=== PATIENT | female | born 1985 | race Caucasian/White ===

== ENCOUNTER 2019-07-26 13:18 | Emergency (ER) | payer SELFPAY ==
[2019-07-26 13:23] VITALS: BP 130/106; PULSE 115; RESP 20; TEMP 36.4; O2SAT 96; BMI 23.4
[2019-07-26 15:12] LABS: Basophils % 0.1 %; Eosinophils % 0.2 %; Hematocrit 47.3 % (37.0-47.0); Hemoglobin 16.7 g/dL (11.5-15.3); Lymphocytes # 3.1 10^3/uL (0.8-4.8); Lymphocytes % 21.9 %; Mean Corpuscular HGB Conc 35.3 g/dL (30.0-36.0); Mean Corpuscular Hemoglobin 30.5 pg (28.0-34.0); Mean Corpuscular Volume 86.5 fL (81-99); Mean Platelet Volume 12.6 fL (7.4-10.4); Monocytes # 1.2 10^3/uL (0.2-0.9); Monocytes % 8.7 %; Neutrophils # 9.7 10^3/uL (1.8-7.7); Neutrophils % 68.6 %; Nucleated Red Blood Cells % 0 %; Platelet Count 302 10^3/cmm (130-400); Red Blood Count 5.47 10^6/uL (4.1-5.3); Red Cell Distribution Width 11.9 % (12.1-15.1); White Blood Count 14.2 10^3/uL (4.0-10.0)
[2019-07-26 15:59] LABS: Alanine Aminotransferase 14 U/L (0-33); Albumin Level 5.6 g/dL (3.5-5.2); Alkaline Phosphatase 65 IU/L (35-105); Anion Gap 24.9 (5-19); Aspartate Amino Transferase 18 U/L (0-32); Blood Urea Nitrogen 14 mg/dL (6-20); Calcium 10.8 mg/Dl (8.6-10.0); Carbon Dioxide 18 mmol/L (22-29); Chloride 88 mmol/L (98-107); Globulin 2.2 g/dL (1.3-4.6); Glomerular Filtration Rate 81.2 mL/min (90-130); Glucose 114 mg/dL (74-109); Lipase 26 U/L (13-60); Potassium 2.9 mmol/L (3.5-5.1); Sodium 128 mmol/L (136-145); Total Bilirubin 1.2 mg/dL (0.15-1.2); Total Protein 7.8 g/dL (6.6-8.7)
[2019-07-26 16:39] LABS: INR 1.11 (0.8-1.2)
[2019-07-26 16:40] LABS: Partial Thromboplastin Time 29.2 SECONDS (23.9-36.7)
[2019-07-26 19:03] VITALS: BP 126/96; PULSE 111; RESP 18; O2SAT 98
--- NOTE | 2019-07-26 19:07 | ED_ITS ---
Entered by Jaquelin Amaro, acting as scribe for Jul 26, 2019 13:18 HPI - GI Bleed General: Chief complaint: Nausea/Vomiting/Diarrhea Stated complaint: n/v/d,abd pain Time Seen by Provider: 07/26/19 19:00 Source: patient Mode of arrival: ambulatory History of Present Illness: HPI Narrative: 34 yo female presents with abdomen pain and constipation. pt states this started today. pt has had nausea and vomiting. pt states she has a CT scan and it was negative. pt has a history of nausea and vomiting. pt denies GI bleed or any other symptoms at this time. Onset (ago): day(s) (today) Pain Consistency: constant Severity: moderate Relieving factors: vomiting Exacerbating factors: vomiting Associated symptoms: Reports abdominal pain; Denies chills, easy bruising, fever(s), headache(s) or rash Review of Systems General: Reports: 10 or more systems reviewed and unremarkable except in HPI and below (constipation) Const: Denies: fever or chills Eyes: Denies: change in vision ENMT: Denies: throat pain or mouth pain Card: Denies: chest pain Resp: Denies: shortness of breath GI: Reports: abdominal pain : Denies: difficulty urinating Musc: Denies: back pain or joint pain Skin/Breast: Denies: rash Neuro: Denies: headache or behavioral changes Psych: Denies: depression Endo: Denies: excessive urination Klaus/Lymph: Denies: easy bruising All/Imm: Denies: hives PFSH ED PFSH: Statuses (acute, chronic, etc) shown below reflect problem list status as previously entered and may not be historically accurate Social History Smoking and tobacco status: former smoker Alcohol intake: never Physical Exam Const: COMMON NORMALS: no apparent distress and healthy appearing HENMT: COMMON NORMALS: normocephalic and external nose normal HEAD & SCALP: normocephalic NOSE: external nose normal and no nasal discharge (nasal dischage) Eye: COMMON NORMALS: PERRL PUPIL: Yes PERRL Neck/C-Spine: COMMON NORMALS: full ROM and no lymphadenopathy Chest: COMMONS NORMALS: inspection of chest normal Resp: COMMON NORMALS: normal respiratory effort and clear to auscultation bilaterally AUSCULTATION: clear to auscultation bilaterally Cardio: COMMON NORMALS: regular rate and regular rhythm RATE: regular rate RHYTHM: regular rhythm GI: COMMON NORMALS: soft to palpation PALPATION: Yes soft Extremity: COMMON NORMALS: normal to inspection, full ROM and normal capillary refill Psych: COMMON NORMALS: mental status grossly normal and cooperative Skin: COMMON NORMALS: no rashes or lesions noted GENERAL SKIN EXAM: no rashes or lesions noted Course Vital Signs: Vital signs: Vital Signs Temperature 98.1 F 07/26/19 20:58 Pulse Rate 95 07/26/19 20:58 Respiratory Rate 18 07/26/19 20:58 Blood Pressure 144/99 07/26/19 20:58 Pulse Oximetry 98 07/26/19 20:58 MDM - GI Bleed MDM Narrative: Medical decision making narrative: Patient presents here with abdominal pain along with vomiting that is likely viral in origin. Patient is well-appearing here and feels much improved after Reglan. Abdominal exam is benign and lab work is normal. She had a CT scan a week ago. She has no signs of acute surgical cause. Lab Data: Labs: Lab Results 07/26/19 07/26/19 07/26/19 Range/Units 14:55 14:55 14:55 WBC 14.2 H (4.0-10.0) 10^3/ uL RBC 5.47 H (4.1-5.3) 10^6/u L Hgb 16.7 H (11.5-15.3) g/dL Hct 47.3 H (37.0-47.0) % MCV 86.5 (81-99) fL MCH 30.5 (28.0-34.0) pg MCHC 35.3 (30.0-36.0) g/dL RDW 11.9 L (12.1-15.1) % Plt Count 302 (130-400) 10^3/c mm MPV 12.6 H (7.4-10.4) fL Neut % (Auto) 68.6 % Lymph % (Auto) 21.9 % [place] % (Auto) 8.7 % Eos % (Auto) 0.2 % Baso % (Auto) 0.1 % Neut # (Auto) 9.7 H (1.8-7.7) 10^3/u L Lymph # (Auto) 3.1 (0.8-4.8) 10^3/u L [place] # (Auto) 1.2 H (0.2-0.9) 10^3/u L Eos # (Auto) 0.0 (0.0-0.8) 10^3/u L Baso # (Auto) 0.0 (0.0-0.1) 10^3/u L Nucleated RBC % (a uto) 0 % Nucleated RBCs # 0.0 /100WBC PT 14.70 H (10.5-13.3) SECO NDS INR 1.11 (0.8-1.2) APTT 29.2 (23.9-36.7) SECO NDS Sodium 128 L (136-145) mmol/L Potassium 2.9 L (3.5-5.1) mmol/L Chloride 88 L (98-107) mmol/L Carbon Dioxide 18 L (22-29) mmol/L Anion Gap 24.9 H (5-19) BUN 14 (6-20) mg/dL Creatinine 0.8 (0.5-0.9) mg/dL GFR Calculation 81.2 L (90-130) mL/min Glucose 114 H (74-109) mg/dL Calcium 10.8 H (8.6-10.0) mg/Dl Total Bilirubin 1.2 (0.15-1.2) mg/dL AST 18 (0-32) U/L ALT 14 (0-33) U/L Alkaline Phosphata se 65 (35-105) IU/L Total Protein 7.8 (6.6-8.7) g/dL Albumin 5.6 H (3.5-5.2) g/dL Globulin 2.2 (1.3-4.6) g/dL Lipase 26 (13-60) U/L Discharge Plan Discharge Patient Disposition: Home, Self-Care Clinical Impression: Vomiting Qualifiers: Vomiting type: unspecified Vomiting Intractability: non-intractable Nausea presence: with nausea Qualified Code(s): R11.2 - Nausea with vomiting, unspecified Abdominal pain Qualifiers: Abdominal location: generalized Qualified Code(s): R10.84 - Generalized abdominal pain Condition: Stable Prescriptions: New Reglan 10 mg tablet 10 mg PO Q6H PRN (Reason: nausea and vomiting) Qty: 20 RF: 0 Discharge Orders: Discharge Order (Routine); Ordered 07/26/19 Ordered By: Joann Blood Referrals: Angela Jurado MD [Family Provider] - (in 3-5 days) Peyton Leal MD [Primary Care Provider] - Discharge Diet: Advance as tolerated Discharge Activity: Resume usual activity Patient Instructions: Metoclopramide (By mouth), Abdominal Pain (ED), Vomiting - Adult Discharge Date/Time: 07/26/19 20:59 Coding Level of Care Code ED Obiee Report Developer for Chg Fwd The documentation recorded by the Prem chaparro Bridget Annette, accurately reflects the service I personally performed and the decisions made by Caitie heath Korby, MD Jul 26, 2019 13:18
[2019-07-26] MEDS: sodium chloride 0.9% 1,000 ML 999 ML IV (20:00)
[2019-07-26] MEDS: metoclopramide 5 mg/mL SDV 2 mL 10 MG IV (20:00)
[2019-07-26] MEDS: diphenhydrAMINE 50 mg/mL SDV 1mL IVP (20:00)
[2019-07-26 20:23] VITALS: BP 151/106; PULSE 101; RESP 16; O2SAT 98
--- NOTE | 2019-07-26 20:38 | PC.NURSE ---
nurse advised patient of urine sample needed. patient is not able to to urinate at this time. ed physician notified,
[2019-07-26 20:58] VITALS: BP 144/99; PULSE 95; RESP 18; TEMP 36.7; O2SAT 98
== END 2019-07-26 20:59 | disposition home or self-care (01) ==
PROVIDERS: Family Medicine; Physician Assistant; Emergency Provider Emergency Medicine; Family Provider Family Medicine; PCP Family Medicine
DX: R11.2 Nausea with vomiting, unspecified (principal); R10.84 Generalized abdominal pain; Z87.891 Personal history of nicotine dependence
CPT/HCPCS: 36415; 80053; 81003; 83690; 85025; 85610; 85730; 96360; 96374; 99282; J1200; J2765; J7030

== ENCOUNTER 2019-11-19 18:50 | Emergency (ER) | payer SELFPAY ==
[2019-11-19 18:56] VITALS: BP 118/81; PULSE 68; RESP 16; TEMP 36.6; O2SAT 96; BMI 25.0
[2019-11-19 19:06] VITALS: BP 107/70; PULSE 59; RESP 20; O2SAT 97
--- NOTE | 2019-11-19 19:06 | XR_ITS ---
WS: [id number] ABDOMEN 1 VIEW(S) HISTORY: constipation COMPARISON: None available. Normal bowel gas pattern. Prior cholecystectomy. No suspicious calcifications or masses. No bone abnormality. XR/XR KUB portable [id number] IMPRESSION: Prior cholecystectomy. Otherwise negative.
--- NOTE | 2019-11-19 19:08 | PC.NURSE ---
MD at bedside for evaluation
--- NOTE | 2019-11-19 19:14 | W.ED.NAVMDI ---
HPI - Nausea/Vomiting/Diarrhea General: Chief complaint: Nausea/Vomiting/Diarrhea Stated complaint: n/v/d Time Seen by Provider: 11/19/19 18:57 History of Present Illness: HPI Narrative: Patient complains of constipation. Took a laxative she has had some diarrhea now now she has hemorrhoids. Is worried that she might not be moving her stool very well. Denies abdominal pain has been nauseated not really vomited. History of constipation MD elicited complaint: nausea and other (The patient) Onset (ago): day(s) Associated nausea: Yes Associated symtoms: Reports no associated symptoms and nausea; Denies anxiety, change in vision, chest pain or headache(s) Review of Systems Const: Denies: fever, chills or body aches Eyes: Denies: change in vision or blurry vision ENMT: Denies: throat pain or nasal congestion Card: Denies: chest pain or shortness of breath on exertion Resp: Denies: shortness of breath, productive cough or non-productive cough GI: Reports: nausea, vomiting and other (Constipation); Denies: abdominal pain Musc: Denies: extremity pain Skin/Breast: Denies: rash Neuro: Denies: headache Psych: Denies: anxiety or depression Klaus/Lymph: Denies: easy bruising PFSH ED PFSH: Social History Smoking and tobacco status: current every day smoker Alcohol intake: never Physical Exam Const: COMMON NORMALS: no apparent distress, average body habitus and oriented x3 HENMT: COMMON NORMALS: normocephalic HEAD & SCALP: normal to inspection and normocephalic FACE & SINUS: normal facial exam Eye: COMMON NORMALS: conjunctivae normal GENERAL EYE: normal appearance of both eyes CONJUNCTIVA: Yes conjunctivae normal Neck/C-Spine: COMMON NORMALS: no JVD Chest: COMMONS NORMALS: inspection of chest normal Resp: COMMON NORMALS: normal respiratory effort and clear to auscultation bilaterally AUSCULTATION: clear to auscultation bilaterally Cardio: COMMON NORMALS: no JVD, regular rate and regular rhythm RATE: regular rate RHYTHM: regular rhythm GI: COMMON NORMALS: normal to inspection, nondistended, normoactive bowel sounds Extremity: COMMON NORMALS: normal to inspection and full ROM Neuro: COMMON NORMALS: oriented x3 Course Vital Signs: Vital signs: Vital Signs Temperature 97.8 F 11/19/19 18:56 Pulse Rate 59 L 11/19/19 19:06 Respiratory Rate 20 H 11/19/19 19:06 Blood Pressure 107/70 11/19/19 19:06 Pulse Oximetry 97 11/19/19 19:06 MDM - Nausea/Vomiting/Diarrhea MDM Narrative: Medical decision making narrative: Patient has a history of repeated admissions to the ER for nausea and vomiting diarrhea. Patient is a daily pot smoker patient refuses believe that pot could have anything to do with her repeated episodes of vomiting. Lab Data: Labs: Lab Results 11/19/19 11/19/19 Range/Units 20:10 20:10 WBC 16.3 H (4.0-10.0) 10^3/ uL RBC 4.88 (4.1-5.3) 10^6/u L Hgb 15.1 (11.5-15.3) g/dL Hct 45.1 (37.0-47.0) % MCV 92.4 (81-99) fL MCH 30.9 (28.0-34.0) pg MCHC 33.5 (30.0-36.0) g/dL RDW 12.1 (12.1-15.1) % Plt Count 264 (130-400) 10^3/c mm MPV 12.0 H (7.4-10.4) fL Neut % (Auto) 74.3 % Lymph % (Auto) 19.8 % [place] % (Auto) 4.7 % Eos % (Auto) 0.6 % Baso % (Auto) 0.2 % Neut # (Auto) 12.1 H (1.8-7.7) 10^3/u L Lymph # (Auto) 3.2 (0.8-4.8) 10^3/u L [place] # (Auto) 0.8 (0.2-0.9) 10^3/u L Eos # (Auto) 0.1 (0.0-0.8) 10^3/u L Baso # (Auto) 0.0 (0.0-0.1) 10^3/u L Nucleated RBC % (a uto) 0 % Nucleated RBCs # 0.0 /100WBC Sodium 140 (136-145) mmol/L Potassium 3.5 (3.5-5.1) mmol/L Chloride 105 (98-107) mmol/L Carbon Dioxide 18 L (22-29) mmol/L Anion Gap 20.5 H (5-19) BUN 9 (6-20) mg/dL Creatinine 0.8 (0.5-0.9) mg/dL GFR Calculation 81.2 L (90-130) mL/min Glucose 135 H (65-115) mg/dL Calculated Osmolal ity 288 (285-295) mOsm/k g Calcium 10.6 H (8.5-10.5) mg/dL Total Bilirubin 0.4 (0.15-1.2) mg/dL AST 18 (0-32) U/L ALT 12 (0-33) U/L Alkaline Phosphata se 69 (35-105) IU/L Total Protein 8.1 (6.6-8.7) g/dL Albumin 4.8 (3.5-5.2) g/dL Globulin 3.3 (1.3-4.6) g/dL Lipase 60 (13-60) U/L Imaging Data^: kub: My impression: negative Discharge Plan Discharge Patient Disposition: Home, Self-Care Clinical Impression: Nausea, Cyclic vomiting syndrome, Marijuana abuse, continuous Hemorrhoids Qualifiers: Hemorrhoid type: first degree Qualified Code(s): K64.0 - First degree hemorrhoids Condition: Stable Prescriptions: New Reglan 5 mg tablet 5 mg PO Q6H PRN (Reason: nausea and vomiting) Qty: 10 RF: 0 No Action Laxative Pills 25 mg Tablet 25 mg PO DAILY RF: 0 Discharge Orders: Discharge Order (Routine); Ordered 11/19/19 Ordered By: González Faustin Referrals: Angela Jurado MD [Family Provider] - Discharge Diet: Advance as tolerated Discharge Activity: Increase activity as tolerated Patient Instructions: Marijuana Abuse, Constipation (ED), Dehydration (ED) Activity Restrictions/Additional Instructions: Follow-up with medical provider as directed. Take medications as prescribed. Return to the ER or your medical provider if condition worsens. Please read and understand discharge instructions. If any questions ask please. Drink plenty of fluids if no significant provement noted follow-up your family provider. 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
[2019-11-19] MEDS: ondansetron 2 mg/ML SDV 2 mL 4 MG IM (19:47)
[2019-11-19 20:27] LABS: Basophils % 0.2 %; Eosinophils # 0.1 10^3/uL (0.0-0.8); Eosinophils % 0.6 %; Hematocrit 45.1 % (37.0-47.0); Hemoglobin 15.1 g/dL (11.5-15.3); Lymphocytes # 3.2 10^3/uL (0.8-4.8); Lymphocytes % 19.8 %; Mean Corpuscular HGB Conc 33.5 g/dL (30.0-36.0); Mean Corpuscular Hemoglobin 30.9 pg (28.0-34.0); Mean Corpuscular Volume 92.4 fL (81-99); Monocytes # 0.8 10^3/uL (0.2-0.9); Monocytes % 4.7 %; Neutrophils # 12.1 10^3/uL (1.8-7.7); Neutrophils % 74.3 %; Nucleated Red Blood Cells % 0 %; Platelet Count 264 10^3/cmm (130-400); Red Blood Count 4.88 10^6/uL (4.1-5.3); Red Cell Distribution Width 12.1 % (12.1-15.1); White Blood Count 16.3 10^3/uL (4.0-10.0)
[2019-11-19] MEDS: metoclopramide 10 mg Tablet 5 MG PO (20:43)
[2019-11-19 20:54] LABS: Alanine Aminotransferase 12 U/L (0-33); Albumin Level 4.8 g/dL (3.5-5.2); Alkaline Phosphatase 69 IU/L (35-105); Anion Gap 20.5 (5-19); Aspartate Amino Transferase 18 U/L (0-32); Blood Urea Nitrogen 9 mg/dL (6-20); Calcium 10.6 mg/dL (8.5-10.5); Carbon Dioxide 18 mmol/L (22-29); Chloride 105 mmol/L (98-107); Globulin 3.3 g/dL (1.3-4.6); Glomerular Filtration Rate 81.2 mL/min (90-130); Glucose 135 mg/dL (65-115); Lipase 60 U/L (13-60); Osmolality Calculated 288 mOsm/kg (285-295); Potassium 3.5 mmol/L (3.5-5.1); Sodium 140 mmol/L (136-145); Total Bilirubin 0.4 mg/dL (0.15-1.2); Total Protein 8.1 g/dL (6.6-8.7)
[2019-11-19 21:21] VITALS: BP 112/76; PULSE 88; RESP 19; O2SAT 96
== END 2019-11-19 21:25 | disposition home or self-care (01) ==
PROVIDERS: Emergency Provider Nurse Practitioner Family; Family Provider Family Medicine
DX: K64.0 First degree hemorrhoids (principal); R11.15 Cyclical vomiting syndrome unrelated to migraine; F12.10 Cannabis abuse, uncomplicated; F17.210 Nicotine dependence, cigarettes, uncomplicated
CPT/HCPCS: 12345; 74018; 80053; 83690; 85025; 96372; 99281; 99283; J2405; J8597

== ENCOUNTER 2019-11-21 04:01 | Emergency (ER) | payer MEDICAID, SELFPAY ==
[2019-11-21 04:08] VITALS: BP 178/98; PULSE 85; RESP 18; TEMP 37.2; O2SAT 97; BMI 24.4
[2019-11-21 04:31] VITALS: RESP 20; O2SAT 100
[2019-11-21] MEDS: ondansetron 2 mg/ML SDV 2 mL 4 MG IVP (04:31)
[2019-11-21] MEDS: HYDROmorphone 1 mg/mL INJ 1 mL IVP (04:31)
[2019-11-21] MEDS: sodium chloride 0.9% 1,000 ML 999 ML IV (04:32)
[2019-11-21 04:37] VITALS: BP 141/98; PULSE 82; RESP 18; O2SAT 98
[2019-11-21 04:40] LABS: Basophils % 0.1 %; Hematocrit 44.3 % (37.0-47.0); Hemoglobin 15.2 g/dL (11.5-15.3); Lymphocytes # 4.5 10^3/uL (0.8-4.8); Lymphocytes % 21.4 %; Mean Corpuscular HGB Conc 34.3 g/dL (30.0-36.0); Mean Corpuscular Hemoglobin 30.5 pg (28.0-34.0); Mean Platelet Volume 11.7 fL (7.4-10.4); Monocytes # 1.2 10^3/uL (0.2-0.9); Monocytes % 5.8 %; Neutrophils # 15.2 10^3/uL (1.8-7.7); Neutrophils % 72.3 %; Nucleated Red Blood Cells % 0 %; Platelet Count 374 10^3/cmm (130-400); Red Blood Count 4.98 10^6/uL (4.1-5.3); Red Cell Distribution Width 12.3 % (12.1-15.1); White Blood Count 21.1 10^3/uL (4.0-10.0)
[2019-11-21] MEDS: pantoprazole 40 mg SDV 80 MG IVP (04:42)
[2019-11-21 04:50] LABS: HCG, Serum Qual Negative (Negative)
--- NOTE | 2019-11-21 04:54 | ECG_ITS ---
Measurements Intervals [place] Rate: 61 P: 60 [place]: 138 QRS: 60 QRSD: 81 T: 65 QT: 394 QTc: 399 SINUS RHYTHM WITH FREQUENT SUPRAVENTRICULAR PREMATURE COMPLEXES Compared to ECG 02/11/2019 10:57:55 T-wave abnormality no longer present Possible ischemia no longer present Electronically Signed On 11-21-2019 19:55:04 CDT by Rita Otero M.D. [email or web address]
--- NOTE | 2019-11-21 04:56 | ED_ITS ---
Documented by User: Luo Lane 11/21/19 04:59 HPI - Abdominal Pain General: Chief Complaint: Abdominal Pain Stated Complaint: abd pain Time Seen by Provider: 11/21/19 04:07 History of Present Illness: HPI narrative: Anne-Marie is a 34-year-old female who comes in complaining of severe nausea and vomiting. She states that she began yesterday and has not been able to keep anything down. She is had one episode of diarrhea but states that mostly it severe nausea and vomiting. She states that she also has some blood in her vomit. The emesis she states is just slightly blood-tinged. She denies any fevers or chills. She denies any dysuria, vaginal discharge or bleeding. Associated Symptoms: Reports hematemesis, nausea and vomiting; Denies chills, coffee ground emesis, constipation, GI cramping, diarrhea, dysuria, fever(s), hematochezia, hematuria, melena and syncope Review of Systems General: Reports: other (negative unless marked) Const: Denies: fever, chills, body aches, fatigue, malaise or diaphoresis Eyes: Denies: change in vision or blurry vision ENMT: Denies: throat pain, painful swallowing, hoarseness, ear pain, ear discharge, Change in hearing or nasal discharge Card: Denies: chest pain, palpitations, irregular heart rhythm, syncope, pre- syncope, shortness of breath on exertion or shortness of breath when lying down Resp: Denies: shortness of breath, productive cough, non-productive cough, wheezing, coughing up blood or chest congestion GI: Reports: abdominal pain, nausea, vomiting and vomiting blood; Denies: coffee grounds in vomit, diarrhea, constipation, cramping, blood in stool or black tarry stool : Denies: flank pain, painful urination, urinary frequency, urinary urgency, decreased urine ouput, urinary incontinence or blood in urine Musc: Denies: neck pain, back pain, extremity pain, extremity swelling, joint pain, joint swelling, joint warmth or joint stiffness Skin/Breast: Denies: rash, skin tenderness or yellow skin Neuro: Denies: headache, numbness in extremities, weakness in extremities, changes in sensation, lack of coordination, difficulty walking, dizziness, vertigo or confusion Endo: Denies: excessive thirst, tired all the time, cold intolerance, excessive sweating, flushing or hot flashes Klaus/Lymph: Denies: easy bruising, easy bleeding, petechiae or enlarged lymph nodes All/Imm: Denies: hives, throat swelling, tongue swelling, facial swelling or acute wheezing PFSH ED PFSH: Social History (Updated 11/22/19 @ 01:55 by Brandon Carbajal MD) Smoking and tobacco status: former smoker Alcohol intake: never Substance/Drug Use: current Substance/Drug use type: Marijuana Other substance/drug use details: Uses marijuana on a weekly basis Housing: House Physical Exam Const: COMMON NORMALS: oriented x3, no limitations, healthy appearing and well nourished EXAM LIMITATIONS: no altered mental status GENERAL APPEARANCE: cooperative, well kempt and well developed ORIENTATION/CONSCIOUSNESS: Yes awake HENMT: COMMON NORMALS: normocephalic, head/scalp atraumatic, hearing grossly normal bilaterally, external ears normal, EAC's normal, external nose normal and moist oral mucous membranes HEAD & SCALP: normal to inspection, normocephalic and atraumatic FACE & SINUS: normal facial exam and face symmetric NOSE: external nose normal and nares normal EXTERNAL EAR: Yes external ears normal EXTERNAL AUDITORY CANAL: EAC's normal MOUTH: oral and palatal mucosa normal and tongue normal Eye: COMMON NORMALS: PERRL, EOMs intact bilaterally, conjunctivae normal and no scleral icterus GENERAL EYE: normal appearance of both eyes and normal light reflex CONJUNCTIVA: Yes conjunctivae normal SCLERA: sclerae normal CORNEA: Yes corneas normal PUPIL: Yes PERRL DIRECT OPHTHALMOSCOPY: Yes normal light reflex Neck/C-Spine: COMMON NORMALS: full ROM, no lymphadenopathy, supple, no meningeal signs and no JVD GENERAL: Yes normal visual inspection and Yes trachea midline CERVICAL SPINE: Yes cervical ROM normal Chest: COMMONS NORMALS: inspection of chest normal and palpation of chest normal Resp: COMMON NORMALS: normal respiratory effort, no retractions, no use of accessory muscles and clear to auscultation bilaterally EFFORT & INSPECTION: Yes able to speak in complete sentences AUSCULTATION: clear to auscultation bilaterally Cardio: COMMON NORMALS: no JVD, regular rate, regular rhythm, S1 normal heart sound, S2 normal heart sound, no gallops, no clicks, no murmurs and no rub JUGULAR VENOUS DISTENTION: no JVD RATE: regular rate RHYTHM: regular rhythm HEART SOUNDS: S1 normal and S2 normal GI: COMMON NORMALS: soft to palpation, no hepatosplenomegaly and no masses PALPATION: Yes soft, Yes tender (Moderate diffusely) and Yes no hepatosplenomegaly : COMMON NORMALS: Yes no CVA tenderness BLADDER/KIDNEY EXAM: Yes no CVA tenderness Back/Pelvis: COMMON NORMALS: no CVA tenderness, thoracic and lumbar spine normal to inspection, no thoracic nor lumbar tenderness and thoraco-lumbar ROM normal Extremity: COMMON NORMALS: normal to inspection, full ROM, normal capillary refill, no joint enlargement, no clubbing, cyanosis or edema and no calf tenderness Neuro: COMMON NORMALS: oriented x3, CN's II-XII intact bilaterally, moves all extremities, no focal motor deficits and no sensory deficits noted MENINGEAL SIGNS: Yes no meningeal signs Psych: COMMON NORMALS: mental status grossly normal, thought process normal, cooperative, affect normal, speech normal and activity/motor behavior normal APPEARANCE: Yes well kempt SPEECH: Yes normal speech THOUGHT PROCESS: normal thought process Skin: COMMON NORMALS: no rashes or lesions noted, skin turgor normal, no jaundice, no petechiae and no mottling GENERAL SKIN EXAM: no rashes or lesions noted and turgor normal Course Vital Signs: Vital signs: Vital Signs Temperature 98.9 F 11/21/19 04:08 Pulse Rate 53 L 11/21/19 09:18 Respiratory Rate 18 11/21/19 09:18 Blood Pressure 112/80 11/21/19 09:18 Pulse Oximetry 97 11/21/19 09:18 MDM - Abdominal Pain Lab Data: Labs: Lab Results 11/21/19 11/21/19 11/21/19 Range/Units 04:28 04:28 04:28 WBC 21.1 H (4.0-10.0) 10^3/ uL RBC 4.98 (4.1-5.3) 10^6/u L Hgb 15.2 (11.5-15.3) g/dL Hct 44.3 (37.0-47.0) % MCV 89.0 (81-99) fL MCH 30.5 (28.0-34.0) pg MCHC 34.3 (30.0-36.0) g/dL RDW 12.3 (12.1-15.1) % Plt Count 374 (130-400) 10^3/c mm MPV 11.7 H (7.4-10.4) fL Neut % (Auto) 72.3 % Lymph % (Auto) 21.4 % [place] % (Auto) 5.8 % Eos % (Auto) 0.0 % Baso % (Auto) 0.1 % Neut # (Auto) 15.2 H (1.8-7.7) 10^3/u L Lymph # (Auto) 4.5 (0.8-4.8) 10^3/u L [place] # (Auto) 1.2 H (0.2-0.9) 10^3/u L Eos # (Auto) 0.0 (0.0-0.8) 10^3/u L Baso # (Auto) 0.0 (0.0-0.1) 10^3/u L Nucleated RBC % (a uto) 0 % Nucleated RBCs # 0.0 /100WBC Sodium 138 (136-145) mmol/L Potassium 3.0 L (3.5-5.1) mmol/L Chloride 93 L (98-107) mmol/L Carbon Dioxide 21 L (22-29) mmol/L Anion Gap 27.0 H (5-19) BUN 16 (6-20) mg/dL Creatinine 1.2 H (0.5-0.9) mg/dL GFR Calculation 50.8 L (90-130) mL/min Glucose 211 H (65-115) mg/dL Calculated Osmolal ity 289 (285-295) mOsm/k g Calcium 10.8 H (8.5-10.5) mg/dL Magnesium (1.7-2.3) mg/dL Total Bilirubin 0.6 (0.15-1.2) mg/dL AST 17 (0-32) U/L ALT 12 (0-33) U/L Alkaline Phosphata se 71 (35-105) IU/L Total Protein 8.4 (6.6-8.7) g/dL Albumin 5.2 (3.5-5.2) g/dL Globulin 3.2 (1.3-4.6) g/dL Lipase 53 (13-60) U/L HCG, Qual Negative (Negative) Urine Color (Yellow) Urine Appearance (CLEAR) Urine pH (5-7) Ur Specific Gravit y (1.005-1.030) Urine Protein (Negative) Urine Glucose (UA) (Normal) Urine Ketones (Negative) Urine Blood (Negative) Urine Nitrate (Negative) Urine Bilirubin (NEGATIVE) Urine Urobilinogen (Negative) mg/dL Ur Leukocyte Zakiya ase (Negative) Urine RBC (0-2) /hpf Urine WBC (0-5) /hpf Ur Squamous Epith Cells (0-5) Urine Bacteria (NONE) Urine Mucus 11/21/19 11/21/19 Range/Units 04:28 06:06 WBC (4.0-10.0) 10^3/ uL RBC (4.1-5.3) 10^6/u L Hgb (11.5-15.3) g/dL Hct (37.0-47.0) % MCV (81-99) fL MCH (28.0-34.0) pg MCHC (30.0-36.0) g/dL RDW (12.1-15.1) % Plt Count (130-400) 10^3/c mm MPV (7.4-10.4) fL Neut % (Auto) % Lymph % (Auto) % [place] % (Auto) % Eos % (Auto) % Baso % (Auto) % Neut # (Auto) (1.8-7.7) 10^3/u L Lymph # (Auto) (0.8-4.8) 10^3/u L [place] # (Auto) (0.2-0.9) 10^3/u L Eos # (Auto) (0.0-0.8) 10^3/u L Baso # (Auto) (0.0-0.1) 10^3/u L Nucleated RBC % (a uto) % Nucleated RBCs # /100WBC Sodium (136-145) mmol/L Potassium (3.5-5.1) mmol/L Chloride (98-107) mmol/L Carbon Dioxide (22-29) mmol/L Anion Gap (5-19) BUN (6-20) mg/dL Creatinine (0.5-0.9) mg/dL GFR Calculation (90-130) mL/min Glucose (65-115) mg/dL Calculated Osmolal ity (285-295) mOsm/k g Calcium (8.5-10.5) mg/dL Magnesium 2.2 (1.7-2.3) mg/dL Total Bilirubin (0.15-1.2) mg/dL AST (0-32) U/L ALT (0-33) U/L Alkaline Phosphata se (35-105) IU/L Total Protein (6.6-8.7) g/dL Albumin (3.5-5.2) g/dL Globulin (1.3-4.6) g/dL Lipase (13-60) U/L HCG, Qual (Negative) Urine Color Yellow (Yellow) Urine Appearance Cloudy (CLEAR) Urine pH 5 (5-7) Ur Specific Gravit y 1.020 (1.005-1.030) Urine Protein 2+ H (Negative) Urine Glucose (UA) Norm (Normal) Urine Ketones 1+ H (Negative) Urine Blood 2+ H (Negative) Urine Nitrate Negative (Negative) Urine Bilirubin 1+ H (NEGATIVE) Urine Urobilinogen 1 H (Negative) mg/dL Ur Leukocyte Zakiya ase Negative (Negative) Urine RBC 0-4 H (0-2) /hpf Urine WBC 0-4 H (0-5) /hpf Ur Squamous Epith Cells 40-55 H (0-5) Urine Bacteria 1+ H (NONE) Urine Mucus 1+ Discharge Plan Discharge Patient Disposition: Home, Self-Care Clinical Impression: Cyclic vomiting syndrome, Marijuana abuse, continuous Condition: Stable Prescriptions: New promethazine 25 mg tablet 25 mg PO Q6H PRN (Reason: nausea and vomiting) Qty: 20 RF: 0 pantoprazole 40 mg tablet,delayed release (DR/EC) 40 mg PO QAM 56 Days Qty: 56 RF: 0 No Action Laxative Pills 25 mg Tablet 25 mg PO DAILY RF: 0 Reglan 5 mg tablet 5 mg PO Q6H PRN (Reason: nausea and vomiting) Qty: 10 RF: 0 Discharge Orders: Discharge Order (Routine); Ordered 11/21/19 Ordered By: Darryl Santos Referrals: Angela Jurado MD [Family Provider] - Discharge Diet: Advance as tolerated Discharge Activity: Increase activity as tolerated Activity Restrictions/Additional Instructions: Follow-up with your primary care doctor within the week. You should have your potassium rechecked. If of significant worsening recheck Discharge Date/Time: 11/21/19 10:25 Sign Out Sign Out Data: Patient Sign Out occurred on 11/21/19 at 07:00. Patient's care was discussed, and care was transferred from to Darryl Santos DO. Coding Level of Care Code ED Social Media Designer for Chg Fwd Exam Comprehensive Documented by User: Darryl Santos DO 11/22/19 06:14 HPI - Abdominal Pain General: Chief Complaint: Abdominal Pain Stated Complaint: abd pain Time Seen by Provider: 11/21/19 04:07 PFSH ED PFSH: Social History (Updated 11/22/19 @ 01:55 by Brandon Carbajal MD) Smoking and tobacco status: former smoker Alcohol intake: never Substance/Drug Use: current Substance/Drug use type: Marijuana Other substance/drug use details: Uses marijuana on a weekly basis Housing: House Course Vital Signs: Vital signs: Vital Signs Temperature 98.9 F 11/21/19 04:08 Pulse Rate 53 L 11/21/19 09:18 Respiratory Rate 18 11/21/19 09:18 Blood Pressure 112/80 11/21/19 09:18 Pulse Oximetry 97 11/21/19 09:18 MDM - Abdominal Pain MDM Narrative: Medical decision making narrative: Patient is feeling much better after fluids and antiemetics will discharge her home with promethazine also put her on pantoprazole 40 mg daily follow-up with primary care doctor within the week return to the emergency room if she has worsening problems she did have a little bit of streaking of blood in her vomitus has not recurred I suspect that is a Kayy-Leon tear if she has further bloody vomiting she needs to return. Lab Data: Labs: Lab Results 11/21/19 11/21/19 11/21/19 Range/Units 04:28 04:28 04:28 WBC 21.1 H (4.0-10.0) 10^3/ uL RBC 4.98 (4.1-5.3) 10^6/u L Hgb 15.2 (11.5-15.3) g/dL Hct 44.3 (37.0-47.0) % MCV 89.0 (81-99) fL MCH 30.5 (28.0-34.0) pg MCHC 34.3 (30.0-36.0) g/dL RDW 12.3 (12.1-15.1) % Plt Count 374 (130-400) 10^3/c mm MPV 11.7 H (7.4-10.4) fL Neut % (Auto) 72.3 % Lymph % (Auto) 21.4 % [place] % (Auto) 5.8 % Eos % (Auto) 0.0 % Baso % (Auto) 0.1 % Neut # (Auto) 15.2 H (1.8-7.7) 10^3/u L Lymph # (Auto) 4.5 (0.8-4.8) 10^3/u L [place] # (Auto) 1.2 H (0.2-0.9) 10^3/u L Eos # (Auto) 0.0 (0.0-0.8) 10^3/u L Baso # (Auto) 0.0 (0.0-0.1) 10^3/u L Nucleated RBC % (a uto) 0 % Nucleated RBCs # 0.0 /100WBC Sodium 138 (136-145) mmol/L Potassium 3.0 L (3.5-5.1) mmol/L Chloride 93 L (98-107) mmol/L Carbon Dioxide 21 L (22-29) mmol/L Anion Gap 27.0 H (5-19) BUN 16 (6-20) mg/dL Creatinine 1.2 H (0.5-0.9) mg/dL GFR Calculation 50.8 L (90-130) mL/min Glucose 211 H (65-115) mg/dL Calculated Osmolal ity 289 (285-295) mOsm/k g Calcium 10.8 H (8.5-10.5) mg/dL Magnesium (1.7-2.3) mg/dL Total Bilirubin 0.6 (0.15-1.2) mg/dL AST 17 (0-32) U/L ALT 12 (0-33) U/L Alkaline Phosphata se 71 (35-105) IU/L Total Protein 8.4 (6.6-8.7) g/dL Albumin 5.2 (3.5-5.2) g/dL Globulin 3.2 (1.3-4.6) g/dL Lipase 53 (13-60) U/L HCG, Qual Negative (Negative) Urine Color (Yellow) Urine Appearance (CLEAR) Urine pH (5-7) Ur Specific Gravit y (1.005-1.030) Urine Protein (Negative) Urine Glucose (UA) (Normal) Urine Ketones (Negative) Urine Blood (Negative) Urine Nitrate (Negative) Urine Bilirubin (NEGATIVE) Urine Urobilinogen (Negative) mg/dL Ur Leukocyte Zakiya ase (Negative) Urine RBC (0-2) /hpf Urine WBC (0-5) /hpf Ur Squamous Epith Cells (0-5) Urine Bacteria (NONE) Urine Mucus 11/21/19 11/21/19 Range/Units 04:28 06:06 WBC (4.0-10.0) 10^3/ uL RBC (4.1-5.3) 10^6/u L Hgb (11.5-15.3) g/dL Hct (37.0-47.0) % MCV (81-99) fL MCH (28.0-34.0) pg MCHC (30.0-36.0) g/dL RDW (12.1-15.1) % Plt Count (130-400) 10^3/c mm MPV (7.4-10.4) fL Neut % (Auto) % Lymph % (Auto) % [place] % (Auto) % Eos % (Auto) % Baso % (Auto) % Neut # (Auto) (1.8-7.7) 10^3/u L Lymph # (Auto) (0.8-4.8) 10^3/u L [place] # (Auto) (0.2-0.9) 10^3/u L Eos # (Auto) (0.0-0.8) 10^3/u L Baso # (Auto) (0.0-0.1) 10^3/u L Nucleated RBC % (a uto) % Nucleated RBCs # /100WBC Sodium (136-145) mmol/L Potassium (3.5-5.1) mmol/L Chloride (98-107) mmol/L Carbon Dioxide (22-29) mmol/L Anion Gap (5-19) BUN (6-20) mg/dL Creatinine (0.5-0.9) mg/dL GFR Calculation (90-130) mL/min Glucose (65-115) mg/dL Calculated Osmolal ity (285-295) mOsm/k g Calcium (8.5-10.5) mg/dL Magnesium 2.2 (1.7-2.3) mg/dL Total Bilirubin (0.15-1.2) mg/dL AST (0-32) U/L ALT (0-33) U/L Alkaline Phosphata se (35-105) IU/L Total Protein (6.6-8.7) g/dL Albumin (3.5-5.2) g/dL Globulin (1.3-4.6) g/dL Lipase (13-60) U/L HCG, Qual (Negative) Urine Color Yellow (Yellow) Urine Appearance Cloudy (CLEAR) Urine pH 5 (5-7) Ur Specific Gravit y 1.020 (1.005-1.030) Urine Protein 2+ H (Negative) Urine Glucose (UA) Norm (Normal) Urine Ketones 1+ H (Negative) Urine Blood 2+ H (Negative) Urine Nitrate Negative (Negative) Urine Bilirubin 1+ H (NEGATIVE) Urine Urobilinogen 1 H (Negative) mg/dL Ur Leukocyte Zakiya ase Negative (Negative) Urine RBC 0-4 H (0-2) /hpf Urine WBC 0-4 H (0-5) /hpf Ur Squamous Epith Cells 40-55 H (0-5) Urine Bacteria 1+ H (NONE) Urine Mucus 1+ Discharge Plan Discharge Patient Disposition: Home, Self-Care Clinical Impression: Cyclic vomiting syndrome, Marijuana abuse, continuous Condition: Stable Prescriptions: New promethazine 25 mg tablet 25 mg PO Q6H PRN (Reason: nausea and vomiting) Qty: 20 RF: 0 pantoprazole 40 mg tablet,delayed release (DR/EC) 40 mg PO QAM 56 Days Qty: 56 RF: 0 No Action Laxative Pills 25 mg Tablet 25 mg PO DAILY RF: 0 Reglan 5 mg tablet 5 mg PO Q6H PRN (Reason: nausea and vomiting) Qty: 10 RF: 0 Discharge Orders: Discharge Order (Routine); Ordered 11/21/19 Ordered By: Darryl Santos Referrals: Angela Jurado MD [Family Provider] - Discharge Diet: Advance as tolerated Discharge Activity: Increase activity as tolerated Activity Restrictions/Additional Instructions: Follow-up with your primary care doctor within the week. You should have your potassium rechecked. If of significant worsening recheck Discharge Date/Time: 11/21/19 10:25 Sign Out Sign Out Data: Patient Sign Out occurred on 11/21/19 at 07:00. Patient's care was discussed, and care was transferred from to Darryl Santos DO. Coding Level of Care Code ED Social Media Designer for Chg Fwd Exam Comprehensive
[2019-11-21 05:00] LABS: Bacteria Urine 1+; Bilirubin Urine 1+ (NEGATIVE); Blood Urine 2+ (Negative); Glucose Urine UA Norm (Normal); Ketones Urine 1+ (Negative); Leukocyte Esterase Urine Negative (Negative); Mucus Urine 1+; Nitrate Urine Negative (Negative); Protein Urine 2+ (Negative); RBC Urine 0-4 /hpf (0-2); Squamous Epithelial Cell Urine 40-55 (0-5); Urine Appearance Cloudy (CLEAR); Urine Color Yellow (Yellow); Urobilinogen Urine 1 mg/dL (Negative); WBC Urine 0-4 /hpf (0-5); pH Urine 5 (5-7)
[2019-11-21 05:01] LABS: Alanine Aminotransferase 12 U/L (0-33); Albumin Level 5.2 g/dL (3.5-5.2); Alkaline Phosphatase 71 IU/L (35-105); Aspartate Amino Transferase 17 U/L (0-32); Blood Urea Nitrogen 16 mg/dL (6-20); Calcium 10.8 mg/dL (8.5-10.5); Carbon Dioxide 21 mmol/L (22-29); Chloride 93 mmol/L (98-107); Globulin 3.2 g/dL (1.3-4.6); Glomerular Filtration Rate 50.8 mL/min (90-130); Glucose 211 mg/dL (65-115); Lipase 53 U/L (13-60); Osmolality Calculated 289 mOsm/kg (285-295); Sodium 138 mmol/L (136-145); Total Bilirubin 0.6 mg/dL (0.15-1.2); Total Protein 8.4 g/dL (6.6-8.7)
--- NOTE | 2019-11-21 05:03 | CTR_ITS ---
PROCEDURE INFORMATION: Exam: CT Abdomen And Pelvis With Contrast Exam date and time: 11/21/2019 6:09 AM Age: 34 years old Clinical indication: Abdominal pain; Prior surgery; Surgery type: Gb; Patient HX: Generalized abd pain with n/v TECHNIQUE: Imaging protocol: Computed tomography of the abdomen and pelvis with intravenous contrast. Radiation optimization: All CT scans at this facility use at least one of these dose optimization techniques: automated exposure control; mA and/or kV adjustment per patient size (includes targeted exams where dose is matched to clinical indication); or iterative reconstruction. Contrast material: VISI 320; Contrast volume: 75 ml; Contrast route: 20G RIGHT HAND; COMPARISON: CT abdomen pelvis w con* [id number] 11/21/2018 7:01 AM RADIATION DOSE METRICS: Total DLP: 538.91 mGy-cm FINDINGS: Liver: Normal. No mass. Gallbladder and bile ducts: Postoperative cholecystectomy. Pancreas: Normal. No ductal dilation. Spleen: Normal. No splenomegaly. Adrenals: Normal. No mass. Kidneys and ureters: Nonobstructive left renal calculus. No hydronephrosis. Stomach and bowel: Fluid-filled small bowel rather diffusely which may reflect ileus or enteritis. Appendix: No evidence of appendicitis. Intraperitoneal space: Unremarkable. No free air. No significant fluid collection. Vasculature: Unremarkable. No abdominal aortic aneurysm. Lymph nodes: Unremarkable. No enlarged lymph nodes. Bladder: Unremarkable as visualized. Reproductive: Unremarkable as visualized. Bones/joints: Unremarkable. No acute fracture. Soft tissues: Minor umbilical hernia containing fat. CT/CT abdomen pelvis w con* [id number] IMPRESSION: 1. Small bowel enteritis or ileus. 2. Nonobstructive left intrarenal calculus. Radiation Dose CTDIVOL = (mGy): DLP = 538.91 (mGy-cm)
[2019-11-21] MEDS: potassium chloride premix 40 MEQ/100 ML PREMIX 25 MEQ IV (06:04)
[2019-11-21] MEDS: sodium chloride 0.9% 1,000 ML 100 ML IV (06:04)
[2019-11-21 06:18] VITALS: RESP 20
[2019-11-21] MEDS: HYDROmorphone 1 mg/mL INJ 1 mL 0.5 MG IVP (06:18)
[2019-11-21] MEDS: iodixanol 320 mg/mL 100mL Btl IV (06:23)
[2019-11-21 06:24] LABS: Magnesium 2.2 mg/dL (1.7-2.3)
[2019-11-21 09:18] VITALS: BP 112/80; PULSE 53; RESP 18; O2SAT 97
== END 2019-11-21 10:25 | disposition home or self-care (01) ==
PROVIDERS: Emergency Medicine; Emergency Provider Family Medicine; Family Provider Family Medicine
DX: R11.15 Cyclical vomiting syndrome unrelated to migraine (principal); F12.10 Cannabis abuse, uncomplicated; Z87.891 Personal history of nicotine dependence
CPT/HCPCS: 12345; 36415; 74177; 80053; 81001; 83690; 83735; 84703; 85025; 93005; 96360; 96365; 96366; 96374; 96375; 96376; 99283; 99284; C9113; J1170; J2405; J3480; J7030; Q9967

== ENCOUNTER 2019-11-21 21:38 | Inpatient (IN) | payer SELFPAY ==
[2019-11-21 21:50] VITALS: BP 179/105; PULSE 66; RESP 17; TEMP 37.3; O2SAT 97; BMI 24.4
--- NOTE | 2019-11-21 22:23 | ECG_ITS ---
Measurements Intervals [place] Rate: 59 P: 75 VT: 157 QRS: 38 QRSD: 68 T: 26 QT: 402 QTc: 399 SINUS BRADYCARDIA Compared to ECG 11/21/2019 05:11:27 Sinus rhythm no longer present Electronically Signed On 11-23-2019 16:33:23 CDT by Rita Otero M.D. [email or web address]
--- NOTE | 2019-11-21 22:47 | ED_ITS ---
HPI - Abdominal Pain General: Chief Complaint: Abdominal Pain Stated Complaint: abd pain Time Seen by Provider: 11/21/19 22:17 History of Present Illness: HPI narrative: Renetta is a 34-year-old female who comes in complaining of intractable nausea vomiting and abdominal pain. Of note the patient was here less than 24 hours ago for the same complaint. I saw her and transferred her care to Dr. Santos. Patient states since going home she feels worse and continues to vomit although she is no longer vomiting blood. She is cramping diffuse abdominal pain but denies any fevers. She has had some diarrhea. Associated Symptoms: Reports diarrhea, nausea and vomiting; Denies chills, coffee ground emesis, constipation, GI cramping, dysuria, fever(s), hematochezia, hematuria, hematemesis, melena and syncope Review of Systems General: Reports: other (negative unless marked) Const: Denies: fever, chills, body aches, fatigue, malaise or diaphoresis Eyes: Denies: change in vision or blurry vision ENMT: Denies: throat pain, painful swallowing, hoarseness, ear pain, ear discharge, Change in hearing or nasal discharge Card: Denies: chest pain, palpitations, irregular heart rhythm, syncope, pre- syncope, shortness of breath on exertion or shortness of breath when lying down Resp: Denies: shortness of breath, productive cough, non-productive cough, wheezing, coughing up blood or chest congestion GI: Reports: abdominal pain, nausea, vomiting and diarrhea; Denies: vomiting blood, coffee grounds in vomit, constipation, cramping, blood in stool or black tarry stool : Denies: flank pain, painful urination, urinary frequency, urinary urgency, decreased urine ouput, urinary incontinence or blood in urine Musc: Denies: neck pain, back pain, extremity pain, extremity swelling, joint pain, joint swelling, joint warmth or joint stiffness Skin/Breast: Denies: rash, skin tenderness or yellow skin Neuro: Denies: headache, numbness in extremities, weakness in extremities, changes in sensation, lack of coordination, difficulty walking, dizziness, vertigo or confusion Endo: Denies: excessive thirst, tired all the time, cold intolerance, excessive sweating, flushing or hot flashes Klaus/Lymph: Denies: easy bruising, easy bleeding, petechiae or enlarged lymph nodes All/Imm: Denies: hives, throat swelling, tongue swelling, facial swelling or acute wheezing PFSH ED PFSH: Medical History (Updated 11/22/19 @ 01:[address]) Asthma Cyclic vomiting syndrome GERD (gastroesophageal reflux disease) Hemorrhoids Hypokalemia Marijuana abuse, continuous Ovarian cyst Surgical History (Updated 11/22/19 @ 01:02 by Brandon Carbajal MD) Hx of appendectomy Hx of cholecystectomy Family History (Updated 11/22/19 @ 01:02 by Brandon Carbajal MD) Other CAD (coronary artery disease) Cancer Social History (Updated 11/22/19 @ 01:02 by Brandon Carbajal MD) Smoking and tobacco status: current every day smoker Alcohol intake: never Substance/Drug Use: current Substance/Drug use type: Marijuana Housing: House Physical Exam Const: COMMON NORMALS: no apparent distress, oriented x3, no limitations, healthy appearing and well nourished EXAM LIMITATIONS: no altered mental status GENERAL APPEARANCE: cooperative, well kempt and well developed ORIENTATION/CONSCIOUSNESS: Yes awake HENMT: COMMON NORMALS: normocephalic, head/scalp atraumatic, hearing grossly normal bilaterally, external ears normal, EAC's normal, external nose normal and moist oral mucous membranes HEAD & SCALP: normal to inspection, normocephalic and atraumatic FACE & SINUS: normal facial exam and face symmetric NOSE: external nose normal and nares normal EXTERNAL EAR: Yes external ears normal EXTERNAL AUDITORY CANAL: EAC's normal MOUTH: oral and palatal mucosa normal and tongue normal Eye: COMMON NORMALS: PERRL, EOMs intact bilaterally, conjunctivae normal and no scleral icterus GENERAL EYE: normal appearance of both eyes and normal light reflex CONJUNCTIVA: Yes conjunctivae normal SCLERA: sclerae normal CORNEA: Yes corneas normal PUPIL: Yes PERRL DIRECT OPHTHALMOSCOPY: Yes normal light reflex Neck/C-Spine: COMMON NORMALS: full ROM, no lymphadenopathy, supple, no meningeal signs and no JVD GENERAL: Yes normal visual inspection and Yes trachea midline CERVICAL SPINE: Yes cervical ROM normal Chest: COMMONS NORMALS: inspection of chest normal and palpation of chest normal Resp: COMMON NORMALS: normal respiratory effort, no retractions, no use of accessory muscles and clear to auscultation bilaterally EFFORT & INSPECTION: Yes able to speak in complete sentences AUSCULTATION: clear to auscultation bilaterally Cardio: COMMON NORMALS: no JVD, regular rate, regular rhythm, S1 normal heart sound, S2 normal heart sound, no gallops, no clicks, no murmurs and no rub JUGULAR VENOUS DISTENTION: no JVD RATE: regular rate RHYTHM: regular rhythm HEART SOUNDS: S1 normal and S2 normal GI: COMMON NORMALS: soft to palpation, no hepatosplenomegaly and no masses PALPATION: Yes soft, Yes tender (Moderate diffusely), No guarding, No rigid and Yes no hepatosplenomegaly : COMMON NORMALS: Yes no CVA tenderness BLADDER/KIDNEY EXAM: Yes no CVA tenderness Back/Pelvis: COMMON NORMALS: no CVA tenderness, thoracic and lumbar spine normal to inspection, no thoracic nor lumbar tenderness and thoraco-lumbar ROM normal Extremity: COMMON NORMALS: normal to inspection, full ROM, normal capillary refill, no joint enlargement, no clubbing, cyanosis or edema and no calf tenderness Neuro: COMMON NORMALS: oriented x3, CN's II-XII intact bilaterally, moves all extremities, no focal motor deficits and no sensory deficits noted MENINGEAL SIGNS: Yes no meningeal signs Psych: COMMON NORMALS: mental status grossly normal, thought process normal, cooperative, affect normal, speech normal and activity/motor behavior normal APPEARANCE: Yes well kempt SPEECH: Yes normal speech THOUGHT PROCESS: normal thought process Skin: COMMON NORMALS: no rashes or lesions noted, skin turgor normal, no jaundice, no petechiae and no mottling GENERAL SKIN EXAM: no rashes or lesions noted and turgor normal Course Vital Signs: Vital signs: Vital Signs Temperature 99.1 F 11/21/19 21:50 Pulse Rate 53 L 11/22/19 01:30 Respiratory Rate 16 11/22/19 01:30 Blood Pressure 105/68 11/22/19 01:30 Pulse Oximetry 95 11/22/19 01:30 MDM - Abdominal Pain MDM Narrative: Medical decision making narrative: Renetta is a 34-year-old female who comes in with 48 hours of constant vomiting. Her hematemesis has resolved. CT scan from less than 24 hours ago showed small bowel enteritis or ileus. I have reviewed the case in full with Dr. Omalley and he agrees to admit to the hospital for further evaluation and care. Lab Data: Attestation: I reviewed the patient's lab results. Labs: Lab Results 11/21/19 11/21/19 11/21/19 Range/Units 22:56 22:56 22:56 WBC 15.7 H (4.0-10.0) 10^3/ uL RBC 4.53 (4.1-5.3) 10^6/u L Hgb 13.9 (11.5-15.3) g/dL Hct 40.9 (37.0-47.0) % MCV 90.3 (81-99) fL MCH 30.7 (28.0-34.0) pg MCHC 34.0 (30.0-36.0) g/dL RDW 12.4 (12.1-15.1) % Plt Count 292 (130-400) 10^3/c mm MPV 11.9 H (7.4-10.4) fL Neut % (Auto) 78.6 % Lymph % (Auto) 15.5 % [place] % (Auto) 5.3 % Eos % (Auto) 0.0 % Baso % (Auto) 0.1 % Neut # (Auto) 12.4 H (1.8-7.7) 10^3/u L Lymph # (Auto) 2.4 (0.8-4.8) 10^3/u L [place] # (Auto) 0.8 (0.2-0.9) 10^3/u L Eos # (Auto) 0.0 (0.0-0.8) 10^3/u L Baso # (Auto) 0.0 (0.0-0.1) 10^3/u L Nucleated RBC % (a uto) 0 % Nucleated RBCs # 0.0 /100WBC Sodium 137 (136-145) mmol/L Potassium 3.4 L (3.5-5.1) mmol/L Chloride 101 (98-107) mmol/L Carbon Dioxide 17 L (22-29) mmol/L Anion Gap 22.4 H (5-19) BUN 8 (6-20) mg/dL Creatinine 0.8 (0.5-0.9) mg/dL GFR Calculation 81.2 L (90-130) mL/min Glucose 135 H (65-115) mg/dL Calculated Osmolal ity 282 L (285-295) mOsm/k g Calcium 10.1 (8.5-10.5) mg/dL Magnesium 2.2 (1.7-2.3) mg/dL Total Bilirubin 0.6 (0.15-1.2) mg/dL AST 20 (0-32) U/L ALT 11 (0-33) U/L Alkaline Phosphata se 65 (35-105) IU/L Creatine Kinase 138 (26-192) U/L Total Protein 7.6 (6.6-8.7) g/dL Albumin 4.5 (3.5-5.2) g/dL Globulin 3.1 (1.3-4.6) g/dL Lipase 20 (13-60) U/L HCG, Qual Negative (Negative) Urine Color (Yellow) Urine Appearance (CLEAR) Urine pH (5-7) Ur Specific Gravit y (1.005-1.030) Urine Protein (Negative) Urine Glucose (UA) (Normal) Urine Ketones (Negative) Urine Blood (Negative) Urine Nitrate (Negative) Urine Bilirubin (NEGATIVE) Urine Urobilinogen (Negative) mg/dL Ur Leukocyte Zakiya ase (Negative) Urine RBC (0-2) /hpf Urine WBC (0-5) /hpf Ur Squamous Epith Cells (0-5) Amorphous Sediment Urine Bacteria (NONE) Urine Opiates Scre en (Negative) ng/mL Ur Barbiturates Sc reen (Negative) ng/mL Ur Phencyclidine S crn (Negative) ng/mL Ur Amphetamines Sc reen (Negative) ng/mL U Benzodiazepines Scrn (Negative) ng/mL Urine Cocaine Scre en (Negative) ng/mL U Marijuana (THC) Screen (Negative) ng/mL Ethyl Alcohol < 10 (0-10) mg/dL H. pylori IgG Anti body (Negative) 11/21/19 11/21/19 11/21/19 Range/Units 22:56 23:50 23:50 WBC (4.0-10.0) 10^3/ uL RBC (4.1-5.3) 10^6/u L Hgb (11.5-15.3) g/dL Hct (37.0-47.0) % MCV (81-99) fL MCH (28.0-34.0) pg MCHC (30.0-36.0) g/dL RDW (12.1-15.1) % Plt Count (130-400) 10^3/c mm MPV (7.4-10.4) fL Neut % (Auto) % Lymph % (Auto) % [place] % (Auto) % Eos % (Auto) % Baso % (Auto) % Neut # (Auto) (1.8-7.7) 10^3/u L Lymph # (Auto) (0.8-4.8) 10^3/u L [place] # (Auto) (0.2-0.9) 10^3/u L Eos # (Auto) (0.0-0.8) 10^3/u L Baso # (Auto) (0.0-0.1) 10^3/u L Nucleated RBC % (a uto) % Nucleated RBCs # /100WBC Sodium (136-145) mmol/L Potassium (3.5-5.1) mmol/L Chloride (98-107) mmol/L Carbon Dioxide (22-29) mmol/L Anion Gap (5-19) BUN (6-20) mg/dL Creatinine (0.5-0.9) mg/dL GFR Calculation (90-130) mL/min Glucose (65-115) mg/dL Calculated Osmolal ity (285-295) mOsm/k g Calcium (8.5-10.5) mg/dL Magnesium (1.7-2.3) mg/dL Total Bilirubin (0.15-1.2) mg/dL AST (0-32) U/L ALT (0-33) U/L Alkaline Phosphata se (35-105) IU/L Creatine Kinase (26-192) U/L Total Protein (6.6-8.7) g/dL Albumin (3.5-5.2) g/dL Globulin (1.3-4.6) g/dL Lipase (13-60) U/L HCG, Qual (Negative) Urine Color Yellow (Yellow) Urine Appearance Sl cloudy A (CLEAR) Urine pH 8 H (5-7) Ur Specific Gravit y 1.015 (1.005-1.030) Urine Protein Neg (Negative) Urine Glucose (UA) Norm (Normal) Urine Ketones Negative (Negative) Urine Blood Neg (Negative) Urine Nitrate Negative (Negative) Urine Bilirubin Neg (NEGATIVE) Urine Urobilinogen Norm (Negative) mg/dL Ur Leukocyte Zakiya ase Negative (Negative) Urine RBC Rare (0-2) /hpf Urine WBC Rare (0-5) /hpf Ur Squamous Epith Cells Rare (0-5) Amorphous Sediment 1+ Urine Bacteria Trace (NONE) Urine Opiates Scre en Positive H (Negative) ng/mL Ur Barbiturates Sc reen Negative (Negative) ng/mL Ur Phencyclidine S crn Negative (Negative) ng/mL Ur Amphetamines Sc reen Negative (Negative) ng/mL U Benzodiazepines Scrn Negative (Negative) ng/mL Urine Cocaine Scre en Negative (Negative) ng/mL U Marijuana (THC) Screen Positive H (Negative) ng/mL Ethyl Alcohol (0-10) mg/dL H. pylori IgG Anti body Negative (Negative) EKG Data ^: EKG 1: Attestation: I personally reviewed and interpreted this EKG as follows: EKG interpretation date: 11/21/19 EKG interpretation time: 22:40 Interpretation: Normal sinus rhythm at 59 beats a minute, no blocks, normal intervals. Discharge Plan Discharge Patient Disposition: Placed in Observation Clinical Impression: Cyclic vomiting syndrome Condition: Stable Prescriptions: No Action Laxative Pills 25 mg Tablet 25 mg PO DAILY RF: 0 Reglan 5 mg tablet 5 mg PO Q6H PRN (Reason: nausea and vomiting) Qty: 10 RF: 0 promethazine 25 mg tablet 25 mg PO Q6H PRN (Reason: nausea and vomiting) Qty: 20 RF: 0 pantoprazole 40 mg tablet,delayed release (DR/EC) 40 mg PO QAM 56 Days Qty: 56 RF: 0 Referrals: Angela Jurado MD [Family Provider] - Interventions: ED Charges Last Done: 11/22/19 01:05 Coding Level of Care Code ED Outreach Librarian for Chg Fwd Exam Comprehensive
[2019-11-21] MEDS: haloperidol inj 5 mg/mL INJ 1 mL IM (22:52)
[2019-11-21] MEDS: diphenhydrAMINE 50 mg/mL SDV 1mL IVP (22:52)
[2019-11-21] MEDS: sodium chloride 0.9% 1,000 ML 999 ML IV (22:52)
[2019-11-21 23:11] LABS: Basophils % 0.1 %; Hematocrit 40.9 % (37.0-47.0); Hemoglobin 13.9 g/dL (11.5-15.3); Lymphocytes # 2.4 10^3/uL (0.8-4.8); Lymphocytes % 15.5 %; Mean Corpuscular Hemoglobin 30.7 pg (28.0-34.0); Mean Corpuscular Volume 90.3 fL (81-99); Mean Platelet Volume 11.9 fL (7.4-10.4); Monocytes # 0.8 10^3/uL (0.2-0.9); Monocytes % 5.3 %; Neutrophils # 12.4 10^3/uL (1.8-7.7); Neutrophils % 78.6 %; Nucleated Red Blood Cells % 0 %; Platelet Count 292 10^3/cmm (130-400); Red Blood Count 4.53 10^6/uL (4.1-5.3); Red Cell Distribution Width 12.4 % (12.1-15.1); White Blood Count 15.7 10^3/uL (4.0-10.0)
[2019-11-21 23:24] LABS: Alanine Aminotransferase 11 U/L (0-33); Albumin Level 4.5 g/dL (3.5-5.2); Alkaline Phosphatase 65 IU/L (35-105); Anion Gap 22.4 (5-19); Blood Urea Nitrogen 8 mg/dL (6-20); Calcium 10.1 mg/dL (8.5-10.5); Carbon Dioxide 17 mmol/L (22-29); Chloride 101 mmol/L (98-107); Creatine Phosphokinase 138 U/L (26-192); Globulin 3.1 g/dL (1.3-4.6); Glomerular Filtration Rate 81.2 mL/min (90-130); Glucose 135 mg/dL (65-115); Lipase 20 U/L (13-60); Magnesium 2.2 mg/dL (1.7-2.3); Osmolality Calculated 282 mOsm/kg (285-295); Potassium 3.4 mmol/L (3.5-5.1); Sodium 137 mmol/L (136-145); Total Bilirubin 0.6 mg/dL (0.15-1.2); Total Protein 7.6 g/dL (6.6-8.7)
[2019-11-21 23:25] LABS: Alcohol Level < 10 mg/dL (0-10)
[2019-11-21 23:26] LABS: Aspartate Amino Transferase 20 U/L (0-32)
[2019-11-21 23:27] VITALS: BP 89/66; PULSE 56; RESP 17; O2SAT 96
[2019-11-21 23:27] LABS: H. Pylori IgG Antibody Negative (Negative); HCG, Serum Qual Negative (Negative)
[2019-11-21 23:53] VITALS: BP 163/89; PULSE 69; RESP 16; TEMP 36.7; O2SAT 98
[2019-11-22] VITALS (14 sets, daily range): BP systolic 98–171; BP diastolic 58–94; PULSE 49–86; RESP 4–22; TEMP 36.7–37.1; O2SAT 95–99
[2019-11-22 00:22] LABS: Amphetamines Screen Urine Negative (Negative); Barbiturates Screen Urine Negative (Negative); Benzodiazepines Screen Urine Negative (Negative); Cocaine Screen Urine Negative (Negative); Opiate Screen Urine Positive (Negative); PCP Screen Urine Negative (Negative); THC Screen Urine Positive (Negative)
[2019-11-22 00:24] LABS: Bacteria Urine TRACE; Bilirubin Urine Neg (NEGATIVE); Blood Urine Neg (Negative); Glucose Urine UA Norm (Normal); Ketones Urine Negative (Negative); Leukocyte Esterase Urine Negative (Negative); Nitrate Urine Negative (Negative); Protein Urine Neg (Negative); RBC Urine RARE /hpf (0-2); Specific Gravity, Urine 1.015 (1.005-1.030); Squamous Epithelial Cell Urine RARE (0-5); Urine Color Yellow (Yellow); Urobilinogen Urine Norm (Negative); WBC Urine RARE /hpf (0-5); pH Urine 8 (5-7)
[2019-11-22 00:25] LABS: Amorphous Sediment Urine 1+
[2019-11-22] MEDS: sodium chloride 0.9% 1,000 ML 100 ML IV (00:52)
--- NOTE | 2019-11-22 00:59 | PM.HP ---
Providers/Chief Complaint Chief Complaint: abd pain History of Present Illness Renetta Henson is a 34 year old female who carries diagnosis of cyclical vomiting secondary to THC use came in after experiencing multiple episodes of nausea vomiting. Patient is stating that her symptoms started about 4 days ago, she has been having intractable nausea and vomiting, she was seen in the ER yesterday and was discharged home but she is not able to keep anything down, she is extremely dehydrated. Her last marijuana use about 1 week ago. Patient is stating that she was constipated and use laxative she has had multiple episodes of bowel movements since then, she has not noticed any fever or blood in stool. She denies chest pain, dysuria, shortness of breath. Diagnostics in ER revealed normal hemodynamics, patient is afebrile, CT abdomen revealed enteritis/ileus leukocytosis, hypokalemia, drug screen positive for opioids and THC use Review of Systems Const: Reports: chills, body aches and fatigue; Denies: fever Eyes: Denies: change in vision ENMT: Denies: throat pain Card: Denies: chest pain Resp: Denies: shortness of breath GI: Reports: abdominal pain, nausea, vomiting and diarrhea; Denies: vomiting blood or constipation : Denies: flank pain or difficulty urinating Musc: Reports: muscle cramps Skin/Breast: Denies: rash or itching Neuro: Denies: headache Psych: Denies: anxiety or depression Endo: Denies: excessive urination Klaus/Lymph: Denies: easy bruising All/Imm: Denies: hives Medications/Allergies Home Medications Medication Instructions Recorded Confirmed Last Taken Type metoclopramide HCl [Reglan] 5 mg PO Q6H PRN #10 tab 11/19/19 Unknown Rx sennosides [Laxative Pills] 25 mg PO DAILY 11/19/19 11/19/19 11/18/19 History pantoprazole 40 mg PO QAM 56 Days #56 tab 11/21/19 Unknown Rx promethazine 25 mg PO Q6H PRN #20 tab 11/21/19 Unknown Rx Allergies Allergy/AdvReac Type Severity Reaction Status Date / Time erythromycin base Allergy Rash Verified 07/26/19 11:27 morphine Allergy hallultions Verified 07/26/19 11:27 topiramate [From Topamax] Allergy mood swings Verified 07/26/19 11:27 promethazine [From Phenergan] AdvReac ADR-Vomitin Verified 07/26/19 13:28 g PFSH Acute PFSH: Medical History Asthma Cyclic vomiting syndrome GERD (gastroesophageal reflux disease) Hemorrhoids Hypokalemia Marijuana abuse, continuous Ovarian cyst Surgical History Hx of appendectomy Hx of cholecystectomy Family History Other CAD (coronary artery disease) Cancer Social History (Updated 11/22/19 @ 01:55 by Brandon Carbajal MD) Smoking and tobacco status: former smoker Alcohol intake: never Substance/Drug Use: current Substance/Drug use type: Marijuana Other substance/drug use details: Uses marijuana on a weekly basis Housing: House Vitals/I&O/Wt Last Vital Signs Temp 99.1 F 11/21/19 21:50 Pulse 56 L 11/21/19 23:27 Resp 17 11/21/19 23:27 BP 89/66 11/21/19 23:27 Pulse Ox 96 11/21/19 23:27 11/21/19 11/21/19 11/22/19 14:59 22:59 06:59 Intake Total 1000 / 1000 Balance 1000 / 1000 Weight last 48 hrs Weight 56.699 kg Physical Exam Narrative: EXAM NARRATIVE: Pleasant young female in blankets not in any active distress Normal hemodynamics S1-S2 no signs of heart failure, patient looks dehydrated She looks malnourished Abdomen soft, nontender, nondistended bowels are present Lungs are clear to auscultation Lower extremity no signs of edema gangrene or ulcer EOMI, PERRLA Appropriate mood and affect Nonfocal neurological exam Data : 11/21/19 22:56 11/21/19 22:56 A&P Assessment and plan (1) Marijuana abuse, continuous: Status: Acute (2) Cyclic vomiting syndrome: Status: Acute Additional A&P Information Cyclical vomiting secondary to THC use CT abdomen reveals enteritis/ileus She suffered from diarrhea, however this was after taking laxatives She has leukocytosis without fever, her leukocytosis improving as compared to previous white count, she is afebrile, no blood in stool, I believe this could be secondary to mucosal inflammation due to THC use versus viral gastroenteritis I would hold off on starting antibiotics at this point, will check lactic acid D5 half-normal with potassium supplementation fluid resuscitation N.p.o. Zofran and Reglan to be used on alternative basis Marijuana use Patient thinks marijuana is not contributing to her symptoms, I counseled her and explained the risks and complications of THC use Constipation Recently she has used laxative and has had multiple bowel movements currently not complaining of constipation or obstipation her diarrhea has resolved Abnormal urinalysis patient is denying any urinary frequency dysuria I would not start antibiotics at this point Full code DVT prophylaxis: Lovenox N.p.o. at this point, advance diet as tolerated Attestations Medical Necessity Statement*: Anticipating discharge less than 48 hours needs IV fluid resuscitation due to cyclical vomiting Time Spent in Patient Care: 50 Coding Level of Care Code Acute Calculating Machine Mechanic for Tip Pérez Diagnoses Marijuana abuse, continuous F12.10 Cyclic vomiting syndrome R11.15
--- NOTE | 2019-11-22 02:11 | PC.NURSE ---
patient ambulated to bathroom
[2019-11-22 02:27] LABS: Lactic Sepsis W/Reflex 0.8 mmol/L (0.5-2.2)
[2019-11-22] MEDS: enoxaparin 40 mg/0.4 mL Syringe SUBCUT (03:11)
[2019-11-22] MEDS: metoclopramide 5 mg/mL SDV 2 mL IVP (03:11)
[2019-11-22] MEDS: D5-NS 0.45% + KCL 20 mEq 20 MEQ/1,000 ML BAG 100 MEQ IV ×3 (03:12→23:02)
[2019-11-22] MEDS: morphine 4 mg/mL SDV 1 mL IVP ×3 (03:38→20:39)
[2019-11-22] MEDS: ondansetron 2 mg/ML SDV 2 mL 4 MG IVP ×3 (05:07→20:31)
[2019-11-22 06:05] LABS: Basophils % 0.1 %; Eosinophils % 0.1 %; Hematocrit 35.7 % (37.0-47.0); Hemoglobin 11.6 g/dL (11.5-15.3); Lymphocytes % 18.2 %; Mean Corpuscular HGB Conc 32.5 g/dL (30.0-36.0); Mean Corpuscular Hemoglobin 31.4 pg (28.0-34.0); Mean Corpuscular Volume 96.5 fL (81-99); Mean Platelet Volume 11.3 fL (7.4-10.4); Monocytes # 0.8 10^3/uL (0.2-0.9); Monocytes % 6.9 %; Neutrophils # 8.2 10^3/uL (1.8-7.7); Neutrophils % 74.2 %; Nucleated Red Blood Cells % 0 %; Platelet Count 224 10^3/cmm (130-400); Red Cell Distribution Width 12.5 % (12.1-15.1)
[2019-11-22 06:23] LABS: Alanine Aminotransferase 11 U/L (0-33); Albumin Level 3.8 g/dL (3.5-5.2); Alkaline Phosphatase 52 IU/L (35-105); Anion Gap 14.7 (5-19); Aspartate Amino Transferase 21 U/L (0-32); Blood Urea Nitrogen 5 mg/dL (6-20); Calcium 8.5 mg/dL (8.5-10.5); Carbon Dioxide 21 mmol/L (22-29); Chloride 106 mmol/L (98-107); Globulin 1.9 g/dL (1.3-4.6); Glomerular Filtration Rate 94.7 mL/min (90-130); Glucose 146 mg/dL (65-115); Osmolality Calculated 284 mOsm/kg (285-295); Potassium 3.7 mmol/L (3.5-5.1); Sodium 138 mmol/L (136-145); Total Bilirubin 0.4 mg/dL (0.15-1.2); Total Protein 5.7 g/dL (6.6-8.7)
--- NOTE | 2019-11-22 10:34 | PC.CHAP ---
Pastoral Care Encounter/Spiritual Assessment Type of Contact [] Declined cleaner window visit [] Patient/Family/Request visit [] Outpatient visit [] Follow-up visit [] Physician referral [] Code/Alert [x] Routine visit [] Staff referral [] Actively dying [] Patient sleeping [] Family support [] [] Out of room [] Palliative care [] [] Receiving care in room [] Pre-surgical visit [] Trauma [] Long length of stay [] ICU visit [] Other: Relational/Emotional Strength [x] Patient feels connected with others/family/visitors/staff [] Distress [] Loneliness/isolation [] Abandonment Spirituality of Patient [x] Person of [place] [x] Attends Taoist of their [place] [x] Believes in Prayer [x] Reads Bible or Voodoo materials [] There are Spiritual issues to be addressed Sole Tier Interventions [x] Prayer [x] Active listening [x] Non-anxious presence [x] Spiritual/emotional support [] Crisis/trauma care [] Spiritual counseling [] Bereavement support [] Provided bereavement packet [] Provided Bible/devotional materials [] Provided toy/stuffed animal, coloring book to patient or family member [] Provided Communion [] Anointing/[place] [] Salvation [x] Completed spiritual assessment [] Other: Impact on Illness or Injury [] Angry [] Fearful [] Anxious [] Often cries [] Exhaustion [] Unable to work [] Unable to attend presybeterian [] Unable to walk/stand [] Unable to read [] Unable to drive [] Unable to eat/drink [] Unable to sleep [] Unable to be with family [] Patient intubated [x] Other: Summary Patient is a professed believer in the [employer] alooma Ch[place], she is and has 5-daughters. Time spent with patient 10 minutes
--- NOTE | 2019-11-22 12:57 | P.PN_ITS ---
Subjective Subjective: Interval history: She is feeling little bit better. Still having some dry heaves earlier, but these appear to have somewhat subsided. She has been able to catch a little bit of sleep. She is willing to try a small amount of liquid by mouth. Vitals/I&O/Wt Last Vital Signs Temp 98.8 F 11/22/19 11:26 Pulse 76 11/22/19 11:26 Resp 18 11/22/19 11:26 BP 117/70 11/22/19 11:26 Pulse Ox 98 11/22/19 11:26 11/21/19 11/22/19 11/22/19 22:59 06:59 14:59 Intake Total 1009.167 / 1009.167 Balance 1009.167 / 1009.167 Weight last 48 hrs Weight 56.699 kg Physical Exam Const: COMMON NORMALS: no apparent distress and oriented x3 OTHER: Appears in mild discomfort. Clammy. HENMT: COMMON NORMALS: oropharynx normal Neck/C-Spine: COMMON NORMALS: no JVD Resp: COMMON NORMALS: normal respiratory effort and clear to auscultation bilaterally AUSCULTATION: clear to auscultation bilaterally Cardio: COMMON NORMALS: no JVD, regular rhythm, S1 normal heart sound, S2 normal heart sound and no murmurs RHYTHM: regular rhythm HEART SOUNDS: S1 normal and S2 normal GI: COMMON NORMALS: normal to inspection, nondistended, normoactive bowel sounds, soft to palpation and non-tender PALPATION: Yes soft Extremity: COMMON NORMALS: no joint enlargement and no pedal edema Neuro: COMMON NORMALS: oriented x3 and moves all extremities Skin: COMMON NORMALS: no rashes or lesions noted GENERAL SKIN EXAM: no rashes or lesions noted Data : 11/22/19 05:55 11/22/19 05:55 A&P Assessment and plan (1) Cyclic vomiting syndrome: Has been unable to tolerate food or drink for several days. Still having some dry heaving this morning, but currently is feeling slightly better. Is willing to try small amount of clear liquids. For now continue IV hydration. Symptomatic management. We will slowly try clears. Status: Acute (2) Marijuana abuse, continuous: Status: Acute Additional A&P Information Suspected enteritis: As above. Hold laxatives. Monitor for any recurrence of diarrhea. Constipation: Recently she has used laxative Abnormal urinalysis Attestations Medical Necessity Statement*: Continue observation. Coding Level of Care Code Acute Gravure Press Set Up Operator for g Fwd Diagnoses Cyclic vomiting syndrome R11.15 Marijuana abuse, continuous F12.10
[2019-11-23] VITALS (9 sets, daily range): BP systolic 101–194; BP diastolic 69–97; PULSE 55–112; RESP 18–24; TEMP 36.6–36.9; O2SAT 96–97
[2019-11-23] MEDS: ondansetron 2 mg/ML SDV 2 mL 4 MG IVP ×3 (03:54→16:26)
[2019-11-23] MEDS: enoxaparin 40 mg/0.4 mL Syringe SUBCUT (03:54)
[2019-11-23] MEDS: morphine 4 mg/mL SDV 1 mL IVP ×2 (03:54→16:36)
[2019-11-23 05:04] LABS: Alanine Aminotransferase 11 U/L (0-33); Albumin Level 4.1 g/dL (3.5-5.2); Alkaline Phosphatase 53 IU/L (35-105); Anion Gap 15.6 (5-19); Aspartate Amino Transferase 17 U/L (0-32); Blood Urea Nitrogen 2 mg/dL (6-20); Calcium 9.6 mg/dL (8.5-10.5); Carbon Dioxide 24 mmol/L (22-29); Chloride 101 mmol/L (98-107); Glomerular Filtration Rate 94.7 mL/min (90-130); Glucose 115 mg/dL (65-115); Osmolality Calculated 280 mOsm/kg (285-295); Potassium 3.6 mmol/L (3.5-5.1); Sodium 137 mmol/L (136-145); Total Bilirubin 0.4 mg/dL (0.15-1.2); Total Protein 7.1 g/dL (6.6-8.7)
[2019-11-23 05:12] LABS: Basophils % 0.2 %; Eosinophils # 0.1 10^3/uL (0.0-0.8); Eosinophils % 0.7 %; Hemoglobin 13.1 g/dL (11.5-15.3); Lymphocytes # 3.3 10^3/uL (0.8-4.8); Mean Corpuscular HGB Conc 32.8 g/dL (30.0-36.0); Mean Corpuscular Volume 91.5 fL (81-99); Mean Platelet Volume 11.5 fL (7.4-10.4); Monocytes # 0.7 10^3/uL (0.2-0.9); Monocytes % 7.7 %; Neutrophils # 5.1 10^3/uL (1.8-7.7); Neutrophils % 55.2 %; Nucleated Red Blood Cells % 0 %; Platelet Count 244 10^3/cmm (130-400); Red Blood Count 4.37 10^6/uL (4.1-5.3); White Blood Count 9.2 10^3/uL (4.0-10.0)
[2019-11-23] MEDS: metoclopramide 5 mg/mL SDV 2 mL IVP ×2 (06:27→19:46)
[2019-11-23] MEDS: pantoprazole 40 mg SDV IVP (08:29)
[2019-11-23] MEDS: D5-NS 0.45% + KCL 20 mEq 20 MEQ/1,000 ML BAG 100 MEQ IV (08:30)
[2019-11-23] MEDS: promethazine 25 mg/mL SDV 1 mL 12.5 MG IM (11:46)
--- NOTE | 2019-11-23 22:01 | P.PN_ITS ---
Subjective Subjective: Interval history: This morning she is again miserable with nausea, few episodes of vomiting after trying to take down some Jell-O. Reports has been having some chronic discomfort in the left ear for several months. Not pain, but sometimes feels like something is moving in the EAM. Has had some waxy discharge. No pus. Nausea and vomiting appear to be related to vertigo. Vitals/I&O/Wt Last Vital Signs Temp 98.4 F 11/23/19 19:43 Pulse 112 H 11/23/19 19:43 Resp 19 H 11/23/19 19:43 BP 116/79 11/23/19 19:43 Pulse Ox 96 11/23/19 19:43 11/23/19 11/23/19 11/23/19 06:59 14:59 22:59 Intake Total 940 / 1940 1246.667 / 1246.667 100 / 1346.667 Output Total 100 / 100 Balance 940 / 1940 1146.667 / 1146.667 100 / 1246.667 Physical Exam Const: COMMON NORMALS: no apparent distress and oriented x3 OTHER: Moderate discomfort. Clammy. HENMT: COMMON NORMALS: oropharynx normal Neck/C-Spine: COMMON NORMALS: no JVD Resp: COMMON NORMALS: normal respiratory effort and clear to auscultation bilaterally AUSCULTATION: clear to auscultation bilaterally Cardio: COMMON NORMALS: no JVD, regular rhythm, S1 normal heart sound, S2 normal heart sound and no murmurs RHYTHM: regular rhythm HEART SOUNDS: S1 normal and S2 normal GI: COMMON NORMALS: normal to inspection, nondistended, normoactive bowel sounds, soft to palpation and non-tender PALPATION: Yes soft Extremity: COMMON NORMALS: no joint enlargement and no pedal edema Neuro: COMMON NORMALS: oriented x3 and moves all extremities Skin: COMMON NORMALS: no rashes or lesions noted GENERAL SKIN EXAM: no rashes or lesions noted Data : 11/23/19 04:08 11/23/19 04:08 A&P Assessment and plan (1) Cyclic vomiting syndrome: Today she is doing worse again, with nausea, vomiting, not tolerating diet. Continue IV hydration. Rate was temporarily decreased in the morning due to hypertension, although now with soft blood pressure 116/79, will increase the rate again. States has not follow-up with hand specialist as she does not have insurance. Does feel like food pools in her stomach, and does not go anywhere. Denies ever having gastric emptying study. Discussed with her that this is something she will need to do once she is closer to baseline and able to tolerate some oral intake. Currently we would be unable to perform this. Encouraged her to establish with primary care provider. Encouraged her to seek assistance from GI specialty who may assist with this recurrent problem as well as apply for health insurance. Appreciate [place] planning assistance with insurance application. Added another antiemetic. Status: Acute (2) Marijuana abuse, continuous: Counseled against marijuana use as it may contribute to or cause cyclic vomiting symptoms. Status: Acute Additional A&P Information Suspected enteritis: As above. Hold laxatives. Monitor for any recurrence of diarrhea. Constipation: Recently she has used laxative Abnormal urinalysis Attestations Medical Necessity Statement*: Continue hospitalization for intractable nausea, cyclic vomiting, poor oral intake, dehydration, requiring IV hydration. Coding Level of Care Code Acute Cephalometric Technician for [facility] Diagnoses Cyclic vomiting syndrome R11.15 Marijuana abuse, continuous F12.10
[2019-11-24] VITALS (11 sets, daily range): BP systolic 121–175; BP diastolic 74–113; PULSE 72–102; RESP 18–24; TEMP 36.7–37.4; O2SAT 94–98
[2019-11-24] MEDS: ondansetron 2 mg/ML SDV 2 mL 4 MG IVP ×3 (00:40→15:51)
[2019-11-24] MEDS: morphine 4 mg/mL SDV 1 mL IVP ×4 (01:03→21:23)
[2019-11-24] MEDS: D5-NS 0.45% + KCL 20 mEq 20 MEQ/1,000 ML BAG 75 MEQ IV ×2 (01:42→17:24)
[2019-11-24] MEDS: enoxaparin 40 mg/0.4 mL Syringe SUBCUT (01:44)
[2019-11-24] MEDS: promethazine 25 mg/mL SDV 1 mL 12.5 MG IM ×2 (01:52→19:47)
[2019-11-24] MEDS: metoclopramide 5 mg/mL SDV 2 mL IVP ×3 (03:27→18:39)
[2019-11-24 05:58] LABS: Basophils % 0.2 %; Eosinophils % 0.4 %; Hematocrit 42.3 % (37.0-47.0); Hemoglobin 14.2 g/dL (11.5-15.3); Lymphocytes # 2.5 10^3/uL (0.8-4.8); Lymphocytes % 21.9 %; Mean Corpuscular HGB Conc 33.6 g/dL (30.0-36.0); Mean Corpuscular Volume 89.4 fL (81-99); Mean Platelet Volume 11.2 fL (7.4-10.4); Monocytes # 0.8 10^3/uL (0.2-0.9); Neutrophils % 70.1 %; Nucleated Red Blood Cells % 0 %; Platelet Count 298 10^3/cmm (130-400); Red Blood Count 4.73 10^6/uL (4.1-5.3); Red Cell Distribution Width 11.9 % (12.1-15.1); White Blood Count 11.4 10^3/uL (4.0-10.0)
[2019-11-24 06:26] LABS: Anion Gap 16.5 (5-19); Blood Urea Nitrogen 5 mg/dL (6-20); Calcium 10.1 mg/dL (8.5-10.5); Carbon Dioxide 24 mmol/L (22-29); Chloride 100 mmol/L (98-107); Glomerular Filtration Rate 81.2 mL/min (90-130); Glucose 120 mg/dL (65-115); Osmolality Calculated 281 mOsm/kg (285-295); Potassium 3.5 mmol/L (3.5-5.1); Sodium 137 mmol/L (136-145)
[2019-11-24] MEDS: pantoprazole 40 mg SDV IVP (07:53)
--- NOTE | 2019-11-24 19:22 | P.PN_ITS ---
Subjective Subjective: Interval history: Again emesis, with abdominal discomfort in epigastrium, with acid reflux/burning sensation traveling up in the chest. No hematemesis. Tolerated only tiny amount of Sprite. Vitals/I&O/Wt Last Vital Signs Temp 98.5 F 11/24/19 15:19 Pulse 88 11/24/19 15:19 Resp 24 H 11/24/19 15:19 BP 175/110 11/24/19 15:19 Pulse Ox 98 11/24/19 15:19 11/24/19 11/24/19 11/24/19 06:59 14:59 22:59 Intake Total 1000 / 1060 Output Total 1050 / 1150 650 / 650 Balance -1050 / 1196.667 60 60 350 / 410 Physical Exam Const: COMMON NORMALS: no apparent distress and oriented x3 OTHER: Moderate discomfort. Walking around room to try to reduce nausea. HENMT: COMMON NORMALS: oropharynx normal Neck/C-Spine: COMMON NORMALS: no JVD Resp: COMMON NORMALS: normal respiratory effort and clear to auscultation bilaterally AUSCULTATION: clear to auscultation bilaterally Cardio: COMMON NORMALS: no JVD, regular rhythm, S1 normal heart sound, S2 normal heart sound and no murmurs RHYTHM: regular rhythm HEART SOUNDS: S1 normal and S2 normal GI: COMMON NORMALS: normal to inspection, nondistended, normoactive bowel sounds, soft to palpation and non-tender PALPATION: Yes soft Extremity: COMMON NORMALS: no joint enlargement and no pedal edema Neuro: COMMON NORMALS: oriented x3 and moves all extremities Skin: COMMON NORMALS: no rashes or lesions noted GENERAL SKIN EXAM: no rashes or lesions noted Data : 11/24/19 05:31 11/24/19 05:31 A&P Assessment and plan (1) Cyclic vomiting syndrome: Tolerating very tiny amount of Sprite. This morning initially with some improvement then again vomiting, epigastric pain, heartburn. Continue supportive care, IV hydration. PPI. States has not followed-up with a specialist regarding recurrent episodes of cyclic vomiting as she does not have insurance. Does feel like food pools in her stomach, and does not go anywhere. Denies ever having gastric emptying study. Discussed with her that this is something she will need to do once she is closer to baseline and able to tolerate some oral intake. Currently we would be unable to perform this. Encouraged her to establish with primary care provider. Requested DC planning help her with insurance application. Status: Acute (2) Marijuana abuse, continuous: Counseled against marijuana use as it may contribute to or cause cyclic vomiting symptoms. She verbalized understanding. Status: Acute Additional A&P Information Suspected enteritis: As above. Hold laxatives. Monitor for any recurrence of diarrhea. Constipation: Recently she has used laxative Abnormal urinalysis Attestations Medical Necessity Statement*: Continue observation. Coding Level of Care Code Acute Cardiovascular Radiologic Technologist for [facility] Fwd Diagnoses Cyclic vomiting syndrome R11.15 Marijuana abuse, continuous F12.10
[2019-11-25] VITALS (9 sets, daily range): BP systolic 126–151; BP diastolic 76–94; PULSE 73–91; RESP 16–18; TEMP 36.8–37.2; O2SAT 95–97
[2019-11-25] MEDS: morphine 4 mg/mL SDV 1 mL IVP ×4 (01:40→22:46)
[2019-11-25] MEDS: enoxaparin 40 mg/0.4 mL Syringe SUBCUT (02:47)
[2019-11-25] MEDS: metoclopramide 5 mg/mL SDV 2 mL IVP ×2 (03:48→14:03)
[2019-11-25 05:06] LABS: Basophils % 0.2 %; Eosinophils # 0.1 10^3/uL (0.0-0.8); Eosinophils % 0.5 %; Hemoglobin 14.9 g/dL (11.5-15.3); Lymphocytes # 3.1 10^3/uL (0.8-4.8); Lymphocytes % 24.4 %; Mean Corpuscular HGB Conc 33.9 g/dL (30.0-36.0); Mean Corpuscular Hemoglobin 30.5 pg (28.0-34.0); Mean Platelet Volume 11.6 fL (7.4-10.4); Monocytes # 0.9 10^3/uL (0.2-0.9); Monocytes % 7.2 %; Neutrophils # 8.7 10^3/uL (1.8-7.7); Neutrophils % 67.4 %; Nucleated Red Blood Cells % 0 %; Platelet Count 297 10^3/cmm (130-400); Red Blood Count 4.89 10^6/uL (4.1-5.3); Red Cell Distribution Width 11.9 % (12.1-15.1); White Blood Count 12.9 10^3/uL (4.0-10.0)
[2019-11-25 05:29] LABS: Anion Gap 17.8 (5-19); Blood Urea Nitrogen 5 mg/dL (6-20); Calcium 10.1 mg/dL (8.5-10.5); Carbon Dioxide 24 mmol/L (22-29); Chloride 101 mmol/L (98-107); Glomerular Filtration Rate 70.8 mL/min (90-130); Glucose 114 mg/dL (65-115); Osmolality Calculated 285 mOsm/kg (285-295); Potassium 3.8 mmol/L (3.5-5.1); Sodium 139 mmol/L (136-145)
[2019-11-25] MEDS: D5-NS 0.45% + KCL 20 mEq 20 MEQ/1,000 ML BAG 75 MEQ IV (07:33)
[2019-11-25] MEDS: ondansetron 2 mg/ML SDV 2 mL 4 MG IVP ×3 (07:34→22:24)
[2019-11-25] MEDS: pantoprazole 40 mg SDV IVP (08:59)
--- NOTE | 2019-11-25 15:18 | XR_ITS ---
WS: [id number] XR acute abdomen series 88134 REASON FOR EXAM: vomiting, assess if obstruction FINDINGS: Acute obstruction series shows AP upright chest to be normal. No evidence of pneumoperitoneum. Evidence of previous cholecystectomy. No air-fluid levels to suggest obstruction. XR/XR acute abdomen series 79320 IMPRESSION: Acute abdomen series appears to be within normal limits. No evidence of obstruction.
--- NOTE | 2019-11-25 15:20 | PM.PN ---
Subjective Subjective: Interval history: Again vomiting this morning, yellowish contents. has not had a bowel movement since about Tuesday. Has not been passing gas. Vitals/I&O/Wt Last Vital Signs Temp 98.6 F 11/25/19 10:44 Pulse 85 11/25/19 10:44 Resp 18 11/25/19 10:44 BP 151/94 11/25/19 10:44 Pulse Ox 96 11/25/19 10:44 11/25/19 11/25/19 11/25/19 06:59 14:59 22:59 Intake Total 505 / 1925 735 / 735 Balance 505 / 1275 735 / 735 Physical Exam Const: COMMON NORMALS: no apparent distress and oriented x3 OTHER: Sitting up in bed. HENMT: COMMON NORMALS: oropharynx normal Neck/C-Spine: COMMON NORMALS: no JVD Resp: COMMON NORMALS: normal respiratory effort and clear to auscultation bilaterally AUSCULTATION: clear to auscultation bilaterally Cardio: COMMON NORMALS: no JVD, regular rhythm, S1 normal heart sound, S2 normal heart sound and no murmurs RHYTHM: regular rhythm HEART SOUNDS: S1 normal and S2 normal GI: COMMON NORMALS: soft to palpation PALPATION: Yes soft Extremity: COMMON NORMALS: no joint enlargement and no pedal edema Neuro: COMMON NORMALS: oriented x3 and moves all extremities Skin: COMMON NORMALS: no rashes or lesions noted GENERAL SKIN EXAM: no rashes or lesions noted Data : 11/25/19 04:23 11/25/19 04:23 A&P Assessment and plan (1) Cyclic vomiting syndrome: Vomiting again this morning. has not had a bowel movement since Tuesday. Reports today has not been passing gas. CT abdomen pelvis on presentation with small bowel enteritis or ileus. Does report having multiple abdominal surgeries in the past. There was no GI obstruction noted on CT on 11/20. As she continues unable to tolerate diet, with episodes of vomiting, will request for placement of NG tube. Will assess acute abdominal series for development of obstruction. Tolerating very tiny amount of Sprite. This morning initially with some improvement then again vomiting, epigastric pain, heartburn. Continue supportive care, IV hydration. PPI. has not followed-up with a specialist regarding recurrent episodes of cyclic vomiting as she does not have insurance. Does feel like food pools in her stomach, and does not go anywhere. Denies ever having gastric emptying study. Discussed with her that this is something she will need to do once she is closer to baseline and able to tolerate some oral intake. Currently we would be unable to perform this. Encouraged her to establish with primary care provider. Requested DC planning help her with insurance application. Status: Acute (2) Marijuana abuse, continuous: Counseled against marijuana use as it may contribute to or cause cyclic vomiting symptoms. She verbalized understanding. Status: Acute Additional A&P Information Suspected enteritis: Now constipated. Constipation: Recently she has used laxative with subsequent diarrhea. Abnormal urinalysis Attestations Medical Necessity Statement*: Continue admission for assessment management of intractable vomiting, with enteritis or ileus. Coding Level of Care Code Acute Medical Records Coder for g Fwd Exam Comprehensive Diagnoses Cyclic vomiting syndrome R11.15 Marijuana abuse, continuous F12.10
[2019-11-25] MEDS: bisacodyl 10 mg Supp PR (15:41)
--- NOTE | 2019-11-25 16:45 | PC.NURSE ---
attempted NG tube by two nurses with no success, Dr Graff notified, wants to wait several hours and try again.
--- NOTE | 2019-11-25 20:24 | PC.NURSE ---
NG TUBE PLACEMENT NOT DONE Pt IS REQUESTING TO SEE AND TALK TO DR BEFORE HAVING ANOTHER ATTEMPT DONE AT PLACING NG TUBE.
[2019-11-26] VITALS (10 sets, daily range): BP systolic 90–148; BP diastolic 52–80; PULSE 53–86; RESP 16–20; TEMP 36.5–36.9; O2SAT 95–98
[2019-11-26] MEDS: D5-NS 0.45% + KCL 20 mEq 20 MEQ/1,000 ML BAG 75 MEQ IV (01:33)
[2019-11-26] MEDS: metoclopramide 5 mg/mL SDV 2 mL IVP (01:53)
[2019-11-26] MEDS: enoxaparin 40 mg/0.4 mL Syringe SUBCUT (02:52)
[2019-11-26] MEDS: morphine 4 mg/mL SDV 1 mL IVP ×3 (02:58→12:33)
[2019-11-26 05:22] LABS: Basophils % 0.3 %; Eosinophils # 0.1 10^3/uL (0.0-0.8); Eosinophils % 1.1 %; Hematocrit 42.1 % (37.0-47.0); Hemoglobin 13.9 g/dL (11.5-15.3); Lymphocytes # 2.7 10^3/uL (0.8-4.8); Lymphocytes % 27.4 %; Mean Corpuscular Hemoglobin 30.3 pg (28.0-34.0); Mean Corpuscular Volume 91.7 fL (81-99); Mean Platelet Volume 11.8 fL (7.4-10.4); Monocytes # 0.9 10^3/uL (0.2-0.9); Monocytes % 8.8 %; Neutrophils # 6.2 10^3/uL (1.8-7.7); Neutrophils % 62.1 %; Nucleated Red Blood Cells % 0 %; Platelet Count 270 10^3/cmm (130-400); Red Blood Count 4.59 10^6/uL (4.1-5.3); Red Cell Distribution Width 12.2 % (12.1-15.1); White Blood Count 9.9 10^3/uL (4.0-10.0)
[2019-11-26 05:41] LABS: Anion Gap 14.2 (5-19); Blood Urea Nitrogen 6 mg/dL (6-20); Carbon Dioxide 26 mmol/L (22-29); Chloride 102 mmol/L (98-107); Glomerular Filtration Rate 70.8 mL/min (90-130); Glucose 117 mg/dL (65-115); Osmolality Calculated 283 mOsm/kg (285-295); Potassium 4.2 mmol/L (3.5-5.1); Sodium 138 mmol/L (136-145)
[2019-11-26] MEDS: promethazine 25 mg/mL SDV 1 mL 12.5 MG IM (06:22)
[2019-11-26] MEDS: pantoprazole 40 mg SDV IVP (08:03)
[2019-11-26] MEDS: ondansetron 2 mg/ML SDV 2 mL 4 MG IVP (12:33)
[2019-11-26 14:59] LABS: Erythrocyte Sedimentation Rate 10 mm/hr (0-15)
--- NOTE | 2019-11-26 21:34 | P.DS_ITS ---
Discharge Providers Date of Admission: 11/26/19 13:00 Date of Discharge: November 26, 2019 Attending Provider at Admission: Brandon Carbajal MD Attending Provider at Discharge: James Neely Diagnoses at Discharge Discharge Diagnosis (1) Cyclic vomiting syndrome: Status: Acute (2) Marijuana abuse, continuous: Status: Acute (3) H/O abdominal surgery: Status: Acute (4) Family history of inflammatory bowel disease: Status: Acute Reason for Visit Reason for Visit: Reason For Visit: abd pain Hospital Course Hospital Course: Pleasant 34-year-old lady with history of asthma, cyclic vomiting syndrome, history of cannabis use, but also multiple abdominal surgeries, family history of IBD, was admitted for assessment management due to recurrent nausea, vomiting, initially constipation, after taking laxative diarrhea, unable to tolerate any oral intake, very dehydrated on exam. CT abdomen pelvis on presentation showing ileus, possibly enteritis. She was admitted for symptomatic management, laxatives were discontinued with no further diarrhea noted in the hospital, was maintained on bowel rest, with IV hydration, symptomatic management of nausea, as well as PPI. Symptoms continue to wax and wane, with recurrent vomiting, due to which NG tube placement was attempted, but unsuccessful. She declined attempt to place with endoscopy. She did complain of some symptoms in her left ear which are chronic, with some sensation of movement , however, on examination without finding of otitis media or externa. No mastoid tenderness or other signs of mastoiditis. She did state occasionally gets episodes of vertigo which are short, but those are not related to her nausea or vomiting. She feels like her stomach fills up very easily, and that food does not propel well. After a while she has not had bowel movement since admission, and was not passing gas, so obstructive series were repeated, but again without sign of obstruction. Due to history of IBD in family ESR and CRP were assessed and both were normal. She verbalized understanding, stating she will try to get assessed. Counseled on complete abstinence from cannabis. She improved today, without further recurrence of vomiting, and tolerated in addition to clear liquid diet some crackers and a banana. She reported feeling stronger today. Was ready to return home. Discussed with her given her sy mptoms she would benefit from gastric emptying study, as well as follow-up with primary care provider. She states her father deals with severe gastroparesis. She is working on obtaining health insurance as well. Discussed with her that she would benefit from follow-up with a GI specialist for additional assessment due to recurrent episodes requiring admission and she verbalized understanding. Physical Exam Const: COMMON NORMALS: no apparent distress and oriented x3 OTHER: Sitting up in bed. Today appears more comfortable, energetic. Stronger. HENMT: COMMON NORMALS: oropharynx normal Neck/C-Spine: COMMON NORMALS: no JVD Resp: COMMON NORMALS: normal respiratory effort and clear to auscultation bilaterally AUSCULTATION: clear to auscultation bilaterally Cardio: COMMON NORMALS: no JVD, regular rhythm, S1 normal heart sound, S2 normal heart sound and no murmurs RHYTHM: regular rhythm HEART SOUNDS: S1 normal and S2 normal GI: COMMON NORMALS: soft to palpation PALPATION: Yes soft Extremity: COMMON NORMALS: no joint enlargement and no pedal edema Neuro: COMMON NORMALS: oriented x3 and moves all extremities Skin: COMMON NORMALS: no rashes or lesions noted GENERAL SKIN EXAM: no rashes or lesions noted Discharge Data Data Completed and Pending: Completed Studies During Hospitalization Category Date Time Status XR acute abdomen series [id number] Routi ne Exams 11/25/19 15:18 Completed Labs from last 24 hours 11/26/19 11/26/19 11/26/19 04:25 04:25 04:25 WBC RBC Hgb Hct MCV MCH MCHC RDW Plt Count MPV Neut % (Auto) Lymph % (Auto) Whiteside % (Auto) Eos % (Auto) Baso % (Auto) Neut # (Auto) Lymph # (Auto) Whiteside # (Auto) Eos # (Auto) Baso # (Auto) Nucleated RBC % (a uto) Nucleated RBCs # ESR 10 Sodium 138 Potassium 4.2 Chloride 102 Carbon Dioxide 26 Anion Gap 14.2 BUN 6 Creatinine 0.9 GFR Calculation 70.8 L Glucose 117 H Calculated Osmolal ity 283 L Calcium 10.0 C-Reactive Protein 2.0 11/26/19 04:25 WBC 9.9 RBC 4.59 Hgb 13.9 Hct 42.1 MCV 91.7 MCH 30.3 MCHC 33.0 RDW 12.2 Plt Count 270 MPV 11.8 H Neut % (Auto) 62.1 Lymph % (Auto) 27.4 Whiteside % (Auto) 8.8 Eos % (Auto) 1.1 Baso % (Auto) 0.3 Neut # (Auto) 6.2 Lymph # (Auto) 2.7 Whiteside # (Auto) 0.9 Eos # (Auto) 0.1 Baso # (Auto) 0.0 Nucleated RBC % (a uto) 0 Nucleated RBCs # 0.0 ESR Sodium Potassium Chloride Carbon Dioxide Anion Gap BUN Creatinine GFR Calculation Glucose Calculated Osmolal ity Calcium C-Reactive Protein Vitals: Last Vital Signs Temp 98.3 F 11/26/19 16:30 Pulse 60 11/26/19 16:30 Resp 18 11/26/19 16:30 BP 148/80 11/26/19 16:30 Pulse Ox 98 11/26/19 16:30 Discharge Plan Discharge Patient Disposition: Home, Self-Care Condition: Stable Prescriptions: New Miralax 17 gram/dose powder 17 gm PO DAILY Qty: 238 RF: 0 Continued promethazine 25 mg tablet 25 mg PO Q6H PRN (Reason: nausea and vomiting) Qty: 20 RF: 0 pantoprazole 40 mg tablet,delayed release (DR/EC) 40 mg PO QAM 56 Days Qty: 56 RF: 0 Reglan 5 mg tablet 5 mg PO Q6H PRN (Reason: nausea and vomiting) Qty: 10 RF: 0 Discontinued Laxative Pills 25 mg Tablet 25 mg PO DAILY RF: 0 Discharge Orders: Discharge Order (Routine); Ordered 11/26/19 Ordered By: James Neely Referrals: Kei Villanueva MD [Physician] - 1 week (You [place] Medicine [place] [facility] [place] 26 at 2:00[place] Gabriela Poole FNP [Referring] - 4-7 days (You have an appointment scheduled with LUCRECIA Stanford at [facility] on December 03 at 10:00am.) Discharge Diet: Advance as tolerated and Full LIquid Patient Instructions: Polyethylene Glycol 3350 (By mouth), Marijuana Abuse, Vomiting - Adult Activity Restrictions/Additional Instructions: Advance diet very slowly as tolerating from liquid. Space out small meals throughout the day. Please follow up with your primary care provider to discuss arrangements for gastric emptying study, and any other investigations deemed appropriate with regards to recurrent episodes of cyclic vomiting. Please see GI specialist with regards to assessment for the condition as well. Please discuss with your primary care doctor regarding history of inflammatory bowel disease in her family. Please abstain from any cannabis products. If taking Reglan, please be cautious, and aware that it may cause long-term side effects including extra pyramidal movements, although in cases of gastroparesis may be of help. Please discuss with your primary care doctor in case using this with meals. Anytime you take Reglan consider also taking it with 25 mg p.o. Benadryl as this may reduce chance of the adverse effect. If you experience recurrence of severe vomiting, inability to tolerate oral drink or even small amounts of food, any severe abdominal pain, blood in stool, fevers, or other abnormal symptoms, please seek medical attention without delay. Discharge Date/Time: 11/26/19 16:31 Discharge Attestations Time Spent in Discharge Care*: greater than 30 min Quality Metrics Clinical Quality Measures During this hospital stay, did patient experience: None Coding Level of Care Code Acute Radio Officer for [facility] Diagnoses Cyclic vomiting syndrome R11.15 Marijuana abuse, continuous F12.10 H/O abdominal surgery Z98.890 Family history of inflammatory bowel disease Z83.79
== END 2019-11-26 16:31 | disposition home or self-care (01) | DRG 392 ==
LOC: ER 11-22 01:40 → MEDSURG 11-22 02:20
PROVIDERS: Admitting Provider Internal Medicine; Emergency Provider Emergency Medicine; Family Provider Family Medicine; Visit Provider Internal Medicine
DX: K52.9 Noninfective gastroenteritis and colitis, unspecified (principal); F12.10 Cannabis abuse, uncomplicated; E86.0 Dehydration; E87.6 Hypokalemia; J45.909 Unspecified asthma, uncomplicated; K21.9 Gastro-esophageal reflux disease without esophagitis; K64.9 Unspecified hemorrhoids; Z87.891 Personal history of nicotine dependence; K59.00 Constipation, unspecified
CPT/HCPCS: 12345; 36415; 74022; 80048; 80053; 80306; 80307; 81001; 82550; 83605; 83690; 83735; 84703; 85025; 85651; 86140; 86677; 93005; 96372; 96375; 99284; C9113; G0378; J1200; J1630; J1650; J2270; J2405; J2550; J2765; J3480; J7030

== ENCOUNTER 2019-11-27 14:53 | Emergency (ER) | payer SELFPAY ==
[2019-11-27 14:59] VITALS: BP 151/108; PULSE 99; RESP 18; TEMP 36.8; O2SAT 95; BMI 24.4
[2019-11-27 16:41] LABS: Basophils % 0.1 %; Hematocrit 50.4 % (37.0-47.0); Hemoglobin 16.6 g/dL (11.5-15.3); Lymphocytes # 1.6 10^3/uL (0.8-4.8); Lymphocytes % 7.6 %; Mean Corpuscular HGB Conc 32.9 g/dL (30.0-36.0); Monocytes # 0.9 10^3/uL (0.2-0.9); Monocytes % 4.2 %; Neutrophils # 18.7 10^3/uL (1.8-7.7); Neutrophils % 87.5 %; Nucleated Red Blood Cells % 0 %; Platelet Count 363 10^3/cmm (130-400); Red Blood Count 5.36 10^6/uL (4.1-5.3); Red Cell Distribution Width 12.2 % (12.1-15.1); White Blood Count 21.4 10^3/uL (4.0-10.0)
[2019-11-27 16:58] LABS: Alanine Aminotransferase 21 U/L (0-33); Albumin Level 4.7 g/dL (3.5-5.2); Alkaline Phosphatase 68 IU/L (35-105); Anion Gap 23.2 (5-19); Aspartate Amino Transferase 23 U/L (0-32); Blood Urea Nitrogen 12 mg/dL (6-20); Calcium 10.7 mg/dL (8.5-10.5); Carbon Dioxide 17 mmol/L (22-29); Chloride 98 mmol/L (98-107); Globulin 3.9 g/dL (1.3-4.6); Glomerular Filtration Rate 62.7 mL/min (90-130); Glucose 127 mg/dL (65-115); Lipase 23 U/L (13-60); Magnesium 2.6 mg/dL (1.7-2.3); Osmolality Calculated 276 mOsm/kg (285-295); Potassium 4.2 mmol/L (3.5-5.1); Sodium 134 mmol/L (136-145); Total Bilirubin 0.9 mg/dL (0.15-1.2); Total Protein 8.6 g/dL (6.6-8.7)
[2019-11-27 17:20] LABS: HCG, Serum Qual Negative (Negative)
[2019-11-27 17:27] LABS: Acetaminophen < 5.0 ug/mL (10-30); Alcohol Level < 10 mg/dL (0-10); Salicylate < 0.3 mg/dL (3-10)
--- NOTE | 2019-11-27 18:17 | CTR_ITS ---
PROCEDURE INFORMATION: Exam: CT Abdomen And Pelvis With Contrast Exam date and time: 11/27/2019 6:31 PM Age: 34 years old Clinical indication: Abdominal pain; Prior surgery; Additional info: Abdominal pain, nausea and vomiting TECHNIQUE: Imaging protocol: Computed tomography of the abdomen and pelvis with intravenous contrast. Radiation optimization: All CT scans at this facility use at least one of these dose optimization techniques: automated exposure control; mA and/or kV adjustment per patient size (includes targeted exams where dose is matched to clinical indication); or iterative reconstruction. Contrast material: OMNI 300; Contrast volume: 95 ml; Contrast route: IV; COMPARISON: CT abdomen pelvis w con* [id number] 11/21/2019 6:24 AM RADIATION DOSE METRICS: Total DLP: 492.98 mGy-cm FINDINGS: Liver: Focal fatty infiltration in the left liver lobe. Gallbladder and bile ducts: Cholecystectomy. The bile ducts are normal. Pancreas: Normal. No ductal dilation. Spleen: Normal. No splenomegaly. Adrenals: Normal. No mass. Kidneys and ureters: Normal. No hydronephrosis. Stomach and bowel: The stomach and small bowel are unremarkable. The majority of the colon is decompressed. Appendix: The appendix is not visualized. Intraperitoneal space: Unremarkable. No free air. No significant fluid collection. Vasculature: Unremarkable. No abdominal aortic aneurysm. Lymph nodes: Unremarkable. No enlarged lymph nodes. Bladder: Unremarkable as visualized. Reproductive: Unremarkable as visualized. Bones/joints: Unremarkable. No acute fracture. Soft tissues: Small fat containing umbilical hernia. CT/CT abdomen pelvis w con* [id number] IMPRESSION: 1. No acute abnormality identified in the abdomen or pelvis. Radiation Dose CTDIVOL = (mGy): DLP = 492.98 (mGy-cm)
[2019-11-27 19:38] LABS: ABG PCO2 19.5 mmHg (35-45); ABG PH Result 7.61 (7.35-7.45); Base Excess ABG 1.3 mmol/L (-2.0-2.0); Blood Gas Drawn By HARKR; HCO3 ABG 19.8 mmol/L (22-26); Oxygen Device ROOM AIR
[2019-11-27 19:39] LABS: Arterial Blood Gas Hematocrit 51.4 % (37-47)
[2019-11-27] MEDS: sodium chloride 0.9% 1,000 ML 999 ML IV (20:20)
[2019-11-27 20:21] VITALS: RESP 24
[2019-11-27] MEDS: fentaNYL 50 mcg/mL INJ 2mL IVP (20:21)
[2019-11-27] MEDS: ondansetron 2 mg/ML SDV 2 mL 4 MG IVP (20:21)
[2019-11-27] MEDS: iohexol 300 mg/mL 100 mL Btl IV (20:25)
[2019-11-27] MEDS: metoclopramide 5 mg/mL SDV 2 mL 10 MG IVP (22:58)
--- NOTE | 2019-11-27 22:58 | PC.NURSE ---
Pt actively vomiting prior to reglan adm. Dr notified
--- NOTE | 2019-11-27 23:25 | PC.NURSE ---
vo from DR Wallace, PO challenge
[2019-11-27 23:27] LABS: Amphetamines Screen Urine Negative (Negative); Barbiturates Screen Urine Negative (Negative); Benzodiazepines Screen Urine Negative (Negative); Cocaine Screen Urine Negative (Negative); Opiate Screen Urine Positive (Negative); PCP Screen Urine Negative (Negative); THC Screen Urine Positive (Negative)
[2019-11-27 23:31] LABS: Glucose Urine UA Norm (Normal); Ketones Urine 2+ (Negative); Protein Urine 1+ (Negative); Urine Appearance Clear (CLEAR); Urine Color Yellow (Yellow); pH Urine 8 (5-7)
[2019-11-27 23:32] LABS: Add Urine Microscopic? YES; Bilirubin Urine Neg (NEGATIVE); Blood Urine Neg (Negative); Leukocyte Esterase Urine Negative (Negative); Nitrate Urine Negative (Negative); Sulfosalicylic Acid Urine Negative (Negative); Urobilinogen Urine Norm (Negative)
--- NOTE | 2019-11-27 23:33 | ED_ITS ---
HPI - Nausea/Vomiting/Diarrhea General: Chief complaint: Nausea/Vomiting/Diarrhea Stated complaint: n/v Time Seen by Provider: 11/27/19 17:57 Source: patient Mode of arrival: ambulatory Limitations: no limitations History of Present Illness: HPI Narrative: 34-year-old female patient with several ED visits and hospital admissions for cyclical vomiting secondary to marijuana use. The patient was discharged yesterday from this facility following an admission for cyclical vomiting. The patient's says she felt a little better initially but then has not been able to keep anything down. The patient was vomiting when she arrived to the emergency department. She denies any fever. She denies any urinary symptoms. She denies any diarrhea. MD elicited complaint: nausea, vomiting and abdominal pain Pertinent past history: cyclical vomiting Onset (ago): day(s) (1) Description of vomiting: food contents Associated nausea: Yes Associated abdominal pain: Yes Location of pain: Diffuse Pain consistency: constant Severity: severe Quality: cramping Exacerbating factors: none Relieving factors: none Context: marijuana use Associated symtoms: Reports chest pain and nausea; Denies change in vision, dysuria, headache(s) or palpitations Review of Systems General: Reports: 10 or more systems reviewed and unremarkable except in HPI and below Const: Denies: fever, chills or body aches Eyes: Denies: change in vision or blurry vision ENMT: Denies: throat pain, enlarged tonsils, painful swallowing, hoarseness, mouth pain or swelling of lips/tongue Card: Reports: chest pain; Denies: palpitations, irregular heart rhythm, edema or swelling of feet/ankles Resp: Denies: shortness of breath, productive cough or non-productive cough GI: Reports: abdominal pain, nausea and vomiting : Denies: flank pain, difficulty urinating, painful urination, urinary frequency, urinary urgency or urinary hesitancy Musc: Denies: neck pain, back pain or extremity swelling Skin/Breast: Denies: rash, itching or redness Neuro: Denies: headache, numbness in extremities or weakness in extremities Endo: Denies: excessive urination, excessive thirst or tired all the time PFS ED PFSH: Social History (Updated 11/22/19 @ 01:55 by Brandon Carbajal MD) Smoking and tobacco status: former smoker Alcohol intake: never Housing: House Physical Exam Const: COMMON NORMALS: no apparent distress, average body habitus, oriented x3, no limitations, healthy appearing, alert and well nourished GENERAL APPEARANCE: in distress HENMT: COMMON NORMALS: normocephalic, head/scalp atraumatic and moist oral mucous membranes HEAD & SCALP: normocephalic and atraumatic Eye: COMMON NORMALS: PERRL, EOMs intact bilaterally, conjunctivae normal and no scleral icterus CONJUNCTIVA: Yes conjunctivae normal PUPIL: Yes PERRL Neck/C-Spine: COMMON NORMALS: full ROM, supple, no meningeal signs, no JVD and no carotid bruits Chest: COMMONS NORMALS: inspection of chest normal and palpation of chest normal Resp: COMMON NORMALS: normal respiratory effort, no retractions, no use of accessory muscles, clear to auscultation bilaterally and percussion normal AUSCULTATION: clear to auscultation bilaterally PERCUSSION: percussion normal Cardio: COMMON NORMALS: no JVD, regular rate, regular rhythm, S1 normal heart sound, S2 normal heart sound, no gallops, no clicks, no murmurs, no rub and peripheral pulses 2+ throughout RATE: regular rate RHYTHM: regular rhythm HEART SOUNDS: S1 normal and S2 normal PERIPHERAL PULSES: pulses 2+ throughout GI: COMMON NORMALS: normal to inspection, nondistended, normoactive bowel sounds, soft to palpation, no hepatosplenomegaly, no masses and no bruits PALPATION: Yes soft, Yes tender (vague non specific generalized tenderness) and Yes no hepatosplenomegaly : COMMON NORMALS: Yes no CVA tenderness BLADDER/KIDNEY EXAM: Yes no CVA tenderness Back/Pelvis: COMMON NORMALS: no CVA tenderness Extremity: COMMON NORMALS: normal to inspection, full ROM, normal capillary refill, no calf tenderness and no pedal edema Neuro: COMMON NORMALS: oriented x3 SENSORIUM/ORIENTATION: Yes alert MENINGEAL SIGNS: Yes no meningeal signs Skin: COMMON NORMALS: no rashes or lesions noted, no wounds, skin turgor normal, no jaundice, no petechiae and no mottling GENERAL SKIN EXAM: no rashes or lesions noted and turgor normal Course Reevaluation(s): Reevaluation #1: Vomiting has resolved. She passed her oral challenge, kept on ice water and requested for more as she said he felt good. She was advised to drink small sips and be on a clear liquid diet for the next 2 days before advancing her diet slowly. She voiced understanding and is in agreement with the plan. 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 She was recently discharged from the hospital for the same thing. She improved with IV fluids, antiemetics intravenously. She passed a p.o. challenge and is discharged home with no new orders. She has oral metoclopramide at home. She is advised to follow-up with her primary care provider. She is also advised to consume a liquid diet for the next 2 days. Medical Records: Attestation: I reviewed the patient's medical records. Lab Data: Labs: Lab Results 11/27/19 11/27/19 11/27/19 Range/Units 16:30 16:30 16:30 WBC 21.4 H (4.0-10.0) 10^3/ uL RBC 5.36 H (4.1-5.3) 10^6/u L Hgb 16.6 H (11.5-15.3) g/dL Hct 50.4 H (37.0-47.0) % MCV 94.0 (81-99) fL MCH 31.0 (28.0-34.0) pg MCHC 32.9 (30.0-36.0) g/dL RDW 12.2 (12.1-15.1) % Plt Count 363 (130-400) 10^3/c mm MPV 11.0 H (7.4-10.4) fL Neut % (Auto) 87.5 % Lymph % (Auto) 7.6 % [place] % (Auto) 4.2 % Eos % (Auto) 0.0 % Baso % (Auto) 0.1 % Neut # (Auto) 18.7 H (1.8-7.7) 10^3/u L Lymph # (Auto) 1.6 (0.8-4.8) 10^3/u L [place] # (Auto) 0.9 (0.2-0.9) 10^3/u L Eos # (Auto) 0.0 (0.0-0.8) 10^3/u L Baso # (Auto) 0.0 (0.0-0.1) 10^3/u L Nucleated RBC % (a uto) 0 % Nucleated RBCs # 0.0 /100WBC Specimen Type Sample Site ABG pH (7.35-7.45) ABG pCO2 (35-45) mmHg ABG pO2 (80.0-100.0) mmH g ABG HCO3 (22-26) mmol/L ABG Base Excess (-2.0-2.0) mmol/ L Josemanuel Test Hematocrit (37-47) % O2 Delivery Device FiO2 % Specimen Drawn By Sodium 134 L (136-145) mmol/L Potassium 4.2 (3.5-5.1) mmol/L Chloride 98 (98-107) mmol/L Carbon Dioxide 17 L (22-29) mmol/L Anion Gap 23.2 H (5-19) BUN 12 (6-20) mg/dL Creatinine 1.0 H (0.5-0.9) mg/dL GFR Calculation 62.7 L (90-130) mL/min Glucose 127 H (65-115) mg/dL Calculated Osmolal ity 276 L (285-295) mOsm/k g Lactate 2.0 (0.5-2.2) mmol/L Calcium 10.7 H (8.5-10.5) mg/dL Magnesium 2.6 H (1.7-2.3) mg/dL Total Bilirubin 0.9 (0.15-1.2) mg/dL AST 23 (0-32) U/L ALT 21 (0-33) U/L Alkaline Phosphata se 68 (35-105) IU/L Total Protein 8.6 (6.6-8.7) g/dL Albumin 4.7 (3.5-5.2) g/dL Globulin 3.9 (1.3-4.6) g/dL Lipase 23 (13-60) U/L HCG, Qual (Negative) Urine Color (Yellow) Urine Appearance (CLEAR) Urine pH (5-7) Ur Specific Gravit y (1.005-1.030) Urine Protein (Negative) Urine Glucose (UA) (Normal) Urine Ketones (Negative) Urine Blood (Negative) Urine Nitrate (Negative) Urine Bilirubin (NEGATIVE) Prot Sulfosalicyli c Acd (Negative) Urine Urobilinogen (Negative) mg/dL Ur Leukocyte Zakiya ase (Negative) Urine RBC (0-2) /hpf Urine WBC (0-5) /hpf Ur Squamous Epith Cells (0-5) Urine Bacteria (NONE) Salicylates < 0.3 L (3-10) mg/dL Urine Opiates Scre en (Negative) ng/mL Acetaminophen < 5.0 L (10-30) ug/mL Ur Barbiturates Sc reen (Negative) ng/mL Ur Phencyclidine S crn (Negative) ng/mL Ur Amphetamines Sc reen (Negative) ng/mL U Benzodiazepines Scrn (Negative) ng/mL Urine Cocaine Scre en (Negative) ng/mL U Marijuana (THC) Screen (Negative) ng/mL Ethyl Alcohol < 10 (0-10) mg/dL 11/27/19 11/27/19 11/27/19 Range/Units 16:30 19:20 22:20 WBC (4.0-10.0) 10^3/ uL RBC (4.1-5.3) 10^6/u L Hgb (11.5-15.3) g/dL Hct (37.0-47.0) % MCV (81-99) fL MCH (28.0-34.0) pg MCHC (30.0-36.0) g/dL RDW (12.1-15.1) % Plt Count (130-400) 10^3/c mm MPV (7.4-10.4) fL Neut % (Auto) % Lymph % (Auto) % [place] % (Auto) % Eos % (Auto) % Baso % (Auto) % Neut # (Auto) (1.8-7.7) 10^3/u L Lymph # (Auto) (0.8-4.8) 10^3/u L [place] # (Auto) (0.2-0.9) 10^3/u L Eos # (Auto) (0.0-0.8) 10^3/u L Baso # (Auto) (0.0-0.1) 10^3/u L Nucleated RBC % (a uto) % Nucleated RBCs # /100WBC Specimen Type Abg Sample Site Left brachial ABG pH 7.61 H* (7.35-7.45) ABG pCO2 19.5 L* (35-45) mmHg ABG pO2 92.0 (80.0-100.0) mmH g ABG HCO3 19.8 L (22-26) mmol/L ABG Base Excess 1.3 (-2.0-2.0) mmol/ L Josemanuel Test Pos Hematocrit 51.4 H (37-47) % O2 Delivery Device Room air FiO2 21.0 % Specimen Drawn By Harkr Sodium (136-145) mmol/L Potassium (3.5-5.1) mmol/L Chloride (98-107) mmol/L Carbon Dioxide (22-29) mmol/L Anion Gap (5-19) BUN (6-20) mg/dL Creatinine (0.5-0.9) mg/dL GFR Calculation (90-130) mL/min Glucose (65-115) mg/dL Calculated Osmolal ity (285-295) mOsm/k g Lactate (0.5-2.2) mmol/L Calcium (8.5-10.5) mg/dL Magnesium (1.7-2.3) mg/dL Total Bilirubin (0.15-1.2) mg/dL AST (0-32) U/L ALT (0-33) U/L Alkaline Phosphata se (35-105) IU/L Total Protein (6.6-8.7) g/dL Albumin (3.5-5.2) g/dL Globulin (1.3-4.6) g/dL Lipase (13-60) U/L HCG, Qual Negative (Negative) Urine Color Yellow (Yellow) Urine Appearance Clear (CLEAR) Urine pH 8 H (5-7) Ur Specific Gravit y 1.010 (1.005-1.030) Urine Protein 1+ H (Negative) Urine Glucose (UA) Norm (Normal) Urine Ketones 2+ H (Negative) Urine Blood Neg (Negative) Urine Nitrate Negative (Negative) Urine Bilirubin Neg (NEGATIVE) Prot Sulfosalicyli c Acd Negative (Negative) Urine Urobilinogen Norm (Negative) mg/dL Ur Leukocyte Zakiya ase Negative (Negative) Urine RBC Rare (0-2) /hpf Urine WBC Rare (0-5) /hpf Ur Squamous Epith Cells 0-4 H (0-5) Urine Bacteria 1+ H (NONE) Salicylates (3-10) mg/dL Urine Opiates Scre en (Negative) ng/mL Acetaminophen (10-30) ug/mL Ur Barbiturates Sc reen (Negative) ng/mL Ur Phencyclidine S crn (Negative) ng/mL Ur Amphetamines Sc reen (Negative) ng/mL U Benzodiazepines Scrn (Negative) ng/mL Urine Cocaine Scre en (Negative) ng/mL U Marijuana (THC) Screen (Negative) ng/mL Ethyl Alcohol (0-10) mg/dL 05/12/11 Range/Units 22:20 WBC (4.0-10.0) 10^3/ uL RBC (4.1-5.3) 10^6/u L Hgb (11.5-15.3) g/dL Hct (37.0-47.0) % MCV (81-99) fL MCH (28.0-34.0) pg MCHC (30.0-36.0) g/dL RDW (12.1-15.1) % Plt Count (130-400) 10^3/c mm MPV (7.4-10.4) fL Neut % (Auto) % Lymph % (Auto) % [place] % (Auto) % Eos % (Auto) % Baso % (Auto) % Neut # (Auto) (1.8-7.7) 10^3/u L Lymph # (Auto) (0.8-4.8) 10^3/u L [place] # (Auto) (0.2-0.9) 10^3/u L Eos # (Auto) (0.0-0.8) 10^3/u L Baso # (Auto) (0.0-0.1) 10^3/u L Nucleated RBC % (a uto) % Nucleated RBCs # /100WBC Specimen Type Sample Site ABG pH (7.35-7.45) ABG pCO2 (35-45) mmHg ABG pO2 (80.0-100.0) mmH g ABG HCO3 (22-26) mmol/L ABG Base Excess (-2.0-2.0) mmol/ L Josemanuel Test Hematocrit (37-47) % O2 Delivery Device FiO2 % Specimen Drawn By Sodium (136-145) mmol/L Potassium (3.5-5.1) mmol/L Chloride (98-107) mmol/L Carbon Dioxide (22-29) mmol/L Anion Gap (5-19) BUN (6-20) mg/dL Creatinine (0.5-0.9) mg/dL GFR Calculation (90-130) mL/min Glucose (65-115) mg/dL Calculated Osmolal ity (285-295) mOsm/k g Lactate (0.5-2.2) mmol/L Calcium (8.5-10.5) mg/dL Magnesium (1.7-2.3) mg/dL Total Bilirubin (0.15-1.2) mg/dL AST (0-32) U/L ALT (0-33) U/L Alkaline Phosphata se (35-105) IU/L Total Protein (6.6-8.7) g/dL Albumin (3.5-5.2) g/dL Globulin (1.3-4.6) g/dL Lipase (13-60) U/L HCG, Qual (Negative) Urine Color (Yellow) Urine Appearance (CLEAR) Urine pH (5-7) Ur Specific Gravit y (1.005-1.030) Urine Protein (Negative) Urine Glucose (UA) (Normal) Urine Ketones (Negative) Urine Blood (Negative) Urine Nitrate (Negative) Urine Bilirubin (NEGATIVE) Prot Sulfosalicyli c Acd (Negative) Urine Urobilinogen (Negative) mg/dL Ur Leukocyte Zakiya ase (Negative) Urine RBC (0-2) /hpf Urine WBC (0-5) /hpf Ur Squamous Epith Cells (0-5) Urine Bacteria (NONE) Salicylates (3-10) mg/dL Urine Opiates Scre en Positive H (Negative) ng/mL Acetaminophen (10-30) ug/mL Ur Barbiturates Sc reen Negative (Negative) ng/mL Ur Phencyclidine S crn Negative (Negative) ng/mL Ur Amphetamines Sc reen Negative (Negative) ng/mL U Benzodiazepines Scrn Negative (Negative) ng/mL Urine Cocaine Scre en Negative (Negative) ng/mL U Marijuana (THC) Screen Positive H (Negative) ng/mL Ethyl Alcohol (0-10) mg/dL Imaging Data^: CT Abd/Pel: Radiologist's impression: [facility] [address] [place] [address] CT Scan Report Signed Patient: Renetta Henson #: [id number] : 1985Acct#:[id number] Age/Sex: 34 / FADM Date: 11/27/19 Loc: ERRoom/Bed: Attending Dr: Ordering Provider/Ordering MD: Marcia Wallace MD, [facility] [place] Date of Service: 11/27/19 Procedure(s): CT abdomen pelvis w con* [id number] Accession Number(s): [id number] Report Number: [id number] PROCEDURE INFORMATION: Exam: CT Abdomen And Pelvis With Contrast Exam date and time: 11/27/2019 6:31 PM Age: 34 years old Clinical indication: Abdominal pain; Prior surgery; Additional info: Abdominal pain, nausea and vomiting TECHNIQUE: Imaging protocol: Computed tomography of the abdomen and pelvis with intravenous contrast. Radiation optimization: All CT scans at this facility use at least one of these dose optimization techniques: automated exposure control; mA and/or kV adjustment per patient size (includes targeted exams where dose is matched to clinical indication); or iterative reconstruction. Contrast material: OMNI 300; Contrast volume: 95 ml; Contrast route: IV; COMPARISON: CT abdomen pelvis w con* [id number] 11/21/2019 6:24 AM RADIATION DOSE METRICS: Total DLP: 492.98 mGy-cm FINDINGS: Liver: Focal fatty infiltration in the left liver lobe. Gallbladder and bile ducts: Cholecystectomy. The bile ducts are normal. Pancreas: Normal. No ductal dilation. Spleen: Normal. No splenomegaly. Adrenals: Normal. No mass. Kidneys and ureters: Normal. No hydronephrosis. Stomach and bowel: The stomach and small bowel are unremarkable. The majority of the colon is decompressed. Appendix: The appendix is not visualized. Intraperitoneal space: Unremarkable. No free air. No significant fluid collection. Vasculature: Unremarkable. No abdominal aortic aneurysm. Lymph nodes: Unremarkable. No enlarged lymph nodes. Bladder: Unremarkable as visualized. Reproductive: Unremarkable as visualized. Bones/joints: Unremarkable. No acute fracture. Soft tissues: Small fat containing umbilical hernia. CT/CT abdomen pelvis w con* [id number] IMPRESSION: 1. No acute abnormality identified in the abdomen or pelvis. Radiation Dose CTDIVOL = (mGy): DLP = 492.98 (mGy-cm) Dictated By:Getachew Knutson Signed By:Getachew KnutsonSigniesha Date/Time:11/27/192036 DD/ 34 Discharge Plan Discharge Patient Disposition: Home, Self-Care Clinical Impression: Cyclic vomiting syndrome Condition: Stable Prescriptions: Continued promethazine 25 mg tablet 25 mg PO Q6H PRN (Reason: nausea and vomiting) Qty: 20 RF: 0 pantoprazole 40 mg tablet,delayed release (DR/EC) 40 mg PO QAM 56 Days Qty: 56 RF: 0 metoclopramide HCl 10 mg tablet 10 mg PO PRN PRN (Reason: NAUSEA/VOMITING) RF: 0 Discharge Orders: Discharge Order (Routine); Ordered 11/27/19 Ordered By: Marcia Wallace Referrals: Angela Jurado MD [Family Provider] - 1-3 days Patient Instructions: Acute Nausea and Vomiting (ED) Activity Restrictions/Additional Instructions: Return for any new or worsening symptoms. Follow-up with your primary care provider within 3 days. Drink a clear liquid diet for the next 2 days then slowly advance your diet until you are able to eat a regular diet. Use the medicine you are giving for nausea, Reglan as needed for nausea or vomiting. Coding Level of Care Code ED Category Specialist for Tip Pérez
[2019-11-27 23:34] LABS: RBC Urine RARE /hpf (0-2); Squamous Epithelial Cell Urine 0-4 (0-5); WBC Urine RARE /hpf (0-5)
[2019-11-27 23:35] LABS: Bacteria Urine 1+
--- NOTE | 2019-11-27 23:35 | PC.NURSE ---
pt passes po challenge. feels comfortable to be d/c
[2019-11-27 23:48] VITALS: BP 164/98; PULSE 82; RESP 16; O2SAT 98
[2019-11-30 13:49] LABS: Blood Gas Sample Site Brachial, left; Blood Gas Sample Type Arterial; PO2 ABG 92.3 mmHg (80.0-100.0)
== END 2019-11-27 23:55 | disposition home or self-care (01) ==
PROVIDERS: Family Medicine; Emergency Provider Family Medicine; Family Provider Family Medicine
DX: R11.15 Cyclical vomiting syndrome unrelated to migraine (principal); Z87.891 Personal history of nicotine dependence
CPT/HCPCS: 12345; 36415; 36600; 74177; 80053; 80306; 80307; 81001; 82803; 83605; 83690; 83735; 84703; 85025; 87040; 96361; 96374; 96375; 99283; J2405; J2765; J3010; J7030; Q9967

== ENCOUNTER 2019-12-06 18:46 | Emergency (ER) | payer SELFPAY ==
--- NOTE | 2019-12-06 18:51 | XR_ITS ---
WS: [id number] PORTABLE CHEST HISTORY: Acute onset of chest pain. COMPARISON: 02/09/2019 Lungs are clear and well expanded. No pleural effusion or pneumothorax. Cardiac size: Normal. Mediastinum/Aorta: Normal mediastinum. No osseous abnormality seen. XR/XR chest 1V portable [id number] IMPRESSION: Unremarkable portable chest.
--- NOTE | 2019-12-06 18:51 | ECG_ITS ---
Measurements Intervals [place] Rate: 106 P: 78 VA: 144 QRS: 45 QRSD: 70 T: 28 QT: 312 QTc: 415 SINUS TACHYCARDIA POSSIBLE LEFT ATRIAL ENLARGEMENT [-0.1mV P WAVE IN V1/V2] NONSPECIFIC T-WAVE ABNORMALITY ABNORMAL RHYTHM ECG Compared to ECG 11/21/2019 22:40:39 T-wave abnormality now present Sinus bradycardia no longer present Electronically Signed On 12-07-2019 13:03:37 CDT by Vimal Encarnacion M.D. [email or web address]
[2019-12-06 18:52] VITALS: BP 139/99; PULSE 105; RESP 17; TEMP 36.8; O2SAT 95; BMI 23.5
[2019-12-06 19:42] LABS: Basophils % 0.3 %; Eosinophils # 0.1 10^3/uL (0.0-0.8); Eosinophils % 0.8 %; Hematocrit 42.4 % (37.0-47.0); Hemoglobin 14.3 g/dL (11.5-15.3); Lymphocytes # 2.5 10^3/uL (0.8-4.8); Mean Corpuscular HGB Conc 33.7 g/dL (30.0-36.0); Mean Corpuscular Volume 89.1 fL (81-99); Mean Platelet Volume 11.8 fL (7.4-10.4); Monocytes # 0.8 10^3/uL (0.2-0.9); Monocytes % 10.1 %; Neutrophils # 4.2 10^3/uL (1.8-7.7); Neutrophils % 55.5 %; Nucleated Red Blood Cells % 0 %; Platelet Count 302 10^3/cmm (130-400); Red Blood Count 4.76 10^6/uL (4.1-5.3); Red Cell Distribution Width 12.1 % (12.1-15.1); White Blood Count 7.6 10^3/uL (4.0-10.0)
[2019-12-06 20:05] LABS: Alanine Aminotransferase 20 U/L (0-33); Albumin Level 4.5 g/dL (3.5-5.2); Alkaline Phosphatase 53 IU/L (35-105); Anion Gap 18.1 (5-19); Aspartate Amino Transferase 18 U/L (0-32); Blood Urea Nitrogen 6 mg/dL (6-20); Calcium 10.3 mg/dL (8.5-10.5); Carbon Dioxide 23 mmol/L (22-29); Chloride 92 mmol/L (98-107); Globulin 2.9 g/dL (1.3-4.6); Glomerular Filtration Rate 70.8 mL/min (90-130); Glucose 140 mg/dL (65-115); Lipase 34 U/L (13-60); Osmolality Calculated 268 mOsm/kg (285-295); Potassium 3.1 mmol/L (3.5-5.1); Sodium 130 mmol/L (136-145); Total Bilirubin 0.7 mg/dL (0.15-1.2); Total Protein 7.4 g/dL (6.6-8.7)
--- NOTE | 2019-12-06 20:51 | ECG_ITS ---
Measurements Intervals [place] Rate: 87 P: 76 WV: 153 QRS: 56 QRSD: 65 T: 49 QT: 353 QTc: 426 SINUS RHYTHM POSSIBLE LEFT ATRIAL ENLARGEMENT [-0.1mV P WAVE IN V1/V2] NONSPECIFIC T-WAVE ABNORMALITY Compared to ECG 11/21/2019 22:40:39 T-wave abnormality now present Sinus bradycardia no longer present Electronically Signed On 12-07-2019 13:07:50 CDT by Vimal Encarnacion M.D. [email or web address]
[2019-12-06 20:54] LABS: Troponin(5th) Baseline 7 ng/mL (0-10)
[2019-12-06 22:17] LABS: Troponin 5 2HR 7.12 ng/mL (0-10); Troponin 5 2HR Delta 0.12 ABS# (0-10)
--- NOTE | 2019-12-06 22:26 | W.ED.CHESTPA ---
HPI - Chest Pain General: Chief Complaint: Chest Pain Stated Complaint: cp Time Seen by Provider: 12/06/19 22:26 Source: patient Mode of arrival: ambulatory Limitations: no limitations Review of Systems General: Reports: 10 or more systems reviewed and unremarkable except in HPI and below PFSH ED PFSH: Medical History (Updated 11/27/19 @ 23:35 by Marcia Wallace MD, [facility] [place]) Asthma Cyclic vomiting syndrome GERD (gastroesophageal reflux disease) Hemorrhoids Hypokalemia Marijuana abuse, continuous Ovarian cyst Surgical History (Updated 11/26/19 @ 21:35 by James Neely MD) Hx of appendectomy Hx of cholecystectomy Family History Other CAD (coronary artery disease) Cancer Social History Smoking and tobacco status: former smoker Alcohol intake: never Housing: House Physical Exam Const: COMMON NORMALS: no acute distress and patient oriented x3 GENERAL APPEARANCE: cooperative HENMT: COMMON NORMALS: normocephalic, TM's normal bilaterally and Normal external nose present HEAD & SCALP: normal to inspection and normocephalic NOSE: Normal external nose present TYMPANIC MEMBRANE: TM's normal bilaterally MOUTH: Normal oral and palatal mucosa present THROAT: posterior oropharynx normal Eye: GENERAL EYE: appearance normal, both eyes and all related structures Neck/C-Spine: COMMON NORMALS: full ROM Lymph: LYMPHATIC: no lymphadenopathy noted Chest: COMMONS NORMALS: normal inspection of the chest Resp: COMMON NORMALS: normal respiratory effort EFFORT & INSPECTION: Yes able to speak in complete sentences Cardio: COMMON NORMALS: regular rate and regular rhythm RATE: regular rate RHYTHM: regular rhythm GI: COMMON NORMALS: non-tender : COMMON NORMALS: Yes no CVA tenderness BLADDER/KIDNEY EXAM: Yes no CVA tenderness Back/Pelvis: COMMON NORMALS: no CVA tenderness and thoracic and lumbar spine normal to inspection Extremity: COMMON NORMALS: normal to inspection Neuro: COMMON NORMALS: patient oriented x3 and moves all extremities Psych: COMMON NORMALS: mental status grossly normal and cooperative Skin: COMMON NORMALS: no rashes or lesions noted GENERAL SKIN EXAM: no rashes or lesions noted Course Vital Signs: Vital signs: Vital Signs Temperature 98.2 F 12/06/19 18:52 Pulse Rate 105 H 12/06/19 18:52 Respiratory Rate 17 12/06/19 18:52 Blood Pressure 139/99 12/06/19 18:52 Pulse Oximetry 95 12/06/19 18:52 MDM - Chest Pain Lab Data: Labs: Lab Results 12/06/19 12/06/19 12/06/19 Range/Units 19:15 19:15 19:15 WBC 7.6 (4.0-10.0) 10^3/ uL RBC 4.76 (4.1-5.3) 10^6/u L Hgb 14.3 (11.5-15.3) g/dL Hct 42.4 (37.0-47.0) % MCV 89.1 (81-99) fL MCH 30.0 (28.0-34.0) pg MCHC 33.7 (30.0-36.0) g/dL RDW 12.1 (12.1-15.1) % Plt Count 302 (130-400) 10^3/c mm MPV 11.8 H (7.4-10.4) fL Neut % (Auto) 55.5 % Lymph % (Auto) 33.0 % [place] % (Auto) 10.1 % Eos % (Auto) 0.8 % Baso % (Auto) 0.3 % Neut # (Auto) 4.2 (1.8-7.7) 10^3/u L Lymph # (Auto) 2.5 (0.8-4.8) 10^3/u L [place] # (Auto) 0.8 (0.2-0.9) 10^3/u L Eos # (Auto) 0.1 (0.0-0.8) 10^3/u L Baso # (Auto) 0.0 (0.0-0.1) 10^3/u L Nucleated RBC % (a uto) 0 % Nucleated RBCs # 0.0 /100WBC Sodium 130 L (136-145) mmol/L Potassium 3.1 L (3.5-5.1) mmol/L Chloride 92 L (98-107) mmol/L Carbon Dioxide 23 (22-29) mmol/L Anion Gap 18.1 (5-19) BUN 6 (6-20) mg/dL Creatinine 0.9 (0.5-0.9) mg/dL GFR Calculation 70.8 L (90-130) mL/min Glucose 140 H (65-115) mg/dL Calculated Osmolal ity 268 L (285-295) mOsm/k g Calcium 10.3 (8.5-10.5) mg/dL Total Bilirubin 0.7 (0.15-1.2) mg/dL AST 18 (0-32) U/L ALT 20 (0-33) U/L Alkaline Phosphata se 53 (35-105) IU/L Troponin T Baselin e 7 (0-10) ng/mL Troponin T 120 Min [place] (0-10) ng/mL Total Protein 7.4 (6.6-8.7) g/dL Albumin 4.5 (3.5-5.2) g/dL Globulin 2.9 (1.3-4.6) g/dL Lipase 34 (13-60) U/L / Range/Units 21:39 WBC (4.0-10.0) 10^3/ uL RBC (4.1-5.3) 10^6/u L Hgb (11.5-15.3) g/dL Hct (37.0-47.0) % MCV (81-99) fL MCH (28.0-34.0) pg MCHC (30.0-36.0) g/dL RDW (12.1-15.1) % Plt Count (130-400) 10^3/c mm MPV (7.4-10.4) fL Neut % (Auto) % Lymph % (Auto) % [place] % (Auto) % Eos % (Auto) % Baso % (Auto) % Neut # (Auto) (1.8-7.7) 10^3/u L Lymph # (Auto) (0.8-4.8) 10^3/u L [place] # (Auto) (0.2-0.9) 10^3/u L Eos # (Auto) (0.0-0.8) 10^3/u L Baso # (Auto) (0.0-0.1) 10^3/u L Nucleated RBC % (a uto) % Nucleated RBCs # /100WBC Sodium (136-145) mmol/L Potassium (3.5-5.1) mmol/L Chloride (98-107) mmol/L Carbon Dioxide (22-29) mmol/L Anion Gap (5-19) BUN (6-20) mg/dL Creatinine (0.5-0.9) mg/dL GFR Calculation (90-130) mL/min Glucose (65-115) mg/dL Calculated Osmolal ity (285-295) mOsm/k g Calcium (8.5-10.5) mg/dL Total Bilirubin (0.15-1.2) mg/dL AST (0-32) U/L ALT (0-33) U/L Alkaline Phosphata se (35-105) IU/L Troponin T Baselin e (0-10) ng/mL Troponin T 120 Min [place] 7.12 (0-10) ng/mL Total Protein (6.6-8.7) g/dL Albumin (3.5-5.2) g/dL Globulin (1.3-4.6) g/dL Lipase (13-60) U/L Discharge Plan Discharge Prescriptions: No Action ondansetron HCl [Zofran] 4 mg tablet 4 mg PO Q4H PRNRF: 0 cefdinir 300 mg capsule 300 mg PO BID 10 Days Qty: 20 RF: 0 promethazine 25 mg tablet 25 mg PO Q6H PRN (Reason: nausea and vomiting) Qty: 20 RF: 0 pantoprazole 40 mg tablet,delayed release (DR/EC) 40 mg PO QAM 56 Days Qty: 56 RF: 0 metoclopramide HCl 10 mg tablet 10 mg PO PRN PRN (Reason: NAUSEA/VOMITING) RF: 0 Coding Level of Care Code ED Material Handling 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
[2019-12-06] MEDS: LORazepam 1 mg Tablet PO (22:33)
--- NOTE | 2019-12-06 22:33 | ED_ITS ---
HPI - Chest Pain General: Chief Complaint: Chest Pain Stated Complaint: cp Time Seen by Provider: 12/06/19 22:26 Source: patient Mode of arrival: ambulatory Limitations: no limitations History of Present Illness: HPI narrative: 34-year-old female states she started a new antidepressant and has had had some palpitations and anxiety and chest pain since then. She states that she had earlier today and since she is checked and they have resolved. She states she feels fine currently has no pain or palpitations. She denies any fever. She denies any shortness of breath. complaint: chest pain Onset (ago): day(s) Timing of current episode: episodic Prior episodes: Yes Pain radiation: none Severity: mild Associated symptoms: Reports palpitations; Deny abdominal pain, dyspnea, fever(s), nausea or vomiting Review of Systems Const: Denies: fever(s), chills, body aches or change in appetite Eyes: Denies: blurry vision or eye discomfort ENMT: Denies: throat pain or dental pain Card: Reports: chest pain and palpitations Resp: Denies: dyspnea GI: Denies: abdominal pain, nausea, vomiting or diarrhea : Denies: dysuria Musc: Denies: neck pain or back pain Skin/Breast: Denies: rash Neuro: Denies: headache(s) Psych: Denies: depression Klaus/Lymph: Denies: easy bruising All/Imm: Denies: urticaria PFSH ED PFSH: Medical History Asthma Cyclic vomiting syndrome GERD (gastroesophageal reflux disease) Hemorrhoids Hypokalemia Marijuana abuse, continuous Ovarian cyst Surgical History Hx of appendectomy Hx of cholecystectomy Family History Other CAD (coronary artery disease) Cancer Social History Smoking and tobacco status: former smoker Alcohol intake: never Housing: House Physical Exam Const: COMMON NORMALS: no acute distress, patient oriented x3 and healthy appearing HENMT: COMMON NORMALS: normocephalic and atraumatic HEAD & SCALP: normocephalic and atraumatic Eye: COMMON NORMALS: Equal, round and reactive pupils present and EOMs intact bilaterally PUPIL: Yes Equal, round and reactive pupils present Neck/C-Spine: COMMON NORMALS: full ROM and supple Chest: COMMONS NORMALS: normal inspection of the chest and normal palpation of entire chest wall Resp: COMMON NORMALS: normal respiratory effort, No retractions, No use of accessory muscles and clear to auscultation bilaterally AUSCULTATION: clear to auscultation bilaterally Cardio: COMMON NORMALS: regular rate, regular rhythm and No murmurs present (Cardio) RATE: regular rate RHYTHM: regular rhythm GI: COMMON NORMALS: Normal to inspection, nondistended, normoactive bowel sounds present, Soft to palpation, non-tender and no masses PALPATION: Yes Soft to palpation Extremity: COMMON NORMALS: normal to inspection and full ROM Neuro: COMMON NORMALS: patient oriented x3, moves all extremities and no focal motor deficits Psych: COMMON NORMALS: mental status grossly normal, Normal thought process present and cooperative THOUGHT PROCESS: Normal thought process present Skin: COMMON NORMALS: no rashes or lesions noted and no wounds GENERAL SKIN EXAM: no rashes or lesions noted Course Vital Signs: Vital signs: Vital Signs Temperature 98.2 F 12/06/19 18:52 Pulse Rate 105 H 12/06/19 18:52 Respiratory Rate 17 12/06/19 18:52 Blood Pressure 139/99 12/06/19 18:52 Pulse Oximetry 95 12/06/19 18:52 MDM - Chest Pain MDM Narrative: Medical decision making narrative: Patient presents here with chest pain that is atypical in nature. Patient's initial and repeat troponins are negative so his x-ray and EKG. Patient is stable for discharge at this time. She has no signs of acute cardiac cause or pulmonary embolism. Patient is to follow-up with primary care doctor in 3 to 5 days and return if worsening. Lab Data: Labs: Lab Results 12/06/19 12/06/19 12/06/19 Range/Units 19:15 19:15 19:15 WBC 7.6 (4.0-10.0) 10^3/ uL RBC 4.76 (4.1-5.3) 10^6/u L Hgb 14.3 (11.5-15.3) g/dL Hct 42.4 (37.0-47.0) % MCV 89.1 (81-99) fL MCH 30.0 (28.0-34.0) pg MCHC 33.7 (30.0-36.0) g/dL RDW 12.1 (12.1-15.1) % Plt Count 302 (130-400) 10^3/c mm MPV 11.8 H (7.4-10.4) fL Neut % (Auto) 55.5 % Lymph % (Auto) 33.0 % Chilton % (Auto) 10.1 % Eos % (Auto) 0.8 % Baso % (Auto) 0.3 % Neut # (Auto) 4.2 (1.8-7.7) 10^3/u L Lymph # (Auto) 2.5 (0.8-4.8) 10^3/u L Chilton # (Auto) 0.8 (0.2-0.9) 10^3/u L Eos # (Auto) 0.1 (0.0-0.8) 10^3/u L Baso # (Auto) 0.0 (0.0-0.1) 10^3/u L Nucleated RBC % (a uto) 0 % Nucleated RBCs # 0.0 /100WBC Sodium 130 L (136-145) mmol/L Potassium 3.1 L (3.5-5.1) mmol/L Chloride 92 L (98-107) mmol/L Carbon Dioxide 23 (22-29) mmol/L Anion Gap 18.1 (5-19) BUN 6 (6-20) mg/dL Creatinine 0.9 (0.5-0.9) mg/dL GFR Calculation 70.8 L (90-130) mL/min Glucose 140 H (65-115) mg/dL Calculated Osmolal ity 268 L (285-295) mOsm/k g Calcium 10.3 (8.5-10.5) mg/dL Total Bilirubin 0.7 (0.15-1.2) mg/dL AST 18 (0-32) U/L ALT 20 (0-33) U/L Alkaline Phosphata se 53 (35-105) IU/L Troponin T Baselin e 7 (0-10) ng/mL Troponin T 120 Min ivan (0-10) ng/mL Delta Troponin T (0-10) ABS# Total Protein 7.4 (6.6-8.7) g/dL Albumin 4.5 (3.5-5.2) g/dL Globulin 2.9 (1.3-4.6) g/dL Lipase 34 (13-60) U/L / Range/Units 21:39 WBC (4.0-10.0) 10^3/ uL RBC (4.1-5.3) 10^6/u L Hgb (11.5-15.3) g/dL Hct (37.0-47.0) % MCV (81-99) fL MCH (28.0-34.0) pg MCHC (30.0-36.0) g/dL RDW (12.1-15.1) % Plt Count (130-400) 10^3/c mm MPV (7.4-10.4) fL Neut % (Auto) % Lymph % (Auto) % Chilton % (Auto) % Eos % (Auto) % Baso % (Auto) % Neut # (Auto) (1.8-7.7) 10^3/u L Lymph # (Auto) (0.8-4.8) 10^3/u L Chilton # (Auto) (0.2-0.9) 10^3/u L Eos # (Auto) (0.0-0.8) 10^3/u L Baso # (Auto) (0.0-0.1) 10^3/u L Nucleated RBC % (a uto) % Nucleated RBCs # /100WBC Sodium (136-145) mmol/L Potassium (3.5-5.1) mmol/L Chloride (98-107) mmol/L Carbon Dioxide (22-29) mmol/L Anion Gap (5-19) BUN (6-20) mg/dL Creatinine (0.5-0.9) mg/dL GFR Calculation (90-130) mL/min Glucose (65-115) mg/dL Calculated Osmolal ity (285-295) mOsm/k g Calcium (8.5-10.5) mg/dL Total Bilirubin (0.15-1.2) mg/dL AST (0-32) U/L ALT (0-33) U/L Alkaline Phosphata se (35-105) IU/L Troponin T Baselin e (0-10) ng/mL Troponin T 120 Min ivan 7.12 (0-10) ng/mL Delta Troponin T 0.12 (0-10) ABS# Total Protein (6.6-8.7) g/dL Albumin (3.5-5.2) g/dL Globulin (1.3-4.6) g/dL Lipase (13-60) U/L Imaging Data^: CXR: Attestation: I personally reviewed and interpreted this imaging study as follows: My impression: no acute abnormality EKG Data^: EKG 1: Attestation: I personally reviewed and interpreted this EKG as follows: EKG interpretation date: 12/06/19 EKG interpretation time: 18:59 Interpretation: sinus tach hr [address] or t wave abnormalities qrs 70 qtc 374 EKG 2: EKG interpretation date: 12/06/19 EKG interpretation time: 22:36 Interpretation: nsr hr [address] or t wave abnormalities qrs 65 qtc 398 Discharge Plan Discharge Patient Disposition: Home, Self-Care Clinical Impression: Atypical chest pain Condition: Stable Prescriptions: No Action ondansetron HCl [Zofran] 4 mg tablet 4 mg PO Q4H PRNRF: 0 cefdinir 300 mg capsule 300 mg PO BID 10 Days Qty: 20 RF: 0 promethazine 25 mg tablet 25 mg PO Q6H PRN (Reason: nausea and vomiting) Qty: 20 RF: 0 pantoprazole 40 mg tablet,delayed release (DR/EC) 40 mg PO QAM 56 Days Qty: 56 RF: 0 metoclopramide HCl 10 mg tablet 10 mg PO PRN PRN (Reason: NAUSEA/VOMITING) RF: 0 Discharge Orders: Discharge Order (Routine); Ordered 12/06/19 Ordered By: Joann Blodo Discharge Diet: Advance as tolerated Discharge Activity: Resume usual activity Patient Instructions: Chest Pain (ED) Coding Level of Care Code ED Utility Worker for Tip Pérez
[2019-12-06 22:45] VITALS: BP 124/82; PULSE 88; RESP 16; O2SAT 99
== END 2019-12-06 22:47 | disposition home or self-care (01) ==
PROVIDERS: Emergency Provider Emergency Medicine
DX: R07.89 Other chest pain (principal); Z87.891 Personal history of nicotine dependence; K21.9 Gastro-esophageal reflux disease without esophagitis; J45.909 Unspecified asthma, uncomplicated
CPT/HCPCS: 12345; 36415; 71045; 80053; 83690; 84484; 85025; 93005; 99281

== ENCOUNTER → 2020-10-11 10:02 | Outpatient (BNVA) | payer OTHER, SELFPAY | PROVIDERS: Visit Provider Obstetrics & Gynecology | DX: N81.4 Uterovaginal prolapse, unspecified (principal) | CPT/HCPCS: 87635 ==

== ENCOUNTER 2020-10-15 12:04 | Observation (INO) | payer OTHER, SELFPAY ==
[2020-10-13 11:48] VITALS: BMI 32.0
--- NOTE | 2020-10-13 13:26 | ANES.PREANE2 ---
Pre-Anesthetic Assessment Pre-Anesthetic Assessment: Height/Weight: Height 1.57 m Weight 79.379 kg Preop Diagnosis: Uterine prolapse stage II, urinary stress incontinence Proposed Procedure: Operation Date: 10/15/20 08:00 Proposed Procedures p Total Vaginal Hysterectomy 93407 [id number] N81.10(Not Applicable) - Kimani Sheffield MD s Anterior Repair Anterior Colporrhaphy(Not Applicable) - Kimani Sheffield MD s Midurethral single incision sling(Not Applicable) - Kimani Sheffield MD Familial anesthetic complications: PONV Social: Social History: No alcohol and No tobacco Comment: smoke marijuana daily Exam: Pre-Anes Outpt Exam: alert, oriented x 3, clear to auscultation bilaterally and regular rate & rhythm Airway: Cervical ROM: WNL MP: 1 Dentition: Chipped CV/HEM: CV/HEM: Arrythmia (PVCS) GI: GI: GERD Metabolic: Metabolic: Morbid obesity Anesthetic Plan: ASA status: 2 Anesthesia: General Risk of > 500 ml blood loss (7ml/kg in children): No PFSH Anesthesia PFSH: Medical History (Updated 08/18/20 @ 16:26 by Kimani Sheffield MD) Asthma Cyclic vomiting syndrome GERD (gastroesophageal reflux disease) Hemorrhoids Hypokalemia Marijuana abuse, continuous Ovarian cyst Surgical History (Updated 08/18/20 @ 07:54 by Cecy Cintron RN) Hx of appendectomy Hx of cholecystectomy Family History (Updated 08/18/20 @ 09:39 by Cecy Cintron RN) Mother Stroke Breast cancer, Onset Age: 29 Uterine cancer age onset unknown Anesthesia complication Sister Ovarian cancer, Onset Age: 22 Family/Other Colon cancer maternal uncle Father Hyperlipidemia Heart disease Diabetes Hypertension Thyroid condition Denies family history of Clotting disorder Bleeding disorder Social History (Updated 10/13/20 @ 08:30 by Christine Jarquin) Smoking and tobacco status: former smoker Alcohol intake: current Alcohol intake frequency: holidays/special occasions only Alcohol type: wine Substance/Drug Use: current Substance/Drug use frequency: daily Substance/Drug use type: Marijuana Other substance/drug use details: Last use: 10/12/2020 Housing: House Female Reproductive History: Date of last menstrual period: 03/21/19 Data Anesthesia Cardiac Studies: No Data to Display
[2020-10-13 13:42] LABS: Add Urine Microscopic? NO
[2020-10-13 13:45] LABS: Basophils % 0.3 %; Eosinophils # 0.2 10^3/uL (0.0-0.8); Eosinophils % 1.7 %; Hematocrit 44.2 % (37.0-47.0); Hemoglobin 14.1 g/dL (11.5-15.3); Lymphocytes # 3.3 10^3/uL (0.8-4.8); Lymphocytes % 33.4 %; Mean Corpuscular HGB Conc 31.9 g/dL (30.0-36.0); Mean Corpuscular Hemoglobin 30.1 pg (28.0-34.0); Mean Corpuscular Volume 94.4 fL (81-99); Mean Platelet Volume 11.6 fL (7.4-10.4); Monocytes # 0.6 10^3/uL (0.2-0.9); Monocytes % 6.2 %; Neutrophils # 5.75 10^3/uL (1.8-7.7); Neutrophils % 57.9 %; Nucleated Red Blood Cells % 0 %; Platelet Count 274 10^3/cmm (130-400); Red Blood Count 4.68 10^6/uL (4.1-5.3); Red Cell Distribution Width 13.3 % (12.1-15.1); White Blood Count 9.9 10^3/uL (4.0-10.0)
[2020-10-13 13:53] LABS: OR HCG Qualitative Urine Negative (Negative)
[2020-10-13 14:23] LABS: Bilirubin Urine Neg (Negative); Blood Urine Neg (Negative); Glucose Urine UA Norm (Normal); Ketones Urine Negative (Negative); Leukocyte Esterase Urine Negative (Negative); Nitrate Urine Negative (Negative); Protein Urine Neg (Negative); Urine Appearance Clear (CLEAR); Urine Color Yellow (Yellow); Urobilinogen Urine Norm (Negative); pH Urine 7 (5-7)
[2020-10-13 14:51] LABS: Blood Urea Nitrogen 9 mg/dL (6-20); Calcium 9.4 mg/dL (8.5-10.5); Carbon Dioxide 16 mmol/L (22-29); Chloride 105 mmol/L (98-107); Creatinine Clr Calc Pharmacy 150.3224; Glomerular Filtration Rate 138.8 mL/min (90-130); Glucose 77 mg/dL (65-115); Osmolality Calculated 277 mOsm/kg (285-295); Sodium 135 mmol/L (136-145)
[2020-10-13 14:52] LABS: Anion Gap 18.1 (5-19); Potassium 4.1 mmol/L (3.5-5.1)
[2020-10-15] VITALS (14 sets, daily range): BP systolic 102–141; BP diastolic 59–86; PULSE 48–100; RESP 12–20; TEMP 36.2–36.8; O2SAT 95–100
[2020-10-15] MEDS: sodium chloride 0.9% 500 ML IV (07:09)
[2020-10-15] MEDS: scopolamine 1.5 Patch 1 PATCH TRANSDERMA (07:13)
[2020-10-15 07:24] LABS: OR HCG Qualitative Urine Negative (Negative)
--- NOTE | 2020-10-15 08:49 | W.PM.OPSUD ---
Surgery/Procedure H&P Update DATE OF PROCEDURE: October 15, 2020 DATE H&P PERFORMED: 10/13/20 H&P UPDATE INFORMATION: I have reviewed H&P completed within last 30 days, I have examined patient prior to procedure and No changes to prior documentation PREOP DIAGNOSIS: Uterine prolapse stage II, urinary stress incontinence PLANNED PROCEDURE: Operation Date: 10/15/20 08:00 Proposed Procedures p Total Vaginal Hysterectomy [id number] N81.10(Not Applicable) - Kimani Sheffield MD s Anterior Repair Anterior Colporrhaphy(Not Applicable) - Kimani Sheffield MD s Midurethral single incision sling(Not Applicable) - Kimani Sheffield MD
[2020-10-15] MEDS: ceFOXitin 2,000 MG in sodium chloride 0.9% (plus) 50 ML 100 MG IV (08:58)
[2020-10-15] MEDS: sodium chloride 0.9% 1,000 ML 30 ML IV (09:00)
[2020-10-15] MEDS: estrogens Conjugated Cream 30 gm 30 APPLIC (09:30)
--- NOTE | 2020-10-15 10:44 | P.OP_ITS ---
Operative Report Date of procedure: October 15, 2020 Pre-op Diagnosis: Uterine prolapse stage II, urinary stress incontinence Post-op diagnosis: same Post-op Findings: Cystocele uterine prolapse satge II Procedure Done: Total vaginal hysterectomy Anterior colporrhaphy augmented with allograft Mid suburethral sling. Cystoscopy. Specimens removed/disposition: Uterus Pathology: Uterus Surgeon: Kimani Sheffield MD Anesthesia: General Estimated blood loss (mL): 100 IV fluids (mL): 1,200 Urine output (mL): 300 Complications: None Findings: Normal size uterus Condition: stable Disposition: PACU Brief History: 35-year-old female with uterine prolapse and urinary stress incontinence Procedure: After informed consent, the patient was taken to the operating room where general anesthesia was administered. She was placed in the dorsal lithotomy position and prepped and draped in sterile fashion. Pre-Procedure Time-Out verifying the correct patient identity, correct procedure verified with consent, correct site and side, correct patient position, availability of correct implants and any special equipment or requirements was performed and acknowledge by the OR team. A Bookwalter self-retaining vaginal retractor was placed in the vaginal to visualize the cervix. The cervix was grasped across the anterior lip with a single-toothed tenaculum and circumferentially infiltrated with 1% Xylocaine with epinephrine at this time. The cervix was circumferentially excised with the bovie. The vaginal mucosa was dissected superiorly with sharp dissection. The anterior peritoneal reflection was identified, and it was entered with Metzenbaum scissors. A posterior colpotomy was made through the cul-de-sac space. The posterior peritoneum was identified in similar fashion and Metzenbaum scissors were used to enter the cul-de-sac. At this time, the inferior retractor curved blade Lige sure Lige sure was place d, advanced posteriorly into the cul-de-sac. At this time, the left and right uterosacral ligaments were isolated and ligated with 0 Vicryl. The Enseal device was then used in a serial fashion up through the cardinal ligaments bilaterally. Finally, the uterine arteries were cross-clamped, cut, and ligated with the Enseal device. The Enseal device was then used up through the broad ligaments superiorly and finally the uterus was rotated posteriorly. The left and right tubes were then cross-clamped and ligated with Enseal device. The uterus was excised and submitted for pathologic evaluation. No other abnormalities were noted in the pelvic cavity. Tag sutures had been left on the remnants of the uterosacral ligaments. The right uterosacral ligament tag was placed under traction to identify the remnants of the right uterosacral ligament. A #0 PDS suture was placed to the proximal right uterosacral ligament and sutured to the anterior and posterior pelvic fascia beneath the vaginal cuff on the right side. Identical process was performed on the left, although some difficulty was encountered in identifying and actually suturing through the attenuated left uterosacral ligament. Both these sutures were tied to elevate the vaginal cuff. The remaining vaginal cuff mucosa and anterior and posterior fascia were then closed. At this time, instruments were removed from the patient's abdominopelvic cavity. Vaginal cuff closure and peritoneum were incorporated into one layer with 0 Vicryl suture in a continuous running interlocking fashion. Hemostasis was noted to be achieved. Then an anterior colporrhaphy was performed. The vaginal mucosa was then injected in the midline with normal saline. The vaginal mucosa was then injected in the midline with normal saline. The vaginal mucosa was scored in the midline with the Bovie approximately 1 cm medial to the urethral meatus to 1 cm distal to the vaginal cuff. Careful submucosal dissection was performed bilaterally up to the interior portion of the inferior pubic ramus. The insertion of adductor longus tendon on the patient?s pubic ramus was identified as reference land nick. Palpated the notch along the internal edge of ischiopubic ramus where the adductor longus tendon and the inferior pubic ramus meet. The Altis single incision sling (SIS) was selected. With thin porcine graft the mesh of the sling was lined anteriorly and posteriorly with the graft. Then the needle of the SIS inserted aiming at the location of this notch. One of the integrated self-fixating tips place onto the needle by sliding it over the end of the needle. The needle/sling assembly was inserted toward the location of identified reference notch making sure that the flat of the handle is perpendicular to the desired path. The needle was tracked along the posterior surface of the ischiopubic ramus until the midline nick on the mesh is approximately at the midline position under the urethra. The needle was removed and the same was repeated on the contralateral side until the appropriate sling tension under the urethra was achieved ensuring that the mesh lays flat. This vaginal mucosa was then undermined and then incised in the midline with the Metzenbaum scissors. The lateral aspects of the vaginal mucosa were then grasped with the Allis clamps and the vaginal mucosa was then dissected off the underlying fascia with the Metzenbaum scissors. Again, there was noted to be quite a bit of oozing at the incision, which was controlled with cautery. After adequate dissection was performed, bilaterally. A Coloplast allograft is mo dified at time of application to fit spacea, 3 x 3 cm piece . The coloplast allograft was placed in front of cystocele ready to be implanted with the Basement Membrane facing the vagina mucosa. Suture is placed at distal end of graft and placed towards vaginal cuff. Final suture is placed on proximal portion of the graft to complete the placement overlying the bladder. Then Interrupted vertical mattress sutures of 0 Vicryl were used to elevate the cystocele superiorly. The patietn was given indigo carmine. The excessive vaginal mucosa was then trimmed with the Metzenbaum scissors and the vaginal mucosa was then reapproximated in the running interlocking fashion with 2-0 Vicryl. Then the Pleitez catheter was removed and cystoscope was inserted. The bladder was filled with sterile water. Complete evaluation of the bladder mucosa was performed noting no lacerations, dimpling, tears, bleeding of the mucosa or muscular layers. Both ureteral orifices were identified. Prompt excretion of blue urine from both ureteral orifices was noted. Cystoscope was withdrawn. Pleitez catheter was then placed yielding clear nyasia urine. A vaginal packing with Premarin cream was placed to provide support during the healing process. The patient tolerated the procedure well and was taken to the recovery room in a stable condition. Sponge and needle counts were correct x3.
--- NOTE | 2020-10-15 11:14 | SUR.PHASEI ---
1112 PT TO OB WITH 2 RNIS PT AWAKE ALERT DENIES PAIN DR PHAM TALKED WITH PT FAMILY, PT ABD SOFT NO PER PAD NOTED NO BLEEDING PACKING IN PLACE BILAT SCDS ON, IV PATENT , REPORT CALLED TO FLOOR. DANIELSON EMPTIED OF 750ML OF BLUE URINE, STATLOCK TO RT THIGH.
[2020-10-15] MEDS: ketorolac 30 mg/mL INJ IVP ×3 (12:15→23:18)
[2020-10-15] MEDS: HYDROcodone-acetaminophen 5-325 mg Tablet PO ×2 (12:34→22:18)
[2020-10-15] MEDS: dextrose 5%-lactated ringers 1,000 ML 125 ML IV ×2 (15:49→23:18)
[2020-10-15] MEDS: acetaminophen 325 mg Tablet 650 MG PO (16:51)
[2020-10-15] MEDS: docusate sodium 100 mg Capsule PO (18:35)
--- NOTE | 2020-10-15 19:00 | PC.NURSE ---
Patient states she has passed gas at time of shift change.
--- NOTE | 2020-10-15 19:20 | PC.NURSE ---
Patient up ambulated from chair to bed with standby assist x 1.
--- NOTE | 2020-10-15 20:23 | ANE.PACU2 ---
Inpatient post-anesthesia follow up: Airway intact: Yes Vital signs: Temperature 97.8 F Pulse Rate 58 Respiratory Rate 16 Blood Pressure 110/74 Pulse Oximetry 96 Oxygen Delivery Me thod Room Air Oxygen Flow Rate 8 Fraction of Inspir ed Oxygen Hydration adequate: Yes Nausea and vomiting: No Pain level: 2 Mental status: Baseline
[2020-10-16] MEDS: ondansetron 2 mg/ML SDV 2 mL 4 MG IVP (00:18)
[2020-10-16 04:00] VITALS: BP 104/62; PULSE 46; RESP 15; TEMP 36.5; O2SAT 95
--- NOTE | 2020-10-16 05:30 | PC.NURSE ---
Patient up to floor to ambulate OBGYN/PP hallways with standby assist. Tolerates activity fair. AR RN
[2020-10-16 06:54] LABS: Hemoglobin 11.1 g/dL (11.5-15.3); Mean Corpuscular Hemoglobin 30.1 pg (28.0-34.0); Mean Corpuscular Volume 100.3 fL (81-99); Mean Platelet Volume 10.9 fL (7.4-10.4); Platelet Count 215 10^3/cmm (130-400); Red Blood Count 3.69 10^6/uL (4.1-5.3); Red Cell Distribution Width 13.2 % (12.1-15.1); White Blood Count 17.2 10^3/uL (4.0-10.0)
[2020-10-16] MEDS: fluoxetine 20 mg Capsule 40 MG PO (09:14)
[2020-10-16] MEDS: docusate sodium 100 mg Capsule PO (09:14)
[2020-10-16 10:00] VITALS: BP 119/76; PULSE 73; RESP 18; TEMP 37; O2SAT 98
--- NOTE | 2020-10-16 10:08 | PM.OBGYDC ---
Discharge Providers DISABILITY MANAGER Date of Admission: 10/15/20 12:04 Date of Discharge: 10/16/20 Attending Provider at Admission: Kimani Sheffield MD Attending Provider at Discharge: Kimani Sheffield MD Diagnoses at Discharge Discharge Diagnosis (1) POP-Q stage 2 cystocele: Status: Acute Permanent problem details: Resolve with surgery (2) Cystocele with uterine prolapse: Status: Acute Permanent problem details: Resolved with surgery Reason for Visit Reason for Visit: cysstocele stage 2 Hospital Course Hospital Course Ms. Henson 35-year-old female with with uterine prolapse and cystocele stage II associated urinary incontinence for over a year. Admitted for planned total vaginal hysterectomy with anterior colporrhaphy mid urethral sling. The procedures a total vaginal hysterectomy, Anterior colporrhaphy augmented with allograft, Mid suburethral sling. and Cystoscopy were performed without complication. Overnight postop observation was uneventful. She is afebrile and hemodynamically stable. Ambulating well. Tolerating diet without problems, ambulating without difficulty. Physical Exam Narrative: EXAM NARRATIVE: GA: Alert and oriented ?3. HEENT: WNL. Heart: Regular rate and rhythm. Lungs: Clear to auscultation bilaterally. Abdomen: Bowel sounds present, nontender, minimal tenderness, incision clean and dry, no redness, pain or edema. GROUNDWATER MONITORING TECHNICIAN: No bleeding. Extremities: No edema, no cyanosis, no calves pain. Urinary Catheter Management^: Pleitez: Cath Placed During This Visit: yes, but has since been removed by the nurse Reason for Continuing Indwelling Catheter: Not indwelling catheter Date Urinary Catheter Removed: 10/16/20 Time Urinary Catheter Discontinued: 05:00 Discharge Data Data Completed and Pending: Pending at discharge Category Date Time Status Pathology: Surgic al [PTH] Routine Pth 10/15/20 10:53 Received Labs from last 24 hours 10/16/20 06:43 WBC 17.2 H RBC 3.69 L Hgb 11.1 L Hct 37.0 MCV 100.3 H MCH 30.1 MCHC 30.0 RDW 13.2 Plt Count 215 MPV 10.9 H Vitals: Last Vital Signs Temp 97.7 F 10/16/20 04:00 Pulse 46 L 10/16/20 04:00 Resp 15 10/16/20 04:00 BP 104/62 10/16/20 04:00 Pulse Ox 95 10/16/20 04:00 Discharge Plan Discharge Patient Disposition: Home Condition: Stable Prescriptions: New hydrocodone-acetaminophen 7.5-325 mg tablet 1 tab PO Q6H PRN (Reason: pain after hysterectomy) Qty: 30 RF: 0 acetaminophen 325 mg capsule 325 mg PO Q4H PRN (Reason: fever or pain) Qty: 60 RF: 0 ibuprofen 800 mg tablet 800 mg PO TID PRN (Reason: pain) Qty: 60 RF: 0 Continued fluoxetine 20 mg capsule 40 mg PO DAILY RF: 0 medroxyprogesterone [Depo-Provera] 150 mg/mL suspension 150 mg IM .every 3 months RF: 0 Discharge Orders: Discharge Order (Routine); Ordered 10/16/20 Ordered By: Kimani Sheffield Referrals: Kimani Sheffield MD [Physician] - 2 weeks Discharge Diet: Usual diet Discharge Activity: Increase activity as tolerated Patient Instructions: Vaginal Hysterectomy (DC), Anterior Vaginal Repair (DC), Bladder Sling Procedures (DC) Activity Restrictions/Additional Instructions: 1. Please call [facility] [place] [facility] on next working day to make your post-operative appointment in 2 weeks. 2. Please stay home until you come back to the clinic on first post-operative check up. 3. Please follow instructions on your medications CAREFULLY. 4. If you have abdominal incision, do not cover it unless dressing is necessary because of drainage. OK to shower, but avoid bath. Leave steri-strips until they fall off. If they are still on one week after surgery, you may remove them. 5. If you had vaginal surgery, your doctor may instruct you to take SITZ bath. 6. Yellow, blood tinged odorous vaginal discharge is usually normal after hysterectomy or vaginal surgeries. 7. No sexual intercourse, tampons, or douches until you are completely released from the post-operative care. 8. Avoid constipation by eating right and maybe using some Metamucil or Milk of Magnesia. 9. All prescription refills are given during the working hours. Please do no wait till it runs out. Call the clinic at [phone] before your medication runs out. The clinic will get in touch with your doctor to prescribe medications if necessary. 10. Please remain within 40 mile radius from our hospital because emergencies do happen now and then during the post-operative period. 11. If you have stairs at home, take one step at a time slowly and minimize the number of trips. It helps to stay in one floor for the next few days. No lifting except what you can lift by one hand until you are released from the post-operative care. 12. Driving is discouraged until you are well healed. It may be 3-4 weeks before you feel strong enough to drive. You should be able to turn and look through the rear window without pain and you should be able to push the brake pedal very hard without pain before you drive. No fast rules, but SAFETY should be your primary concern. DO NOT drive if you are on sedating medications such as narcotics. 13. Call the clinic (during working hours) to make urgent appointment or go to the Emergency room, if any of the following occurs: i. Vaginal bleeding becomes heavy, more than a period. ii. Incision becomes red and sore, or drains pus. iii. Your temperature is over 100.4 or you have chill. iv. IV site becomes red and swollen (a little ``knot?? is usually OK) v. Persistent nausea and vomiting vi. Persistent constipation or diarrhea vii. Rash or allergic reaction to medications. Discharge Attestations DISABILITY MANAGER Time Spent in Discharge Care*: greater than 30 min Coding Level of Care Code Acute Sewer Pipe Layer Helper for g Fwd Diagnoses POP-Q stage 2 cystocele N81.10 Cystocele with uterine prolapse N81.4
== END 2020-10-16 10:57 | disposition home or self-care (01) ==
LOC: OBGYN 12:05
PROVIDERS: Anesthesiology; Admitting Provider Obstetrics & Gynecology; Visit Provider Obstetrics & Gynecology
PROC: (CPT 57240; principal; 2020-10-15 08:00)
PROC: 0JQC0ZZ Repair Pelvic Region Subcutaneous Tissue and Fascia, Open Approach (ICD-10-PCS; CPT 57240; 2020-10-15 08:00)
PROC: (CPT 57288; 2020-10-15 08:00)
PROC: 0TJB8ZZ Inspection of Bladder, Via Natural or Artificial Opening Endoscopic (ICD-10-PCS; CPT 52000; 2020-10-15 08:00)
DX: N81.2 Incomplete uterovaginal prolapse (principal); N39.3 Stress incontinence (female) (male); K21.9 Gastro-esophageal reflux disease without esophagitis; E66.01 Morbid (severe) obesity due to excess calories; Z68.32 Body mass index [BMI] 32.0-32.9, adult; Z87.891 Personal history of nicotine dependence
CPT/HCPCS: 57240; 57267; 57288; 58260; 36415; 51798; 80048; 81003; 81025; 84703; 85025; 85027; 86850; 86900; 88307; 96361; 96365; C1713; C1762; G0378; J0330; J0694; J1100; J1885; J2250; J2370; J2405; J2550; J2704; J2710; J3010; J3490; J7030; J7040

== ENCOUNTER 2020-10-25 15:20 | Emergency (ER) | payer OTHER, SELFPAY ==
[2020-10-25 15:24] VITALS: BP 153/94; PULSE 66; RESP 24; TEMP 37.1; O2SAT 97; BMI 31.1
--- NOTE | 2020-10-25 16:05 | W.ED.ABDPA2 ---
Documented by User: [email or web address] Troncoso 10/26/20 07:10 HPI - Abdominal Pain General: Chief Complaint: Abdominal Pain Stated Complaint: Sick Time Seen by Provider: 10/25/20 15:51 Source: patient Mode of arrival: ambulatory Limitations: no limitations History of Present Illness: HPI narrative: 35-year-old female patient presents to the emergency department with complaints of nausea vomiting. She reports change of bowel habits that occurred approximately 3 days ago. She reports recent abdominal surgery, GENO with bladder sling placement. She reports has been healing well since her surgery but developed nausea vomiting yesterday. She reports similar symptoms with current complaint approximately 1 year ago. She denies fever chills, denies difficulty voiding. She reports when she tries to drink, she throws it up. She denies hematemesis or hematochezia. She denies intake of alcohol. She denies lower abdominal pain or abdominal pain -she reports is tired of having the nausea and vomiting and wants relief. She denies exposure to anyone who has been ill. MD elicited complaint: abdominal pain Onset (ago): day(s) (1) Pain Consistency: constant Severity: moderate Radiation: none Exacerbating factors: nothing Relieving factors: nothing Associated Symptoms: Reports belching, chills, constipation, nausea and vomiting; Denies dysuria Related Data: Date of Last Menstrual Period: 03/21/19 Review of Systems General: Reports: 10 or more systems reviewed and unremarkable except in HPI and below Const: Reports: chills Eyes: Denies: blurry vision or eye redness ENMT: Denies: throat pain, dental pain or disequilibrium Card: Denies: chest pain, palpitations or irregular heart rhythm Resp: Denies: dyspnea, productive cough, non-productive cough or wheezing GI: Reports: nausea, vomiting, constipation and belching : Denies: difficulty voiding or dysuria Musc: Denies: neck pain, back pain, joint pain, joint warmth or joint stiffness Skin/Breast: Denies: rash or pruritus Neuro: Denies: headache(s), weakness in extremities or behavioral changes Psych: Denies: anxiety, depression or mood swings Klaus/Lymph: Denies: easy bruising PFS ED PFSH: Medical History Asthma Cyclic vomiting syndrome GERD (gastroesophageal reflux disease) Hemorrhoids Hypokalemia Marijuana abuse, continuous Ovarian cyst Surgical History Hx of appendectomy Hx of cholecystectomy Family History Mother Stroke Breast cancer, Onset Age: 29 Uterine cancer age onset unknown Anesthesia complication Sister Ovarian cancer, Onset Age: 22 Family/Other Colon cancer maternal uncle Father Hyperlipidemia Heart disease Diabetes Hypertension Thyroid condition Denies family history of Clotting disorder Bleeding disorder Social History Smoking and tobacco status: former smoker Alcohol intake: current Alcohol intake frequency: holidays/special occasions only Alcohol type: wine Housing: House Female Reproductive History: Date of last menstrual period: 03/21/19 Physical Exam Const: COMMON NORMALS: no acute distress, patient oriented x3, healthy appearing, alert and well nourished GENERAL APPEARANCE: cooperative, well kempt, well developed and other (Appears not feeling well) ORIENTATION/CONSCIOUSNESS: Yes awake, Yes oriented to person, Yes oriented to place and Yes oriented to time HENMT: COMMON NORMALS: normocephalic, atraumatic, Normal external nose present and moist oral mucous membranes HEAD & SCALP: normocephalic and atraumatic FACE & SINUS: normal facial exam and face symmetric NOSE: Normal external nose present MOUTH: Normal oral and palatal mucosa present, tongue normal and Abnormal oral and palatal mucosa present (dry) THROAT: posterior oropharynx normal and uvula midline Eye: COMMON NORMALS: Equal, round and reactive pupils present and EOMs intact bilaterally GENERAL EYE: appearance normal, both eyes and all related structures PUPIL: Yes Equal, round and reactive pupils present Neck/C-Spine: COMMON NORMALS: full ROM and no lymphadenopathy GENERAL: Yes normal visual inspection and Yes trachea midline CERVICAL SPINE: Yes cervical ROM normal Lymph: LYMPHATIC: no lymphadenopathy noted Chest: COMMONS NORMALS: normal inspection of the chest and normal palpation of entire chest wall Resp: COMMON NORMALS: normal respiratory effort, No retractions, No use of accessory muscles and clear to auscultation bilaterally EFFORT & INSPECTION: Yes able to speak in complete sentences AUSCULTATION: clear to auscultation bilaterally Cardio: COMMON NORMALS: regular rate, regular rhythm, S1 normal heart sound present, S2 normal heart sound present and Peripheral pulses 2+ throughout RATE: regular rate RHYTHM: regular rhythm HEART SOUNDS: S1 normal heart sound present and S2 normal heart sound present PERIPHERAL PULSES: Peripheral pulses 2+ throughout GI: COMMON NORMALS: Soft to palpation and non-tender INSPECTION: Yes normal to inspection, No abdominal wall ecchymosis, No abdominal distension and Yes central obesity PALPATION: Yes Soft to palpation and No Abdominal wall crepitus present : COMMON NORMALS: Yes no CVA tenderness BLADDER/KIDNEY EXAM: Yes no CVA tenderness Back/Pelvis: COMMON NORMALS: no CVA tenderness and thoracic and lumbar spine normal to inspection Extremity: COMMON NORMALS: normal to inspection, full ROM, capillary refill normal and no pedal edema GENERAL: Yes normal exam except as noted Neuro: COMMON NORMALS: patient oriented x3 and no focal motor deficits SENSORIUM/ORIENTATION: Yes alert, Yes oriented to person, Yes oriented to place and Yes oriented to time GAIT: Yes Normal gait present MOTOR EXAM: 5/5 motor strength present throughout Psych: COMMON NORMALS: mental status grossly normal, Normal thought process present and cooperative APPEARANCE: Yes well kempt ACTIVITY/MOTOR BEHAVIOR: Yes appropriate eye contact THOUGHT PROCESS: Normal thought process present Skin: COMMON NORMALS: no rashes or lesions noted, no wounds, turgor normal, no petechiae and no mottling GENERAL SKIN EXAM: no rashes or lesions noted, elasticity normal and turgor normal Course Vital Signs: Vital signs: Vital Signs Temperature 98.8 F 10/25/20 15:24 Pulse Rate 84 10/25/20 20:24 Respiratory Rate 18 10/25/20 20:24 Blood Pressure 132/89 10/25/20 20:24 Pulse Oximetry 98 10/25/20 20:24 MDM - Abdominal Pain MDM Narrative: Medical decision making narrative: 35-year-old female patient with recent hysterectomy, partial, bladder tack with sling placement; presents to the emergency department with complaints of nausea vomiting and altered bowel pattern x2 days. Patient received Zofran, Benadryl here in the ED; lactated Ringer, 1 L provided as she reports decreased intake of fluids due to vomiting episodes. Transfer of care to Antwan Hayes for shift change; serology results currently pending. Prior to my departure, patient did receive Zofran and Benadryl; states she is feeling some better. She denied abdominal pain, dysuria or pelvic pain. She did not have incisions to the abdomen, belly was soft and non-tender. Lab Data: Labs: Lab Results 10/25/20 10/25/20 10/25/20 Range/Units 16:30 16:30 17:32 WBC 14.6 H (4.0-10.0) 10^3/ uL RBC 4.47 (4.1-5.3) 10^6/u L Hgb 13.5 (11.5-15.3) g/dL Hct 40.5 (37.0-47.0) % MCV 90.6 (81-99) fL MCH 30.2 (28.0-34.0) pg MCHC 33.3 (30.0-36.0) g/dL RDW 13.1 (12.1-15.1) % Plt Count 344 (130-400) 10^3/c mm MPV 10.8 H (7.4-10.4) fL Neut % (Auto) 78.4 % Lymph % (Auto) 13.5 % Price % (Auto) 6.4 % Eos % (Auto) 1.0 % Baso % (Auto) 0.3 % Neut # (Auto) 11.42 H (1.8-7.7) 10^3/u L Lymph # (Auto) 2.0 (0.8-4.8) 10^3/u L Price # (Auto) 0.9 (0.2-0.9) 10^3/u L Eos # (Auto) 0.2 (0.0-0.8) 10^3/u L Baso # (Auto) 0.1 (0.0-0.1) 10^3/u L Nucleated RBC % (a uto) 0 % Nucleated RBCs # 0.0 /100WBC Sodium 140 (136-145) mmol/L Potassium 3.7 (3.5-5.1) mmol/L Chloride 104 (98-107) mmol/L Carbon Dioxide 22 (22-29) mmol/L Anion Gap 17.7 (5-19) BUN 14 (6-20) mg/dL Creatinine 0.6 (0.5-0.9) mg/dL GFR Calculation 112.5 (90-130) mL/min Glucose 114 (65-115) mg/dL Calculated Osmolal ity 291 (285-295) mOsm/k g Calcium 9.7 (8.5-10.5) mg/dL Total Bilirubin 0.5 (0.15-1.2) mg/dL AST 16 (0-32) U/L ALT 20 (0-33) U/L Alkaline Phosphata se 85 (35-105) IU/L Total Protein 7.8 (6.6-8.7) g/dL Albumin 4.4 (3.5-5.2) g/dL Globulin 3.4 (1.3-4.6) g/dL Lipase 26 (13-60) U/L Urine Color Dark yellow (Yellow) Urine Appearance Cloudy (CLEAR) Urine pH 5 (5-7) Ur Specific Gravit y 1.025 (1.005-1.030) Urine Protein 1+ H (Negative) Urine Glucose (UA) Norm (Normal) Urine Ketones 1+ H (Negative) Urine Blood 3+ H (Negative) Urine Nitrate Negative (Negative) Urine Bilirubin 1+ H (Negative) Urine Urobilinogen 1 H (Negative) mg/dL Ur Leukocyte Zakiya ase 2+ H (Negative) Urine RBC 0-4 H (0-2) /hpf Urine WBC 55-80 H (0-5) /hpf Ur Squamous Epith Cells 5-10 H (0-5) /hpf Amorphous Sediment Not Reportable Urine Bacteria 2+ H (NONE) /hpf Urine Mucus Trace /hpf Imaging Data ^: CXR: Radiologist's impression: [address] [address] XRay Report Signed Patient: Renetta Henson Unit #: [id number] : 1985 Age/Sex: 35 / F ADM Date: 10/25/20 Loc: ER Room/Bed: Attending Dr: Ordering Provider/Ordering MD: Kareen Milner Date of Service: 10/25/20 Procedure(s): XR KUB [id number] Accession Number(s): [id number] Report Number: [id number] PROCEDURE INFORMATION: Exam: XR Abdomen Exam date and time: 10/25/2020 4:21 PM Age: 35 years old Clinical indication: Abdominal pain; Prior surgery; Surgery type: Hysto TECHNIQUE: Imaging protocol: XR of the abdomen. Views: Frontal supine view of the abdomen. 1 View. COMPARISON: CR XR acute abdomen series [id number] 11/25/2019 4:58 PM FINDINGS: Tubes, catheters and devices: Surgical clips related to cholecystectomy are noted the right upper quadrant. Lungs: Lung bases appear clear. Gastrointestinal tract: Nonobstructive intestinal gas pattern demonstrated. Bones/joints: Unremarkable. XR/XR KUB [id number] IMPRESSION: No acute abnormality demonstrated. Dictated By: Roscoe Erwin MD Signed By: Roscoe Erwin MD Signed Date/Time: 10/25/201638 DD/ 37 Discharge Plan Discharge Patient Disposition: Home Clinical Impression: Gastritis Qualifiers: Gastritis type: unspecified gastritis Chronicity: chronic Gastritis bleeding: without bleeding Qualified Code(s): K29.50 - Unspecified chronic gastritis without bleeding UTI (urinary tract infection) Qualifiers: Urinary tract infection type: acute cystitis Hematuria presence: with hematuria Qualified Code(s): N30.01 - Acute cystitis with hematuria Condition: Stable Prescriptions: New ondansetron 4 mg tablet,disintegrating 4 mg PO Q8H Qty: 20 RF: 0 Pepcid 20 mg tablet 20 mg PO BID 42 Days Qty: 84 RF: 0 Bactrim DS 800-160 mg tablet 1 tab PO BID 7 Days Qty: 14 RF: 0 No Action fluoxetine 20 mg capsule 40 mg PO DAILY RF: 0 Discharge Orders: Discharge ED (Routine); Ordered 10/25/20 Ordered By: Antwan Hayes Discharge Diet: Advance as tolerated Discharge Activity: Increase activity as tolerated Patient Instructions: Gastritis (ED), Urinary Tract Infection in Women (ED) Activity Restrictions/Additional Instructions: Follow-up with medical provider as directed in 7 days for reevaluation. Take medications as prescribed. Return to the ER or your medical provider if condition worsens. Please read and understand discharge instructions. If any questions, please ask. Sign Out Sign Out Data: Patient Sign Out occurred on 10/25/20 at 17:23. Patient's care was discussed, and care was transferred from to FREDA Martinez. Coding Level of Care Code ED Horticulturalist for Chg Fwd Exam Comprehensive Documented by User: FREDA Martinez 10/26/20 18:11 HPI - Abdominal Pain General: Chief Complaint: Abdominal Pain Stated Complaint: Sick Time Seen by Provider: 10/25/20 15:51 History of Present Illness: Associated Symptoms: Reports dysuria Review of Systems : Reports: dysuria PFSH ED PFSH: Medical History Asthma Cyclic vomiting syndrome GERD (gastroesophageal reflux disease) Hemorrhoids Hypokalemia Marijuana abuse, continuous Ovarian cyst Surgical History Hx of appendectomy Hx of cholecystectomy Family History Mother Stroke Breast cancer, Onset Age: 29 Uterine cancer age onset unknown Anesthesia complication Sister Ovarian cancer, Onset Age: 22 Family/Other Colon cancer maternal uncle Father Hyperlipidemia Heart disease Diabetes Hypertension Thyroid condition Denies family history of Clotting disorder Bleeding disorder Social History Smoking and tobacco status: former smoker Alcohol intake: current Alcohol intake frequency: holidays/special occasions only Alcohol type: wine Housing: House Course Vital Signs: Vital signs: Vital Signs Temperature 98.8 F 10/25/20 15:24 Pulse Rate 84 10/25/20 20:24 Respiratory Rate 18 10/25/20 20:24 Blood Pressure 132/89 10/25/20 20:24 Pulse Oximetry 98 10/25/20 20:24 MDM - Abdominal Pain MDM Narrative: Medical decision making narrative: I took over patient care from [facility] around 5 PM. She performed all the initial history physical exam and lab work-up. Some labs were pending before she left. Chest x-ray showed no acute findings. KUB showed no acute findings. CBC, CMP were unremarkable. Urinalysis showed some possible signs of UTI. Patient had some nausea again and I gave her a dose of Reglan and Ativan along with GI cocktail her symptoms improved greatly. Patient was diagnosed with gastritis and a UTI. She was discharged home with a prescription for Bactrim, Zofran and Pepcid. She is told to follow-up with her PCP in 7 to 10 days for reevaluation. Return to ED precautions given. Patient understood and agreed with plan. Lab Data: Attestation: I reviewed the patient's lab results. Labs: Lab Results 10/25/20 10/25/20 10/25/20 Range/Units 16:30 16:30 17:32 WBC 14.6 H (4.0-10.0) 10^3/ uL RBC 4.47 (4.1-5.3) 10^6/u L Hgb 13.5 (11.5-15.3) g/dL Hct 40.5 (37.0-47.0) % MCV 90.6 (81-99) fL MCH 30.2 (28.0-34.0) pg MCHC 33.3 (30.0-36.0) g/dL RDW 13.1 (12.1-15.1) % Plt Count 344 (130-400) 10^3/c mm MPV 10.8 H (7.4-10.4) fL Neut % (Auto) 78.4 % Lymph % (Auto) 13.5 % Price % (Auto) 6.4 % Eos % (Auto) 1.0 % Baso % (Auto) 0.3 % Neut # (Auto) 11.42 H (1.8-7.7) 10^3/u L Lymph # (Auto) 2.0 (0.8-4.8) 10^3/u L Price # (Auto) 0.9 (0.2-0.9) 10^3/u L Eos # (Auto) 0.2 (0.0-0.8) 10^3/u L Baso # (Auto) 0.1 (0.0-0.1) 10^3/u L Nucleated RBC % (a uto) 0 % Nucleated RBCs # 0.0 /100WBC Sodium 140 (136-145) mmol/L Potassium 3.7 (3.5-5.1) mmol/L Chloride 104 (98-107) mmol/L Carbon Dioxide 22 (22-29) mmol/L Anion Gap 17.7 (5-19) BUN 14 (6-20) mg/dL Creatinine 0.6 (0.5-0.9) mg/dL GFR Calculation 112.5 (90-130) mL/min Glucose 114 (65-115) mg/dL Calculated Osmolal ity 291 (285-295) mOsm/k g Calcium 9.7 (8.5-10.5) mg/dL Total Bilirubin 0.5 (0.15-1.2) mg/dL AST 16 (0-32) U/L ALT 20 (0-33) U/L Alkaline Phosphata se 85 (35-105) IU/L Total Protein 7.8 (6.6-8.7) g/dL Albumin 4.4 (3.5-5.2) g/dL Globulin 3.4 (1.3-4.6) g/dL Lipase 26 (13-60) U/L Urine Color Dark yellow (Yellow) Urine Appearance Cloudy (CLEAR) Urine pH 5 (5-7) Ur Specific Gravit y 1.025 (1.005-1.030) Urine Protein 1+ H (Negative) Urine Glucose (UA) Norm (Normal) Urine Ketones 1+ H (Negative) Urine Blood 3+ H (Negative) Urine Nitrate Negative (Negative) Urine Bilirubin 1+ H (Negative) Urine Urobilinogen 1 H (Negative) mg/dL Ur Leukocyte Zakiya ase 2+ H (Negative) Urine RBC 0-4 H (0-2) /hpf Urine WBC 55-80 H (0-5) /hpf Ur Squamous Epith Cells 5-10 H (0-5) /hpf Amorphous Sediment Not Reportable Urine Bacteria 2+ H (NONE) /hpf Urine Mucus Trace /hpf Imaging Data ^: KUB: Attestation: I personally reviewed and interpreted this imaging study as follows: Radiologist's impression: [address] [address] XRay Report Signed Patient: Renetta Henson #: [id number] : 1985Acct#:[id number] Age/Sex: 35 / FADM Date: 10/25/20 Loc: ERRoom/Bed: Attending Dr: Ordering Provider/Ordering MD: Kareen Milner Date of Service: 10/25/20 Procedure(s): XR KUB [id number] Accession Number(s): [id number] Report Number: [id number] PROCEDURE INFORMATION: Exam: XR Abdomen Exam date and time: 10/25/2020 4:21 PM Age: 35 years old Clinical indication: Abdominal pain; Prior surgery; Surgery type: Hysto TECHNIQUE: Imaging protocol: XR of the abdomen. Views: Frontal supine view of the abdomen. 1 View. COMPARISON: CR XR acute abdomen series [id number] 11/25/2019 4:58 PM FINDINGS: Tubes, catheters and devices: Surgical clips related to cholecystectomy are noted the right upper quadrant. Lungs: Lung bases appear clear. Gastrointestinal tract: Nonobstructive intestinal gas pattern demonstrated. Bones/joints: Unremarkable. XR/XR KUB [id number] IMPRESSION: No acute abnormality demonstrated. Dictated By:Roscoe Erwin MD Signed By:Roscoe Erwin MDSigned Date/Time:10/25/201638 DD/ 37 Discharge Plan Discharge Patient Disposition: Home Clinical Impression: Gastritis Qualifiers: Gastritis type: unspecified gastritis Chronicity: chronic Gastritis bleeding: without bleeding Qualified Code(s): K29.50 - Unspecified chronic gastritis without bleeding UTI (urinary tract infection) Qualifiers: Urinary tract infection type: acute cystitis Hematuria presence: with hematuria Qualified Code(s): N30.01 - Acute cystitis with hematuria Condition: Stable Prescriptions: New ondansetron 4 mg tablet,disintegrating 4 mg PO Q8H Qty: 20 RF: 0 Pepcid 20 mg tablet 20 mg PO BID 42 Days Qty: 84 RF: 0 Bactrim DS 800-160 mg tablet 1 tab PO BID 7 Days Qty: 14 RF: 0 No Action fluoxetine 20 mg capsule 40 mg PO DAILY RF: 0 Discharge Orders: Discharge ED (Routine); Ordered 10/25/20 Ordered By: Antwan Hayes Discharge Diet: Advance as tolerated Discharge Activity: Increase activity as tolerated Patient Instructions: Gastritis (ED), Urinary Tract Infection in Women (ED) Activity Restrictions/Additional Instructions: Follow-up with medical provider as directed in 7 days for reevaluation. Take medications as prescribed. Return to the ER or your medical provider if condition worsens. Please read and understand discharge instructions. If any questions, please ask. Sign Out Sign Out Data: Patient Sign Out occurred on 10/25/20 at 17:23. Patient's care was discussed, and care was transferred from to FREDA Martinez. Coding Level of Care Code ED Horticulturalist for Chg Fwd Exam Comprehensive
--- NOTE | 2020-10-25 16:16 | XRR_ITS ---
PROCEDURE INFORMATION: Exam: XR Abdomen Exam date and time: 10/25/2020 4:21 PM Age: 35 years old Clinical indication: Abdominal pain; Prior surgery; Surgery type: Hysto TECHNIQUE: Imaging protocol: XR of the abdomen. Views: Frontal supine view of the abdomen. 1 View. COMPARISON: CR XR acute abdomen series [id number] 11/25/2019 4:58 PM FINDINGS: Tubes, catheters and devices: Surgical clips related to cholecystectomy are noted the right upper quadrant. Lungs: Lung bases appear clear. Gastrointestinal tract: Nonobstructive intestinal gas pattern demonstrated. Bones/joints: Unremarkable. XR/XR KUB [id number] IMPRESSION: No acute abnormality demonstrated.
[2020-10-25] MEDS: ondansetron 2 mg/ML SDV 2 mL 4 MG IVP (17:02)
[2020-10-25] MEDS: lactated ringers 1,000 ML 999 ML IV (17:02)
[2020-10-25] MEDS: diphenhydrAMINE 50 mg/mL SDV 1mL 12.5 MG IVP (17:02)
[2020-10-25 17:09] LABS: Basophils # 0.1 10^3/uL (0.0-0.1); Basophils % 0.3 %; Eosinophils # 0.2 10^3/uL (0.0-0.8); Hematocrit 40.5 % (37.0-47.0); Hemoglobin 13.5 g/dL (11.5-15.3); Lymphocytes % 13.5 %; Mean Corpuscular HGB Conc 33.3 g/dL (30.0-36.0); Mean Corpuscular Hemoglobin 30.2 pg (28.0-34.0); Mean Corpuscular Volume 90.6 fL (81-99); Mean Platelet Volume 10.8 fL (7.4-10.4); Monocytes # 0.9 10^3/uL (0.2-0.9); Monocytes % 6.4 %; Neutrophils # 11.42 10^3/uL (1.8-7.7); Neutrophils % 78.4 %; Nucleated Red Blood Cells % 0 %; Platelet Count 344 10^3/cmm (130-400); Red Blood Count 4.47 10^6/uL (4.1-5.3); Red Cell Distribution Width 13.1 % (12.1-15.1); White Blood Count 14.6 10^3/uL (4.0-10.0)
[2020-10-25 17:27] LABS: Alanine Aminotransferase 20 U/L (0-33); Albumin Level 4.4 g/dL (3.5-5.2); Alkaline Phosphatase 85 IU/L (35-105); Anion Gap 17.7 (5-19); Aspartate Amino Transferase 16 U/L (0-32); Blood Urea Nitrogen 14 mg/dL (6-20); Calcium 9.7 mg/dL (8.5-10.5); Carbon Dioxide 22 mmol/L (22-29); Chloride 104 mmol/L (98-107); Globulin 3.4 g/dL (1.3-4.6); Glomerular Filtration Rate 112.5 mL/min (90-130); Glucose 114 mg/dL (65-115); Lipase 26 U/L (13-60); Osmolality Calculated 291 mOsm/kg (285-295); Potassium 3.7 mmol/L (3.5-5.1); Sodium 140 mmol/L (136-145); Total Bilirubin 0.5 mg/dL (0.15-1.2); Total Protein 7.8 g/dL (6.6-8.7)
[2020-10-25 17:57] LABS: Add Urine Microscopic? YES; Bilirubin Urine 1+ (Negative); Blood Urine 3+ (Negative); Glucose Urine UA Norm (Normal); Ketones Urine 1+ (Negative); Leukocyte Esterase Urine 2+ (Negative); Nitrate Urine Negative (Negative); Protein Urine 1+ (Negative); RBC Urine 0-4 /hpf (0-2); Specific Gravity, Urine 1.025 (1.005-1.030); Urine Appearance Cloudy (CLEAR); Urine Color Dark Yellow (Yellow); Urobilinogen Urine 1 mg/dL (Negative); WBC Urine 55-80 /hpf (0-5); pH Urine 5 (5-7)
[2020-10-25 17:58] LABS: Add Urine Culture? Yes; Bacteria Urine 2+ /hpf; Mucus Urine TRACE /hpf
[2020-10-25 18:17] VITALS: BP 114/88; PULSE 102; RESP 18; O2SAT 98
[2020-10-25] MEDS: metoclopramide 5 mg/mL SDV 2 mL 10 MG IVP (18:35)
[2020-10-25] MEDS: lidocaine 2% viscous 15 ML, aluminum-mag hydrox-simethicon 30 ML, sucralfate oral liq 1 GM PO (19:08)
[2020-10-25] MEDS: LORazepam 2 mg/mL INJ 1 mL IVP (19:10)
[2020-10-25] MEDS: sulfamethoxazole-trimeth DS 160-800 mg Tablet 1 TAB PO (20:11)
[2020-10-25 20:24] VITALS: BP 132/89; PULSE 84; RESP 18; O2SAT 98
== END 2020-10-25 20:25 | disposition home or self-care (01) ==
PROVIDERS: Nurse Practitioner Family; Emergency Provider Physician Assistant
DX: K29.50 Unspecified chronic gastritis without bleeding (principal); N30.01 Acute cystitis with hematuria; Z87.891 Personal history of nicotine dependence
CPT/HCPCS: 74018; 80053; 81001; 83690; 85025; 87086; 96361; 96374; 96375; 99284; J1200; J2060; J2405; J2765

== ENCOUNTER 2020-11-19 21:43 | Emergency (ER) | payer OTHER, SELFPAY ==
[2020-11-19 22:51] VITALS: BP 137/86; PULSE 77; RESP 18; TEMP 36.8; O2SAT 97; BMI 32.0
[2020-11-19] MEDS: LORazepam 2 mg/mL INJ 1 mL 1 MG IVP (23:26)
[2020-11-19] MEDS: diphenhydrAMINE 50 mg/mL SDV 1mL IVP (23:26)
[2020-11-19] MEDS: sodium chloride 0.9% 1,000 ML 999 ML IV (23:26)
[2020-11-19] MEDS: metoclopramide 5 mg/mL SDV 2 mL 10 MG IVP (23:26)
[2020-11-19 23:50] LABS: Alanine Aminotransferase 17 U/L (0-33); Albumin Level 4.7 g/dL (3.5-5.2); Alkaline Phosphatase 87 IU/L (35-105); Anion Gap 21.4 (5-19); Aspartate Amino Transferase 21 U/L (0-32); Basophils % 0.2 %; Blood Urea Nitrogen 18 mg/dL (6-20); Calcium 9.2 mg/dL (8.5-10.5); Carbon Dioxide 20 mmol/L (22-29); Chloride 94 mmol/L (98-107); Eosinophils % 0.1 %; Globulin 3.5 g/dL (1.3-4.6); Glomerular Filtration Rate 62.4 mL/min (90-130); Glucose 189 mg/dL (65-115); Hemoglobin 15.3 g/dL (11.5-15.3); Lipase 21 U/L (13-60); Lymphocytes # 1.9 10^3/uL (0.8-4.8); Lymphocytes % 11.8 %; Mean Corpuscular HGB Conc 34.8 g/dL (30.0-36.0); Mean Corpuscular Hemoglobin 30.6 pg (28.0-34.0); Mean Platelet Volume 11.3 fL (7.4-10.4); Monocytes # 1.4 10^3/uL (0.2-0.9); Monocytes % 8.7 %; Neutrophils # 12.94 10^3/uL (1.8-7.7); Neutrophils % 78.8 %; Nucleated Red Blood Cells % 0 %; Osmolality Calculated 281 mOsm/kg (285-295); Platelet Count 381 10^3/cmm (130-400); Potassium 3.4 mmol/L (3.5-5.1); Red Cell Distribution Width 13.3 % (12.1-15.1); Sodium 132 mmol/L (136-145); Total Bilirubin 0.6 mg/dL (0.15-1.2); Total Protein 8.2 g/dL (6.6-8.7); White Blood Count 16.4 10^3/uL (4.0-10.0)
--- NOTE | 2020-11-20 | W.ED.ABDPA2 ---
HPI - Abdominal Pain General: Chief Complaint: Abdominal Pain Stated Complaint: NAUSEA/VOMITING Time Seen by Provider: 11/19/20 23:04 Source: patient Mode of arrival: ambulatory Limitations: no limitations History of Present Illness: HPI narrative: 35-year-old female who has history of cyclic vomiting syndrome states she has had vomiting over the last 2 days got much worse tonight. She has diffuse abdominal cramping she rates a 4 out of 10. Patient states that she does smoke marijuana. She denies any fevers. Denies any worsening proving factors. Associated Symptoms: Reports nausea and vomiting; Denies chills, dysuria and fever(s) Related Data: Date of Last Menstrual Period: 03/21/19 Review of Systems Const: Denies: fever(s), chills, body aches or change in appetite Eyes: Denies: blurry vision or eye discomfort ENMT: Denies: throat pain or dental pain Card: Denies: chest pain Resp: Denies: dyspnea GI: Reports: abdominal pain, nausea and vomiting : Denies: dysuria Musc: Denies: neck pain or back pain Skin/Breast: Denies: rash Neuro: Denies: headache(s) Psych: Denies: depression Klaus/Lymph: Denies: easy bruising All/Imm: Denies: urticaria PFSH ED PFSH: Medical History (Updated 11/20/20 @ 01:58 by Joann Blood MD) Asthma Cyclic vomiting syndrome GERD (gastroesophageal reflux disease) Hemorrhoids Hypokalemia Marijuana abuse, continuous Ovarian cyst Surgical History (Updated 10/31/20 @ 08:00 by Cecy Cintron RN) Hx of appendectomy Hx of cholecystectomy Family History Mother Stroke Breast cancer, Onset Age: 29 Uterine cancer age onset unknown Anesthesia complication Sister Ovarian cancer, Onset Age: 22 Family/Other Colon cancer maternal uncle Father Hyperlipidemia Heart disease Diabetes Hypertension Thyroid condition Denies family history of Clotting disorder Bleeding disorder Social History (Updated 10/31/20 @ 10:20 by Cecy Cintron RN) Smoking and tobacco status: former smoker Alcohol intake: current Alcohol intake frequency: holidays/special occasions only Alcohol type: wine Female Reproductive History: Date of last menstrual period: 03/21/19 Physical Exam Const: COMMON NORMALS: no acute distress, patient oriented x3 and healthy appearing HENMT: COMMON NORMALS: normocephalic and atraumatic HEAD & SCALP: normocephalic and atraumatic Eye: COMMON NORMALS: Equal, round and reactive pupils present and EOMs intact bilaterally PUPIL: Yes Equal, round and reactive pupils present Neck/C-Spine: COMMON NORMALS: full ROM and supple Chest: COMMONS NORMALS: normal inspection of the chest and normal palpation of entire chest wall Resp: COMMON NORMALS: normal respiratory effort, No retractions, No use of accessory muscles and clear to auscultation bilaterally AUSCULTATION: clear to auscultation bilaterally Cardio: COMMON NORMALS: regular rate, regular rhythm and No murmurs present (Cardio) RATE: regular rate RHYTHM: regular rhythm GI: COMMON NORMALS: Normal to inspection, nondistended, normoactive bowel sounds present, Soft to palpation, non-tender and no masses PALPATION: Yes Soft to palpation Extremity: COMMON NORMALS: normal to inspection and full ROM Neuro: COMMON NORMALS: patient oriented x3, moves all extremities and no focal motor deficits Psych: COMMON NORMALS: mental status grossly normal, Normal thought process present and cooperative THOUGHT PROCESS: Normal thought process present Skin: COMMON NORMALS: no rashes or lesions noted and no wounds GENERAL SKIN EXAM: no rashes or lesions noted Course Vital Signs: Vital signs: Vital Signs Temperature 98.2 F 11/19/20 22:51 Pulse Rate 98 11/20/20 02:10 Respiratory Rate 17 11/20/20 02:10 Blood Pressure 115/81 11/20/20 02:10 Pulse Oximetry 97 11/20/20 02:10 MDM - Abdominal Pain MDM Narrative: Medical decision making narrative: Patient presents here with nausea vomiting likely cyclical vomiting syndrome. She feels much improved here and her CT and blood work are normal. She been able to tolerate p.o. fluids here. I did advise her to stop smoking marijuana as it could worsen her cyclic vomiting. She understands. Patient is to follow-up with her PCP and return if worsening. Lab Data: Labs: Lab Results 11/19/20 11/19/20 Range/Units 23:25 23:25 WBC 16.4 H (4.0-10.0) 10^3/ uL RBC 5.00 (4.1-5.3) 10^6/u L Hgb 15.3 (11.5-15.3) g/dL Hct 44.0 (37.0-47.0) % MCV 88.0 (81-99) fL MCH 30.6 (28.0-34.0) pg MCHC 34.8 (30.0-36.0) g/dL RDW 13.3 (12.1-15.1) % Plt Count 381 (130-400) 10^3/c mm MPV 11.3 H (7.4-10.4) fL Neut % (Auto) 78.8 % Lymph % (Auto) 11.8 % [facility] % (Auto) 8.7 % Eos % (Auto) 0.1 % Baso % (Auto) 0.2 % Neut # (Auto) 12.94 H (1.8-7.7) 10^3/u L Lymph # (Auto) 1.9 (0.8-4.8) 10^3/u L [facility] # (Auto) 1.4 H (0.2-0.9) 10^3/u L Eos # (Auto) 0.0 (0.0-0.8) 10^3/u L Baso # (Auto) 0.0 (0.0-0.1) 10^3/u L Nucleated RBC % (a uto) 0 % Nucleated RBCs # 0.0 /100WBC Sodium 132 L (136-145) mmol/L Potassium 3.4 L (3.5-5.1) mmol/L Chloride 94 L (98-107) mmol/L Carbon Dioxide 20 L (22-29) mmol/L Anion Gap 21.4 H (5-19) BUN 18 (6-20) mg/dL Creatinine 1.0 H (0.5-0.9) mg/dL GFR Calculation 62.4 L (90-130) mL/min Glucose 189 H (65-115) mg/dL Calculated Osmolal ity 281 L (285-295) mOsm/k g Calcium 9.2 (8.5-10.5) mg/dL Total Bilirubin 0.6 (0.15-1.2) mg/dL AST 21 (0-32) U/L ALT 17 (0-33) U/L Alkaline Phosphata se 87 (35-105) IU/L Total Protein 8.2 (6.6-8.7) g/dL Albumin 4.7 (3.5-5.2) g/dL Globulin 3.5 (1.3-4.6) g/dL Lipase 21 (13-60) U/L Imaging Data ^: CT Abd/Pel: Attestation: I personally reviewed and interpreted this imaging study as follows: Radiologist's impression: [address] [address] [address] Scan Report Signed Patient: Renetta Henson Unit #: [id number] : 1985 Age/Sex: 35 / F ADM Date: 11/19/20 Loc: ER Room/Bed: Attending Dr: Ordering Provider/Ordering MD: Joann Blood MD Date of Service: 11/20/20 Procedure(s): CT abdomen pelvis w con* [id number] Accession Number(s): [id number] Report Number: [id number] PROCEDURE INFORMATION: Exam: CT Abdomen And Pelvis With Contrast Exam date and time: 11/20/2020 12:05 AM Age: 35 years old Clinical indication: Abdominal pain; Prior surgery; Surgery type: Gb. Hysterectomy. Appy. Hernia. ; Patient HX: Generalized abd pain with n/v. TECHNIQUE: Imaging protocol: Computed tomography of the abdomen and pelvis with contrast. Radiation optimization: All CT scans at this facility use at least one of these dose optimization techniques: automated exposure control; mA and/or kV adjustment per patient size (includes targeted exams where dose is matched to clinical indication); or iterative reconstruction. Contrast material: OMNI 300; Contrast volume: 95 ml; Contrast route: INTRAVENOUS (IV); COMPARISON: CT abdomen pelvis w con* [id number] 11/27/2019 8:22 PM RADIATION DOSE METRICS: Total DLP (mGy-cm): 1474.87 FINDINGS: Lungs: The lung bases are clear. Mediastinal space: Small hiatal hernia. There may be some mucosal/wall thickening involving the lower esophagus. This is nonspecific, but could represent evidence for esophagitis. Liver: Unremarkable. Gallbladder and bile ducts: Prior cholecystectomy, no significant biliary tree dilation. Pancreas: Unremarkable. Spleen: Unremarkable. Adrenal glands: Unremarkable. Kidneys and ureters: Unremarkable. Stomach and bowel: Possibility of slightly thickened mucosa/wall in the distal antrum of the stomach. This is a nonspecific appearance, and may well be transient on CT, but could also represent evidence for gastritis or peptic ulcer disease. Please correlate clinically. Possibility of mild diffuse mucosal/wall thickening involving the ascending through distal transverse colon. This region of the colon is not well distended which limits evaluation. Therefore, the findings could be transient, and are somewhat equivocal at this time. While nonspecific, this appearance may be secondary to some form of colitis. Please correlate clinically. There are no CT findings to strongly suggest diverticulitis. Appendix: Reportedly, there has been prior appendectomy. Intraperitoneal space: No free air, ascites, or bowel distention. Vasculature: No evidence for abdominal aortic aneurysm. Lymph nodes: No retroperitoneal adenopathy. Urinary bladder: Unremarkable as visualized. Reproductive: Essentially unremarkable for age. Bones/joints: No significant acute finding. Soft tissues: Very small umbilical hernia, containing only fat. CT/CT abdomen pelvis w con* [id number] IMPRESSION: 1. Possibility of some form of colitis involving the right colon, see above discussion. 2. No free air or bowel distention. No evidence for bowel obstruction. 3. Possible thickened mucosa/wall in the distal stomach, see above discussion. 4. Small hiatal hernia. Possibly some thickening of the lower esophagus, see above discussion. 5. Other findings discussed above. Radiation Dose CTDIVOL = (mGy): DLP = 1474.87 Discharge Plan Discharge Patient Disposition: Home Clinical Impression: Abdominal pain Vomiting Qualifiers: Vomiting type: unspecified Vomiting Intractability: non-intractable Nausea presence: with nausea Qualified Code(s): R11.2 - Nausea with vomiting, unspecified Condition: Stable Prescriptions: New Reglan 10 mg tablet 10 mg PO Q6H PRN (Reason: nausea and vomiting) Qty: 20 RF: 0 No Action fluoxetine 20 mg capsule 40 mg PO DAILY RF: 0 Gummies 400 mcg-35 mg- 25 mg-5 mg tablet,chewable PO DAILY RF: 0 ondansetron 4 mg tablet,disintegrating 4 mg PO Q8H Qty: 20 RF: 0 Pepcid 20 mg tablet 20 mg PO BID 42 Days Qty: 84 RF: 0 Discharge Orders: Discharge ED (Routine); Ordered 11/20/20 Ordered By: Joann Blood Discharge Diet: Advance as tolerated Discharge Activity: Resume usual activity Patient Instructions: Acute Nausea and Vomiting (ED), Abdominal Pain (ED) Coding Level of Care Code ED [facility] [employer] for [employer]g Fwd Exam Comprehensive
[2020-11-20] MEDS: iohexol 300 mg/mL 100 mL Btl IV (00:15)
[2020-11-20 00:50] VITALS: BP 138/82; PULSE 76; RESP 24; O2SAT 96
[2020-11-20 01:18] VITALS: BP 146/50; PULSE 73; RESP 18; O2SAT 96
[2020-11-20] MEDS: haloperidol inj 5 mg/mL INJ 1 mL IVP (01:38)
[2020-11-20 02:10] VITALS: BP 115/81; PULSE 98; RESP 17; O2SAT 97
== END 2020-11-20 02:10 | disposition home or self-care (01) ==
PROVIDERS: Emergency Provider Emergency Medicine
DX: R10.9 Unspecified abdominal pain (principal); R11.2 Nausea with vomiting, unspecified; Z87.891 Personal history of nicotine dependence
CPT/HCPCS: 74177; 80053; 83690; 85025; 96361; 96374; 96375; 99284; J1200; J1630; J2060; J2765; J7030; Q9967

== ENCOUNTER 2020-11-20 20:47 | Emergency (ER) | payer OTHER, SELFPAY ==
[2020-11-20 21:45] VITALS: BP 141/91; PULSE 104; RESP 18; TEMP 36.9; O2SAT 96; BMI 32.0
[2020-11-20] MEDS: diphenhydrAMINE 50 mg/mL SDV 1mL 25 MG IVP (22:30)
[2020-11-20] MEDS: haloperidol inj 5 mg/mL INJ 1 mL IVP (22:32)
[2020-11-20 22:55] LABS: Basophils % 0.1 %; Hematocrit 40.9 % (37.0-47.0); Hemoglobin 14.1 g/dL (11.5-15.3); Lymphocytes # 2.3 10^3/uL (0.8-4.8); Lymphocytes % 16.5 %; Mean Corpuscular HGB Conc 34.5 g/dL (30.0-36.0); Mean Corpuscular Hemoglobin 30.2 pg (28.0-34.0); Mean Corpuscular Volume 87.6 fL (81-99); Monocytes # 1.1 10^3/uL (0.2-0.9); Monocytes % 7.8 %; Neutrophils # 10.27 10^3/uL (1.8-7.7); Neutrophils % 75.2 %; Nucleated Red Blood Cells % 0 %; Platelet Count 338 10^3/cmm (130-400); Red Blood Count 4.67 10^6/uL (4.1-5.3); Red Cell Distribution Width 13.2 % (12.1-15.1); White Blood Count 13.7 10^3/uL (4.0-10.0)
[2020-11-20 23:08] LABS: HCG, Serum Qual Negative (Negative)
[2020-11-20 23:11] LABS: Acetaminophen < 5.0 ug/mL (10-30); Alanine Aminotransferase 15 U/L (0-33); Albumin Level 4.7 g/dL (3.5-5.2); Alcohol Level < 10 mg/dL (0-10); Alkaline Phosphatase 80 IU/L (35-105); Aspartate Amino Transferase 21 U/L (0-32); Blood Urea Nitrogen 16 mg/dL (6-20); C Reactive Protein 4.3 mg/L (0.0-4.9); Calcium 9.3 mg/dL (8.5-10.5); Carbon Dioxide 21 mmol/L (22-29); Chloride 98 mmol/L (98-107); Globulin 3.2 g/dL (1.3-4.6); Glomerular Filtration Rate 80.7 mL/min (90-130); Glucose 140 mg/dL (65-115); Lipase 25 U/L (13-60); Osmolality Calculated 287 mOsm/kg (285-295); Salicylate < 0.3 mg/dL (3-10); Sodium 137 mmol/L (136-145); Total Bilirubin 0.5 mg/dL (0.15-1.2); Total Protein 7.9 g/dL (6.6-8.7)
[2020-11-21] MEDS: potassium chloride ER 20 mEq Tablet 40 MEQ PO (00:51)
--- NOTE | 2020-11-21 01:12 | PC.NURSE ---
patient states she is not having suicidal ideations. states she was feeling so bad she could . states she never had any intention and was using that as a reference to how bad she feels
[2020-11-21] MEDS: haloperidol inj 5 mg/mL INJ 1 mL IVP (01:18)
[2020-11-21] MEDS: famotidine 20 mg/2 mL INJ 40 MG IVP (01:22)
[2020-11-21 01:27] VITALS: BP 179/89; PULSE 70; RESP 16; O2SAT 96
[2020-11-21 01:32] LABS: Amphetamines Screen Urine Negative (Negative); Barbiturates Screen Urine Negative (Negative); Benzodiazepines Screen Urine Positive (Negative); Cocaine Screen Urine Negative (Negative); Opiate Screen Urine Negative (Negative); PCP Screen Urine Negative (Negative); THC Screen Urine Positive (Negative)
[2020-11-21] MEDS: diphenhydrAMINE 50 mg/mL SDV 1mL 25 MG IVP (01:46)
[2020-11-21] MEDS: metoclopramide 5 mg/mL SDV 2 mL 10 MG IVP (01:48)
[2020-11-21 01:54] LABS: Add Urine Microscopic? YES; Bacteria Urine TRACE /hpf; Bilirubin Urine 1+ (Negative); Blood Urine Neg (Negative); Glucose Urine UA Norm (Normal); Ketones Urine 1+ (Negative); Leukocyte Esterase Urine Negative (Negative); Mucus Urine 2+ /hpf; Nitrate Urine Negative (Negative); Protein Urine Trace (Negative); RBC Urine 0-4 /hpf (0-2); Urine Appearance Clear (CLEAR); Urine Color Yellow (Yellow); Urobilinogen Urine 1 mg/dL (Negative); WBC Urine 0-4 /hpf (0-5); pH Urine 5 (5-7)
--- NOTE | 2020-11-21 02:09 | ED_ITS ---
HPI - Abdominal Pain General: Chief Complaint: Psychiatric Symptoms Stated Complaint: n/v Time Seen by Provider: 11/20/20 22:03 Source: patient Mode of arrival: ambulatory Limitations: no limitations History of Present Illness: HPI narrative: 35-year-old female presenting with complaints of nausea, vomiting, abdominal pain. She has the symptoms chronically, and was just seen here yesterday for similar symptoms. She states that she cannot keep anything down, has been having lots of heartburn and acid reflux. She does continue to use marijuana daily, No fever, no urinary symptoms. She stated to the triage nurse that when her pain gets this bad she becomes suicidal because she just wants the pain to go away. At this time she is no longer feeling actively suicidal, since her pain has improved with medication. MD elicited complaint: abdominal pain Associated Symptoms: Reports heartburn, nausea and vomiting; Denies chills, dysuria, fever(s) and hematemesis Related Data: Date of Last Menstrual Period: 03/21/19 Review of Systems General: Reports: 10 or more systems reviewed and unremarkable except in HPI and below Const: Reports: body aches, change in appetite, fatigue and diaphoresis; Denies: fever(s) or chills Eyes: Denies: change in vision ENMT: Denies: odynophagia or hoarseness Card: Denies: chest pain, palpitations or irregular heart rhythm Resp: Denies: dyspnea, productive cough or stridor GI: Reports: abdominal pain, nausea, vomiting and heartburn; Denies: hematemesis : Denies: flank pain, difficulty voiding, dysuria or urinary frequency Musc: Denies: neck pain or back pain Skin/Breast: Denies: rash, pruritus or erythema Neuro: Denies: headache(s) or numbness in extremities Psych: Reports: anxiety and depression; Denies: auditory hallucinations, tactile hallucinations, suicidal ideation or homicidal ideation Endo: Denies: polyuria, polydipsia or tired all the time [facility] ED PFSH: Medical History Asthma Cyclic vomiting syndrome GERD (gastroesophageal reflux disease) Hemorrhoids Hypokalemia Marijuana abuse, continuous Ovarian cyst Surgical History Hx of appendectomy Hx of cholecystectomy Family History Mother Stroke Breast cancer, Onset Age: 29 Uterine cancer age onset unknown Anesthesia complication Sister Ovarian cancer, Onset Age: 22 Family/Other Colon cancer maternal uncle Father Hyperlipidemia Heart disease Diabetes Hypertension Thyroid condition Denies family history of Clotting disorder Bleeding disorder Social History Smoking and tobacco status: former smoker Alcohol intake: current Alcohol intake frequency: holidays/special occasions only Alcohol type: wine Female Reproductive History: Date of last menstrual period: 03/21/19 Physical Exam Const: GENERAL APPEARANCE: cooperative and ill appearing; not in distress, not frail appearing, not Limp noted and no odor of alcohol detected ORIENTATION/CONSCIOUSNESS: Yes awake, Yes oriented to person, Yes oriented to place and Yes oriented to time HENMT: COMMON NORMALS: normocephalic and atraumatic HEAD & SCALP: normocephalic and atraumatic Eye: COMMON NORMALS: Equal, round and reactive pupils present, EOMs intact bilaterally, conjunctivae normal and no scleral icterus CONJUNCTIVA: Yes conjunctivae normal PUPIL: Yes Equal, round and reactive pupils present Neck/C-Spine: COMMON NORMALS: full ROM, no lymphadenopathy and supple Resp: COMMON NORMALS: normal respiratory effort, No retractions and No use of accessory muscles EFFORT & INSPECTION: Yes able to speak in complete sentences Cardio: COMMON NORMALS: regular rate, regular rhythm, S1 normal heart sound present and S2 normal heart sound present RATE: regular rate RHYTHM: re gular rhythm HEART SOUNDS: S1 normal heart sound present and S2 normal heart sound present GI: COMMON NORMALS: Soft to palpation PALPATION: Yes Soft to palpation, Yes Tenderness to palpation present (GI) (Epigastric), No Guarding due to palpation present (GI), No Rigid due to palpation, No Palpable mass present, No Pulsatile mass present and No Ascites present Extremity: COMMON NORMALS: capillary refill normal, no clubbing, cyanosis or edema and no pedal edema Neuro: SENSORIUM/ORIENTATION: Yes oriented to person, Yes oriented to place and Yes oriented to time Skin: COMMON NORMALS: no rashes or lesions noted, no wounds, turgor normal, no jaundice and no petechiae GENERAL SKIN EXAM: no rashes or lesions noted and turgor normal Course Vital Signs: Vital signs: Vital Signs Temperature 98.4 F 11/20/20 21:45 Pulse Rate 100 11/21/20 03:48 Respiratory Rate 16 11/21/20 03:48 Blood Pressure 125/77 11/21/20 03:48 Pulse Oximetry 96 11/21/20 03:48 MDM - Abdominal Pain MDM Narrative: Medical decision making narrative: 35-year-old female with chronic abdominal pain, nausea and vomiting, most likely secondary to habitual marijuana use. Symptoms improved after treatment with Haldol, Reglan, IV fluid, H2 mark. She was also given p.o. potassium replacement. She was feeling better, tolerating p.o. liquids, agreeable to going home. She denied any suicidal ideations or thoughts?says that it only happens when her pain gets really severe and she does not have any way to make it feel better. Again discussed the importance of discontinuing marijuana?that her symptoms will not improve if she does not stop. Encouraged her to return immediately to the ER she started having more intrusive thoughts of self-harm, or if she developed worsening abdominal pain, fever, or inability to keep down liquids. Medical Records: Attestation: I reviewed the patient's medical records. Lab Data: Attestation: I reviewed the patient's lab results. Labs: Lab Results 11/20/20 11/20/20 11/20/20 Range/Units 22:43 22:43 22:43 WBC 13.7 H (4.0-10.0) 10^3/ uL RBC 4.67 (4.1-5.3) 10^6/u L Hgb 14.1 (11.5-15.3) g/dL Hct 40.9 (37.0-47.0) % MCV 87.6 (81-99) fL MCH 30.2 (28.0-34.0) pg MCHC 34.5 (30.0-36.0) g/dL RDW 13.2 (12.1-15.1) % Plt Count 338 (130-400) 10^3/c mm MPV 11.0 H (7.4-10.4) fL Neut % (Auto) 75.2 % Lymph % (Auto) 16.5 % [place] % (Auto) 7.8 % Eos % (Auto) 0.0 % Baso % (Auto) 0.1 % Neut # (Auto) 10.27 H (1.8-7.7) 10^3/u L Lymph # (Auto) 2.3 (0.8-4.8) 10^3/u L [place] # (Auto) 1.1 H (0.2-0.9) 10^3/u L Eos # (Auto) 0.0 (0.0-0.8) 10^3/u L Baso # (Auto) 0.0 (0.0-0.1) 10^3/u L Nucleated RBC % (a uto) 0 % Nucleated RBCs # 0.0 /100WBC Sodium 137 (136-145) mmol/L Potassium 3.0 L (3.5-5.1) mmol/L Chloride 98 (98-107) mmol/L Carbon Dioxide 21 L (22-29) mmol/L Anion Gap 21.0 H (5-19) BUN 16 (6-20) mg/dL Creatinine 0.8 (0.5-0.9) mg/dL GFR Calculation 80.7 L (90-130) mL/min Glucose 140 H (65-115) mg/dL Calculated Osmolal ity 287 (285-295) mOsm/k g Calcium 9.3 (8.5-10.5) mg/dL Total Bilirubin 0.5 (0.15-1.2) mg/dL AST 21 (0-32) U/L ALT 15 (0-33) U/L Alkaline Phosphata se 80 (35-105) IU/L C-Reactive Protein 4.3 (0.0-4.9) mg/L Total Protein 7.9 (6.6-8.7) g/dL Albumin 4.7 (3.5-5.2) g/dL Globulin 3.2 (1.3-4.6) g/dL Lipase 25 (13-60) U/L HCG, Qual Negative (Negative) Urine Color (Yellow) Urine Appearance (CLEAR) Urine pH (5-7) Ur Specific Gravit y (1.005-1.030) Urine Protein (Negative) Urine Glucose (UA) (Normal) Urine Ketones (Negative) Urine Blood (Negative) Urine Nitrate (Negative) Urine Bilirubin (Negative) Urine Urobilinogen (Negative) mg/dL Ur Leukocyte Zakiya ase (Negative) Urine RBC (0-2) /hpf Urine WBC (0-5) /hpf Ur Squamous Epith Cells (0-5) /hpf Amorphous Sediment Urine Bacteria (NONE) /hpf Urine Mucus /hpf Salicylates (3-10) mg/dL Urine Opiates Scre en (Negative) ng/mL Acetaminophen (10-30) ug/mL Ur Barbiturates Sc reen (Negative) ng/mL Ur Phencyclidine S crn (Negative) ng/mL Ur Amphetamines Sc reen (Negative) ng/mL U Benzodiazepines Scrn (Negative) ng/mL Urine Cocaine Scre en (Negative) ng/mL U Marijuana (THC) Screen (Negative) ng/mL Ethyl Alcohol (0-10) mg/dL 11/20/20 11/21/20 11/21/20 Range/Units 22:43 01:00 01:00 WBC (4.0-10.0) 10^3/ uL RBC (4.1-5.3) 10^6/u L Hgb (11.5-15.3) g/dL Hct (37.0-47.0) % MCV (81-99) fL MCH (28.0-34.0) pg MCHC (30.0-36.0) g/dL RDW (12.1-15.1) % Plt Count (130-400) 10^3/c mm MPV (7.4-10.4) fL Neut % (Auto) % Lymph % (Auto) % [place] % (Auto) % Eos % (Auto) % Baso % (Auto) % Neut # (Auto) (1.8-7.7) 10^3/u L Lymph # (Auto) (0.8-4.8) 10^3/u L [place] # (Auto) (0.2-0.9) 10^3/u L Eos # (Auto) (0.0-0.8) 10^3/u L Baso # (Auto) (0.0-0.1) 10^3/u L Nucleated RBC % (a uto) % Nucleated RBCs # /100WBC Sodium (136-145) mmol/L Potassium (3.5-5.1) mmol/L Chloride (98-107) mmol/L Carbon Dioxide (22-29) mmol/L Anion Gap (5-19) BUN (6-20) mg/dL Creatinine (0.5-0.9) mg/dL GFR Calculation (90-130) mL/min Glucose (65-115) mg/dL Calculated Osmolal ity (285-295) mOsm/k g Calcium (8.5-10.5) mg/dL Total Bilirubin (0.15-1.2) mg/dL AST (0-32) U/L ALT (0-33) U/L Alkaline Phosphata se (35-105) IU/L C-Reactive Protein (0.0-4.9) mg/L Total Protein (6.6-8.7) g/dL Albumin (3.5-5.2) g/dL Globulin (1.3-4.6) g/dL Lipase (13-60) U/L HCG, Qual (Negative) Urine Color Yellow (Yellow) Urine Appearance Clear (CLEAR) Urine pH 5 (5-7) Ur Specific Gravit y 1.020 (1.005-1.030) Urine Protein Trace (Negative) Urine Glucose (UA) Norm (Normal) Urine Ketones 1+ H (Negative) Urine Blood Neg (Negative) Urine Nitrate Negative (Negative) Urine Bilirubin 1+ H (Negative) Urine Urobilinogen 1 H (Negative) mg/dL Ur Leukocyte Zakiya ase Negative (Negative) Urine RBC 0-4 H (0-2) /hpf Urine WBC 0-4 H (0-5) /hpf Ur Squamous Epith Cells 5-10 H (0-5) /hpf Amorphous Sediment Not Reportable Urine Bacteria Trace (NONE) /hpf Urine Mucus 2+ /hpf Salicylates < 0.3 L (3-10) mg/dL Urine Opiates Scre en Negative (Negative) ng/mL Acetaminophen < 5.0 L (10-30) ug/mL Ur Barbiturates Sc reen Negative (Negative) ng/mL Ur Phencyclidine S crn Negative (Negative) ng/mL Ur Amphetamines Sc reen Negative (Negative) ng/mL U Benzodiazepines Scrn Positive H (Negative) ng/mL Urine Cocaine Scre en Negative (Negative) ng/mL U Marijuana (THC) Screen Positive H (Negative) ng/mL Ethyl Alcohol < 10 (0-10) mg/dL Discharge Plan Discharge Patient Disposition: Home Clinical Impression: Cyclic vomiting syndrome, Cannabinoid hyperemesis syndrome Abdominal pain Qualifiers: Abdominal location: epigastric Qualified Code(s): R10.13 - Epigastric pain Condition: Stable Prescriptions: No Action fluoxetine 20 mg capsule 40 mg PO DAILY RF: 0 Gummies 400 mcg-35 mg- 25 mg-5 mg tablet,chewable PO DAILY RF: 0 ondansetron 4 mg tablet,disintegrating 4 mg PO Q8H Qty: 20 RF: 0 Pepcid 20 mg tablet 20 mg PO BID 42 Days Qty: 84 RF: 0 Reglan 10 mg tablet 10 mg PO Q6H PRN (Reason: nausea and vomiting) Qty: 20 RF: 0 Discharge Orders: Discharge ED (Routine); Ordered 11/21/20 Ordered By: Magnolia Kunz Discharge Diet: Advance as tolerated Discharge Activity: Increase activity as tolerated Patient Instructions: Abdominal Pain (ED), Opioid Safety Activity Restrictions/Additional Instructions: Make sure to stop using marijuana completely; it is making air stomach pain and nausea worse. You will not feel better unless you stop the marijuana. Try to drink extra fluid. Follow-up with your primary care doctor in the next 2 to 3 days. Take your Reglan every 6 hours as scheduled. Return immediately to the ER if you develop fever, worsening pain, or if you cannot keep down liquids. Coding Level of Care Code ED [employer] Kn[employer] for Tip Pérez
[2020-11-21 03:48] VITALS: BP 125/77; PULSE 100; RESP 16; O2SAT 96
== END 2020-11-21 03:49 | disposition home or self-care (01) ==
PROVIDERS: Nurse Practitioner Family; Emergency Provider Family Medicine
DX: R11.15 Cyclical vomiting syndrome unrelated to migraine (principal); R11.10 Vomiting, unspecified; F12.90 Cannabis use, unspecified, uncomplicated; R10.13 Epigastric pain; Z87.891 Personal history of nicotine dependence
CPT/HCPCS: 36415; 80053; 80306; 80307; 81001; 83690; 84703; 85025; 86140; 96374; 96375; 96376; 99284; J1200; J1630; J2765; J3490

== ENCOUNTER 2020-11-26 12:28 | Emergency (ER) | payer OTHER, SELFPAY ==
[2020-11-26 13:03] VITALS: BP 160/96; PULSE 83; RESP 20; TEMP 36.8; O2SAT 98; BMI 32.0
--- NOTE | 2020-11-26 13:18 | CT_ITS ---
WS: [id number] CT ABDOMEN PELVIS TECHNIQUE: Contrast-enhanced CT of the abdomen and pelvis with coronal and sagittal reformatted image s. CLINICAL INFORMATION: lower abd pain post hysterectomy 6 weeks ago COMPARISON: CT November 20, 2020 DLP: 1550.[address] scans at [facility] use at least one of these dose optimization techniques: automat ed exposure control; mA and/or kV adjustment per patient size (includes targeted exams where dose is matched to clinical indication); or iterative reconstruction. FINDINGS: Diffuse fatty infiltration of the liver. Normal portal vein and splenic vein. Prior cholecystectomy. Low-attenuation lesion in the dome of the liver is unchanged likely hepatic cyst or hemangioma measur ing 1.5 cm. Again seen is mild thickening of the distal esophagus and proximal stomach likely due to esophagitis/ gastritis. Lung bases are well aerated. Normal spleen. Adrenal glands are normal. Normal renal parenc hymal enhancement. No hydronephrosis. Normal caliber abdominal aorta. Normal renal parenchymal enhanc ement. Small fat-containing umbilical hernia. Mild induration involving the right colon and transverse colon similar to the recent examination susp icious for colitis. Sigmoid colon is normal in appearance. No evidence of small or large bowel obstru ction. No abdominal or pelvic lymphadenopathy. No Inguinal lymphadenopathy. Prior postoperative hysterectomy . CT/CT abdomen pelvis w con* [id number] IMPRESSION: 1. Prior postoperative hysterectomy. No evidence of drainable fluid collection or abscess in the pelvis. 2. Mild bowel wall thickening with slight induration involving the right colon and transverse colon suspicious for mild or early colitis. This is similar to the recent examination November 20, 2020. 3. Normal sigmoid colon. 4. Diffuse fatty infiltration liver. 5. Low-attenuation 1.5 cm lesion in liver dome likely hepatic cyst or hemangio ma unchanged. 6. Prior cholecystectomy. 7. Stable findings of suspected esophagitis/gastritis.
[2020-11-26 13:22] VITALS: BP 171/110; PULSE 76; RESP 16; O2SAT 98
[2020-11-26 13:52] LABS: Basophils % 0.2 %; Eosinophils % 0.2 %; Hematocrit 39.6 % (37.0-47.0); Hemoglobin 13.9 g/dL (11.5-15.3); Lymphocytes # 1.7 10^3/uL (0.8-4.8); Lymphocytes % 12.4 %; Mean Corpuscular HGB Conc 35.1 g/dL (30.0-36.0); Mean Corpuscular Hemoglobin 30.8 pg (28.0-34.0); Mean Corpuscular Volume 87.8 fL (81-99); Mean Platelet Volume 10.9 fL (7.4-10.4); Monocytes # 0.7 10^3/uL (0.2-0.9); Neutrophils # 10.96 10^3/uL (1.8-7.7); Neutrophils % 81.7 %; Nucleated Red Blood Cells % 0 %; Platelet Count 321 10^3/cmm (130-400); Red Blood Count 4.51 10^6/uL (4.1-5.3); Red Cell Distribution Width 12.6 % (12.1-15.1); White Blood Count 13.4 10^3/uL (4.0-10.0)
[2020-11-26] MEDS: sodium chloride 0.9% 1,000 ML 999 ML IV (13:54)
[2020-11-26] MEDS: ondansetron 2 mg/ML SDV 2 mL 4 MG IVP (13:55)
[2020-11-26] MEDS: famotidine 20 mg/2 mL INJ IVP (13:56)
[2020-11-26] MEDS: metoclopramide 5 mg/mL SDV 2 mL IVP (13:59)
[2020-11-26 14:01] VITALS: PULSE 72; RESP 20; O2SAT 100
[2020-11-26 14:19] LABS: Alanine Aminotransferase 20 U/L (0-33); Albumin Level 4.3 g/dL (3.5-5.2); Alkaline Phosphatase 75 IU/L (35-105); Anion Gap 17.5 (5-19); Aspartate Amino Transferase 20 U/L (0-32); Blood Urea Nitrogen 7 mg/dL (6-20); Calcium 8.9 mg/dL (8.5-10.5); Carbon Dioxide 22 mmol/L (22-29); Chloride 98 mmol/L (98-107); Globulin 2.8 g/dL (1.3-4.6); Glomerular Filtration Rate 94.2 mL/min (90-130); Glucose 117 mg/dL (65-115); Lipase 22 U/L (13-60); Osmolality Calculated 277 mOsm/kg (285-295); Potassium 3.5 mmol/L (3.5-5.1); Sodium 134 mmol/L (136-145); Total Bilirubin 0.5 mg/dL (0.15-1.2); Total Protein 7.1 g/dL (6.6-8.7)
--- NOTE | 2020-11-26 14:19 | W.ED.FEMALGU ---
HPI - Female Genitourinary General: Chief complaint: Urogenital-Female Stated complaint: HYSTERECTOMY 2WKS AGO,FEELS LIKE BM EXITING/SITE Time Seen by Provider: 11/26/20 13:18 History of Present Illness: HPI Narrative: The patient is a 35-year-old female with history of vaginal hysterectomy 6 weeks ago. She comes to the ER today complaining of abdominal pain, nausea, vomiting and she says yesterday she had the sensation of poop coming out of her vagina while she was defecating. No feces came out of her vagina but she says she can feel it right there When she is going to the bathroom. This is new since she has had a hysterectomy. No blood or discharge either. She has chronic abdominal pain, nausea, and vomiting with multiple visits for this. She is a marijuana abuser but denies use of marijuana in the past 2 weeks. Severity: moderate Associated symptoms: Reports abdominal pain and nausea; Deny headache(s) Date of Last Menstrual Period: 03/21/19 Review of Systems General: Reports: 10 or more systems reviewed and unremarkable except in HPI and below Const: Denies: fatigue Eyes: Denies: change in vision, blurry vision or eye redness ENMT: Denies: throat pain, swelling of lips/tongue, ear or mastoid pain or nasal congestion Card: Denies: chest pain, palpitations, irregular heart rhythm, edema, dyspnea on exertion or orthopnea Resp: Denies: dyspnea, productive cough or non-productive cough GI: Reports: abdominal pain, nausea and vomiting; Denies: diarrhea or GI cramping : Denies: flank pain, difficulty voiding, urinary frequency or urinary urgency Musc: Denies: neck pain, back pain, extremity pain, joint pain, joint redness, limited range of motion or muscle weakness Skin/Breast: Denies: rash, pruritus, erythema, skin pain or skin tenderness Neuro: Denies: headache(s), numbness in extremities, weakness in extremities, sensory changes, difficulty walking, dizziness, confusion or Slurred speech present Psych: Denies: anxiety or depression Endo: Denies: polyuria All/Imm: Denies: urticaria, throat swelling or tongue swelling PFSH ED PFSH: Medical History Asthma Cyclic vomiting syndrome GERD (gastroesophageal reflux disease) Hemorrhoids Hypokalemia Marijuana abuse, continuous Ovarian cyst Surgical History Hx of appendectomy Hx of cholecystectomy Family History Mother Stroke Breast cancer, Onset Age: 29 Uterine cancer age onset unknown Anesthesia complication Sister Ovarian cancer, Onset Age: 22 Family/Other Colon cancer maternal uncle Father Hyperlipidemia Heart disease Diabetes Hypertension Thyroid condition Denies family history of Clotting disorder Bleeding disorder Social History Smoking and tobacco status: former smoker Alcohol intake: current Alcohol intake frequency: holidays/special occasions only Alcohol type: wine Female Reproductive History: Date of last menstrual period: 03/21/19 Physical Exam Const: COMMON NORMALS: no acute distress, average body habitus, patient oriented x3, no limitations, healthy appearing, alert and well nourished GENERAL APPEARANCE: cooperative, comfortable, well kempt and well developed ORIENTATION/CONSCIOUSNESS: Yes awake, Yes oriented to person, Yes oriented to place and Yes oriented to time HENMT: COMMON NORMALS: normocephalic, external ears normal and Normal external nose present HEAD & SCALP: normal to inspection and normocephalic NOSE: Normal external nose present EXTERNAL EAR: Yes external ears normal MOUTH: Normal oral and palatal mucosa present THROAT: posterior oropharynx normal Eye: COMMON NORMALS: Equal, round and reactive pupils present and EOMs intact bilaterally GENERAL EYE: appearance normal, both eyes and all related structures PUPIL: Yes Equal, round and reactive pupils present Neck/C-Spine: COMMON NORMALS: full ROM, no lymphadenopathy, no meningeal signs and no JVD GENERAL: Yes normal visual inspection Lymph: LYMPHATIC: no lymphadenopathy noted Chest: COMMONS NORMALS: normal inspection of the chest and normal palpation of entire chest wall Resp: COMMON NORMALS: normal respiratory effort, No retractions, No use of accessory muscles, clear to auscultation bilaterally and percussion normal EFFORT & INSPECTION: Yes able to speak in complete sentences AUSCULTATION: clear to auscultation bilaterally PERCUSSION: percussion normal Cardio: COMMON NORMALS: no JVD, regular rate, regular rhythm, S1 normal heart sound present, S2 normal heart sound present and Peripheral pulses 2+ throughout RATE: regular rate RHYTHM: regular rhythm HEART SOUNDS: S1 normal heart sound present and S2 normal heart sound present PERIPHERAL PULSES: Peripheral pulses 2+ throughout GI: COMMON NORMALS: Normal to inspection, nondistended, normoactive bowel sounds present, Soft to palpation, non-tender and no masses INSPECTION: Yes normal to inspection PALPATION: Yes Soft to palpation : COMMON NORMALS: Yes no CVA tenderness BLADDER/KIDNEY EXAM: Yes no CVA tenderness Back/Pelvis: COMMON NORMALS: no CVA tenderness, thoracic and lumbar spine normal to inspection, no thoracic nor lumbar tenderness and thoraco-lumbar ROM normal Extremity: COMMON NORMALS: normal to inspection, full ROM, capillary refill normal, no joint enlargement and no pedal edema GENERAL: Yes normal exam except as noted Neuro: COMMON NORMALS: patient oriented x3, CN's II-XII intact bilaterally, moves all extremities, no focal motor deficits, no sensory deficits noted and gait normal SENSORIUM/ORIENTATION: Yes alert, Yes oriented to person, Yes oriented to place and Yes oriented to time MENINGEAL SIGNS: Yes no meningeal signs Psych: COMMON NORMALS: mental status grossly normal, Normal thought process present, cooperative, normal affect and speech normal APPEARANCE: Yes well kempt ATTITUDE: Yes calm SPEECH: Yes normal speech THOUGHT PROCESS: Normal thought process present Skin: COMMON NORMALS: no rashes or lesions noted GENERAL SKIN EXAM: no rashes or lesions noted Course Vital Signs: Vital signs: Vital Signs Temperature 98.2 F 11/26/20 13:03 Pulse Rate 67 11/26/20 16:04 Respiratory Rate 16 11/26/20 16:04 Blood Pressure 174/90 11/26/20 16:04 Pulse Oximetry 95 11/26/20 16:04 MDM - Female MDM Narrative: Medical decision making narrative: The patient came in complaining of vomiting and she appears to have cyclic vomiting syndrome again. Of note she has quit marijuana for the past 2 weeks. I encouraged her to continue with her cessation. She was given IV fluids, Zofran, Ativan with improvement of her nausea and she felt dischargeable. Recommended setting up care with a GI doctor to discuss further for possible scoping. Placed a case management referral to help her with this. She has a gynecology appointment with her surgeon Tuesday to discuss her bowel movements further. ER with worsening symptoms at any time. Primary care physician next week. Lab Data: Labs: Lab Results 11/26/20 11/26/20 11/26/20 Range/Units 13:46 13:46 13:46 WBC 13.4 H (4.0-10.0) 10^3/ uL RBC 4.51 (4.1-5.3) 10^6/u L Hgb 13.9 (11.5-15.3) g/dL Hct 39.6 (37.0-47.0) % MCV 87.8 (81-99) fL MCH 30.8 (28.0-34.0) pg MCHC 35.1 (30.0-36.0) g/dL RDW 12.6 (12.1-15.1) % Plt Count 321 (130-400) 10^3/c mm MPV 10.9 H (7.4-10.4) fL Neut % (Auto) 81.7 % Lymph % (Auto) 12.4 % [place] % (Auto) 5.0 % Eos % (Auto) 0.2 % Baso % (Auto) 0.2 % Neut # (Auto) 10.96 H (1.8-7.7) 10^3/u L Lymph # (Auto) 1.7 (0.8-4.8) 10^3/u L [place] # (Auto) 0.7 (0.2-0.9) 10^3/u L Eos # (Auto) 0.0 (0.0-0.8) 10^3/u L Baso # (Auto) 0.0 (0.0-0.1) 10^3/u L Nucleated RBC % (a uto) 0 % Nucleated RBCs # 0.0 /100WBC Sodium 134 L (136-145) mmol/L Potassium 3.5 (3.5-5.1) mmol/L Chloride 98 (98-107) mmol/L Carbon Dioxide 22 (22-29) mmol/L Anion Gap 17.5 (5-19) BUN 7 (6-20) mg/dL Creatinine 0.7 (0.5-0.9) mg/dL GFR Calculation 94.2 (90-130) mL/min Glucose 117 H (65-115) mg/dL Calculated Osmolal ity 277 L (285-295) mOsm/k g Lactate 1.4 (0.5-2.2) mmol/L Calcium 8.9 (8.5-10.5) mg/dL Total Bilirubin 0.5 (0.15-1.2) mg/dL AST 20 (0-32) U/L ALT 20 (0-33) U/L Alkaline Phosphata se 75 (35-105) IU/L Total Protein 7.1 (6.6-8.7) g/dL Albumin 4.3 (3.5-5.2) g/dL Globulin 2.8 (1.3-4.6) g/dL Lipase 22 (13-60) U/L Urine Color (Yellow) Urine Appearance (CLEAR) Urine pH (5-7) Ur Specific Gravit y (1.005-1.030) Urine Protein (Negative) Urine Glucose (UA) (Normal) Urine Ketones (Negative) Urine Blood (Negative) Urine Nitrate (Negative) Urine Bilirubin (Negative) Prot Sulfosalicyli c Acd (Negative) Urine Urobilinogen (Negative) mg/dL Ur Leukocyte Zakiya ase (Negative) Urine RBC (0-2) /hpf Urine WBC (0-5) /hpf Ur Squamous Epith Cells (0-5) /hpf Amorphous Sediment /hpf Urine Bacteria (NONE) /hpf Ethyl Alcohol < 10 (0-10) mg/dL // Range/Units 15:01 WBC (4.0-10.0) 10^3/ uL RBC (4.1-5.3) 10^6/u L Hgb (11.5-15.3) g/dL Hct (37.0-47.0) % MCV (81-99) fL MCH (28.0-34.0) pg MCHC (30.0-36.0) g/dL RDW (12.1-15.1) % Plt Count (130-400) 10^3/c mm MPV (7.4-10.4) fL Neut % (Auto) % Lymph % (Auto) % [place] % (Auto) % Eos % (Auto) % Baso % (Auto) % Neut # (Auto) (1.8-7.7) 10^3/u L Lymph # (Auto) (0.8-4.8) 10^3/u L [place] # (Auto) (0.2-0.9) 10^3/u L Eos # (Auto) (0.0-0.8) 10^3/u L Baso # (Auto) (0.0-0.1) 10^3/u L Nucleated RBC % (a uto) % Nucleated RBCs # /100WBC Sodium (136-145) mmol/L Potassium (3.5-5.1) mmol/L Chloride (98-107) mmol/L Carbon Dioxide (22-29) mmol/L Anion Gap (5-19) BUN (6-20) mg/dL Creatinine (0.5-0.9) mg/dL GFR Calculation (90-130) mL/min Glucose (65-115) mg/dL Calculated Osmolal ity (285-295) mOsm/k g Lactate (0.5-2.2) mmol/L Calcium (8.5-10.5) mg/dL Total Bilirubin (0.15-1.2) mg/dL AST (0-32) U/L ALT (0-33) U/L Alkaline Phosphata se (35-105) IU/L Total Protein (6.6-8.7) g/dL Albumin (3.5-5.2) g/dL Globulin (1.3-4.6) g/dL Lipase (13-60) U/L Urine Color Yellow (Yellow) Urine Appearance Cloudy (CLEAR) Urine pH 8 H (5-7) Ur Specific Gravit y 1.015 (1.005-1.030) Urine Protein Neg (Negative) Urine Glucose (UA) Norm (Normal) Urine Ketones 1+ H (Negative) Urine Blood Neg (Negative) Urine Nitrate Negative (Negative) Urine Bilirubin Neg (Negative) Prot Sulfosalicyli c Acd Negative (Negative) Urine Urobilinogen Norm (Negative) mg/dL Ur Leukocyte Zakiya ase Negative (Negative) Urine RBC None (0-2) /hpf Urine WBC None (0-5) /hpf Ur Squamous Epith Cells 0-4 H (0-5) /hpf Amorphous Sediment 2+ /hpf Urine Bacteria 1+ H (NONE) /hpf Ethyl Alcohol (0-10) mg/dL Discharge Plan Discharge Patient Disposition: Home Clinical Impression: Cyclic vomiting syndrome, Colitis Condition: Stable Prescriptions: New ciprofloxacin HCl 500 mg tablet 500 mg PO Q12H 10 Days Qty: 20 RF: 0 Flagyl 500 mg tablet 500 mg PO Q8H 10 Days Qty: 30 RF: 0 No Action ondansetron 4 mg tablet,disintegrating 4 mg PO Q8H Qty: 20 RF: 0 famotidine [Pepcid] 20 mg tablet 20 mg PO BID 42 Days Qty: 84 RF: 0 melatonin 3 mg Tablet 3 mg PO DAILY RF: 0 omeprazole 40 mg capsule,delayed release(DR/EC) 40 mg PO DAILY RF: 0 dicyclomine 10 mg capsule 10 mg PO QID PRN (Reason: intestinal spasms) RF: 0 duloxetine 20 mg capsule,delayed release(DR/EC) 40 mg PO DAILY RF: 0 Discharge Orders: Discharge ED (Routine); Ordered 11/26/20 Ordered By: Antoine Scales Referrals: Ross Wu, [Primary Care Provider] - Discharge Diet: Advance as tolerated Discharge Activity: Resume usual activity Patient Instructions: Infectious Colitis (ED), Opioid Safety, Vomiting - Adult Activity Restrictions/Additional Instructions: You have vomiting of unclear cause. Please follow-up with the ekg monitor tech to set up care as you will likely need to be scoped and have further management from there. You do have a small amount of colitis which is likely from vomiting and diarrhea however please take the antibiotics and you should get better in a few days. Return to the ER at anytime with worsening symptoms. Follow-up with your primary care physician in a couple days to discuss further and it is convenient that you already have an appointment Tuesday with your employment instructional associate to discuss your issue with bowel movements. Coding Level of Care Code ED Flexible Babysitter for [place] Fwd Exam Comprehensive
[2020-11-26 14:20] LABS: Alcohol Level < 10 mg/dL (0-10); Lactate (Lactic Acid level) 1.4 mmol/L (0.5-2.2)
[2020-11-26] MEDS: iohexol 300 mg/mL 100 mL Btl IV (14:34)
[2020-11-26 15:32] LABS: Urine Color Yellow (Yellow)
[2020-11-26 15:33] LABS: Add Urine Microscopic? YES; Bilirubin Urine Neg (Negative); Blood Urine Neg (Negative); Glucose Urine UA Norm (Normal); Ketones Urine 1+ (Negative); Leukocyte Esterase Urine Negative (Negative); Nitrate Urine Negative (Negative); Protein Urine Neg (Negative); Specific Gravity, Urine 1.015 (1.005-1.030); Sulfosalicylic Acid Urine Negative (Negative); Urine Appearance Cloudy (CLEAR); Urobilinogen Urine Norm (Negative); pH Urine 8 (5-7)
[2020-11-26 15:34] LABS: Bacteria Urine 1+ /hpf; Squamous Epithelial Cell Urine 0-4 /hpf (0-5)
[2020-11-26 15:35] LABS: Add Urine Culture? No; Amorphous Sediment Urine 2+ /hpf
[2020-11-26] MEDS: LORazepam 2 mg/mL INJ 1 mL 1 MG IVP (16:02)
--- NOTE | 2020-11-26 16:02 | PC.NURSE ---
ASSISTED DR. CASTELLANOS WHILE HE EXAMINED THE PTS VAGINAL AREA.
[2020-11-26 16:04] VITALS: BP 174/90; PULSE 67; RESP 16; O2SAT 95
[2020-11-26] MEDS: metroNIDAZOLE 500 MG Tablet PO (16:58)
[2020-11-26] MEDS: ciprofloxacin 500 mg Tablet PO (16:58)
[2020-11-26 17:01] VITALS: BP 155/114; O2SAT 97
--- NOTE | 2020-11-27 09:16 | DCPLANNER ---
Addendum entered by Samanta Schuster 12/02/20 07:47: Anita from [facility] General Surgery contacted geriatric case manager and stated that when clinic called patient to schedule an appointment, that patient stated that she was going to see her primary care physician and if an appointment was needed that patient would call clinic and schedule an appointment. Original Note: site safety manager had message to schedule a follow up appointment for patient with general surgery for cyclic vomiting syndrome. site safety manager emailed patients information to Delia at [facility] general surgery. Patients information will be printed and reviewed. Clinic will call patient with appointment information.
== END 2020-11-26 17:03 | disposition home or self-care (01) ==
PROVIDERS: Emergency Provider Family Medicine; PCP Family Medicine
DX: R11.15 Cyclical vomiting syndrome unrelated to migraine (principal); K52.9 Noninfective gastroenteritis and colitis, unspecified
CPT/HCPCS: 74177; 80053; 80307; 81001; 83605; 83690; 85025; 96361; 96374; 96375; 99284; E0352; J2060; J2405; J2765; J3490; J7030; Q9967

== ENCOUNTER 2020-12-01 16:12 | Outpatient (CLI) | payer OTHER, SELFPAY ==
[2020-12-01 17:06] LABS: Basophils % 0.3 %; Eosinophils # 0.1 10^3/uL (0.0-0.8); Eosinophils % 0.9 %; Lymphocytes # 2.4 10^3/uL (0.8-4.8); Lymphocytes % 25.5 %; Mean Corpuscular HGB Conc 32.6 g/dL (30.0-36.0); Mean Corpuscular Hemoglobin 30.4 pg (28.0-34.0); Mean Corpuscular Volume 93.3 fL (81-99); Monocytes # 0.7 10^3/uL (0.2-0.9); Monocytes % 7.2 %; Neutrophils # 6.16 10^3/uL (1.8-7.7); Neutrophils % 65.8 %; Nucleated Red Blood Cells % 0 %; Platelet Count 301 10^3/cmm (130-400); Red Blood Count 4.61 10^6/uL (4.1-5.3); Red Cell Distribution Width 13.1 % (12.1-15.1); White Blood Count 9.4 10^3/uL (4.0-10.0)
[2020-12-03 12:17] LABS: Lymes IGG WB <0.90 index
[2020-12-05 21:37] LABS: Rocky Mountain IgG NOT DETECTED; Rocky Mountain IgM NOT DETECTED
== END 2020-12-01 16:13 | disposition home or self-care (01) ==
PROVIDERS: PCP Family Medicine; Visit Provider Family Medicine
DX: K52.9 Noninfective gastroenteritis and colitis, unspecified (principal); R10.9 Unspecified abdominal pain; T78.49XA Other allergy, initial encounter
CPT/HCPCS: 36415; 85025; 86003; 86617; 86757

== ENCOUNTER → 2020-12-23 09:51 | Outpatient (BNVA) | payer OTHER, SELFPAY | PROVIDERS: PCP Family Medicine; Referring Provider Family Medicine; Visit Provider Anesthesiology Pain Medicine | DX: G89.29 Other chronic pain (principal); M47.816 Spondylosis without myelopathy or radiculopathy, lumbar region; M48.062 Spinal stenosis, lumbar region with neurogenic claudication; M54.16 Radiculopathy, lumbar region; M54.9 Dorsalgia, unspecified; M54.2 Cervicalgia; Z79.891 Long term (current) use of opiate analgesic; Z87.891 Personal history of nicotine dependence | CPT/HCPCS: 99205 ==

== ENCOUNTER → 2021-01-02 13:34 | Outpatient (BNVA) | payer OTHER, SELFPAY | PROVIDERS: PCP Family Medicine; Visit Provider Surgery | DX: Z01.818 Encounter for other preprocedural examination (principal); Z11.52 Encounter for screening for COVID-19; Z20.822 Contact with and (suspected) exposure to COVID-19 | CPT/HCPCS: 87635 ==

== ENCOUNTER 2021-01-07 06:10 | Day surgery (SDC) | payer OTHER, SELFPAY ==
[2021-01-05 11:54] VITALS: BMI 31.4
[2021-01-07 06:24] VITALS: BP 116/70; PULSE 47; RESP 18; TEMP 36.2; O2SAT 96
--- NOTE | 2021-01-07 06:39 | W.PM.OPSUD ---
Surgery/Procedure H&P Update DATE OF PROCEDURE: January 07, 2021 DATE H&P PERFORMED: 12/15/20 H&P UPDATE INFORMATION: I have reviewed H&P completed within last 30 days, I have examined patient prior to procedure and No changes to prior documentation PREOP DIAGNOSIS: Bleeding per rectum PRIMARY INDICATION FOR PROCEDURE: The same PLANNED PROCEDURE: Operation Date: 01/07/21 07:00 Proposed Procedures p EGD [id number] k62.5(Not Applicable) - Stanislaw Sunshine MD s Colonoscopy(Not Applicable) - Stanislaw Sunshine MD
--- NOTE | 2021-01-07 06:43 | ANES.PREANE2 ---
Pre-Anesthetic Assessment Pre-Anesthetic Assessment: Height/Weight: Height 1.52 m Weight 73.028 kg Temp Pulse Resp BP Pulse Ox 97.1 F L 47 L 18 116/70 96 01/07/21 06:24 01/07/21 06:24 01/07/21 06:24 01/07/21 06:24 01/07/21 06:24 Preop Diagnosis: Bleeding per rectum Proposed Procedure: Operation Date: 01/07/21 07:00 Proposed Procedures p EGD [id number] k62.5(Not Applicable) - Stanislaw Sunshine MD s Colonoscopy(Not Applicable) - Stanislaw Sunshine MD Familial anesthetic complications: ponv Was Beta Rebeca taken within 24 hours: N/A Was Clonidine taken within 24 hours: N/A Last intake: Intake Last Liquid Date 01/06/21 Last Liquid Time 20:00 Last Solid Date 01/05/21 Last Solid Time 19:00 Last Intake: 23:20 Social: Packs per day: smokes marijuana Exam: Pre-Anes Outpt Exam: alert and oriented x 3 Airway: Submandibular: WNL Cervical ROM: WNL MP: 1 History/ROS: No significant history except as noted Anesthetic Plan: ASA status: 2 Anesthesia: MAC Risk of > 500 ml blood loss (7ml/kg in children): No Other Pertinent Information: tick born disease PFSH Anesthesia PFSH: Medical History Asthma Cyclic vomiting syndrome GERD (gastroesophageal reflux disease) Hemorrhoids Hypokalemia Marijuana abuse, continuous Ovarian cyst Surgical History Hx of appendectomy Hx of cholecystectomy Family History Mother Stroke Breast cancer, Onset Age: 29 Uterine cancer age onset unknown Anesthesia complication Sister Ovarian cancer, Onset Age: 22 Family/Other Colon cancer maternal uncle Father Hyperlipidemia Heart disease Diabetes Hypertension Thyroid condition Denies family history of Clotting disorder Bleeding disorder Social History Smoking and tobacco status: former smoker Alcohol intake: current Alcohol intake frequency: holidays/special occasions only Alcohol type: wine Female Reproductive History: Date of last menstrual period: 03/21/19 Data Anesthesia Cardiac Studies: No Data to Display
[2021-01-07] MEDS: sodium chloride 0.9% 1,000 ML 30 ML IV (06:58)
[2021-01-07 07:24] VITALS: BP 97/46; PULSE 54; RESP 16; TEMP 36.3; O2SAT 96
[2021-01-07 07:38] VITALS: BP 99/63; PULSE 50; RESP 18; TEMP 36.5; O2SAT 100
--- NOTE | 2021-01-07 13:56 | ANE.PACU2 ---
Inpatient post-anesthesia follow up: Airway intact: Yes Vital signs: Temperature 97.7 F Pulse Rate 50 Respiratory Rate 18 Blood Pressure 99/63 Pulse Oximetry 100 Oxygen Delivery Me thod Room Air Oxygen Flow Rate Fraction of Inspir ed Oxygen Hydration adequate: Yes Nausea and vomiting: No Pain level: 1 Mental status: Baseline
[2021-01-08 06:28] LABS: H. Pylori / CLO Test Negative
== END 2021-01-07 08:04 | disposition home or self-care (01) ==
PROVIDERS: PCP Family Medicine; Visit Provider Surgery
PROC: 0DJ08ZZ Inspection of Upper Intestinal Tract, Via Natural or Artificial Opening Endoscopic (ICD-10-PCS; CPT 43235; principal; 2021-01-07 07:00)
PROC: 0DJD8ZZ Inspection of Lower Intestinal Tract, Via Natural or Artificial Opening Endoscopic (ICD-10-PCS; CPT 45378; 2021-01-07 07:00)
DX: K62.5 Hemorrhage of anus and rectum (principal); D12.8 Benign neoplasm of rectum; K44.9 Diaphragmatic hernia without obstruction or gangrene; K29.70 Gastritis, unspecified, without bleeding; J45.909 Unspecified asthma, uncomplicated; Z82.49 Family history of ischemic heart disease and other diseases of the circulatory system; Z80.0 Family history of malignant neoplasm of digestive organs; Z87.891 Personal history of nicotine dependence
CPT/HCPCS: 43239; 45380; 87077; 88305; 96360; J2405; J2704; J7030

== ENCOUNTER 2021-01-15 12:47 | Outpatient (CLI) | payer OTHER, SELFPAY ==
--- NOTE | 2021-01-15 13:00 | MR_ITS ---
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 COMPARISON: 09/01/2016 TECHNIQUE: Sagittal and axial multisequence imaging is submitted. Normal lumbar alignment with no compression fractures or marrow edema. Mild disc desiccation at L4-5. Disc desiccation is progressed since 2017. No marrow edema or fracture . Conus terminates normally at L1. L1-L2: Normal. L2-L3: Normal. L3-L4: Normal. L4-L5: Mild annular disc bulge with a central shallow protrusion and annular fissure. Mild encroachme nt and narrowing of the subarticular recesses bilaterally. Mild progression since the prior study. Th e central disc protrusion is new. L5-S1: Mild annular disc bulging. Mild disc encroachment upon the LEFT S1 nerve root in the subarticu lar recess. Similar to the prior examination. MR/MR lumbar spine wo con* [id number] IMPRESSION: 1. New central disc protrusion with annular fissure at L4-5 with mild encroach ment upon the L5 nerve root in the subarticular recesses. 2. Mild disc encroachment upon the LEFT S1 nerve root in the subarticular rece ss. Similar to the prior study. 3. Mild progression of disc desiccation at L4-5 without loss of height.
== END 2021-01-15 12:48 | disposition home or self-care (01) ==
LOC: RADSHAW 12:51
PROVIDERS: PCP Family Medicine; Visit Provider Anesthesiology Pain Medicine
DX: M48.062 Spinal stenosis, lumbar region with neurogenic claudication (principal); M51.26 Other intervertebral disc displacement, lumbar region
CPT/HCPCS: 72148

== ENCOUNTER 2021-01-27 08:41 | Outpatient (CLI) | payer OTHER, SELFPAY ==
--- NOTE | 2021-01-27 08:48 | FL_ITS ---
WS: [id number] UPPER GI WITH AIR TECHNICAL: Double contrast upper GI with thin and thick barium FLUOROSCOPY TIME: 3.6 minutes CLINICAL INFORMATION: K44.9 - Diaphragmatic hernia without obstruction or gangrene COMPARISON: None. FINDINGS: Swallowing: Normal. Esophagus: Mild esophageal dysmotility with slightly delayed emptying. Small esophageal hiatal hernia . Evidence of esophagitis in the distal esophagus. No stricture. Gastroesophageal reflux: Mild reflux in the supine imaging. Stomach: Marked diffuse thickening of the gastric rugae consistent with gastritis. Duodenum: Diffuse thickening of the duodenal C-loop folds suspicious for duodenitis Other findings: Cholecystectomy clips. FL/FL upper GI w air* [id number] IMPRESSION: 1. Small esophageal hiatal hernia with mild reflux in the supine imaging. 2. Evidence of prominent gastritis with mild esophagitis in the distal esophag us 3. Diffuse thickening of the duodenal folds consistent with duodenitis 4. Mild esophageal dysmotility. No strictures. 5. Normal duodenal C-loop.
== END 2021-01-27 08:42 | disposition home or self-care (01) ==
LOC: RADWPI 08:44
PROVIDERS: PCP Family Medicine; Visit Provider Surgery
DX: K44.9 Diaphragmatic hernia without obstruction or gangrene (principal)
CPT/HCPCS: 74246

== ENCOUNTER → 2021-01-29 09:14 | Outpatient (BNVA) | payer OTHER, SELFPAY | PROVIDERS: PCP Family Medicine; Visit Provider Anesthesiology Pain Medicine | DX: G89.29 Other chronic pain (principal); M47.816 Spondylosis without myelopathy or radiculopathy, lumbar region; M54.16 Radiculopathy, lumbar region; M54.2 Cervicalgia; M54.9 Dorsalgia, unspecified; F17.210 Nicotine dependence, cigarettes, uncomplicated | CPT/HCPCS: 99214 ==

== ENCOUNTER → 2021-02-04 12:32 | Outpatient (BNVA) | payer OTHER, SELFPAY | PROVIDERS: PCP Family Medicine; Visit Provider Anesthesiology Pain Medicine | DX: M47.816 Spondylosis without myelopathy or radiculopathy, lumbar region (principal); M54.9 Dorsalgia, unspecified; F17.210 Nicotine dependence, cigarettes, uncomplicated | CPT/HCPCS: 64493; 64494; 64495; J3490 ==

== ENCOUNTER → 2021-02-18 11:06 | Outpatient (BNVA) | payer OTHER, SELFPAY | PROVIDERS: PCP Family Medicine; Visit Provider Anesthesiology Pain Medicine | DX: M47.816 Spondylosis without myelopathy or radiculopathy, lumbar region (principal); M54.16 Radiculopathy, lumbar region; M54.2 Cervicalgia | CPT/HCPCS: 99214 ==

== ENCOUNTER 2021-03-12 14:43 | Emergency (ER) | payer OTHER, SELFPAY ==
[2021-03-12 15:33] VITALS: BP 108/79; PULSE 68; RESP 19; TEMP 37.3; O2SAT 96
[2021-03-12 15:54] VITALS: BP 118/76; PULSE 62; RESP 17; O2SAT 97
--- NOTE | 2021-03-12 15:54 | XR_ITS ---
WS: [id number] Acute abdomen series, 03/12/2021 Clinical Data: Abd Pain Comparison: KUB, 10/25/2020 Findings: In the chest there are no nodules, masses or effusions. The heart is normal. The pulmonary vascularity is not increased. No free air is seen beneath the diaphragms. No abnormal intra-abdominal masses or calcifications are seen. The abdomen is relatively gasless. There are clips in the right upper quadrant from a cholecyst ectomy. XR/XR acute abdomen series [id number] Impression: Negative acute abdomen series.
--- NOTE | 2021-03-12 15:56 | ED_ITS ---
HPI - Abdominal Pain General: Chief Complaint: Abdominal Pain Stated Complaint: CHEST PAIN/ SOB Time Seen by Provider: 03/12/21 15:51 History of Present Illness: HPI narrative: This patient is a 35-year-old female who presents to the emergency department for nonspecific complaint of atypical type chest pain when she tries to have a bowel movement. Patient states when she goes to have a bowel movement she feels a pressure in her chest. Does not know if is related to her gastric ulcer or her hiatal hernia. But feels nauseous and then her hands will go numb. Patient denies diarrhea denies constipation denies urinary symptoms. States the symptoms only happen when she tries to have a bowel movement. Patient denies any recent medical problems. Pertinent past history: none and gastritis Onset (ago): minute(s) Pain Consistency: intermittent Severity: similar to previous episodes Associated Symptoms: Denies chills, dysuria, fever(s), nausea and vomiting Related Data: Date of Last Menstrual Period: 03/21/19 Review of Systems General: Reports: 10 or more systems reviewed and unremarkable except in HPI and below Const: Denies: fever(s), chills, body aches or fatigue Eyes: Denies: change in vision or blurry vision ENMT: Denies: throat pain, hoarseness or mouth pain Card: Reports: chest pain; Denies: palpitations, irregular heart rhythm, edema, swelling of feet/ankles or lightheadedness Resp: Denies: dyspnea, productive cough, non-productive cough, wheezing or pain on inspiration GI: Denies: abdominal pain, nausea or vomiting : Denies: flank pain, difficulty voiding, dysuria, urinary frequency, urinary urgency or urinary hesitancy Musc: Denies: neck pain, back pain, extremity pain, extremity swelling, joint pain, joint swelling, joint redness, joint warmth or limited range of motion Skin/Breast: Denies: rash, pruritus, erythema or skin tenderness Neuro: Reports: numbness in extremities; Denies: headache(s) or weakness in extremities Psych: Denies: anxiety or depression PFSH ED PFSH: Medical History Asthma Colon polyps Cyclic vomiting syndrome GERD (gastroesophageal reflux disease) Hemorrhoids Hiatal hernia Hypokalemia Marijuana abuse, continuous Ovarian cyst Surgical History Hx of appendectomy Hx of cholecystectomy Family History Mother Stroke Breast cancer, Onset Age: 29 Uterine cancer age onset unknown Anesthesia complication Sister Ovarian cancer, Onset Age: 22 Family/Other Colon cancer maternal uncle Father Hyperlipidemia Heart disease Diabetes Hypertension Thyroid condition Denies family history of Clotting disorder Bleeding disorder Social History Smoking and tobacco status: current every day smoker Alcohol intake: current Alcohol intake frequency: holidays/special occasions only Alcohol type: wine Female Reproductive History: Date of last menstrual period: 03/21/19 Physical Exam Const: COMMON NORMALS: no acute distress, average body habitus, patient oriented x3, no limitations, healthy appearing, alert and well nourished HENMT: COMMON NORMALS: normocephalic, atraumatic, hearing grossly normal bilaterally, external ears normal, EAC's normal, TM's normal bilaterally, Normal external nose present, Normal nasal mucous membranes and turbinates present, moist oral mucous membranes, oropharynx normal, dentition normal and gingiva normal HEAD & SCALP: normocephalic and atraumatic NOSE: Normal external nose present and Normal nasal mucous membranes and turbinates present EXTERNAL EAR: Yes external ears normal EXTERNAL AUDITORY CANAL: EAC's normal TYMPANIC MEMBRANE: TM's normal bilaterally Neck/C-Spine: COMMON NORMALS: full ROM, no lymphadenopathy, supple, no meningeal signs, no JVD, Thyroid normal and No carotid bruits THYROID: Thyroid normal Chest: COMMONS NORMALS: normal inspection of the chest, normal palpation of entire chest wall, normal inspection of the breasts and normal palpation of the breasts Breast/axilla inspection: Yes normal inspection of the breasts BREAST/AXILLA PALPATION: Yes normal palpation of the breasts Resp: COMMON NORMALS: normal respiratory effort, No retractions, No use of accessory muscles, clear to auscultation bilaterally and percussion normal AUSCULTATION: clear to auscultation bilaterally PERCUSSION: percussion normal Cardio: COMMON NORMALS: no JVD, regular rate, regular rhythm, S1 normal heart sound present, S2 normal heart sound present, No gallops present (Cardio), No clicks present (Cardio), No murmurs present (Cardio), No rub (Cardio) and Peripheral pulses 2+ throughout RATE: regular rate RHYTHM: regular rhythm HEART SOUNDS: S1 normal heart sound present and S2 normal heart sound present PERIPHERAL PULSES: Peripheral pulses 2+ throughout GI: COMMON NORMALS: Normal to inspection, nondistended, normoactive bowel sounds present, Soft to palpation, non-tender, No hepatosplenomegaly present, no masses and no bruits PALPATION: Yes Soft to palpation and Yes No hepatosplenomegaly present Back/Pelvis: COMMON NORMALS: thoracic and lumbar spine normal to inspection, no thoracic nor lumbar tenderness, thoraco-lumbar ROM normal and straight leg raise negative bilaterally Extremity: COMMON NORMALS: normal to inspection, full ROM, capillary refill normal, no joint enlargement, no clubbing, cyanosis or edema, no calf tenderness and no pedal edema Neuro: COMMON NORMALS: patient oriented x3 SENSORIUM/ORIENTATION: Yes alert MENINGEAL SIGNS: Yes no meningeal signs Course Reevaluation(s): Reevaluation #1: Negative evaluation in the emergency department. Patient has now informed nursing staff that she found out this morning that the was cheating on her. Causing most of her symptoms due to stress and anxiety. We did discuss at length with patient about options. Patient does take antidepressant medications at home. Patient is upset and crying at this time. Will give patient a Zyprexa here and evaluate and treat further if needed we will continue to monitor. Time: 17:39 Reevaluation #2: Patient is feeling much improved after Zyprexa. Patient is calm at this time and has no complaints. Did discuss at length with patient about her current situation at home. Patient will follow up with primary care physician discuss possible medication adjustments for grief and anxiety issues. Patient should follow up with primary care physician and get referral for possible outpatient EGD for GERD and hiatal hernia issues. Time: 18:06 Vital Signs: Vital signs: Vital Signs Temperature 99.1 F 03/12/21 15:33 Pulse Rate 62 03/12/21 15:54 Respiratory Rate 17 03/12/21 15:54 Blood Pressure 118/76 03/12/21 15:54 Pulse Oximetry 97 03/12/21 15:54 MDM - Abdominal Pain MDM Narrative: Medical decision making narrative: Negative evaluation in the emergency department. Patient has now informed nursing staff that she found out this morning that the was cheating on her. Causing most of her symptoms due to stress and anxiety. We did discuss at length with patient about options. Patient does take antidepressant medications at home. Patient is upset and crying at this time. Will give patient a Zyprexa here and evaluate and treat further if needed we will continue to monitor. Patient is feeling much improved after Zyprexa. Patient is calm at this time and has no complaints. Did discuss at length with patient about her current situation at home. Patient will follow up with primary care physician discuss possible medication adjustments for grief and anxiety issues. Patient should follow up with primary care physician and get referral for possible outpatient EGD for GERD and hiatal hernia issues. Differential Diagnosis: Differential diagnosis abdominal pain: Likely abdominal pain, acute appendicitis, calculus of kidney, constipation, diverticulitis, endometriosis, gastroenteritis, pancreatitis and small bowel obstruction Medical Records: Attestation: I reviewed the patient's medical records. Lab Data: Attestation: I reviewed the patient's lab results. Labs: Lab Results 03/12/21 03/12/21 03/12/21 Range/Units 14:30 14:30 14:30 WBC 11.9 H (4.0-10.0) 10^3/ uL RBC 4.67 (4.1-5.3) 10^6/u L Hgb 14.4 (11.5-15.3) g/dL Hct 42.2 (37.0-47.0) % MCV 90.4 (81-99) fl MCH 30.8 (28.0-34.0) pg MCHC 34.1 (30.0-36.0) g/dL RDW 13.2 (12.1-15.1) % Plt Count 306 (130-400) 10^3/c mm MPV 12.8 H (7.4-10.4) fL Neut % (Auto) 72.1 % Lymph % (Auto) 18.6 % [place] % (Auto) 8.1 % Eos % (Auto) 0.5 % Baso % (Auto) 0.3 % Neut # (Auto) 8.57 H (1.8-7.7) 10^3/u L Lymph # (Auto) 2.2 (0.8-4.8) 10^3/u L [place] # (Auto) 1.0 H (0.2-0.9) 10^3/u L Eos # (Auto) 0.1 (0.0-0.8) 10^3/u L Baso # (Auto) 0.0 (0.0-0.1) 10^3/u L Nucleated RBC % (a uto) 0 % Nucleated RBCs # 0.0 /100WBC Sodium 136 (136-145) mmol/L Potassium 4.5 (3.5-5.1) mmol/L Chloride 102 (98-107) mmol/L Carbon Dioxide 19 L (22-29) mmol/L Anion Gap 19.5 H (5-19) BUN 7 (6-20) mg/dL Creatinine 0.6 (0.5-0.9) mg/dL GFR Calculation 112.5 (90-130) mL/min Glucose 101 (65-115) mg/dL Calculated Osmolal ity 280 L (285-295) mOsm/k g Calcium 10.0 (8.5-10.5) mg/dL Total Bilirubin 0.3 (0.15-1.2) mg/dL AST 20 (0-32) U/L ALT 13 (0-33) U/L Alkaline Phosphata se 81 (35-105) IU/L Troponin T Gen 5 n g/L 6 (0-10) ng/L Total Protein 7.3 (6.6-8.7) g/dL Albumin 4.7 (3.5-5.2) g/dL Globulin 2.6 (1.3-4.6) g/dL Lipase 22 (13-60) U/L Urine Color (Yellow) Urine Appearance (CLEAR) Urine pH (5-7) Ur Specific Gravit y (1.005-1.030) Urine Protein (Negative) Urine Glucose (UA) (Normal) Urine Ketones (Negative) Urine Blood (Negative) Urine Nitrate (Negative) Urine Bilirubin (Negative) Urine Urobilinogen (Negative) mg/dL Ur Leukocyte Zakiya ase (Negative) Urine RBC (0-2) /hpf Urine WBC (0-5) /hpf Ur Squamous Epith Cells (0-5) /hpf Amorphous Sediment Urine Bacteria (NONE) /hpf 03/12/ Range/Units 16:21 WBC (4.0-10.0) 10^3/ uL RBC (4.1-5.3) 10^6/u L Hgb (11.5-15.3) g/dL Hct (37.0-47.0) % MCV (81-99) fl MCH (28.0-34.0) pg MCHC (30.0-36.0) g/dL RDW (12.1-15.1) % Plt Count (130-400) 10^3/c mm MPV (7.4-10.4) fL Neut % (Auto) % Lymph % (Auto) % [place] % (Auto) % Eos % (Auto) % Baso % (Auto) % Neut # (Auto) (1.8-7.7) 10^3/u L Lymph # (Auto) (0.8-4.8) 10^3/u L [place] # (Auto) (0.2-0.9) 10^3/u L Eos # (Auto) (0.0-0.8) 10^3/u L Baso # (Auto) (0.0-0.1) 10^3/u L Nucleated RBC % (a uto) % Nucleated RBCs # /100WBC Sodium (136-145) mmol/L Potassium (3.5-5.1) mmol/L Chloride (98-107) mmol/L Carbon Dioxide (22-29) mmol/L Anion Gap (5-19) BUN (6-20) mg/dL Creatinine (0.5-0.9) mg/dL GFR Calculation (90-130) mL/min Glucose (65-115) mg/dL Calculated Osmolal ity (285-295) mOsm/k g Calcium (8.5-10.5) mg/dL Total Bilirubin (0.15-1.2) mg/dL AST (0-32) U/L ALT (0-33) U/L Alkaline Phosphata se (35-105) IU/L Troponin T Gen 5 n g/L (0-10) ng/L Total Protein (6.6-8.7) g/dL Albumin (3.5-5.2) g/dL Globulin (1.3-4.6) g/dL Lipase (13-60) U/L Urine Color Yellow (Yellow) Urine Appearance Clear (CLEAR) Urine pH 7 (5-7) Ur Specific Gravit y 1.020 (1.005-1.030) Urine Protein Neg (Negative) Urine Glucose (UA) Norm (Normal) Urine Ketones 1+ H (Negative) Urine Blood Neg (Negative) Urine Nitrate Negative (Negative) Urine Bilirubin Neg (Negative) Urine Urobilinogen 1 H (Negative) mg/dL Ur Leukocyte Zakiya ase Trace H (Negative) Urine RBC None (0-2) /hpf Urine WBC 0-4 H (0-5) /hpf Ur Squamous Epith Cells 0-4 H (0-5) /hpf Amorphous Sediment Not Reportable Urine Bacteria Trace (NONE) /hpf Imaging Data ^: AAS: Attestation: I personally reviewed and interpreted this imaging study as follows: Radiologist's impression: Impression: Negative acute abdomen series. EKG Data ^: EKG 1: Attestation: I personally reviewed and interpreted this EKG as follows: EKG interpretation date: 03/12/21 EKG interpretation time: 15:42 Interpretation: Sinus bradycardia heart rate 56 nonspecific EKG changes. Discharge Plan Discharge Patient Disposition: Home Clinical Impression: Grief reaction, Anxiety, Chest pain due to GERD Condition: Stable Prescriptions: No Action diazepam 10 mg tablet 10 mg PO ONCE PRN (Reason: anxiety) Qty: 1 RF: 1 omeprazole 40 mg capsule,delayed release(DR/EC) 40 mg PO BEDTIME RF: 0 duloxetine 20 mg capsule,delayed release(DR/EC) 40 mg PO BEDTIME RF: 0 Aspir-81 81 mg Tablet,Delayed Release (Dr/Ec) 324 mg PO ONCE RF: 0 EpiPen 2-Olvin 0.3 mg/0.3 mL Auto-Injector 0.3 mg IM Q10M PRN (Reason: Allergic Reaction) RF: 0 Multivitamins 28 mg iron- 800 mcg Tablet 1 tab PO DAILY PRN (Reason: STATES SHE TAKES WHEN SHE REMEMBERS) RF: 0 Discharge Orders: Discharge ED (Routine); Ordered 03/12/21 Ordered By: Hugh Franklin Referrals: Rito Louise MD [Primary Care Provider] - Discharge Diet: Advance as tolerated Discharge Activity: Resume usual activity Patient Instructions: Opioid Safety Activity Restrictions/Additional Instructions: Encourage p.o. fluids. Continue all home medications. May need to follow-up with primary care physician to discuss options about a good mood stabilizer due to your current marital situation and anxiety issues. Follow-up primary care physician also discussed possible referral for outpatient EGD to evaluate gastritis or gastric ulcer. Coding Level of Care Code ED Rigging Foreman for Chg Fwd Exam Comprehensive
[2021-03-12] MEDS: ondansetron 2 mg/ML SDV 2 mL 4 MG IVP ×2 (16:12→17:21)
[2021-03-12] MEDS: sodium chloride 0.9% 500 ML IV (16:12)
[2021-03-12 16:22] LABS: Basophils % 0.3 %; Eosinophils # 0.1 10^3/uL (0.0-0.8); Eosinophils % 0.5 %; Hematocrit 42.2 % (37.0-47.0); Hemoglobin 14.4 g/dL (11.5-15.3); Lymphocytes # 2.2 10^3/uL (0.8-4.8); Lymphocytes % 18.6 %; Mean Corpuscular HGB Conc 34.1 g/dL (30.0-36.0); Mean Corpuscular Hemoglobin 30.8 pg (28.0-34.0); Mean Corpuscular Volume 90.4 fl (81-99); Mean Platelet Volume 12.8 fL (7.4-10.4); Monocytes % 8.1 %; Neutrophils # 8.57 10^3/uL (1.8-7.7); Neutrophils % 72.1 %; Nucleated Red Blood Cells % 0 %; Platelet Count 306 10^3/cmm (130-400); Red Blood Count 4.67 10^6/uL (4.1-5.3); Red Cell Distribution Width 13.2 % (12.1-15.1); White Blood Count 11.9 10^3/uL (4.0-10.0)
[2021-03-12 16:36] LABS: Troponin T (5th) Once 6 ng/L (0-10)
[2021-03-12 16:39] LABS: Alanine Aminotransferase 13 U/L (0-33); Albumin Level 4.7 g/dL (3.5-5.2); Alkaline Phosphatase 81 IU/L (35-105); Anion Gap 19.5 (5-19); Aspartate Amino Transferase 20 U/L (0-32); Blood Urea Nitrogen 7 mg/dL (6-20); Carbon Dioxide 19 mmol/L (22-29); Chloride 102 mmol/L (98-107); Globulin 2.6 g/dL (1.3-4.6); Glomerular Filtration Rate 112.5 mL/min (90-130); Glucose 101 mg/dL (65-115); Lipase 22 U/L (13-60); Osmolality Calculated 280 mOsm/kg (285-295); Potassium 4.5 mmol/L (3.5-5.1); Sodium 136 mmol/L (136-145); Total Bilirubin 0.3 mg/dL (0.15-1.2); Total Protein 7.3 g/dL (6.6-8.7)
[2021-03-12] MEDS: lidocaine 2% viscous 15 ML, aluminum-mag hydrox-simethicon 30 ML, sucralfate oral liq 1 GM PO (17:21)
[2021-03-12 17:26] LABS: Urine Appearance Clear (CLEAR); Urine Color Yellow (Yellow); pH Urine 7 (5-7)
[2021-03-12 17:27] LABS: Add Urine Microscopic? YES; Bacteria Urine TRACE /hpf; Bilirubin Urine Neg (Negative); Blood Urine Neg (Negative); Glucose Urine UA Norm (Normal); Ketones Urine 1+ (Negative); Leukocyte Esterase Urine Trace (Negative); Nitrate Urine Negative (Negative); Protein Urine Neg (Negative); Squamous Epithelial Cell Urine 0-4 /hpf (0-5); Urobilinogen Urine 1 mg/dL (Negative); WBC Urine 0-4 /hpf (0-5)
[2021-03-12] MEDS: OLANZapine 10 mg ODT PO (17:57)
[2021-03-12 18:48] VITALS: PULSE 64; RESP 16; O2SAT 98
== END 2021-03-12 18:49 | disposition home or self-care (01) ==
PROVIDERS: Emergency Provider Emergency Medicine; PCP Family Medicine
DX: F43.22 Adjustment disorder with anxiety (principal); K21.9 Gastro-esophageal reflux disease without esophagitis; Z79.82 Long term (current) use of aspirin; F17.210 Nicotine dependence, cigarettes, uncomplicated
CPT/HCPCS: 74022; 80053; 81001; 83690; 84484; 85025; 96361; 96374; 96376; 99283; J2405; J7040

== ENCOUNTER 2021-03-15 22:05 | Emergency (ER) | payer OTHER, SELFPAY ==
[2021-03-15 22:09] VITALS: BP 146/93; PULSE 110; RESP 20; TEMP 36.6; O2SAT 94; BMI 28.3
--- NOTE | 2021-03-15 22:52 | W.ED.ABDPA2 ---
HPI - Abdominal Pain General: Chief Complaint: Abdominal Pain Stated Complaint: hernia, n/v Time Seen by Provider: 03/15/21 22:45 History of Present Illness: HPI narrative: Patient states that she has abdominal discomfort nausea and vomiting been going on for a few days was seen here in the ER had a complete work-up on diagnosed anxiety sent home. Patient said she is not better. Patient continues to smoke marijuana daily has this prescribed so that is not the cause of her ongoing abdominal discomfort and vomiting. 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 She also has a hiatal hernia. Urine showed contaminated. 2 L of fluid infused. I did discuss with them the need for gastroenterologists referral mental health referral. Also felt that because the concentration of THC and marijuana has been going up that the studies support this that may be she is developing marijuana cyclic vomiting syndrome because increased concentrations. Did discuss this with patient. MD elicited complaint: abdominal pain Pertinent past history: other (Marijuana abuse) Onset (ago): day(s) Associated Symptoms: Reports nausea and vomiting; Denies chills and fever(s) Related Data: Date of Last Menstrual Period: 03/21/19 Review of Systems Const: Denies: fever(s), chills or body aches Eyes: Denies: change in vision or blurry vision ENMT: Denies: throat pain or nasal congestion Card: Denies: chest pain or dyspnea on exertion Resp: Denies: dyspnea, productive cough or non-productive cough GI: Reports: abdominal pain, nausea and vomiting Musc: Denies: extremity pain Skin/Breast: Denies: rash Neuro: Denies: headache(s) Psych: Reports: anxiety; Denies: depression Klaus/Lymph: Denies: easy bruising PFSH ED PFSH: Medical History Asthma Colon polyps Cyclic vomiting syndrome GERD (gastroesophageal reflux disease) Hemorrhoids Hiatal hernia Hypokalemia Marijuana abuse, continuous Ovarian cyst Surgical History Hx of appendectomy Hx of cholecystectomy Family History Mother Stroke Breast cancer, Onset Age: 29 Uterine cancer age onset unknown Anesthesia complication Sister Ovarian cancer, Onset Age: 22 Family/Other Colon cancer maternal uncle Father Hyperlipidemia Heart disease Diabetes Hypertension Thyroid condition Denies family history of Clotting disorder Bleeding disorder Social History Smoking and tobacco status: current every day smoker Alcohol intake: current Alcohol intake frequency: holidays/special occasions only Alcohol type: wine Female Reproductive History: Date of last menstrual period: 03/21/19 Physical Exam Const: COMMON NORMALS: average body habitus and patient oriented x3 GENERAL APPEARANCE: anxious HENMT: COMMON NORMALS: normocephalic HEAD & SCALP: normal to inspection and normocephalic FACE & SINUS: normal facial exam Eye: COMMON NORMALS: conjunctivae normal GENERAL EYE: appearance normal, both eyes and all related structures CONJUNCTIVA: Yes conjunctivae normal Neck/C-Spine: COMMON NORMALS: no JVD Chest: COMMONS NORMALS: normal inspection of the chest Resp: COMMON NORMALS: normal respiratory effort and clear to auscultation bilaterally AUSCULTATION: clear to auscultation bilaterally Cardio: COMMON NORMALS: no JVD, regular rate and regular rhythm RATE: regular rate RHYTHM: regular rhythm GI: COMMON NORMALS: Normal to inspection, nondistended, normoactive bowel sounds present Extremity: COMMON NORMALS: normal to inspection and full ROM Neuro: COMMON NORMALS: patient oriented x3 Course Vital Signs: Vital signs: Vital Signs Temperature 97.9 F 03/15/21 22:09 Pulse Rate 110 H 03/15/21 22:09 Respiratory Rate 20 H 03/15/21 22:09 Blood Pressure 146/93 03/15/21 22:09 Pulse Oximetry 94 03/15/21 22:09 MDM - Abdominal Pain MDM Narrative: Medical decision making narrative: Patient history of cyclical vomiting. Patient did not respond to Zofran metoclopramide was given 10 mg patient's vomiting is stopped. Patient is requesting medicine for anxiety now even though she is her and her were mad they were treated for anxiety 2 days ago. But now she says she does have anxiety and needs medication for that. Anion gap was high patient appears to be dehydrated 2 L of normal saline infused. Lab Data: Labs: Lab Results 03/15/21 03/15/21 03/15/21 Range/Units 22:50 22:50 23:00 WBC 21.0 H (4.0-10.0) 10^3/ uL RBC 4.89 (4.1-5.3) 10^6/u L Hgb 15.0 (11.5-15.3) g/dL Hct 42.5 (37.0-47.0) % MCV 86.9 (81-99) fl MCH 30.7 (28.0-34.0) pg MCHC 35.3 (30.0-36.0) g/dL RDW 12.6 (12.1-15.1) % Plt Count 398 (130-400) 10^3/c mm MPV 11.2 H (7.4-10.4) fL Neut % (Auto) 74.8 % Lymph % (Auto) 16.7 % [place] % (Auto) 7.6 % Eos % (Auto) 0.2 % Baso % (Auto) 0.2 % Neut # (Auto) 15.70 H (1.8-7.7) 10^3/u L Lymph # (Auto) 3.5 (0.8-4.8) 10^3/u L [place] # (Auto) 1.6 H (0.2-0.9) 10^3/u L Eos # (Auto) 0.0 (0.0-0.8) 10^3/u L Baso # (Auto) 0.1 (0.0-0.1) 10^3/u L Nucleated RBC % (a uto) 0 % Nucleated RBCs # 0.0 /100WBC Sodium 138 (136-145) mmol/L Potassium 3.4 L (3.5-5.1) mmol/L Chloride 99 (98-107) mmol/L Carbon Dioxide 17 L (22-29) mmol/L Anion Gap 25.4 H (5-19) BUN 18 (6-20) mg/dL Creatinine 0.7 (0.5-0.9) mg/dL GFR Calculation 94.2 (90-130) mL/min Glucose 156 H (65-115) mg/dL Calculated Osmolal ity 291 (285-295) mOsm/k g Calcium 9.6 (8.5-10.5) mg/dL Total Bilirubin 0.7 (0.15-1.2) mg/dL AST 24 (0-32) U/L ALT 18 (0-33) U/L Alkaline Phosphata se 78 (35-105) IU/L Total Protein 7.8 (6.6-8.7) g/dL Albumin 4.5 (3.5-5.2) g/dL Globulin 3.3 (1.3-4.6) g/dL Lipase 23 (13-60) U/L Urine Color Yellow (Yellow) Urine Appearance Sl cloudy A (CLEAR) Urine pH 5 (5-7) Ur Specific Gravit y 1.025 (1.005-1.030) Urine Protein Trace (Negative) Urine Glucose (UA) Norm (Normal) Urine Ketones 3+ H (Negative) Urine Blood 2+ H (Negative) Urine Nitrate Negative (Negative) Urine Bilirubin Neg (Negative) Urine Urobilinogen 1 H (Negative) mg/dL Ur Leukocyte Az[place] ase Trace H (Negative) Urine RBC 5-10 H (0-2) /hpf Urine WBC 10-15 H (0-5) /hpf Ur Squamous Epith Cells >100 H (0-5) /hpf Amorphous Sediment Not Reportable Urine Bacteria 2+ H (NONE) /hpf Discharge Plan Discharge Patient Disposition: Home Clinical Impression: Acute dehydration, Cyclic vomiting syndrome, History of marijuana use Condition: Stable Prescriptions: New Reglan 5 mg tablet 5 mg PO BID Qty: 10 RF: 0 Paxil 10 mg tablet 10 mg PO DAILY Qty: 10 RF: 0 No Action diazepam 10 mg tablet 10 mg PO ONCE PRN (Reason: anxiety) Qty: 1 RF: 1 omeprazole 40 mg capsule,delayed release(DR/EC) 40 mg PO BEDTIME RF: 0 duloxetine 20 mg capsule,delayed release(DR/EC) 40 mg PO BEDTIME RF: 0 Aspir-81 81 mg Tablet,Delayed Release (Dr/Ec) 324 mg PO ONCE RF: 0 EpiPen 2-Olvin 0.3 mg/0.3 mL Auto-Injector 0.3 mg IM Q10M PRN (Reason: Allergic Reaction) RF: 0 Multivitamins 28 mg iron- 800 mcg Tablet 1 tab PO DAILY PRN (Reason: STATES SHE TAKES WHEN SHE REMEMBERS) RF: 0 Discharge Orders: Discharge ED (Routine); Ordered 03/16/21 Ordered By: González Faustin Referrals: Rito Louise MD [Primary Care Provider] - Discharge Diet: Advance as tolerated Discharge Activity: Increase activity as tolerated Patient Instructions: Dehydration (ED), Medicinal Use of Cannabis (ED) Activity Restrictions/Additional Instructions: Follow-up with medical provider as directed. Take medications as prescribed. Return to the ER or your medical provider if condition worsens. Please read and understand discharge instructions. If any questions ask please. Limit or stop use of marijuana altogether if possible. Follow-up here at [facility] medical provider this week and see back in a specialist to a pediatrics physician to discuss cyclic vomiting syndrome. Also follow-up with mental health professional to discuss anxiety treatment. Coding Level of Care Code ED Feeder Catcher for [place] Fwd Exam Comprehensive
[2021-03-15] MEDS: ondansetron 2 mg/ML SDV 2 mL 4 MG IVP (22:55)
[2021-03-15] MEDS: sodium chloride 0.9% 1,000 ML 999 ML IV (22:55)
[2021-03-15 22:58] LABS: Basophils # 0.1 10^3/uL (0.0-0.1); Basophils % 0.2 %; Eosinophils % 0.2 %; Hematocrit 42.5 % (37.0-47.0); Lymphocytes # 3.5 10^3/uL (0.8-4.8); Lymphocytes % 16.7 %; Mean Corpuscular HGB Conc 35.3 g/dL (30.0-36.0); Mean Corpuscular Hemoglobin 30.7 pg (28.0-34.0); Mean Corpuscular Volume 86.9 fl (81-99); Mean Platelet Volume 11.2 fL (7.4-10.4); Monocytes # 1.6 10^3/uL (0.2-0.9); Monocytes % 7.6 %; Neutrophils % 74.8 %; Nucleated Red Blood Cells % 0 %; Platelet Count 398 10^3/cmm (130-400); Red Blood Count 4.89 10^6/uL (4.1-5.3); Red Cell Distribution Width 12.6 % (12.1-15.1)
[2021-03-15] MEDS: haloperidol inj 5 mg/mL INJ 1 mL 2 MG IM (23:11)
--- NOTE | 2021-03-15 23:18 | PC.NURSE ---
advised pt taht we need UA and specimen cup provided. pt unable to void at this time.
[2021-03-15 23:23] LABS: Alanine Aminotransferase 18 U/L (0-33); Albumin Level 4.5 g/dL (3.5-5.2); Alkaline Phosphatase 78 IU/L (35-105); Anion Gap 25.4 (5-19); Aspartate Amino Transferase 24 U/L (0-32); Blood Urea Nitrogen 18 mg/dL (6-20); Calcium 9.6 mg/dL (8.5-10.5); Carbon Dioxide 17 mmol/L (22-29); Chloride 99 mmol/L (98-107); Globulin 3.3 g/dL (1.3-4.6); Glomerular Filtration Rate 94.2 mL/min (90-130); Glucose 156 mg/dL (65-115); Lipase 23 U/L (13-60); Osmolality Calculated 291 mOsm/kg (285-295); Potassium 3.4 mmol/L (3.5-5.1); Sodium 138 mmol/L (136-145); Total Bilirubin 0.7 mg/dL (0.15-1.2); Total Protein 7.8 g/dL (6.6-8.7)
[2021-03-16] MEDS: metoclopramide 5 mg/mL SDV 2 mL 10 MG IVP (00:12)
[2021-03-16 00:38] LABS: Add Urine Microscopic? YES; Bilirubin Urine Neg (Negative); Blood Urine 2+ (Negative); Glucose Urine UA Norm (Normal); Ketones Urine 3+ (Negative); Leukocyte Esterase Urine Trace (Negative); Nitrate Urine Negative (Negative); Protein Urine Trace (Negative); Specific Gravity, Urine 1.025 (1.005-1.030); Urine Color Yellow (Yellow); Urobilinogen Urine 1 mg/dL (Negative); pH Urine 5 (5-7)
[2021-03-16 00:41] LABS: Add Urine Culture? No; Bacteria Urine 2+ /hpf; Squamous Epithelial Cell Urine >100 /hpf (0-5)
[2021-03-16] MEDS: sodium chloride 0.9% 1,000 ML 999 ML IV (00:41)
[2021-03-16] MEDS: OLANZapine 10 mg TABLET PO (00:41)
[2021-03-16 01:15] VITALS: RESP 20; TEMP 36.6; O2SAT 94
== END 2021-03-16 01:17 | disposition home or self-care (01) ==
PROVIDERS: Emergency Provider Nurse Practitioner Family; PCP Family Medicine
DX: R11.15 Cyclical vomiting syndrome unrelated to migraine (principal); E86.0 Dehydration; F12.90 Cannabis use, unspecified, uncomplicated; J45.909 Unspecified asthma, uncomplicated; F17.200 Nicotine dependence, unspecified, uncomplicated
CPT/HCPCS: 80053; 81001; 83690; 85025; 96361; 96372; 96374; 96375; 99284; J1630; J2405; J2765; J7030

== ENCOUNTER 2021-03-19 09:07 | Emergency (ER) | payer OTHER, SELFPAY ==
--- NOTE | 2021-03-19 09:23 | ECG_ITS ---
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: : 1985 Requested By: Yany Hassan Order Number: [id number] Leann MD: BELKIS GUAJARDO Measurements Intervals [place] Rate: 80 P: 55 AK: 137 QRS: -9 QRSD: 72 T: 34 QT: 373 QTc: 431 Interpretive Statements SINUS RHYTHM WITH SINUS ARRHYTHMIA POSSIBLE ANTERIOR MYOCARDIAL INFARCTION , OF INDETERMINATE AGE [30 ms Q WAVE IN V3/V4, OR R < 0.2 mV IN V4] Compared to ECG 12/06/2019 22:36:56 Myocardial infarct finding now present T-wave abnormality no longer present Electronically Signed On 03-19-2021 22:20:37 CDT by BELKIS GUAJARDO [id number] f
--- NOTE | 2021-03-19 09:23 | XR_ITS ---
WS: [id number] Exam: XR chest 2V* [id number] Date/Time of Exam: 03/19/2021 9:23 AM Reason For Exam: chest pain Comparison 12/06/2019. Findings: The lungs are clear and fully expanded. Costophrenic angles are sharp. No infiltrates. Bronchovascula r relief appears normal. Cardiac silhouette is unremarkable. Bony elements are intact. XR/XR chest 2V* [id number] IMPRESSION: Unremarkable chest radiograph.
[2021-03-19 09:39] VITALS: BP 164/92; PULSE 97; RESP 19; TEMP 36.2; O2SAT 96; BMI 28.3
--- NOTE | 2021-03-19 10:45 | W.ED.GENADLT ---
HPI - General Adult General: Chief complaint: General Medical Stated complaint: chest pain, anxiety, nausea Time Seen by Provider: 03/19/21 09:11 History of Present Illness: HPI narrative: Patient is a 35-year-old female prior hysterectomy in August presenting to the emergency room with complaints of chest pain, shortness of breath, back pain, left arm pain x4. Patient was initially seen and evaluated on 03/16/2021 for acute dehydration. The present time, patient will endorses mild nausea without any vomiting. No other GI symptoms, fever/chills, runny nose or sore throat. Onset: 4 days ago Duration:4 days Location:home Severity:moderate Review of Systems Narrative: Constitutional: No fever, no chills. HEENT: No vision changes CV: +chest pain, no palpitations PULM: no cough, -dyspnea. GI: No abdominal pain, no N/V/D. : No dysuria MSKEL: No muscle pain SKIN: No new rashes, no lesions. NEURO: No headache, no focal weakness. HEME: No visible bruises PSYCH: Normal mood PFSH ED PFSH: Medical History Asthma Colon polyps Cyclic vomiting syndrome GERD (gastroesophageal reflux disease) Hemorrhoids Hiatal hernia Hypokalemia Marijuana abuse, continuous Ovarian cyst Surgical History Hx of appendectomy Hx of cholecystectomy Family History Mother Stroke Breast cancer, Onset Age: 29 Uterine cancer age onset unknown Anesthesia complication Sister Ovarian cancer, Onset Age: 22 Family/Other Colon cancer maternal uncle Father Hyperlipidemia Heart disease Diabetes Hypertension Thyroid condition Denies family history of Clotting disorder Bleeding disorder Social History Smoking and tobacco status: current every day smoker Alcohol intake: current Alcohol intake frequency: holidays/special occasions only Alcohol type: wine Female Reproductive History: Date of last menstrual period: 03/21/19 Physical Exam Narrative: EXAM NARRATIVE: Head: Atraumatic Eyes: PERRL, conjunctiva without injection ENT: Mucous membrane moist NECK: Supple, ROM intact LUNGS: LCTAB, no crackles/rhonchi CV: RRR, 2+ radial pulses b/l ABDOMEN: Soft, nontender in all quadrants EXTREMITY: Normal ROM SKIN: No rash or erythema NEURO: Awake and alert, no focal motor deficits PSYCH: Normal mood and affect Course Vital Signs: Vital signs: Vital Signs Temperature 97.2 F L 03/19/21 09:39 Pulse Rate 97 03/19/21 09:39 Respiratory Rate 18 03/19/21 15:31 Blood Pressure 164/92 03/19/21 09:39 Pulse Oximetry 98 03/19/21 15:31 MDM - General Adult MDM Narrative: Medical decision making narrative: 35-year-old female with history of marijuana use, prior hysterectomy presents emergency room with persistent chest pain, shortness of breath, nausea back pain and arm pain x4 days. On exam, patient is hemodynamically stable. Troponin x2 within normal limit. EKG nonischemic. D-dimer is within normal limit. XR chest did not show any signs of focal findings. Patient has no findings abdominal tenderness to palpation. Decision was made to not order CT abdomen pelvis at this time. White count is noted to be 15 which is downtrending from 21. Patient is known to have a history of leukocytosis. She received fluids and Tylenol in the emergency room with significant improvement in symptoms. Patient was able to tolerate p.o. Patient ambulated without difficulty. Low suspicion for PE, endocarditis, dissection, ACS or other emergent pulmonary pathologies at this time given reassuring exams and normal lab work-up. Patient: Discharge. Patient is given strict return precaution for any worsening pain, fever/chills, nausea vomiting, any worsening complaints. Lab Data: Labs: Lab Results 03/19/21 03/19/21 03/19/21 Range/Units 13:03 13:03 13:03 WBC 15.7 H (4.0-10.0) 10^3/ uL RBC 4.88 (4.1-5.3) 10^6/u L Hgb 14.9 (11.5-15.3) g/dL Hct 42.6 (37.0-47.0) % MCV 87.3 (81-99) fl MCH 30.5 (28.0-34.0) pg MCHC 35.0 (30.0-36.0) g/dL RDW 12.5 (12.1-15.1) % Plt Count 303 (130-400) 10^3/c mm MPV 11.7 H (7.4-10.4) fL Neut % (Auto) 84.6 % Lymph % (Auto) 10.0 % [place] % (Auto) 4.9 % Eos % (Auto) 0.0 % Baso % (Auto) 0.1 % Neut # (Auto) 13.29 H (1.8-7.7) 10^3/u L Lymph # (Auto) 1.6 (0.8-4.8) 10^3/u L [place]ettis # (Auto) 0.8 (0.2-0.9) 10^3/u L Eos # (Auto) 0.0 (0.0-0.8) 10^3/u L Baso # (Auto) 0.0 (0.0-0.1) 10^3/u L Nucleated RBC % (a uto) 0 % Nucleated RBCs # 0.0 /100WBC D-Dimer (0-0.59) ug/mIFE U Sodium 134 L (136-145) mmol/L Potassium 3.4 L (3.5-5.1) mmol/L Chloride 95 L (98-107) mmol/L Carbon Dioxide 19 L (22-29) mmol/L Anion Gap 23.4 H (5-19) BUN 13 (6-20) mg/dL Creatinine 0.5 (0.5-0.9) mg/dL GFR Calculation 138.8 H (90-130) mL/min Glucose 108 (65-115) mg/dL Calculated Osmolal ity 279 L (285-295) mOsm/k g Calcium 9.8 (8.5-10.5) mg/dL Total Bilirubin 1.0 (0.15-1.2) mg/dL AST 15 (0-32) U/L ALT 16 (0-33) U/L Alkaline Phosphata se 75 (35-105) IU/L Troponin T Baselin e 6 (0-10) ng/L Troponin T 120 Min [place] (0-10) ng/L Delta Troponin T (0-10) ABS# Total Protein 7.7 (6.6-8.7) g/dL Albumin 4.7 (3.5-5.2) g/dL Globulin 3.0 (1.3-4.6) g/dL Lipase 22 (13-60) U/L Ser , [place] i-Qnt mIU/mL SARS-CoV-2 Ag (Rap id) (Negative) 03/19/21 03/19/21 03/19/21 Range/Units 13:03 13:03 13:03 WBC (4.0-10.0) 10^3/ uL RBC (4.1-5.3) 10^6/u L Hgb (11.5-15.3) g/dL Hct (37.0-47.0) % MCV (81-99) fl MCH (28.0-34.0) pg MCHC (30.0-36.0) g/dL RDW (12.1-15.1) % Plt Count (130-400) 10^3/c mm MPV (7.4-10.4) fL Neut % (Auto) % Lymph % (Auto) % [place] % (Auto) % Eos % (Auto) % Baso % (Auto) % Neut # (Auto) (1.8-7.7) 10^3/u L Lymph # (Auto) (0.8-4.8) 10^3/u L [place] # (Auto) (0.2-0.9) 10^3/u L Eos # (Auto) (0.0-0.8) 10^3/u L Baso # (Auto) (0.0-0.1) 10^3/u L Nucleated RBC % (a uto) % Nucleated RBCs # /100WBC D-Dimer 0.30 (0-0.59) ug/mIFE U Sodium (136-145) mmol/L Potassium (3.5-5.1) mmol/L Chloride (98-107) mmol/L Carbon Dioxide (22-29) mmol/L Anion Gap (5-19) BUN (6-20) mg/dL Creatinine (0.5-0.9) mg/dL GFR Calculation (90-130) mL/min Glucose (65-115) mg/dL Calculated Osmolal ity (285-295) mOsm/k g Calcium (8.5-10.5) mg/dL Total Bilirubin (0.15-1.2) mg/dL AST (0-32) U/L ALT (0-33) U/L Alkaline Phosphata se (35-105) IU/L Troponin T Baselin e (0-10) ng/L Troponin T 120 Min [place] (0-10) ng/L Delta Troponin T (0-10) ABS# Total Protein (6.6-8.7) g/dL Albumin (3.5-5.2) g/dL Globulin (1.3-4.6) g/dL Lipase (13-60) U/L Ser , [place] i-Qnt 0.50 mIU/mL SARS-CoV-2 Ag (Rap id) Negative (Negative) 03/19/21 Range/Units 14:42 WBC (4.0-10.0) 10^3/ uL RBC (4.1-5.3) 10^6/u L Hgb (11.5-15.3) g/dL Hct (37.0-47.0) % MCV (81-99) fl MCH (28.0-34.0) pg MCHC (30.0-36.0) g/dL RDW (12.1-15.1) % Plt Count (130-400) 10^3/c mm MPV (7.4-10.4) fL Neut % (Auto) % Lymph % (Auto) % [place] % (Auto) % Eos % (Auto) % Baso % (Auto) % Neut # (Auto) (1.8-7.7) 10^3/u L Lymph # (Auto) (0.8-4.8) 10^3/u L [place] # (Auto) (0.2-0.9) 10^3/u L Eos # (Auto) (0.0-0.8) 10^3/u L Baso # (Auto) (0.0-0.1) 10^3/u L Nucleated RBC % (a uto) % Nucleated RBCs # /100WBC D-Dimer (0-0.59) ug/mIFE U Sodium (136-145) mmol/L Potassium (3.5-5.1) mmol/L Chloride (98-107) mmol/L Carbon Dioxide (22-29) mmol/L Anion Gap (5-19) BUN (6-20) mg/dL Creatinine (0.5-0.9) mg/dL GFR Calculation (90-130) mL/min Glucose (65-115) mg/dL Calculated Osmolal ity (285-295) mOsm/k g Calcium (8.5-10.5) mg/dL Total Bilirubin (0.15-1.2) mg/dL AST (0-32) U/L ALT (0-33) U/L Alkaline Phosphata se (35-105) IU/L Troponin T Baselin e (0-10) ng/L Troponin T 120 Min [place] 6.68 (0-10) ng/L Delta Troponin T 0.68 (0-10) ABS# Total Protein (6.6-8.7) g/dL Albumin (3.5-5.2) g/dL Globulin (1.3-4.6) g/dL Lipase (13-60) U/L Ser , [place] i-Qnt mIU/mL SARS-CoV-2 Ag (Rap id) (Negative) Imaging Data^: Other Imaging: Radiologist's impression: [address] [id number] ReportSigned Patient: Renetta Henson #: [id number]: 1985Acct#:[id number]/Sex: 35 / FADM Date: 03/19/21Loc: ERRoom/Bed:Attending Dr: Ordering Provider/Ordering MD: Yany Hassan MD Date of Service: 03/19/21 Procedure(s): XR chest 2V* [id number] Accession Number(s): [id number] Report Number: [id number] WS: [id number] Exam: XR chest 2V* [id number] Date/Time of Exam: 03/19/2021 9:23 AM Reason For Exam: chest pain Comparison 12/06/2019. Findings: The lungs are clear and fully expanded. Costophrenic angles are sharp. No infiltrates. Bronchovascular relief appears normal. Cardiac silhouette is unremarkable. Bony elements are intact. XR/XR chest 2V* [id number] IMPRESSION: Unremarkable chest radiograph. Dictated By:Pattersonigned By:Kendra Foster Date/Time:03/19/21 0937DD/ 0936 Discharge Plan Discharge Patient Disposition: Home Clinical Impression: Chest pain, Back pain, Shortness of breath Condition: Stable Prescriptions: No Action omeprazole 40 mg capsule,delayed release(DR/EC) 40 mg PO BEDTIME RF: 0 duloxetine 20 mg capsule,delayed release(DR/EC) 40 mg PO BEDTIME RF: 0 epinephrine [EpiPen 2-Olvin] 0.3 mg/0.3 mL Auto-Injector 0.3 mg IM Q10M PRN (Reason: Allergic Reaction) RF: 0 PNV cmb#95-ferrous fumarate-FA [ Multivitamins] 28 mg iron- 800 mcg Tablet 1 tab PO DAILY PRN (Reason: STATES SHE TAKES WHEN SHE REMEMBERS) RF: 0 metoclopramide HCl [Reglan] 5 mg tablet 5 mg PO BID Qty: 10 RF: 0 paroxetine HCl [Paxil] 10 mg tablet 10 mg PO DAILY Qty: 10 RF: 0 Discharge Orders: Discharge ED (Routine); Ordered 03/19/21 Ordered By: Yany Hassan Referrals: Rito Louise MD [Primary Care Provider] - Discharge Diet: Advance as tolerated Discharge Activity: Resume usual activity Patient Instructions: Chest Pain (ED) Activity Restrictions/Additional Instructions: Please come back to the emergency room if your chest pain worsens,-fever chills, nausea vomiting, any new or concerning complaints. Coding Level of Care Code ED Lock Maintenance Supervisor for Tip Pérez
--- NOTE | 2021-03-19 11:23 | ECG_ITS ---
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1985 Requested By: Yany Hassan Order Number: [id number] Reading MD: BELKIS GUAJARDO Measurements Intervals [place] Rate: 75 P: 64 IA: 146 QRS: 20 QRSD: 59 T: 50 QT: 362 QTc: 405 Interpretive Statements SINUS RHYTHM WITH SINUS ARRHYTHMIA POSSIBLE LEFT ATRIAL ENLARGEMENT [-0.1mV P-WAVE IN V1/V2] LOW QRS VOLTAGE IN PRECORDIAL LEADS [QRS DEFLECTION < 1.0 mV IN CHEST LEADS] PATTERN CONSISTENT WITH PULMONARY DISEASE MODERATE ST DEPRESSION [0.05+ mV ST DEPRESSION] Compared to ECG 12/06/2019 22:36:56 Low QRS voltage now present ST (T wave) deviation now present T-wave abnormality no longer present Electronically Signed On 03-19-2021 22:22:20 CDT by BELKIS GUAJARDO [id number]
[2021-03-19 13:13] LABS: Basophils % 0.1 %; Hematocrit 42.6 % (37.0-47.0); Hemoglobin 14.9 g/dL (11.5-15.3); Lymphocytes # 1.6 10^3/uL (0.8-4.8); Mean Corpuscular Hemoglobin 30.5 pg (28.0-34.0); Mean Corpuscular Volume 87.3 fl (81-99); Mean Platelet Volume 11.7 fL (7.4-10.4); Monocytes # 0.8 10^3/uL (0.2-0.9); Monocytes % 4.9 %; Neutrophils # 13.29 10^3/uL (1.8-7.7); Neutrophils % 84.6 %; Nucleated Red Blood Cells % 0 %; Platelet Count 303 10^3/cmm (130-400); Red Blood Count 4.88 10^6/uL (4.1-5.3); Red Cell Distribution Width 12.5 % (12.1-15.1); White Blood Count 15.7 10^3/uL (4.0-10.0)
[2021-03-19 13:31] LABS: Alanine Aminotransferase 16 U/L (0-33); Albumin Level 4.7 g/dL (3.5-5.2); Alkaline Phosphatase 75 IU/L (35-105); Anion Gap 23.4 (5-19); Aspartate Amino Transferase 15 U/L (0-32); Blood Urea Nitrogen 13 mg/dL (6-20); Calcium 9.8 mg/dL (8.5-10.5); Carbon Dioxide 19 mmol/L (22-29); Chloride 95 mmol/L (98-107); Glomerular Filtration Rate 138.8 mL/min (90-130); Glucose 108 mg/dL (65-115); Lipase 22 U/L (13-60); Osmolality Calculated 279 mOsm/kg (285-295); Potassium 3.4 mmol/L (3.5-5.1); Sodium 134 mmol/L (136-145); Total Protein 7.7 g/dL (6.6-8.7)
[2021-03-19 13:32] LABS: Troponin(5th) Baseline 6 ng/L (0-10)
[2021-03-19 13:45] LABS: SARS Covid-2 Antigen Negative (Negative)
[2021-03-19 14:17] VITALS: RESP 18; O2SAT 98
[2021-03-19] MEDS: famotidine 20 mg Tablet PO (14:17)
[2021-03-19] MEDS: lidocaine 2% viscous 15 ML, aluminum-mag hydrox-simethicon 30 ML, sucralfate oral liq 1 GM PO (14:17)
[2021-03-19] MEDS: morphine 4 mg/mL SDV 1 mL 2 MG IVP (14:17)
[2021-03-19] MEDS: ondansetron 2 mg/ML SDV 2 mL 4 MG IVP (14:48)
[2021-03-19 15:29] LABS: Troponin 5 2HR 6.68 ng/L (0-10); Troponin 5 2HR Delta 0.68 ABS# (0-10)
[2021-03-19 15:31] VITALS: RESP 18; O2SAT 98
== END 2021-03-19 15:31 | disposition home or self-care (01) ==
PROVIDERS: Emergency Provider Emergency Medicine; PCP Family Medicine
DX: R07.9 Chest pain, unspecified (principal); M54.9 Dorsalgia, unspecified; R06.02 Shortness of breath; F17.210 Nicotine dependence, cigarettes, uncomplicated; Z20.822 Contact with and (suspected) exposure to COVID-19
CPT/HCPCS: 71046; 80053; 83690; 84484; 84702; 85025; 85378; 87426; 93005; 96374; 96375; 99284; J2270; J2405

== ENCOUNTER 2021-03-25 13:10 | Outpatient (CLI) | payer OTHER, SELFPAY ==
[2021-03-25 14:28] LABS: Basophils % 0.2 %; Eosinophils % 0.2 %; Hematocrit 43.3 % (37.0-47.0); Hemoglobin 15.6 g/dL (11.5-15.3); Lymphocytes # 2.6 10^3/uL (0.8-4.8); Lymphocytes % 14.9 %; Mean Corpuscular Hemoglobin 30.4 pg (28.0-34.0); Mean Corpuscular Volume 84.4 fl (81-99); Mean Platelet Volume 12.1 fL (7.4-10.4); Monocytes # 1.2 10^3/uL (0.2-0.9); Neutrophils # 13.32 10^3/uL (1.8-7.7); Neutrophils % 77.3 %; Nucleated Red Blood Cells % 0 %; Platelet Count 304 10^3/cmm (130-400); Red Blood Count 5.13 10^6/uL (4.1-5.3); Red Cell Distribution Width 12.6 % (12.1-15.1); White Blood Count 17.2 10^3/uL (4.0-10.0)
[2021-03-25 14:59] LABS: Alanine Aminotransferase 18 U/L (0-33); Albumin Level 4.5 g/dL (3.5-5.2); Alkaline Phosphatase 73 IU/L (35-105); Amylase 57 U/L (28-100); Anion Gap 24.7 (5-19); Aspartate Amino Transferase 22 U/L (0-32); Blood Urea Nitrogen 9 mg/dL (6-20); C Reactive Protein 4.2 mg/L (0.0-4.9); Calcium 9.6 mg/dL (8.5-10.5); Carbon Dioxide 17 mmol/L (22-29); Chloride 93 mmol/L (98-107); Globulin 3.1 g/dL (1.3-4.6); Glomerular Filtration Rate 94.2 mL/min (90-130); Glucose 123 mg/dL (65-115); Lipase 41 U/L (13-60); Osmolality Calculated 272 mOsm/kg (285-295); Potassium 3.7 mmol/L (3.5-5.1); Sodium 131 mmol/L (136-145); Total Bilirubin 0.7 mg/dL (0.15-1.2); Total Protein 7.6 g/dL (6.6-8.7)
[2021-03-26 17:47] LABS: Alternaria Alternata (M6) Ige <0.10 kU/L; Alternaria Class 0; Bermuda Class 0; Bermuda Grass (G2) Ige <0.10 kU/L; Cat Dander (E1) Ige 0.23 kU/L; Cat Dander Class 0/1; Common Ragweed (Short) (W1) Ig <0.10 kU/L; D. Farinae Class 0; Dermatophagoides Class 0; Dermatophagoides Farinae (D2) <0.10 kU/L; Dermatophagoides Pteronyssinus <0.10 kU/L; Dog Dander (E5) Ige 0.31 kU/L; Dog Dander Class 0/1; Elm (T8) Ige <0.10 kU/L; Elm Class 0; English Plantain (W9) Ige <0.10 kU/L; English Plantain Class 0; House Dust (Greer) (H1) Ige <0.10 kU/L; House Dust (Hollister- Stier) <0.10 kU/L; House Dust Class 0; Immunoglobulin E 146 kU/L (<OR=114); Johnson Grass (G10) Ige <0.10 kU/L; Johnson Grass Cl 0; June Grass Class 0; June Grass(Kentucky Blue) (G8) <0.10 kU/L; Lamb'S Quarters (Goose Foot) 0.15 kU/L; Lamb'S Quarters Class 0/1; Maple (Box Elder) (T1) Ige <0.10 kU/L; Maple Class 0; Meadow Fescue (G4) Ige <0.10 kU/L; Meadow Fescue Class 0; Mucor Racemosus Class 0; Oak (T7) Ige <0.10 kU/L; Oak Class 0; Orchard Grass (Cocksfoot) (G3) <0.10 kU/L; Penicillium Class 0; Penicillium Notatum (M1) Ige <0.10 kU/L; Perennial Rye Grass (G5) Ige <0.10 kU/L; Perennial Rye Grass Class 0; Ragweeed Class 0; Rough Marsh Elder (W16) Ige <0.10 kU/L; Rough Marsh Elder Class 0; Sweet Vernal Class 0; Sweet Vernal Grass (G1) Ige <0.10 kU/L; Timothy Grass (G6) Ige <0.10 kU/L; Timothy Grass Class 0
[2021-03-31 19:26] LABS: Aspergillus Fumigatus, Igg Ab, 13.1 mg/L (<=102)
== END 2021-03-25 13:11 | disposition home or self-care (01) ==
PROVIDERS: PCP Family Medicine; Visit Provider Family Medicine
DX: R10.13 Epigastric pain (principal); Z91.018 Allergy to other foods
CPT/HCPCS: 36415; 80053; 82150; 82785; 83690; 85025; 86003; 86140

== ENCOUNTER 2021-03-31 09:55 | Outpatient (CLI) | payer OTHER, SELFPAY ==
--- NOTE | 2021-03-31 10:12 | CT_ITS ---
WS: [id number] CT ABDOMEN CONTRAST TECHNIQUE: Contrast enhanced CT of the abdomen with coronal and sagittal reformatted images. CLINICAL INFORMATION: EPIGASTRIC ABDOMINAL PAIN COMPARISON: CT 11/26/2020 and 10/31/2020 DLP: 915.[address] scans at [facility] use at least one of these dose optimization techniques: automated e xposure control; mA and/or kV adjustment per patient size (includes targeted exams where dose is matc hed to clinical indication); or iterative reconstruction. FINDINGS: Diffuse fatty infiltration of the liver. Stable hepatic cyst or hemangioma in the dome of the liver m easuring 1.5 CM. Prior cholecystectomy. Normal spleen. Small esophageal hiatal hernia. Lung bases are well aerated. Normal portal vein and splenic vein. Normal pancreas. Adrenal glands are normal. Normal renal parench ymal enhancement. No hydronephrosis. Normal caliber abdominal aorta. Tiny fat-containing umbilical he rnia. Normal lumbar spine. CT/CT abdomen w con* [id number] IMPRESSION: 1. Small fat-containing umbilical hernia. 2. Small esophageal hiatal hernia. 3. Diffuse fatty infiltration liver. Prior cholecystectomy. 4. Stable hepatic cyst or hemangioma in the dome of the liver measuring 1.5 cm . 5. No hydronephrosis in either kidney. 6. Normal caliber abdominal aorta. 7. No other significant findings.
[2021-03-31] MEDS: iohexol 300 mg/mL 50 mL Btl PO (11:17)
[2021-03-31] MEDS: iohexol 300 mg/mL 100 mL Btl IV (11:17)
== END 2021-03-31 09:56 | disposition home or self-care (01) ==
LOC: RAD 09:58
PROVIDERS: PCP Family Medicine; Visit Provider Family Medicine
DX: R10.13 Epigastric pain (principal); K42.9 Umbilical hernia without obstruction or gangrene; K44.9 Diaphragmatic hernia without obstruction or gangrene; K76.0 Fatty (change of) liver, not elsewhere classified; Z90.49 Acquired absence of other specified parts of digestive tract
CPT/HCPCS: 74160

== ENCOUNTER 2021-05-24 11:20 | Emergency (ER) | payer OTHER, SELFPAY ==
[2021-05-24 12:29] VITALS: BP 132/92; PULSE 70; RESP 18; TEMP 36.9; O2SAT 99; BMI 28.3
[2021-05-24 14:14] VITALS: BP 132/92; PULSE 70; RESP 16; O2SAT 99
--- NOTE | 2021-05-24 14:14 | ED_ITS ---
HPI - Animal Bite General: Chief Complaint: Animal Bite Stated Complaint: BIT BY TRUJILLO ON R THUMB/PAIN Time Seen by Provider: 05/24/21 12:51 History of Present Illness: HPI narrative: Patient bit on the right thumb today by a trujillo that she bought at [employer] this weekend. This Trujillo was an Arctic Trujillo raised in confinement via a breeder. Patient's not sure if the boxes had vaccinations. She is not interested in obtaining rabies shot and will be taking the animal to the vet on Tuesday and keep in the animal confinement she states. She is worried about an infection from bacteria on her thumb. complaint: animal bite Onset (ago): hour(s) Animal: other (Domesticated trujillo) Description of animal: household pet Mechanism: bite Location: other (Right thumb) Severity scale (1-10): 1 Associated symptoms: Reports no associated symptoms; Deny chills or fever(s) Review of Systems Const: Denies: fever(s) or chills Skin/Breast: Reports: skin tenderness (Right thumb with 2 scratches on it) Psych: Denies: anxiety or depression PFSH ED PFSH: Medical History Asthma Colon polyps Cyclic vomiting syndrome GERD (gastroesophageal reflux disease) Hemorrhoids Hiatal hernia Hypokalemia Marijuana abuse, continuous Ovarian cyst Surgical History Hx of appendectomy Hx of cholecystectomy Family History Mother Stroke Breast cancer, Onset Age: 29 Uterine cancer age onset unknown Anesthesia complication Sister Ovarian cancer, Onset Age: 22 Family/Other Colon cancer maternal uncle Father Hyperlipidemia Heart disease Diabetes Hypertension Thyroid condition Denies family history of Clotting disorder Bleeding disorder Social History Alcohol intake: current Alcohol intake frequency: holidays/special occasions only Alcohol type: wine Female Reproductive History: Date of last menstrual period: 03/21/19 Physical Exam Const: COMMON NORMALS: no acute distress GENERAL APPEARANCE: cooperative Psych: COMMON NORMALS: mental status grossly normal Skin: OTHER: 2 small superficial scratches noted to the right thumb. No evidence of puncture wound. No erythema drainage noted. Distal neurovascular intact. Full range of motion of thumb. Course Vital Signs: Vital signs: Vital Signs Temperature 98.4 F 05/24/21 12:29 Pulse Rate 70 05/24/21 12:29 Respiratory Rate 18 05/24/21 12:29 Blood Pressure 132/92 05/24/21 12:29 Pulse Oximetry 99 05/24/21 12:29 MDM - Animal Bite MDM Narrative: Medical decision making narrative: Patient declines rabies vaccination. Patient states that she did not want to harm the animal and that the animal was domesticated raised by breeder and she brought it oxygen this pas t few days and she is keeping the animal confined. She says a animal does not exhibit any rabies symptoms and she has appointment with the vet on Tuesday to have the animal evaluated and get up-to-date on any shots that may be like in any way. Patient will contact the breeder and verify the any shots also. Again shots were offered to the patient patient declines. Discharge Plan Discharge Patient Disposition: Home Clinical Impression: Animal bite Condition: Stable Prescriptions: New cephalexin 500 mg capsule 500 mg PO Q8H 7 Days Qty: 21 RF: 0 No Action omeprazole 40 mg capsule,delayed release(DR/EC) 40 mg PO BEDTIME RF: 0 duloxetine 20 mg capsule,delayed release(DR/EC) 40 mg PO BEDTIME RF: 0 epinephrine [EpiPen 2-Olvin] 0.3 mg/0.3 mL Auto-Injector 0.3 mg IM Q10M PRN (Reason: Allergic Reaction) RF: 0 PNV cmb#95-ferrous fumarate-FA [ Multivitamins] 28 mg iron- 800 mcg Tablet 1 tab PO DAILY PRN (Reason: STATES SHE TAKES WHEN SHE REMEMBERS) RF: 0 metoclopramide HCl [Reglan] 5 mg tablet 5 mg PO BID Qty: 10 RF: 0 paroxetine HCl [Paxil] 10 mg tablet 10 mg PO DAILY Qty: 10 RF: 0 Discharge Orders: Discharge ED (Routine); Ordered 05/24/21 Ordered By: González Faustin Referrals: Rito Louise MD [Primary Care Provider] - Discharge Diet: Usual diet Discharge Activity: Resume usual activity Patient Instructions: Animal Bite (ED), Rabies (ED) Activity Restrictions/Additional Instructions: Follow-up with medical provider as directed. Take medications as prescribed. Return to the ER or your medical provider if condition worsens. Please read and understand discharge instructions. If any questions ask please. Keep appointment that for Tuesday for follow-up on getting the animal evaluated. Make sure that the animal is cage for at least the next 10 days watch for signs of rabies. Coding Level of Care Code ED Plastic Die Maker Apprentice for Tip Pérez
== END 2021-05-24 14:25 | disposition home or self-care (01) ==
PROVIDERS: Emergency Provider Nurse Practitioner Family; PCP Family Medicine
DX: S61.051A Open bite of right thumb without damage to nail, initial encounter (principal); W55.81XA Bitten by other mammals, initial encounter
CPT/HCPCS: 99281

== ENCOUNTER 2021-06-05 14:00 | Emergency (ER) | payer OTHER, SELFPAY ==
--- NOTE | 2021-06-05 14:00 | ED_ITS ---
HPI - Nausea/Vomiting/Diarrhea General: Chief complaint: Abdominal Pain Stated complaint: vomitting History of Present Illness: HPI Narrative: Ms. Henson is a 36-year-old lady with history of alpha gal who presents emergency department due to concern over allergic reaction. She reports eating chicken and sometime after developed abdominal pain. She has had nausea and vomiting but no diarrhea. No skin rashes. She endorses minimal shortness of breath however no wheezing. She is tearful and crying for somewhat unclear reason though she does endorse being scared. No other changes in health. History otherwise limited by patient's state. Review of Systems General: Reports: ROS unobtainable due to medical condition PFSH ED PFSH: Medical History Asthma Colon polyps Cyclic vomiting syndrome GERD (gastroesophageal reflux disease) Hemorrhoids Hiatal hernia Hypokalemia Marijuana abuse, continuous Ovarian cyst Surgical History Hx of appendectomy Hx of cholecystectomy Family History Mother Stroke Breast cancer, Onset Age: 29 Uterine cancer age onset unknown Anesthesia complication Sister Ovarian cancer, Onset Age: 22 Family/Other Colon cancer maternal uncle Father Hyperlipidemia Heart disease Diabetes Hypertension Thyroid condition Denies family history of Clotting disorder Bleeding disorder Social History Alcohol intake: current Alcohol intake frequency: holidays/special occasions only Alcohol type: wine Female Reproductive History: Date of last menstrual period: 03/21/19 Physical Exam Narrative: EXAM NARRATIVE: GENERAL/CONSTITUTIONAL -nontoxic-appearing. Tearful. Anxious. Distressed. Eyes -no scleral icterus, no conjunctival injection ENMT - Atraumatic external nose and ears. Moist mucous membranes NECK - supple. trachea midline CARDIOVASCULAR - regular rate and rhythm. Normal peripheral perfusion RESPIRATORY -clear to auscultation bilaterally. No retractions or accessory muscle use. No wheezing. ABDOMEN/GI -generalized tenderness to palpation without evidence of peritonitis. MSK - Extremities without obvious deformity or tenderness to palpation SKIN - Warm, Dry. No hives. NEURO - alert and appropriately oriented. Moves all extremities equally. PSYCH -anxious, tearful. Course ED course: - Patient was seen and evaluated by me at bedside - Patient placed on cardiac monitors, IV access obtained - Initial evaluation notable for exam as noted above, tearful and anxious which limits history and exam. There is mild abdominal tenderness to palpation. No multisystem involvement which would require anaphylaxis treatment. - Symptom treatment ordered. Difficult to exclude possibility of cross- contamination as a cause of the patient's abdominal discomfort and therefore allergic reaction as such treatment ordered - Labs notable for mild leukocytosis. Frequently present on prior exams. Metabolic panel without acute electrolyte abnormality, mild decreased bicarb and increased anion gap. Fluids administered. - Imaging notable for negative CT of abdomen and pelvis. - Upon serial reexamination after treatment the patient was improved. She tolerated p.o. intake. - Based on patient history, evaluation, labs, and imaging as interpreted the most likely cause of the patient's condition is unclear, may be related to cross contaminated food in the context of alpha gal allergy. - The results of ED evaluation were given to the patient including prescriptions and/or symptomatic cares (if applicable) including appropriate and responsible use, followup plan, and return precautions. The patient verbalized understanding and felt safe for discharge. - Patient discharged in satisfactory condition. Vital Signs: Vital signs: Vital Signs Temperature 98.2 F 06/05/21 14:06 Pulse Rate 89 06/05/21 19:13 Respiratory Rate 18 06/05/21 19:13 Blood Pressure 120/70 06/05/21 19:13 Pulse Oximetry 97 06/05/21 19:13 MDM - Nausea/Vomiting/Diarrhea Medical Records: Attestation: I reviewed the patient's medical records. Lab Data: Attestation: I reviewed the patient's lab results. Labs: Lab Results 06/05/21 06/05/21 06/05/21 14:13 14:13 14:13 WBC 13.3 10^3/uL H 10 ^3/uL (4.0-10.0) RBC 4.76 10^6/uL 10^6 /uL (4.1-5.3) Hgb 14.8 g/dL g/dL (11.5-15.3) Hct 43.3 % % (37.0-47.0) MCV 91.0 fl fl (81-99) MCH 31.1 pg pg (28.0-34.0) MCHC 34.2 g/dL g/dL (30.0-36.0) RDW 12.9 % % (12.1-15.1) Plt Count 383 10^3/cmm 10^3 /cmm (130-400) MPV 10.9 fL H fL (7.4-10.4) Neut % (Auto) 74.5 % % Lymph % (Auto) 17.8 % % [place] % (Auto) 6.7 % % Eos % (Auto) 0.5 % % Baso % (Auto) 0.2 % % Neut # (Auto) 9.94 10^3/uL H 10 ^3/uL (1.8-7.7) Lymph # (Auto) 2.4 10^3/uL 10^3/ uL (0.8-4.8) [place] # (Auto) 0.9 10^3/uL 10^3/ uL (0.2-0.9) Eos # (Auto) 0.1 10^3/uL 10^3/ uL (0.0-0.8) Baso # (Auto) 0.0 10^3/uL 10^3/ uL (0.0-0.1) Nucleated RBC % (a uto) 0 % % Nucleated RBCs # 0.0 /100WBC /100W BC Sodium 139 mmol/L mmol/L (136-145) Potassium 3.7 mmol/L mmol/L (3.5-5.1) Chloride 101 mmol/L mmol/L (98-107) Carbon Dioxide 20 mmol/L L mmol/ L (22-29) Anion Gap 21.7 H (5-19) BUN 10 mg/dL mg/dL (6-20) Creatinine 0.6 mg/dL mg/dL (0.5-0.9) GFR Calculation 111.9 mL/min mL/m in (90-130) Glucose 113 mg/dL mg/dL (65-115) Calculated Osmolal ity 288 mOsm/kg mOsm/ kg (285-295) Calcium 10.2 mg/dL mg/dL (8.5-10.5) Total Bilirubin 0.5 mg/dL mg/dL (0.15-1.2) AST 18 U/L U/L (0-32) ALT 13 U/L U/L (0-33) Alkaline Phosphata se 74 IU/L IU/L (35-105) Total Protein 7.8 g/dL g/dL (6.6-8.7) Albumin 4.6 g/dL g/dL (3.5-5.2) Globulin 3.2 g/dL g/dL (1.3-4.6) Lipase 19 U/L U/L (13-60) HCG, Qual Negative (Negative) Salicylates < 0.3 mg/dL L mg/ dL (3-10) Acetaminophen < 5.0 ug/mL L ug/ mL (10-30) Ethyl Alcohol < 10 mg/dL mg/dL (0-10) Discharge Plan Discharge Patient Disposition: Home Clinical Impression: Abdominal pain Condition: Stable Prescriptions: No Action omeprazole 40 mg capsule,delayed release(DR/EC) 40 mg PO BEDTIME RF: 0 duloxetine 20 mg capsule,delayed release(DR/EC) 40 mg PO BEDTIME RF: 0 epinephrine [EpiPen 2-Olvin] 0.3 mg/0.3 mL Auto-Injector 0.3 mg IM Q10M PRN (Reason: Allergic Reaction) RF: 0 PNV cmb#95-ferrous fumarate-FA [ Multivitamins] 28 mg iron- 800 mcg Tablet 1 tab PO DAILY PRN (Reason: STATES SHE TAKES WHEN SHE REMEMBERS) RF: 0 metoclopramide HCl [Reglan] 5 mg tablet 5 mg PO BID Qty: 10 RF: 0 paroxetine HCl [Paxil] 10 mg tablet 10 mg PO DAILY Qty: 10 RF: 0 Discharge Orders: Discharge ED (Routine); Ordered 06/05/21 Ordered By: Kuldip De Paz Referrals: Rito Louise MD [Primary Care Provider] - Discharge Diet: Advance as tolerated and Clear Liquid Discharge Activity: Increase activity as tolerated Patient Instructions: Food Allergy (ED), Abdominal Pain (ED), General Allergic Reaction (ED), Opioid Safety Activity Restrictions/Additional Instructions: Thank you for visiting the emergency department. You were seen and evaluated for abdominal pain and vomiting. The exact cause of your symptoms is unclear, given her reported intake of food that may have been contaminated may be due to an allergic reaction. You will be given prescriptions for treatment of this. Please return to the emergency department for difficulty swallowing, speech difficulty, shortness of breath, throat swelling, inability tolerate oral intake, intractable pain, or anything else that you are concerned about and feel needs emergency department evaluation. Coding Level of Care Code ED Slasher Hand for Tip Pérez
[2021-06-05 14:06] VITALS: BP 147/83; PULSE 86; RESP 15; TEMP 36.8; O2SAT 96; BMI 33.2
--- NOTE | 2021-06-05 14:13 | CTR_ITS ---
PROCEDURE INFORMATION: Exam: CT Abdomen And Pelvis With Contrast Exam date and time: 06/05/2021 2:13 PM Age: 36 years old Clinical indication: Abdominal pain; Generalized; Prior surgery; Surgery date: 6+ months; Surgery type: Appy, gb, hyst; Patient HX: C/O abd pain TECHNIQUE: Imaging protocol: Computed tomography of the abdomen and pelvis with contrast. Axial, coronal and sagittal reformatted images were created and reviewed. Radiation optimization: All CT scans at this facility use at least one of these dose optimization techniques: automated exposure control; mA and/or kV adjustment per patient size (includes targeted exams where dose is matched to clinical indication); or iterative reconstruction. Contrast material: OMNI 300; Contrast volume: 95 ml; Contrast route: INTRAVENOUS (IV); COMPARISON: CT abdomen w con* [id number] 03/31/2021 12:27 PM RADIATION DOSE METRICS: Total DLP (mGy-cm): 939.14 FINDINGS: Liver: Unremarkable. Gallbladder and bile ducts: Status post cholecystectomy. No biliary ductal dilatation. Pancreas: Unremarkable. Spleen: Unremarkable. Adrenal glands: Normal. No mass. Kidneys and ureters: No mass. No radiodense calculi. No hydronephrosis. Stomach and bowel: Diffuse colonic under distention without pericolonic inflammatory change. No obstruction. No pneumatosis. Appendix: Status post appendectomy by history. Intraperitoneal space: No free fluid. No organized fluid collection. No free air. Vasculature: Unremarkable. No aneurysm. Lymph nodes: No pathologically enlarged lymph nodes. Urinary bladder: Unremarkable as visualized. Reproductive: Status post hysterectomy. Bones/joints: No acute osseous abnormality. Soft tissues: Fat containing umbilical hernia. CT/CT abdomen pelvis w con* [id number]: 1[address] No CT evidence of acute intra-abdominal or pelvic pathology. 2. Additional findings, as above. Radiation Dose CTDIVOL = (mGy): DLP = 939.14 (mGy-cm)
[2021-06-05 14:20] LABS: Basophils % 0.2 %; Eosinophils # 0.1 10^3/uL (0.0-0.8); Eosinophils % 0.5 %; Hematocrit 43.3 % (37.0-47.0); Hemoglobin 14.8 g/dL (11.5-15.3); Lymphocytes # 2.4 10^3/uL (0.8-4.8); Lymphocytes % 17.8 %; Mean Corpuscular HGB Conc 34.2 g/dL (30.0-36.0); Mean Corpuscular Hemoglobin 31.1 pg (28.0-34.0); Mean Platelet Volume 10.9 fL (7.4-10.4); Monocytes # 0.9 10^3/uL (0.2-0.9); Monocytes % 6.7 %; Neutrophils # 9.94 10^3/uL (1.8-7.7); Neutrophils % 74.5 %; Nucleated Red Blood Cells % 0 %; Platelet Count 383 10^3/cmm (130-400); Red Blood Count 4.76 10^6/uL (4.1-5.3); Red Cell Distribution Width 12.9 % (12.1-15.1); White Blood Count 13.3 10^3/uL (4.0-10.0)
[2021-06-05 14:35] LABS: HCG, Serum Qual Negative (Negative)
[2021-06-05 14:36] LABS: Alanine Aminotransferase 13 U/L (0-33); Albumin Level 4.6 g/dL (3.5-5.2); Alkaline Phosphatase 74 IU/L (35-105); Anion Gap 21.7 (5-19); Aspartate Amino Transferase 18 U/L (0-32); Blood Urea Nitrogen 10 mg/dL (6-20); Calcium 10.2 mg/dL (8.5-10.5); Carbon Dioxide 20 mmol/L (22-29); Chloride 101 mmol/L (98-107); Creatinine Clr Calc Pharmacy 116.6926; Globulin 3.2 g/dL (1.3-4.6); Glomerular Filtration Rate 111.9 mL/min (90-130); Glucose 113 mg/dL (65-115); Lipase 19 U/L (13-60); Osmolality Calculated 288 mOsm/kg (285-295); Potassium 3.7 mmol/L (3.5-5.1); Sodium 139 mmol/L (136-145); Total Bilirubin 0.5 mg/dL (0.15-1.2); Total Protein 7.8 g/dL (6.6-8.7)
[2021-06-05 14:37] LABS: Acetaminophen < 5.0 ug/mL (10-30); Alcohol Level < 10 mg/dL (0-10); Salicylate < 0.3 mg/dL (3-10)
[2021-06-05] MEDS: ondansetron 2 mg/ML SDV 2 mL 4 MG IVP (14:49)
[2021-06-05] MEDS: LORazepam 2 mg/mL INJ 1 mL 1 MG IVP (14:51)
[2021-06-05] MEDS: haloperidol inj 5 mg/mL INJ 1 mL 2.5 MG IVP (14:53)
[2021-06-05] MEDS: sodium chloride 0.9% 1,000 ML 999 ML IV (15:06)
[2021-06-05] MEDS: famotidine 20 mg/2 mL INJ 40 MG IVP (15:06)
[2021-06-05] MEDS: diphenhydrAMINE 50 mg/mL SDV 1mL IVP (15:10)
[2021-06-05 15:14] VITALS: BP 146/90; PULSE 65; RESP 18; O2SAT 90
[2021-06-05] MEDS: iohexol 300 mg/mL 100 mL Btl IV (15:24)
[2021-06-05 16:52] VITALS: BP 100/76; RESP 14; O2SAT 93
--- NOTE | 2021-06-05 16:55 | PC.NURSE ---
PO challenge completed per Dr De Paz. Pt drank approx 2-3 ounces of water. Reassessment completed 5 minutes after. Pt stated she felt queasy but did not feel like she was going to vomit.
[2021-06-05 19:13] VITALS: BP 120/70; PULSE 89; RESP 18; O2SAT 97
== END 2021-06-05 19:14 | disposition home or self-care (01) ==
PROVIDERS: Emergency Provider Emergency Medicine; PCP Family Medicine
DX: R10.9 Unspecified abdominal pain (principal)
CPT/HCPCS: 74177; 80053; 80307; 83690; 84703; 85025; 96361; 96374; 96375; 99284; J1200; J1630; J2060; J2405; J2930; J3490; J7030; Q9967

== ENCOUNTER 2021-06-21 11:32 | Emergency (ER) | payer OTHER, SELFPAY ==
[2021-06-21 11:49] VITALS: BP 131/87; PULSE 80; RESP 16; TEMP 37; O2SAT 97; BMI 26.4
[2021-06-21 12:12] LABS: Basophils % 0.2 %; Eosinophils % 0.2 %; Hematocrit 40.5 % (37.0-47.0); Hemoglobin 14.5 g/dL (11.5-15.3); Lymphocytes # 1.8 10^3/uL (0.8-4.8); Lymphocytes % 29.8 %; Mean Corpuscular HGB Conc 35.8 g/dL (30.0-36.0); Mean Corpuscular Hemoglobin 31.4 pg (28.0-34.0); Mean Corpuscular Volume 87.7 fl (81-99); Mean Platelet Volume 11.6 fL (7.4-10.4); Monocytes # 0.5 10^3/uL (0.2-0.9); Monocytes % 8.2 %; Neutrophils # 3.62 10^3/uL (1.8-7.7); Neutrophils % 61.4 %; Nucleated Red Blood Cells % 0 %; Platelet Count 239 10^3/cmm (130-400); Red Blood Count 4.62 10^6/uL (4.1-5.3); Red Cell Distribution Width 12.1 % (12.1-15.1); White Blood Count 5.9 10^3/uL (4.0-10.0)
[2021-06-21 12:28] LABS: Alanine Aminotransferase 21 U/L (0-33); Albumin Level 4.5 g/dL (3.5-5.2); Alkaline Phosphatase 62 IU/L (35-105); Anion Gap 24.4 (5-19); Aspartate Amino Transferase 26 U/L (0-32); Blood Urea Nitrogen 15 mg/dL (6-20); Calcium 9.3 mg/dL (8.5-10.5); Carbon Dioxide 19 mmol/L (22-29); Chloride 95 mmol/L (98-107); Globulin 2.6 g/dL (1.3-4.6); Glomerular Filtration Rate 111.9 mL/min (90-130); Glucose 104 mg/dL (65-115); Osmolality Calculated 281 mOsm/kg (285-295); Potassium 3.4 mmol/L (3.5-5.1); Sodium 135 mmol/L (136-145); Total Bilirubin 0.7 mg/dL (0.15-1.2); Total Protein 7.1 g/dL (6.6-8.7)
--- NOTE | 2021-06-21 15:04 | ED_ITS ---
HPI - Abdominal Pain General: Chief Complaint: Abdominal Pain Stated Complaint: ABD PAIN Time Seen by Provider: 06/21/21 14:59 Source: patient Mode of arrival: ambulatory Limitations: no limitations History of Present Illness: HPI narrative: Renetta is a nice 36-year-old female who comes in with a 6-day history of nausea, vomiting and diarrhea. Denies any blood in her vomit or blood in her stools. She denies any fevers or chills. She states that she has cramping and aching abdominal pain. Denies any vaginal discharge or bleeding. She had no burning or pain when she urinates. Patient states overall she just feels worn out and tired and dehydrated. She denies any other complaints or concerns at this time. She is unaware of anything that seems to make her symptoms better or worse. Associated Symptoms: Reports diarrhea, nausea and vomiting; Denies chills, coffee ground emesis, constipation, GI cramping, dysuria, fever(s), heartburn, hematochezia, hematuria, hematemesis, melena and syncope Related Data: Date of Last Menstrual Period: 03/21/19 Review of Systems Const: Denies: fever(s), chills, body aches, fatigue, malaise or diaphoresis Eyes: Denies: change in vision, blurry vision, photophobia, eye discomfort, eye discharge, eye redness or yellow eyes ENMT: Denies: throat pain, odynophagia, hoarseness, swelling of lips/tongue, ear or mastoid pain, ear discharge, change in hearing or nasal discharge Card: Denies: chest pain, palpitations, irregular heart rhythm, edema, lightheadedness, syncope, pre-syncope, dyspnea on exertion or orthopnea Resp: Denies: dyspnea, productive cough, non-productive cough, wheezing, hemoptysis or chest congestion GI: Reports: abdominal pain, nausea, vomiting and diarrhea; Denies: hematemesis, coffee ground emesis, heartburn, constipation, GI cramping, hematochezia or melena : Denies: flank pain, dysuria, urinary frequency, urinary urgency or hematuria Musc: Denies: neck pain, back pain, extremity pain, extremity swelling, joint pain, joint swelling, joint redness, joint warmth or joint stiffness Skin/Breast: Denies: rash, pruritus, erythema, skin pain or skin tenderness Neuro: Denies: headache(s), numbness in extremities, weakness in extremities, sensory changes, lack of coordination, difficulty walking, dizziness, vertigo, confusion, Slurred speech present or seizure-like activity Klaus/Lymph: Denies: easy bruising, easy bleeding, petechiae, purpura or enlarged lymph nodes All/Imm: Denies: urticaria, throat swelling, tongue swelling, facial swelling or acute wheezing PFSH ED PFSH: Medical History Asthma Colon polyps Cyclic vomiting syndrome GERD (gastroesophageal reflux disease) Hemorrhoids Hiatal hernia Hypokalemia Marijuana abuse, continuous Ovarian cyst Surgical History Hx of appendectomy Hx of cholecystectomy Family History Mother Stroke Breast cancer, Onset Age: 29 Uterine cancer age onset unknown Anesthesia complication Sister Ovarian cancer, Onset Age: 22 Family/Other Colon cancer maternal uncle Father Hyperlipidemia Heart disease Diabetes Hypertension Thyroid condition Denies family history of Clotting disorder Bleeding disorder Social History Alcohol intake: current Alcohol intake frequency: holidays/special occasions only Alcohol type: wine Female Reproductive History: Date of last menstrual period: 03/21/19 Physical Exam Const: COMMON NORMALS: no acute distress, patient oriented x3, no limitations and alert GENERAL APPEARANCE: cooperative HENMT: COMMON NORMALS: normocephalic, atraumatic, external ears normal, EAC's normal and Normal external nose present HEAD & SCALP: normal to inspection, normocephalic and atraumatic FACE & SINUS: normal facial exam and face symmetric NOSE: Normal external nose present and Normal nares present EXTERNAL EAR: Yes external ears normal EXTERNAL AUDITORY CANAL: EAC's normal MOUTH: Normal oral and palatal mucosa present, lip normal and tongue normal Eye: COMMON NORMALS: Equal, round and reactive pupils present and conjunctivae normal GENERAL EYE: appearance normal, both eyes and all related structures ALIGNMENT: Yes alignment normal PERIORBITAL: periorbital findings normal EYELID: eyelids normal CONJUNCTIVA: Yes conjunctivae normal SCLERA: sclerae normal PUPIL: Yes Equal, round and reactive pupils present Neck/C-Spine: COMMON NORMALS: full ROM, no lymphadenopathy, supple, no meningeal signs and no JVD GENERAL: Yes normal visual inspection and Yes trachea midline Chest: COMMONS NORMALS: normal inspection of the chest and normal palpation of entire chest wall Resp: COMMON NORMALS: normal respiratory effort, No retractions, No use of accessory muscles and clear to auscultation bilaterally EFFORT & INSPECTION: Yes able to speak in complete sentences and Yes symmetric chest movement AUSCULTATION: clear to auscultation bilaterally, no crackles, no rales, no rhonchi and no wheezes Cardio: COMMON NORMALS: no JVD, regular rate, regular rhythm, S1 normal heart sound present and S2 normal heart sound present RATE: regular rate RHYTHM: regular rhythm HEART SOUNDS: S1 normal heart sound present, S2 normal heart sound present, no click, no gallops, no murmurs and no rubs GI: COMMON NORMALS: Soft to palpation and No hepatosplenomegaly present PALPATION: Yes Soft to palpation, No Tenderness to palpation present (GI), No Guarding due to palpation present (GI), No Rigid due to palpation, Yes No hepatosplenomegaly present, No Hernia present, No Palpable mass present and No Pulsatile mass present : COMMON NORMALS: Yes no CVA tenderness BLADDER/KIDNEY EXAM: Yes no CVA tenderness EXTERNAL FEMALE EXAM: No Hernia present Back/Pelvis: COMMON NORMALS: no CVA tenderness, thoracic and lumbar spine normal to inspection, no thoracic nor lumbar tenderness and thoraco-lumbar ROM normal Extremity: COMMON NORMALS: normal to inspection, full ROM, capillary refill normal, no joint enlargement, no clubbing, cyanosis or edema and no calf tenderness Neuro: COMMON NORMALS: patient oriented x3, CN's II-XII intact bilaterally, moves all extremities, no focal motor deficits and no sensory deficits noted SENSORIUM/ORIENTATION: Yes alert MENINGEAL SIGNS: Yes no meningeal signs SPEECH: speech normal Psych: COMMON NORMALS: mental status grossly normal, Normal thought process present, cooperative, normal affect, speech normal and activity/motor behavior normal SPEECH: Yes normal speech THOUGHT PROCESS: Normal thought process present Skin: COMMON NORMALS: no rashes or lesions noted, turgor normal, no jaundice, no petechiae and no mottling GENERAL SKIN EXAM: no rashes or lesions noted and turgor normal Course Vital Signs: Vital signs: Vital Signs Temperature 98.6 F 06/21/21 11:49 Pulse Rate 80 06/21/21 11:49 Respiratory Rate 16 06/21/21 15:56 Blood Pressure 131/87 06/21/21 11:49 Pulse Oximetry 97 06/21/21 11:49 MDM - Abdominal Pain MDM Narrative: Medical decision making narrative: 1345 -the patient is feeling much better at this time after IV fluids. She is no longer having any abdominal cramping. She has had no vomiting or diarrhea here. The patient thinks she just got a bad virus that is kind of on the overwhelmed her. Patient has no appendix or gallbladder or suggestive of bowel obstruction. Overall she feels better and wants to go home. I will give her a dose of potassium before she leaves. The patient does not want to wait on urine as she has a ride coming for her and she needs to go. She is been encouraged to stay but if she wants to leave she can. She understands that she can return if her symptoms change or worsen but at this time she is feeling better and wants to be discharged. Differential Diagnosis: Differential diagnosis abdominal pain: Likely abdominal pain, diverticulitis, endometriosis, gastroenteritis, pancreatitis and small bowel obstruction Medical Records: Attestation: I reviewed the patient's medical records. Lab Data: Attestation: I reviewed the patient's lab results. Labs: Lab Results 06/21/21 06/21/21 06/21/21 12:01 12:01 12:01 WBC 5.9 10^3/uL 10^3/ uL (4.0-10.0) RBC 4.62 10^6/uL 10^6 /uL (4.1-5.3) Hgb 14.5 g/dL g/dL (11.5-15.3) Hct 40.5 % % (37.0-47.0) MCV 87.7 fl fl (81-99) MCH 31.4 pg pg (28.0-34.0) MCHC 35.8 g/dL g/dL (30.0-36.0) RDW 12.1 % % (12.1-15.1) Plt Count 239 10^3/cmm 10^3 /cmm (130-400) MPV 11.6 fL H fL (7.4-10.4) Neut % (Auto) 61.4 % % Lymph % (Auto) 29.8 % % [place] % (Auto) 8.2 % % Eos % (Auto) 0.2 % % Baso % (Auto) 0.2 % % Neut # (Auto) 3.62 10^3/uL 10^3 /uL (1.8-7.7) Lymph # (Auto) 1.8 10^3/uL 10^3/ uL (0.8-4.8) [place] # (Auto) 0.5 10^3/uL 10^3/ uL (0.2-0.9) Eos # (Auto) 0.0 10^3/uL 10^3/ uL (0.0-0.8) Baso # (Auto) 0.0 10^3/uL 10^3/ uL (0.0-0.1) Nucleated RBC % (a uto) 0 % % Nucleated RBCs # 0.0 /100WBC /100W BC Sodium 135 mmol/L L mmol /L (136-145) Potassium 3.4 mmol/L L mmol /L (3.5-5.1) Chloride 95 mmol/L L mmol/ L (98-107) Carbon Dioxide 19 mmol/L L mmol/ L (22-29) Anion Gap 24.4 H (5-19) BUN 15 mg/dL mg/dL (6-20) Creatinine 0.6 mg/dL mg/dL (0.5-0.9) GFR Calculation 111.9 mL/min mL/m in (90-130) Glucose 104 mg/dL mg/dL (65-115) Calculated Osmolal ity 281 mOsm/kg L mOs m/kg (285-295) Calcium 9.3 mg/dL mg/dL (8.5-10.5) Total Bilirubin 0.7 mg/dL mg/dL (0.15-1.2) AST 26 U/L U/L (0-32) ALT 21 U/L U/L (0-33) Alkaline Phosphata se 62 IU/L IU/L (35-105) Total Protein 7.1 g/dL g/dL (6.6-8.7) Albumin 4.5 g/dL g/dL (3.5-5.2) Globulin 2.6 g/dL g/dL (1.3-4.6) Ser , [place] i-Qnt 0.50 mIU/mL mIU/m L Serum Ketones 06/21/21 12:01 WBC RBC Hgb Hct MCV MCH MCHC RDW Plt Count MPV Neut % (Auto) Lymph % (Auto) [place] % (Auto) Eos % (Auto) Baso % (Auto) Neut # (Auto) Lymph # (Auto) [place] # (Auto) Eos # (Auto) Baso # (Auto) Nucleated RBC % (a uto) Nucleated RBCs # Sodium Potassium Chloride Carbon Dioxide Anion Gap BUN Creatinine GFR Calculation Glucose Calculated Osmolal ity Calcium Total Bilirubin AST ALT Alkaline Phosphata se Total Protein Albumin Globulin Ser , [place] i-Qnt Serum Ketones Negative (Negative) Discharge Plan Discharge Patient Disposition: Home Clinical Impression: Vomiting Qualifiers: Vomiting type: unspecified Vomiting Intractability: non-intractable Nausea presence: with nausea Qualified Code(s): R11.2 - Nausea with vomiting, unspecified Abdominal pain Qualifiers: Abdominal location: generalized Qualified Code(s): R10.84 - Generalized abdominal pain Diarrhea Qualifiers: Diarrhea type: unspecified type Qualified Code(s): R19.7 - Diarrhea, unspecified Condition: Stable Prescriptions: New Zofran 4 mg tablet 4 mg PO Q6H PRN (Reason: nausea and vomiting) Qty: 20 RF: 0 dicyclomine 10 mg capsule 10 mg PO QID PRN (Reason: abdominal discomfort) Qty: 20 RF: 0 No Action omeprazole 40 mg capsule,delayed release(DR/EC) 40 mg PO BEDTIME RF: 0 duloxetine 20 mg capsule,delayed release(DR/EC) 40 mg PO BEDTIME RF: 0 epinephrine [EpiPen 2-Olvin] 0.3 mg/0.3 mL Auto-Injector 0.3 mg IM Q10M PRN (Reason: Allergic Reaction) RF: 0 PNV cmb#95-ferrous fumarate-FA [ Multivitamins] 28 mg iron- 800 mcg Tablet 1 tab PO DAILY PRN (Reason: STATES SHE TAKES WHEN SHE REMEMBERS) RF: 0 metoclopramide HCl [Reglan] 5 mg tablet 5 mg PO BID Qty: 10 RF: 0 paroxetine HCl [Paxil] 10 mg tablet 10 mg PO DAILY Qty: 10 RF: 0 Discharge Orders: Discharge ED (Routine); Ordered 06/21/21 Ordered By: Lou Lane Referrals: Rito Louise MD [Primary Care Provider] - 1-3 days Discharge Diet: Advance as tolerated and Clear Liquid Discharge Activity: Limit activity as instructed Patient Instructions: Abdominal Pain (ED) Activity Restrictions/Additional Instructions: Please return to the ER immediately for any of the signs or symptoms listed on your discharge instruction sheets, worsening/changing of your symptoms, you are not getting better as quickly as expected, or for ANY other cause or concerns. Please return to the ER immediately for any of the signs and/or symptoms listed on your discharge instruction sheets, new onset of fever, return of vomiting, return of abdominal pain, blood in your stools, or for any other cause for concern. 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
[2021-06-21] MEDS: sodium chloride 0.9% 1,000 ML 999 ML IV ×2 (15:51→17:08)
[2021-06-21] MEDS: ondansetron 2 mg/ML SDV 2 mL 4 MG IVP (15:53)
[2021-06-21 15:56] VITALS: RESP 16
[2021-06-21] MEDS: morphine 4 mg/mL SDV 1 mL IVP (15:56)
[2021-06-21] MEDS: LORazepam 1 mg Tablet PO (16:16)
[2021-06-21 16:22] LABS: Ketone (Acetest) Serum Negative (Negative)
[2021-06-21 18:43] VITALS: BP 104/53; PULSE 56; RESP 14; O2SAT 98
[2021-06-21 19:01] VITALS: BP 104/53; PULSE 59; O2SAT 97
[2021-06-21 20:05] LABS: SARS Covid-2 Antigen Negative (Negative)
== END 2021-06-21 18:51 | disposition home or self-care (01) ==
PROVIDERS: Emergency Provider Emergency Medicine; PCP Family Medicine
DX: R10.84 Generalized abdominal pain (principal); R11.2 Nausea with vomiting, unspecified; R19.7 Diarrhea, unspecified; Z20.822 Contact with and (suspected) exposure to COVID-19
CPT/HCPCS: 36415; 80053; 82009; 84702; 85025; 87426; 96361; 96374; 96375; 99284; J2270; J2405; J7030

== ENCOUNTER 2021-06-24 11:04 | Outpatient (CLI) | payer OTHER, SELFPAY ==
--- NOTE | 2021-06-24 11:11 | XR_ITS ---
WS: [id number] LEFT FOOT: 3 VIEW(S) TECHNIQUE: AP, oblique and lateral. HISTORY: FOOT/HEEL PAIN, LEFT, C/W PLANTAR FASCIITIS, COMPARISON: None available. No acute fracture or dislocation. Normal tarsal/metatarsal alignment. Postsurgical changes of bunionectomy are noted. No significant osteophyte formation. XR/XR foot LT min 3V* [id number] IMPRESSION: Prior bunionectomy. No acute abnormality.
== END 2021-06-24 11:05 | disposition home or self-care (01) ==
PROVIDERS: PCP Family Medicine; Visit Provider Family Medicine
DX: M72.2 Plantar fascial fibromatosis (principal)
CPT/HCPCS: 73630

== ENCOUNTER 2021-09-08 17:06 | Emergency (ER) | payer OTHER, BC, MEDICAID, SELFPAY ==
[2021-09-08 17:17] VITALS: BMI 22.6
[2021-09-08 17:18] VITALS: BP 126/74; PULSE 81; RESP 14; TEMP 37.1; O2SAT 97
--- NOTE | 2021-09-08 17:23 | XRR_ITS ---
PROCEDURE INFORMATION: Exam: XR Right Hand Exam date and time: 09/08/2021 5:23 PM Age: 36 years old Clinical indication: Pain; Hand; Left; Additional info: Animal bite TECHNIQUE: Imaging protocol: XR Right hand. Views: 3 or more views. COMPARISON: No relevant prior studies available. FINDINGS: Bones/joints: Normal. Soft tissues: Normal. XR/XR hand RT min 3V* [id number] IMPRESSION: No acute findings.
--- NOTE | 2021-09-08 18:39 | ED_ITS ---
HPI - Animal Bite General: Chief Complaint: Animal Bite Stated Complaint: Animal bite on rt index finger Time Seen by Provider: 09/08/21 18:39 History of Present Illness: 36-year-old female comes in for injury to the right index finger. Patient was working with her pet Brown when it bit her this afternoon. Patient sustained a puncture wound to the right index finger at the middle phalanx of the finger. Patient reports that tetanus is up-to-date. Her pad is in a cage and does not run free. Patient has had the pet for over 4 months and is well in appearance. complaint: animal bite Onset (ago): hour(s) Animal: other (Pet Brown) Description of animal: household pet and appeared well Mechanism: bite Location - Extremities: Right: hand Pain description: sharp Context: playing with animal Associated symptoms: Reports bleeding Review of Systems General: Reports: 10 or more systems reviewed and unremarkable except in HPI and below Skin/Breast: Reports: new lesions PFSH ED PFSH: Medical History Asthma Colon polyps Cyclic vomiting syndrome GERD (gastroesophageal reflux disease) Hemorrhoids Hiatal hernia Hypokalemia Marijuana abuse, continuous Ovarian cyst Surgical History Hx of appendectomy Hx of cholecystectomy Family History Mother Stroke Breast cancer, Onset Age: 29 Uterine cancer age onset unknown Anesthesia complication Sister Ovarian cancer, Onset Age: 22 Family/Other Colon cancer maternal uncle Father Hyperlipidemia Heart disease Diabetes Hypertension Thyroid condition Denies family history of Clotting disorder Bleeding disorder Social History Alcohol intake: current Alcohol intake frequency: holidays/special occasions only Alcohol type: wine Female Reproductive History: Date of last menstrual period: 03/21/19 Physical Exam Const: COMMON NORMALS: alert Neck/C-Spine: COMMON NORMALS: full ROM Resp: COMMON NORMALS: normal respiratory effort Cardio: COMMON NORMALS: regular rate and regular rhythm RATE: regular rate RHYTHM: regular rhythm Extremity: RIGHT UPPER EXTREMITY: Yes hand & digits (Puncture wound to the middle index finger.) Right hand and digits: Yes inspection, Yes palpation, Yes ROM exam, Yes neurovascular exam and Yes tendon exam Neuro: SENSORIUM/ORIENTATION: Yes alert Psych: COMMON NORMALS: cooperative Skin: WOUNDS: Yes wounds noted (Puncture right index finger, mild swelling) Course Vital Signs: Vital signs: Vital Signs Temperature 98.7 F 09/08/21 17:18 Pulse Rate 81 09/08/21 17:18 Respiratory Rate 14 09/08/21 17:18 Blood Pressure 126/74 09/08/21 17:18 Pulse Oximetry 97 09/08/21 17:18 MDM - Animal Bite Medical Decision Making Patient comes in for evaluation of injury to the right index finger. On exam patient has a puncture wound to the finger. 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 Patient has had this pet in custody for the last 4 months. There is noticeable swelling to the middle right index finger. Good range of motion is noted cap refill is intact. Vital signs are normal. Patient reports tetanus up-to-date. Differential diagnosis includes but not limited to prophylaxis antibiotic, puncture wound, need for prophylaxis tetanus. Reviewed exam with patient with recommendations for treatment with antibiotic. Reviewed monitoring Pat from next 10 days for signs of infection or illness at that time I would recommend patient be started on rabies postexposure prophylaxis therapy. Patient was agreeable with this as she did not want to start on post exposure prophylaxis. We will start patient on Augmentin 1 tablet twice a day for next 7 days. Patient was instructed on wound care. Patient will follow up with primary care or return to the ER for worsening symptoms. Lab Data Radiology Impressions Hand X-Ray 09/08/21 17:23 IMPRESSION: No acute findings. Discharge Plan Discharge Patient Disposition: Home Clinical Impression: Bite by animal Condition: Stable Prescriptions: New Augmentin 875-125 mg tablet 1 tab PO BID Qty: 14 0RF No Action prednisone 10 mg tablet 10 mg PO DAILY 12 Days Qty: 42 0RF Rx Instructions: 12 day taper, instructions given to patient naproxen 500 mg tablet 500 mg PO BID 0RF sucralfate 1 gram tablet 1 g PO BID 0RF buspirone 7.5 mg tablet 7.5 mg PO BID 0RF pantoprazole 40 mg tablet,delayed release (DR/EC) See Rx Instructions .ROUTE .COMPLEX Qty: 180 0RF Dose Instruction: TAKE 1 TABLET BY MOUTH TWICE DAILY Rx Instructions: TAKE 1 TABLET BY MOUTH TWICE DAILY duloxetine 20 mg capsule,delayed release(DR/EC) 40 mg PO BEDTIME 0RF Zofran 4 mg tablet 4 mg PO Q6H PRN (Reason: nausea and vomiting) Qty: 20 0RF dicyclomine 10 mg capsule 10 mg PO QID PRN (Reason: abdominal discomfort) Qty: 20 0RF epinephrine [EpiPen 2-Olvin] 0.3 mg/0.3 mL Auto-Injector 0.3 mg IM Q10M PRN (Reason: Allergic Reaction) 0RF PNV cmb#95-ferrous fumarate-FA [ Multivitamins] 28 mg iron- 800 mcg Tablet 1 tab PO DAILY PRN (Reason: STATES SHE TAKES WHEN SHE REMEMBERS) 0RF metoclopramide HCl [Reglan] 5 mg tablet 5 mg PO BID Qty: 10 0RF paroxetine HCl [Paxil] 10 mg tablet 10 mg PO DAILY Qty: 10 0RF Discharge Orders: Discharge ED (Routine); Ordered 09/08/21 Ordered By: Davon Preciado Referrals: Rito Louise MD [Primary Care Provider] - Discharge Diet: Usual diet Discharge Activity: Increase activity as tolerated Patient Instructions: Animal Bite (ED) Activity Restrictions/Additional Instructions: Monitor pet for signs of illness. If pet becomes ill within the next 10 days they should be taken to the vet for evaluation. At that time you may need to consider whether or not you want rabies postexposure prophylactic therapy. Take antibiotics as directed. Drink plenty of water. Return to the ER for new concerns or worsening symptoms. Coding Level of Care Code ED Manager Marketing Sales for Tip Pérez
[2021-09-08] MEDS: amoxicillin-clav 875-125 mg Tablet 1 TAB PO (19:07)
== END 2021-09-08 19:09 | disposition home or self-care (01) ==
PROVIDERS: Emergency Provider Nurse Practitioner Family; PCP Family Medicine
DX: S61.250A Open bite of right index finger without damage to nail, initial encounter (principal); W55.81XA Bitten by other mammals, initial encounter
CPT/HCPCS: 73130; 99283

== ENCOUNTER 2021-11-09 08:41 | Outpatient (CLI) | payer OTHER, BC, MEDICAID, SELFPAY ==
--- NOTE | 2021-11-09 08:56 | MM_ITS ---
WS: [id number] DIAGNOSTIC BILATERAL 3D TOMOSYNTHESIS DIGITAL MAMMOGRAM WITH CAD HISTORY: LT BREAST LUMP/MASS;FAM HX OF BREAST CA COMPARISON: 12/07/2011 TECHNIQUE: Bilateral craniocaudad, mediolateral oblique, and mediolateral views are submitted. Comput er aided detection utilized. Breast composition: The breasts are heterogeneously dense, which may obscure small masses. Asymmetric fibroglandular densities in the upper outer quadrants of each breast. The fibroglandular pattern has progressed since 2011. May be related to hormonal influence. Palpable marker is placed in the dense soft tissue of the upper outer quadrant LEFT breast. No architectural or soft tissue distortion. No s uspicious calcifications in either breast. MM/[place] [id number] IMPRESSION: BI-RADS: 0-Incomplete: Need additional imaging evaluation FOLLOW UP: Need Additional Imaging Palpable marker placed in the upper-outer quadrant LEFT breast. As there is a p alpable abnormality ultrasound should be obtained in this area of dense fibrogl andular tissue.
== END 2021-11-09 08:42 | disposition home or self-care (01) ==
PROVIDERS: PCP Family Medicine; Visit Provider Family Medicine
DX: N63.21 Unspecified lump in the left breast, upper outer quadrant (principal); Z80.3 Family history of malignant neoplasm of breast
CPT/HCPCS: 77062

== ENCOUNTER 2021-11-16 13:43 | Outpatient (CLI) | payer BC, SELFPAY ==
--- NOTE | 2021-11-16 13:55 | US_ITS ---
WS: [id number] ULTRASOUND LEFT BREAST HISTORY: Palpable mass LEFT breast at 11:00. COMPARISON: Mammogram 11/09/2021. TECHNIQUE: 2-D and Doppler. Ultrasound is directed to the palpable area within the LEFT breast at 2:00, 5 to 8 cm from the nipple . There is dense fibroglandular tissue in the area of the palpable abnormality. There is no discrete mass. No cyst. There is a small benign-appearing lymph node or cyst at 12:00. No solid mass identifie d. US/US breast LT limited* [id number] IMPRESSION: BI-RADS: 2-Benign FOLLOW-UP: 1 Year Follow-up LACK OF RADIOGRAPHIC EVIDENCE OF MALIGNANCY SHOULD NOT DELAY BIOPSY IF A CLINIC ALLY SUSPICIOUS MASS IS PRESENT.
== END 2021-11-16 13:44 | disposition home or self-care (01) ==
LOC: RAD 13:44
PROVIDERS: PCP Family Medicine; Visit Provider Family Medicine
DX: N63.0 Unspecified lump in unspecified breast (principal)
CPT/HCPCS: 76642

== ENCOUNTER 2021-12-15 16:05 | Emergency (ER) | payer BC, MEDICAID, SELFPAY ==
[2021-12-15 16:13] VITALS: BP 123/84; PULSE 67; RESP 18; O2SAT 98; BMI 24.4
[2021-12-15 16:20] VITALS: BP 123/84; PULSE 60; O2SAT 97
--- NOTE | 2021-12-15 16:27 | XRR_ITS ---
NOTE: Report was unsigned for reason: Order was edited. Original Signature date and time was: 12/15/21 @ 1702 PROCEDURE INFORMATION: Exam: XR Pelvis Exam date and time: 12/15/2021 4:47 PM Age: 36 years old Clinical indication: Hip pain; Right hip; Additional info: Knee pain TECHNIQUE: Imaging protocol: XR pelvis. Views: 1 or 2 view. COMPARISON: CT abdomen pelvis w con* [id number] 06/05/2021 3:21 PM FINDINGS: Bones/joints: Unremarkable. No acute fracture. Joint space is preserved. Soft tissues: Unremarkable. MTDD XR/XR pelvis min 3V [id number] IMPRESSION: Unremarkable radiographs of the right hip and pelvis.
--- NOTE | 2021-12-15 16:27 | XRR_ITS ---
PROCEDURE INFORMATION: Exam: XR Right Knee Exam date and time: 12/15/2021 4:41 PM Age: 36 years old Clinical indication: Pain; Knee; Right; Additional info: Knee pain TECHNIQUE: Imaging protocol: XR Right knee. Views: 3 views. COMPARISON: No relevant prior studies available. FINDINGS: Bones/joints: Osseous structures are intact. Negative for fracture. Joint spaces are preserved. Soft tissues: Normal. XR/XR knee RT 3V* [id number] IMPRESSION: Unremarkable radiographs of the right knee.
[2021-12-15] MEDS: ketorolac 30 mg/mL INJ IM (17:10)
[2021-12-15] MEDS: morphine 4 mg/mL SDV 1 mL IM (17:10)
--- NOTE | 2021-12-15 17:21 | W.ED.EXTPRO ---
HPI - Extremity Problem General: Chief complaint: Extremity Injury, Lower Stated complaint: FALL/ HIP PAIN Time Seen by Provider: 12/15/21 16:07 [facility] PFSH: Medical History Asthma Colon polyps Cyclic vomiting syndrome GERD (gastroesophageal reflux disease) Hemorrhoids Hiatal hernia Hypokalemia Marijuana abuse, continuous Ovarian cyst Surgical History Hx of appendectomy Hx of cholecystectomy Family History Mother Stroke Breast cancer, Onset Age: 29 Uterine cancer age onset unknown Anesthesia complication Sister Ovarian cancer, Onset Age: 22 Family/Other Colon cancer maternal uncle Father Hyperlipidemia Heart disease Diabetes Hypertension Thyroid condition Denies family history of Clotting disorder Bleeding disorder Social History Alcohol intake: current Alcohol intake frequency: holidays/special occasions only Alcohol type: wine Female Reproductive History: Date of last menstrual period: 03/21/19 Course Vital Signs: Vital signs: Vital Signs Pulse Rate 60 12/15/21 16:20 Respiratory Rate 18 12/15/21 16:13 Blood Pressure 123/84 12/15/21 16:20 Pulse Oximetry 97 12/15/21 16:20 MDM - Extremity (Nontraumatic) Lab Data Radiology Impressions Knee X-Ray 12/15/21 16:27 IMPRESSION: Unremarkable radiographs of the right knee. Pelvis X-Ray 12/15/21 16:27 IMPRESSION: Unremarkable radiographs of the right hip and pelvis. Discharge Plan Discharge Condition: Stable Prescriptions: No Action No Known Home Medications 0RF Referrals: Rito Louise MD [Primary Care Provider] - Coding Level of Care Code ED Butadiene Converter Helper for Tip Pérez
--- NOTE | 2021-12-15 17:41 | W.ED.GENADLT ---
HPI - General Adult General: Chief complaint: Extremity Injury, Lower Stated complaint: FALL/ HIP PAIN Time Seen by Provider: 12/15/21 16:07 History of Present Illness: Patient is a 36-year-old female with no significant past medical who presents emergency room tonight for mechanical fall which occurred at 330 this afternoon. Patient was walking over a pothole when she fell onto her right knee and complains of right knee pain and right hip pain. Denies any LOC or head injury. No other signs of injury. Patient denies any anticoagulations. Patient has been able to ambulate after the incident. Onset:2 hrs ago Duration:ongoing Location:streets Severity:moderate Associated symptoms: Deny chest pain, dyspnea, nausea, rash, palpitations or vomiting Review of Systems Const: Denies: fever(s) or chills Eyes: Denies: change in vision ENMT: Denies: mouth pain Card: Denies: chest pain or palpitations Resp: Denies: dyspnea or non-productive cough GI: Denies: abdominal pain, nausea, vomiting or diarrhea : Denies: dysuria Musc: Reports: extremity pain (+R knee pain and R hip pain) Skin/Breast: Denies: rash or new lesions Neuro: Denies: weakness in extremities Psych: Reports: other (Normal mood) Klaus/Lymph: Denies: easy bruising PFSH ED PFSH: Medical History Asthma Colon polyps Cyclic vomiting syndrome GERD (gastroesophageal reflux disease) Hemorrhoids Hiatal hernia Hypokalemia Marijuana abuse, continuous Ovarian cyst Surgical History Hx of appendectomy Hx of cholecystectomy Family History Mother Stroke Breast cancer, Onset Age: 29 Uterine cancer age onset unknown Anesthesia complication Sister Ovarian cancer, Onset Age: 22 Family/Other Colon cancer maternal uncle Father Hyperlipidemia Heart disease Diabetes Hypertension Thyroid condition Denies family history of Clotting disorder Bleeding disorder Social History Alcohol intake: current Alcohol intake frequency: holidays/special occasions only Alcohol type: wine Female Reproductive History: Date of last menstrual period: 03/21/19 Physical Exam Const: COMMON NORMALS: alert HENMT: COMMON NORMALS: atraumatic HEAD & SCALP: atraumatic MOUTH: moist mucous membranes not abnormal Eye: COMMON NORMALS: EOMs intact bilaterally and conjunctivae normal CONJUNCTIVA: Yes conjunctivae normal Neck/C-Spine: COMMON NORMALS: full ROM and supple Resp: COMMON NORMALS: normal respiratory effort and clear to auscultation bilaterally AUSCULTATION: clear to auscultation bilaterally Cardio: COMMON NORMALS: regular rate RATE: regular rate GI: COMMON NORMALS: Soft to palpation and non-tender PALPATION: Yes Soft to palpation Extremity: COMMON NORMALS: full ROM NARRATIVE EXTREMITY EXAM: +Full motion right knee and right hip, mild tenderness palpation over the right knee. Patient is able to ambulate and bear weight. Neurovascular exam intact in the affected extremity. Neuro: SENSORIUM/ORIENTATION: Yes alert MOTOR EXAM: No Abnormal motor strength present and Other motor observations present (no focal motor deficits) Psych: COMMON NORMALS: speech normal SPEECH: Yes normal speech MOOD & AFFECT: Yes euthymic mood Course Vital Signs: Vital signs: Vital Signs Pulse Rate 60 12/15/21 16:20 Respiratory Rate 18 12/15/21 16:13 Blood Pressure 123/84 12/15/21 16:20 Pulse Oximetry 97 12/15/21 16:20 MDM - General Adult Medical Decision Making 28-year-old female presents emergency with complaints of right knee and right hip pain after episode of fall. Patient has mild bruises very left anterior knee. The knee knee does not to be dislocated. Range of motion the right knee intact. X-Ray of the Knee and Hip Negative for Any Acute Findings. Patient Received Knee Immobilizer and Crutches. Patient Received IM Morphine and Toradol with improvement in Pain. Patient is instructed to follow-up and repeat x-ray in 1 week if there is any ongoing pain. Rx: norflex, tylenol, lidocaine patch, and menthol PRN pain Disposition: Discharge. Patient counseled regarding diagnostic impression, treatment plan. Patient given ED strict return precautions to return for continuation, worsening, or development of new symptoms. Instructed to f/u w/ PCP regarding symptoms today. Patient verbalized understanding. Lab Data Radiology Impressions Knee X-Ray 12/15/21 16:27 IMPRESSION: Unremarkable radiographs of the right knee. Pelvis X-Ray 12/15/21 16:27 IMPRESSION: Unremarkable radiographs of the right hip and pelvis. Imaging Data Other Imaging: Radiologist's impression: [facility] [place] [address] XRay Report Signed Patient: Renetta Henson Unit #: [id number] : 1985 Age/Sex: 36 / F ADM Date: 12/15/21 Loc: ER Room/Bed: Attending Dr: Ordering Provider/Ordering MD: Yany Hassan MD Date of Service: 12/15/21 Procedure(s): XR pelvis min 3V [id number] Accession Number(s): [id number] Report Number: [id number] PROCEDURE INFORMATION: Exam: XR Pelvis Exam date and time: 12/15/2021 4:47 PM Age: 36 years old Clinical indication: Hip pain; Right hip; Additional info: Knee pain TECHNIQUE: Imaging protocol: XR pelvis. Views: 1 or 2 view. COMPARISON: CT abdomen pelvis w con* [id number] 06/05/2021 3:21 PM FINDINGS: Bones/joints: Unremarkable. No acute fracture. Joint space is preserved. Soft tissues: Unremarkable. XR/XR pelvis min 3V [id number] IMPRESSION: Unremarkable radiographs of the right hip and pelvis. ? Dictated By: Armando Staton DO Signed By: Armando Staton DO Signed Date/Time: 12/15/21 170 DD/ [address] [place] [address] XRay Report Signed Patient: Renetta Henson Unit #: [id number] : 1985 Age/Sex: 36 / F ADM Date: 12/15/21 Loc: ER Room/Bed: Attending Dr: Ordering Provider/Ordering MD: Yany Hassan MD Date of Service: 12/15/21 Procedure(s): XR knee RT 3V* [id number] Accession Number(s): [id number] Report Number: [id number] PROCEDURE INFORMATION: Exam: XR Right Knee Exam date and time: 12/15/2021 4:41 PM Age: 36 years old Clinical indication: Pain; Knee; Right; Additional info: Knee pain TECHNIQUE: Imaging protocol: XR Right knee. Views: 3 views. COMPARISON: No relevant prior studies available. FINDINGS: Bones/joints: Osseous structures are intact. Negative for fracture. Joint spaces are preserved. Soft tissues: Normal. XR/XR knee RT 3V* [id number] IMPRESSION: Unremarkable radiographs of the right knee. ? Dictated By: Armando Staton DO Signed By: Armando Staton DO Signed Date/Time: 12/15/21 1703 DD/ 1641 Discharge Plan Discharge Patient Disposition: Home Clinical Impression: Acute knee pain, Acute hip pain, Accident due to mechanical fall without injury Condition: Stable Prescriptions: New acetaminophen 500 mg tablet 500 mg PO Q6H PRN (Reason: pain) 5 Days Qty: 20 0RF lidocaine 5 % adhesive patch,medicated 1 patch topical DAILY PRN (Reason: pain) 30 Days Qty: 30 0RF Rx Instructions: leave on most painful area for up to 12 hrs orphenadrine citrate 100 mg tablet extended release 100 mg PO BID PRN (Reason: pain) 10 Days Qty: 20 0RF Biofreeze (menthol) 5 % gel 1 ea topical BID PRN (Reason: pain) 10 Days Qty: 1 0RF Discharge Orders: Discharge ED (Routine); Ordered 12/15/21 Ordered By: Yany Hassan Referrals: Rito Louise MD [Primary Care Provider] - Discharge Diet: Advance as tolerated Discharge Activity: Increase activity as tolerated Patient Instructions: Knee Pain (ED), Hip Pain (ED) Activity Restrictions/Additional Instructions: Please use your knee immobilizer, crutches as needed for pain. Please use ice warm compresses and medicine given. Come back to the emergency room or follow-up with primary care provider in 5 to 6 days if you are still having persistent pain as you may have an occult fracture. Stand Alone Forms: Work/School Release Coding Level of Care Code ED Franchise Sales Representative for Tip Fwtorrey Exam Comprehensive
[2021-12-15 18:36] VITALS: BP 110/63; PULSE 52; O2SAT 98
== END 2021-12-15 18:35 | disposition home or self-care (01) ==
PROVIDERS: Emergency Provider Emergency Medicine; PCP Family Medicine
DX: M25.551 Pain in right hip (principal); M25.561 Pain in right knee; W19.XXXA Unspecified fall, initial encounter
CPT/HCPCS: 29530; 72170; 72190; 73562; 96372; 99283; E0114; J1885; J2270

== ENCOUNTER → 2022-02-05 10:23 | Outpatient (BNVA) | payer BC, MEDICAID, SELFPAY | PROVIDERS: PCP Family Medicine; Visit Provider Obstetrics & Gynecology | DX: Z01.812 Encounter for preprocedural laboratory examination (principal); N81.6 Rectocele; N32.81 Overactive bladder; N39.41 Urge incontinence | CPT/HCPCS: 81000 ==

== ENCOUNTER 2022-02-11 17:39 | Observation (INO) | payer BC, MEDICAID, SELFPAY ==
[2022-02-05 09:30] VITALS: BMI 24.4
--- NOTE | 2022-02-05 09:49 | P.ANESASSM_ITS ---
Pre-Anesthetic Assessment Height/Weight: Height 1.52 m Weight 56.699 kg Preop Diagnosis: Incontinence Operation Date: 02/11/22 13:50 Proposed Procedures p Posterior colporrhaphy 46564, sacropinous fixation 68102(Not Applicable) - Kimani Sheffield MD s Sacrospinous Ligament Suspension(Not Applicable) - Kimani Sheffield MD Familial anesthetic complications: PONV Was Beta Rebeca taken within 24 hours: N/A Was Clonidine taken within 24 hours: N/A Social No alcohol and No tobacco Exam alert, oriented x 3, clear to auscultation bilaterally and regular rate & rhythm Airway Submandibular: within normal limits Cervical ROM: within normal limits Mallampati: Class II Dentition: chipped Comments: Comments: Chipped upper right central incisor Pulmonary Asthma CV/HEM None reported EKG 03/14 ? ? Interpretive Statements SINUS RHYTHM WITH SINUS ARRHYTHMIA POSSIBLE LEFT ATRIAL ENLARGEMENT? [-0.1mV P-WAVE IN V1/V2] LOW QRS VOLTAGE IN PRECORDIAL LEADS? [QRS DEFLECTION < 1.0 mV IN CHEST LEADS] PATTERN CONSISTENT WITH PULMONARY DISEASE MODERATE ST DEPRESSION? [0.05+ mV ST DEPRESSION] Compared to ECG 12/06/2019 22:36:56 Low QRS voltage now present ST (T wave) deviation now present T-wave abnormality no longer present Electronically Signed On 03-19-2021 22:22:20 CDT by BELKIS GUAJARDO [email or web address] OAB Incontinence GI Gastroesophageal Reflux Disease (Poorly controlled with reflux on empty stomach ) and Hiatal Hernia Hx of cyclic vomiting Metabolic None reported Musc/skel Lower Back Pain and None reported Neuropsych Neuropathy and None reported Anesthetic Plan ASA status: 2 Anesthesia: Anesthesia Evaluation and General Other: We discussed risk and benefits of general anesthesia including PONV, sore throat (sometimes severe), corneal abrasion, positioning and peripheral nerve injuries, life threatening allergic reaction, post operative ICU admission requiring prolonged intubation, aspiration, stroke, heart attack, , and rare incidences of recall. Patient consents to proceed with general anesthesia. Plan GETA, RSI Risk of > 500 ml blood loss (7ml/kg in children): No Medications/Allergies Home Medications Medication Instructions Recorded Confirmed Last Taken Type miconazole nitrate 200 mg/5 gram VAGINAL 02/05/22 02/05/22 Unknown History (4 %) vaginal cream (Monistat 3) Allergies Allergy/AdvReac Type Severity Reaction Status Date / Time Beef Containing Products Allergy Severe severe Verified 02/05/22 10:18 abdominal pain and vomiting pork derived (porcine) Allergy Severe severe Verified 02/05/22 10:18 abdominal pain and vomiting topiramate [From Topamax] Allergy mood swings Verified 02/05/22 10:18 [facility] Anesthesia Medical History Asthma Colon polyps Cyclic vomiting syndrome GERD (gastroesophageal reflux disease) Hemorrhoids Hiatal hernia Hypokalemia Marijuana abuse, continuous Ovarian cyst Surgical History Hx of appendectomy Hx of cholecystectomy Family History Mother Stroke Breast cancer, Onset Age: 29 Uterine cancer age onset unknown Anesthesia complication Sister Ovarian cancer, Onset Age: 22 Family/Other Colon cancer maternal uncle Father Hyperlipidemia Heart disease Diabetes Hypertension Thyroid condition Denies family history of Clotting disorder Bleeding disorder Social History Alcohol intake: current Alcohol intake frequency: holidays/special occasions only Alcohol type: wine Female Reproductive History Date of last menstrual period: 03/21/19 Data Anesthesia Cardiac Studies: No Data to Display
[2022-02-11] VITALS (18 sets, daily range): BP systolic 96–124; BP diastolic 43–94; PULSE 51–85; RESP 15–18; TEMP 36.2–36.8; O2SAT 93–100
[2022-02-11 12:27] LABS: OR HCG Qualitative Urine Negative (Negative)
[2022-02-11] MEDS: sodium chloride 0.9% 500 ML IV (13:02)
[2022-02-11] MEDS: sodium chloride 0.9% 1,000 ML 30 ML IV (13:50)
[2022-02-11 14:00] LABS: Basophils % 0.2 %; Eosinophils # 0.2 10^3/uL (0.0-0.8); Eosinophils % 1.2 %; Hematocrit 40.8 % (37.0-47.0); Hemoglobin 13.4 g/dL (11.5-15.3); Lymphocytes # 2.6 10^3/uL (0.8-4.8); Lymphocytes % 21.2 %; Mean Corpuscular HGB Conc 32.8 g/dL (30.0-36.0); Mean Corpuscular Hemoglobin 30.9 pg (28.0-34.0); Mean Platelet Volume 11.8 fL (7.4-10.4); Monocytes # 0.7 10^3/uL (0.2-0.9); Monocytes % 5.4 %; Neutrophils # 8.81 10^3/uL (1.8-7.7); Neutrophils % 71.7 %; Nucleated Red Blood Cells % 0 %; Platelet Count 313 10^3/cmm (130-400); Red Blood Count 4.34 10^6/uL (4.1-5.3); Red Cell Distribution Width 13.7 % (12.1-15.1); White Blood Count 12.3 10^3/uL (4.0-10.0)
[2022-02-11 14:22] LABS: Alanine Aminotransferase 8 U/L (0-33); Albumin Level 4.5 g/dL (3.5-5.2); Alkaline Phosphatase 71 IU/L (35-105); Anion Gap 15.2 (5-19); Aspartate Amino Transferase 18 U/L (0-32); Blood Urea Nitrogen 11 mg/dL (6-20); Calcium 9.7 mg/dL (8.5-10.5); Carbon Dioxide 25 mmol/L (22-29); Chloride 103 mmol/L (98-107); Globulin 2.9 g/dL (1.3-4.6); Glomerular Filtration Rate 111.9 mL/min (90-130); Glucose 86 mg/dL (65-115); Osmolality Calculated 287 mOsm/kg (285-295); Potassium 4.2 mmol/L (3.5-5.1); Sodium 139 mmol/L (136-145); Total Bilirubin 0.4 mg/dL (0.15-1.2); Total Protein 7.4 g/dL (6.6-8.7)
[2022-02-11 14:45] LABS: Specific Gravity, Urine 1.025 (1.005-1.030); Urine Appearance Clear (CLEAR); Urine Color Yellow (Yellow); pH Urine 5 (5-7)
[2022-02-11 14:46] LABS: Add Urine Microscopic? YES; Bilirubin Urine 1+ (Negative); Blood Urine Neg (Negative); Glucose Urine UA Norm (Normal); Ketones Urine 1+ (Negative); Leukocyte Esterase Urine 1+ (Negative); Nitrate Urine Negative (Negative); Protein Urine Neg (Negative); RBC Urine 0-4 /hpf (0-2); Urobilinogen Urine 1 mg/dL (Negative)
[2022-02-11 14:47] LABS: Add Urine Culture? No; Mucus Urine 3+ /hpf
[2022-02-11] MEDS: scopolamine 1.5 Patch 1 PATCH TRANSDERMA (15:13)
--- NOTE | 2022-02-11 15:23 | P.ANESUD_ITS ---
Pre-Anesthetic Update Pre-Anesthetic Assessment: Date of Surgery/Procedure: 02/11/22 Preop Amberly gnosis: Rectocele Proposed Procedure: Operation Date: 02/11/22 13:30 Proposed Procedures p Posterior colporrhaphy 33697, sacropinous fixation 26746(Not Applicable) - Kimani Sheffield MD s Sacrospinous Ligament Suspension(Not Applicable) - Kimani Sheffield MD Any changes to Pre-Anesthetic Assessment?: No Last Intake: Intake Last Liquid Date 02/11/22 Last Liquid Time 00:00 Last Solid Date 02/11/22 Last Solid Time 00:00 Labs Last 48hrs: Short CBC 02/11/22 Range/Units 12:53 WBC 12.3 H (4.0-10.0) 10^3/ uL Hgb 13.4 (11.5-15.3) g/dL Hct 40.8 (37.0-47.0) % MCV 94.0 (81-99) fl Plt Count 313 (130-400) 10^3/c mm Neut % (Auto) 71.7 % Neut # (Auto) 8.81 H (1.8-7.7) 10^3/u L BMP 02/11/22 12:53 Sodium 139 Potassium 4.2 Chloride 103 Carbon Dioxide 25 BUN 11 Creatinine 0.6 Glucose 86 Calcium 9.7 Liver Function 02/11/22 Range/Units 12:53 Total Bilirubin 0.4 (0.15-1.2) mg/dL AST 18 (0-32) U/L ALT 8 (0-33) U/L Alkaline Phosphata se 71 (35-105) IU/L Albumin 4.5 (3.5-5.2) g/dL Urine 02/11/22 Range/Units 12:15 Urine Color Yellow (Yellow) Urine Appearance Clear (CLEAR) Urine pH 5 (5-7) Ur Specific Gravit y 1.025 (1.005-1.030) Urine Protein Neg (Negative) Urine Glucose (UA) Norm (Normal) Urine Ketones 1+ H (Negative) Urine Nitrate Negative (Negative) Urine Bilirubin 1+ H (Negative) Ur Leukocyte Zakiya ase 1+ H (Negative) Urine RBC 0-4 H (0-2) /hpf Urine WBC 5-10 H (0-5) /hpf Blood Bank 02/11/22 14:11 Blood Type A Positive Rho(D) Type Positive Antibody Screen Negative Vitals: Temperature 98.1 F 02/11/22 12:17 Temperature Source Temporal Artery S can 02/11/22 12:17 Pulse Rate 71 02/11/22 12:17 Respiratory Rate 18 02/11/22 12:17 Blood Pressure 109/65 02/11/22 12:17 Blood Pressure Daniella n 79 02/11/22 12:17 Pulse Oximetry 94 02/11/22 12:17 Oxygen Delivery Me thod 02/11/22 12:23 Exam: Pre-Anes Outpt Exam: alert, oriented x 3, clear to auscultation bilaterally and regular rate & rhythm Cardiac Studies: No Data to Display
--- NOTE | 2022-02-11 15:57 | W.PM.OPSUD ---
Surgery/Procedure H&P Update DATE OF PROCEDURE: February 11, 2022 DATE H&P PERFORMED: 02/05/22 H&P UPDATE INFORMATION: I have reviewed H&P completed within last 30 days, I have examined patient prior to procedure and No changes to prior documentation PREOP DIAGNOSIS: Rectocele PLANNED PROCEDURE: Operation Date: 02/11/22 13:30 Proposed Procedures p Posterior colporrhaphy 32082, sacropinous fixation 65150(Not Applicable) - Kimani Sheffield MD s Sacrospinous Ligament Suspension(Not Applicable) - Kimani Sheffield MD
[2022-02-11] MEDS: ceFAZolin 2,000 MG in sodium chloride 0.9% (plus) 50 ML 100 MG IV (16:06)
--- NOTE | 2022-02-11 17:31 | PM.OP ---
Operative Report Date of procedure: February 11, 2022 Pre-op diagnosis: Preop Diagnosis Rectocele Post-op diagnosis: same Procedure done: Posterior colporrhaphy Specimens removed/disposition: None Surgeon: Kimani Sheffield MD Estimated blood loss (mL): 100 IV fluids (mL): 1,000 Urine output (mL): 50 Procedure: After obtaining informed consent, the patient was taken to the operating room and placed in the supine position, given general anesthesia, and prepped and draped in sterile fashion. The abdomen, vulva and vagina were prepped and draped in a sterile manner. A time out procedure was performed. The vaginal mucosa was then injected in the midline with normal saline. An incision was made across the introitus. Metzenbaum scissors were used to tunnel beneath posterior vaginal mucosa until the apex of the rectocele bulge was reached. At this point, the rectum was from the posterior vaginal mucosa using sharp and blunt dissection, and the rectal bulge imbricated in the midline with interrupted sutures of 2-0 vicryl suture. Levator ani muscles on either side were approximated in the midline with interrupted 0 Vicryl sutures. Excess posterior vaginal mucosa was excised, and the vaginal episiotomy was repaired by approximating the posterior vaginal mucosa with a suture of Vicryl #0.
[2022-02-11] MEDS: fentaNYL 50 mcg/mL INJ 2mL IVP ×2 (17:51→17:57)
[2022-02-11] MEDS: meperidine 50 mg/mL INJ 25 MG IV (18:19)
--- NOTE | 2022-02-11 18:20 | ANE.PACU2 ---
Inpatient post-anesthesia follow up: Airway intact: Yes Vital signs: Temperature 98.3 F Pulse Rate 71 Respiratory Rate 16 Blood Pressure 108/67 Pulse Oximetry 100 Oxygen Delivery Me thod Simple Mask Oxygen Flow Rate 6 Fraction of Inspir ed Oxygen Hydration adequate: Yes Pain level: 4 Mental status: Baseline
--- NOTE | 2022-02-11 18:40 | PC.NURSE ---
Report received from PACU at this time. GREY RN
[2022-02-11] MEDS: dextrose 5%-lactated ringers 1,000 ML 125 ML IV (20:10)
[2022-02-11] MEDS: HYDROcodone-acetaminophen 5-325 mg Tablet PO ×2 (20:43→20:50)
[2022-02-11] MEDS: ondansetron 2 mg/ML SDV 2 mL 4 MG IVP (20:44)
[2022-02-11] MEDS: diphenhydrAMINE 50 mg/mL SDV 1mL 25 MG IVP (22:46)
[2022-02-11] MEDS: ketorolac 30 mg/mL INJ IVP (22:47)
[2022-02-11] MEDS: nicotine 21 mg Patch 1 PATCH TRANSDERMA (23:38)
[2022-02-12] VITALS: BP 117/56; PULSE 55; RESP 15; TEMP 36.6; O2SAT 97
[2022-02-12 01:40] VITALS: BP 93/54; PULSE 57; RESP 14; TEMP 36.6; O2SAT 100
[2022-02-12] MEDS: diphenhydrAMINE 50 mg/mL SDV 1mL 25 MG IVP ×2 (02:52→10:27)
[2022-02-12] MEDS: HYDROcodone-acetaminophen 5-325 mg Tablet PO ×2 (02:52→10:27)
[2022-02-12] MEDS: ketorolac 30 mg/mL INJ IVP ×2 (04:29→10:27)
[2022-02-12 04:32] VITALS: BP 91/57; PULSE 56; RESP 16; TEMP 36.6; O2SAT 97
[2022-02-12 04:38] LABS: Hematocrit 35.1 % (37.0-47.0); Mean Corpuscular HGB Conc 34.2 g/dL (30.0-36.0); Mean Corpuscular Hemoglobin 31.6 pg (28.0-34.0); Mean Corpuscular Volume 92.4 fl (81-99); Mean Platelet Volume 11.1 fL (7.4-10.4); Platelet Count 264 10^3/cmm (130-400); Red Cell Distribution Width 13.4 % (12.1-15.1)
[2022-02-12] MEDS: dextrose 5%-lactated ringers 1,000 ML 125 ML IV (05:52)
--- NOTE | 2022-02-12 07:23 | PM.OBGYDC ---
Discharge Providers BUCKLE STAPLER Date of Admission: 02/11/22 17:39 Date of Discharge: 02/12/22 Attending Provider at Admission: Kimani Sheffield MD Attending Provider at Discharge: Kimani Sheffield MD Primary BUCKLE STAPLER: Kimani Sheffield MD Primary Care Provider: Rito Louise MD Reason for Visit Reason for Visit: Brief History: Mrs. Henson 36-year-old female post hysterectomy with onset rectocele stage II Hospital Course Hospital Course Mrs. Henson with a rectocele stage II admitted for planned posterior colporrhaphy and sacrospinous fixation. Exam under anesthesia showed the patient had good vaginal cuff support did not need the sacrospinous fixation. A posterior colporrhaphy was performed without complication. Overnight observation uneventful pain well controlled with medication. Tolerating diet well. Ambulating. Is afebrile and hemodynamically stable postoperative day 1. Counseled regarding pelvic rest for 6 weeks (no sex, no tampons, no vaginal douches). Return to the emergency room if any fever, increased bleeding or pain. Physical Exam Narrative: GA: Alert and oriented ?3. HEENT: WNL. Heart: Regular rate and rhythm. Lungs: Clear to auscultation bilaterally. Abdomen: Bowel sounds present, nontender. 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 Extremities: No edema, no cyanosis, no calves pain. Urinary Catheter Management: Pleitez: Cath Placed During This Visit: yes Urinary Catheter Date of Insertion: 02/11/22 Urinary Catheter Time of Insertion: 16:31 History History History 5 Term 3 Miscarriages/Ectopic 2 0 Living Children 3 Discharge Data Studies Completed and Pending Laboratory Results WBC 19.0 10^3/uL (4.0-10.0) H 02/12/22 04:27 RBC 3.80 10^6/uL (4.1-5.3) L 02/12/22 04:27 Hgb 12.0 g/dL (11.5-15.3) 02/12/22 04:27 Hct 35.1 % (37.0-47.0) L 02/12/22 04:27 MCV 92.4 fl (81-99) 02/12/22 04:27 MCH 31.6 pg (28.0-34.0) 02/12/22 04:27 MCHC 34.2 g/dL (30.0-36.0) 02/12/22 04:27 RDW 13.4 % (12.1-15.1) 02/12/22 04:27 Plt Count 264 10^3/cmm (130-400) 02/12/22 04:27 MPV 11.1 fL (7.4-10.4) H 02/12/22 04:27 Neut % (Auto) 71.7 % 02/11/22 12:53 Lymph % (Auto) 21.2 % 02/11/22 12:53 [place] % (Auto) 5.4 % 02/11/22 12:53 Eos % (Auto) 1.2 % 02/11/22 12:53 Baso % (Auto) 0.2 % 02/11/22 12:53 Neut # (Auto) 8.81 10^3/uL (1.8-7.7) H 02/11/22 12:53 Lymph # (Auto) 2.6 10^3/uL (0.8-4.8) 02/11/22 12:53 [place] # (Auto) 0.7 10^3/uL (0.2-0.9) 02/11/22 12:53 Eos # (Auto) 0.2 10^3/uL (0.0-0.8) 02/11/22 12:53 Baso # (Auto) 0.0 10^3/uL (0.0-0.1) 02/11/22 12:53 Nucleated RBC % (auto) 0 % 02/11/22 12:53 Nucleated RBCs # 0.0 /100WBC 02/11/22 12:53 Sodium 139 mmol/L (136-145) 02/11/22 12:53 Potassium 4.2 mmol/L (3.5-5.1) 02/11/22 12:53 Chloride 103 mmol/L (98-107) 02/11/22 12:53 Carbon Dioxide 25 mmol/L (22-29) 02/11/22 12:53 Anion Gap 15.2 (5-19) 02/11/22 12:53 BUN 11 mg/dL (6-20) 02/11/22 12:53 Creatinine 0.6 mg/dL (0.5-0.9) 02/11/22 12:53 GFR Calculation 111.9 mL/min (90-130) 02/11/22 12:53 Glucose 86 mg/dL (65-115) 02/11/22 12:53 Calculated Osmolality 287 mOsm/kg (285-295) 02/11/22 12:53 Calcium 9.7 mg/dL (8.5-10.5) 02/11/22 12:53 Total Bilirubin 0.4 mg/dL (0.15-1.2) 02/11/22 12:53 AST 18 U/L (0-32) 02/11/22 12:53 ALT 8 U/L (0-33) 02/11/22 12:53 Alkaline Phosphatase 71 IU/L (35-105) 02/11/22 12:53 Total Protein 7.4 g/dL (6.6-8.7) 02/11/22 12:53 Albumin 4.5 g/dL (3.5-5.2) 02/11/22 12:53 Globulin 2.9 g/dL (1.3-4.6) 02/11/22 12:53 Urine Color Yellow (Yellow) 02/11/22 12:15 Urine Appearance Clear (CLEAR) 02/11/22 12:15 Urine pH 5 (5-7) 02/11/22 12:15 Ur Specific [place] 1.025 (1.005-1.030) 02/11/22 12:15 Urine Protein Neg (Negative) 02/11/22 12:15 Urine Glucose (UA) Norm (Normal) 02/11/22 12:15 Urine Ketones 1+ (Negative) H 02/11/22 12:15 Urine Blood Neg (Negative) 02/11/22 12:15 Urine Nitrate Negative (Negative) 02/11/22 12:15 Urine Bilirubin 1+ (Negative) H 02/11/22 12:15 Urine Urobilinogen 1 mg/dL (Negative) H 02/11/22 12:15 Ur Leukocyte Esterase 1+ (Negative) H 02/11/22 12:15 Urine RBC 0-4 /hpf (0-2) H 02/11/22 12:15 Urine WBC 5-10 /hpf (0-5) H 02/11/22 12:15 Ur Squamous Epith Cells 5-10 /hpf (0-5) H 02/11/22 12:15 Amorphous Sediment Not Reportable 02/11/22 12:15 Urine Bacteria None /hpf (NONE) 02/11/22 12:15 Urine Mucus 3+ /hpf 02/11/22 12:15 Urine HCG, Qual Negative (Negative) 02/11/22 12:15 Blood Type A Positive 02/11/22 14:11 Rho(D) Type Positive 02/11/22 14:11 Antibody Screen Negative 02/11/22 14:11 Vitals Last Vital Signs Temp 97.9 F 02/12/22 04:32 Pulse 56 L 02/12/22 04:32 Resp 16 02/12/22 04:32 BP 91/57 02/12/22 04:32 Pulse Ox 97 02/12/22 04:32 Discharge Plan Discharge Patient Disposition: Home Condition: Stable Prescriptions: New hydrocodone-acetaminophen 5-325 mg tablet 1 tab PO Q4H PRN (Reason: pain) Qty: 20 0RF Continued oxybutynin chloride 5 mg tablet extended release 24 hr 5 mg PO DAILY Qty: 30 0RF Discharge Orders: Discharge Order (Routine); Ordered 02/12/22 Ordered By: Kimani Sheffield Discharge Diet: Soft Mechanical Discharge Activity: Limit activity as instructed Patient Instructions: Opioid Safety, Posterior Vaginal Repair (GEN) Activity Restrictions/Additional Instructions: 1. Please call [facility] on next working day to make your post-operative appointment in 2 weeks. 2. Please stay home until you come back to the clinic on first post-operative check up. 3. Please follow instructions on your medications CAREFULLY. 4. If you have abdominal incision, do not cover it unless dressing is necessary because of drainage. OK to shower, but avoid bath. Leave steri-strips until they fall off. If they are still on one week after surgery, you may remove them. 5. If you had vaginal surgery or vaginal repair, Dr. Sheffield may instruct you to take SITZ bath. 6. Yellow, blood tinged odorous vaginal discharge is usually normal after hysterectomy or vaginal surgeries. 7. No sexual intercourse, tampons, or douches until you are completely released from the post-operative care. 8. Avoid constipation by eating right and maybe using some Metamucil or Milk of Magnesia. 9. All prescription refills are given during the working hours. Please do no wait till it runs out. Call the clinic at [phone] before your medication runs out. The clinic will get in touch with your doctor to prescribe medications if necessary. 10. Please remain within 40 mile radius from our hospital because emergencies do happen now and then during the post-operative period. 11. If you have stairs at home, take one step at a time slowly and minimize the number of trips. It helps to stay in one floor for the next few days. No lifting except what you can lift by one hand until you are released from the post-operative care. 12. Driving is discouraged until you are well healed. It may be 3-4 weeks before you feel strong enough to drive. You should be able to turn and look through the rear window without pain and you should be able to push the brake pedal very hard without pain before you drive. No fast rules, but SAFETY should be your primary concern. DO NOT drive if you are on sedating medications such as narcotics. 13. Call the clinic (during working hours) to make urgent appointment or go to the Emergency room, if any of the following occurs: i. Vaginal bleeding becomes heavy, more than a period. ii. Incision becomes red and sore, or drains pus. iii. Your temperature is over 100.4 or you have chill. iv. IV site becomes red and swollen (a little ``knot?? is usually OK) v. Persistent nausea and vomiting vi. Persistent constipation or diarrhea vii. Rash or allergic reaction to medications. Discharge Attestations BUCKLE STAPLER Time Spent in Discharge Care*: greater than 30 min Coding Level of Care Code Acute [employer] [place] for Tip Pérez
[2022-02-12] MEDS: docusate sodium 100 mg Capsule PO (10:28)
[2022-02-12] MEDS: oxybutynin chloride XL 5 MG TABLET PO (10:29)
[2022-02-12 10:30] VITALS: BP 98/78; PULSE 54; RESP 17
[2022-02-12 16:41] VITALS: BP 97/59; PULSE 52; RESP 17
[2022-02-12 17:52] VITALS: BP 100/57; PULSE 57; RESP 17
== END 2022-02-12 17:56 | disposition home or self-care (01) ==
LOC: OBGYN 17:39
PROVIDERS: Admitting Provider Obstetrics & Gynecology; PCP Family Medicine; Visit Provider Obstetrics & Gynecology
PROC: (CPT 57250; principal; 2022-02-11 13:20)
PROC: (CPT 57282; 2022-02-11 13:20)
DX: N81.6 Rectocele (principal); K21.9 Gastro-esophageal reflux disease without esophagitis; J45.909 Unspecified asthma, uncomplicated
CPT/HCPCS: 57250; 36415; 80053; 81001; 84703; 85025; 85027; 86850; 86900; G0378; J0330; J1100; J1200; J1885; J2175; J2250; J2405; J2710; J3010; J3490; J7030; J7040

== ENCOUNTER 2022-12-01 14:49 | Outpatient (CLI) | payer BC, MEDICAID, SELFPAY ==
--- NOTE | 2022-12-01 14:57 | MM_ITS ---
WS: [id number] BILATERAL 3D TOMOSYNTHESIS DIGITAL SCREENING MAMMOGRAPHY WITH CAD CLINICAL INFORMATION: SCREENING HISTORY: Screening mammogram. Bilateral breast pain and soreness. COMPARISON: November 09, 2021 TECHNIQUE: Bilateral CC and MLO views. FINDINGS: The breasts are composed of heterogeneous fibroglandular density tissue, which can limit the detectio n of small underlying mass lesions. No suspicious mass, asymmetry, calcifications, or architectural d istortion. No evidence of malignancy. MM/[place] [id number] IMPRESSION: BI-RADS: 1-Negative FOLLOW UP: 1 Year Follow-up Recommend return to annual screening mammography.
== END 2022-12-01 14:50 | disposition home or self-care (01) ==
LOC: RAD 14:51
PROVIDERS: PCP Family Medicine; Visit Provider Family Medicine
DX: Z12.31 Encounter for screening mammogram for malignant neoplasm of breast (principal)
CPT/HCPCS: 77063; 77067

== ENCOUNTER 2025-01-31 12:15 | Outpatient (CLI) | payer OTHER, SELFPAY ==
--- NOTE | 2025-01-31 12:31 | XR_ITS ---
WS: [id number] Exam: XR hand RT min 3V* [id number] Date/Time of Exam: 01/31/2025 12:31 PM Reason For Exam: PAIN IN RIGHT HAND, BITTEN BY DOG. Comparison 09/08/2021. No fracture noted. The joints are preserved. No soft tissue foreign bodies. XR/XR hand RT min 3V* [id number] IMPRESSION: 1. No fracture or or other significant finding.
== END 2025-01-31 12:16 | disposition home or self-care (01) ==
PROVIDERS: PCP Family Medicine; Visit Provider Family Medicine
DX: M79.641 Pain in right hand (principal); W54.0XXA Bitten by dog, initial encounter
CPT/HCPCS: 73130